=== PATIENT | female | born 1955 | race Caucasian/White ===

== ENCOUNTER → 2024-10-14 | Outpatient (CLI) | payer BC, SELFPAY ==
--- NOTE | 2024-10-14 13:05 | MRI_ITS ---
PROCEDURE: SPINE CERVICAL (ROUTINE) 10/14/2024 REASON FOR EXAM: PAIN TECHNIQUE: Multiplanar and multisequence images were obtained without IV contrast administration. Axial and sagittal T1 and T2 weighted images were obtained. Fat suppressed images were also obtained. COMPARISON: Radiograph on 09/22/2024. FINDINGS: Moderate diffuse spondylosis. Findings are demonstrated by multifocal disc dehydration, disc space narrowing, osteophyte formation and degenerative endplate changes. Multilevel facet joint arthropathy and degenerative uncovertebral joint disease. There is normal signal intensity from the visualized bone marrow without evidence of replacement or acute fracture. The visualized portions of the spinal cord are unremarkable. The visualized portions of the posterior fossa are unremarkable. There is reversal of the cervical lordosis. Evaluation of the individual levels revealed the following: C2-C3: Grade 1 retrolisthesis measuring 3.2 mm. Mild diffuse disc bulge. The spinal canal is mildly narrowed. There is mild right and moderate left neural foramina narrowing. C3-C4: Grade 1 anterolisthesis measuring 4.7 mm. Moderate diffuse disc bulge. The spinal canal is mildly narrowed. There is mild right and moderate left neural foramina narrowing. Prominent left facet joint arthropathy with surrounding degenerative reactive bone marrow edema. C4-C5: Grade 1 anterolisthesis measuring 2.7 mm with moderate diffuse disc bulge. The spinal canal is mildly narrowed. Moderate bilateral neural foraminal narrowing. C5-C6: Intervertebral disc fusion. Mild posterior osteophyte formation. The spinal canal is mildly narrowed. Mild right and moderate left neural foramina narrowing. C6-C7: Mild diffuse disc bulge. The spinal canal is mildly narrowed. Moderate bilateral neural foramina narrowing. C7-T1: Mild diffuse disc bulge. The spinal canal is mildly narrowed. Moderate bilateral neural foramina narrowing. T2-T3: Mild diffuse disc bulge. Superimposed broad-based left paracentral disc protrusion measuring 4.2 mm. The spinal canal is mildly narrowed. Minimal bilateral neural foraminal narrowing. MRI/Spine Cervical (Routine) IMPRESSION: Spondylosis. Degenerative disc disease. Reading Location: [place] [address]
== END | disposition home or self-care (01) ==
PROVIDERS: PCP Family Medicine; Referring Provider Student in an Organized Health Care Education/Training Program; Visit Provider Student in an Organized Health Care Education/Training Program
DX: M54.12 Radiculopathy, cervical region (principal); Z98.1 Arthrodesis status
CPT/HCPCS: 72141

== ENCOUNTER 2024-12-08 16:14 | Inpatient (IN) | payer BC, SELFPAY ==
--- NOTE | 2024-11-28 09:08 | EKG12_ITS ---
Test Reason : PREOP Blood Pressure : */* mmHG Vent. Rate : 69 BPM Atrial Rate : 69 BPM P-R Int : 148 ms QRS Dur : 86 ms QT Int : 422 ms P-R-T Axes : 5 -3 21 degrees QTcB Int : 452 ms Sinus rhythm Normal ECG Confirmed by Ari Thurman ([id number]), fashion editor TIFFANIE DUKES ([id number]) on 12/02/2024 11:45:56 AM Referred By: Endy Martinez Confirmed By: Ari Thurman
[2024-11-28 10:03] LABS: Hematocrit 37.0 % (37-47); Hemoglobin 12.1 g/dL (12.0-15.0); Immature Granulocytes Count 0.030 X10^3/uL (0.0-0.0); Mean Corp Hgb Conc 32.7 g/dL (32-36); Mean Corpuscular Volume 96.6 fL (81-99); Mean Platelet Vol. 9.8 fl (6.2-12.0); NRBC Flagged by Analyzer 0 % (0-5); Platelet Count 276 K/mm3 (150-450); RBC Distribution Width CV 13.0 % (11.6-14.6); RBC Distribution Width SD 46.4 fl (35.1-43.9); Red Blood Count 3.83 M/mm3 (4.2-5.4); White Blood Count 6.5 K/mm3 (4.4-11.0)
[2024-11-28 11:32] LABS: Anion Gap 12 (5-15); BUN 10 mg/dL (4-19); BUN/Creat Ratio 10.8 RATIO (10-20); Calcium,Total 9.3 mg/dL (7.6-11.0); Carbon Dioxide 25.5 mmol/L (21.0-32.0); Chloride 101 mmol/L (98-108); Glucose 91 mg/dL (70-99); HIV Nonreactive (Nonreactive); Hepatitis C Antibody Nonreactive (Nonreactive); Potassium 5.1 mmol/L (3.3-5.1)
[2024-11-28 11:56] LABS: Magnesium 2.2 mg/dL (1.5-2.2)
--- NOTE | 2024-11-28 13:41 | PAT.ANESEVAL ---
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 When Was Last Pacemaker Check QUESTION #4 FULL TEXT: You/Your Family Experience fever (hyperthermia) with Anesthesia Last Oral Intake Last Oral intake: Last Oral Intake NPO since Meds taken in AM with sips of water? Meds patient instructed to take am of surgery PONV PONV - tool and gauge inspector: PONV - tool and gauge inspector Female Yes 11/24/24 11:39 HX of Motion Sickness Yes 11/24/24 11:39 HX of N/V After Surgery No 11/24/24 11:39 Non-Smoker Yes 11/24/24 11:39 Duration of Surgery greater Yes 11/24/24 11:39 than 60 minutes Number of Risk Factors 4 11/24/24 11:39 PONV Score Severe Risk 11/24/24 11:39 Height & Weight Height & Weight: Anesthesia: Height & Weight Height 5 ft 6 in 09/22/24 13:03 Respiratory Assessment Respiratory Assessment - tool and gauge inspector: Respiratory Tract Infection Hx - tool and gauge inspector Hx Respiratory Tract Infection No 11/24/24 11:39 STOP Sleep Apnea STOP Sleep Apnea - tool and gauge inspector: STOP Sleep Apnea - tool and gauge inspector Hx Hypertension Yes: CONTROLLED ON MED 11/24/24 11:39 Hx Sleep Apnea No 11/24/24 11:39 CPAP BIPAP Do you snore loudly (louder No 11/24/24 11:39 than talking or can be heard Do you often feel tired/ No 11/24/24 11:39 fatigued/ sleepy during daytime? Has anyone observed you stop No 11/24/24 11:39 breathing during sleep? STOP Results Negative 11/24/24 11:39 QUESTION #5 FULL TEXT : Do you snore loudly (louder than talking or can be heard through closed doors)? 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 Specify any problems Hx of Preganancy in last 3 No 11/24/24 11:39 Months Nurse Filling Out Transfusion VCHRISTIN 11/24/24 11:39 & Questions: Date: 11/24/24 11/24/24 11:39 Time: 11:40 11/24/24 11:39 Patient unable to answer at this time (ie. confused, unrespo /Reproduction History /Reproductive History - tool and gauge inspector: /Reproductive Hx- tool and gauge inspector Hx Now No 11/24/24 11:39 Gestational Age (in weeks): EDC: Hx Hx Para Hx Section SAB No 11/24/24 11:39 [facility] Medical History Wears glasses History of steroid therapy Thyroid disease Arthritis Back pain Gastric reflux Non-smoker Asthma History of stress test History of irregular heartbeat Camacho esophagus Hypertension Home Medications ?Medication ?Instructions ?Recorded ?Last Taken ?Type albuterol 90 mcg-budesonide 80 2 inh inhalation Q4-6H PRN 09/22/24 Unknown History mcg/actuation HFA aerosol inhaler shortness of breath (Airsupra) amitriptyline 25 mg tablet 25 mg PO QHS 09/22/24 Unknown History atorvastatin 10 mg tablet 10 mg PO QDAY 09/22/24 Unknown History desvenlafaxine succinate 100 mg 100 mg PO QDAY 09/22/24 Unknown History tablet,extended release 24 hr esomeprazole magnesium 40 mg 40 mg PO QDAY 09/22/24 Unknown History capsule,delayed release furosemide 40 mg tablet 40 mg PO QAM 09/22/24 Unknown History levothyroxine 88 mcg tablet 88 mcg PO QDAY 09/22/24 Unknown History meloxicam 15 mg tablet 15 mg PO QDAY 09/22/24 Unknown History metoprolol tartrate 50 mg tablet 25 mg PO BID 09/22/24 Unknown History sucralfate 1 gram tablet 1 g PO QDAY 09/22/24 Unknown History tirzepatide (weight loss) 10 10 mg subcut .weekly 09/22/24 Unknown History mg/0.5 mL subcutaneous pen injector (Zepbound) Allergy/AdvReac Type Severity Reaction Status Date / Time Penicillins Allergy Rash Verified 11/28/24 10:28 Surgical History History of back surgery Hx of shoulder surgery Hx of bilateral breast reduction surgery History of dental surgery Social History Smoking Status: Never smoker Audit: Pertinent Findings Pertinent Findings EKG Perinent findings: November 28, 2024. Sinus rhythm with fusion complexes. Recommendation Anesthesia Recommendation Anesthesia recommendation: OPTIMIZED for anesthesia
[2024-12-08] VITALS (18 sets, daily range): BP systolic 106–128; BP diastolic 57–83; PULSE 68–79; RESP 16; TEMP 36–37.4; O2SAT 82–100; BMI 29.7
[2024-12-08] MEDS: Magnesium 1 GM over 15 mins IV (11:45)
[2024-12-08] MEDS: Lactated Ringers 1,000 ML 15 ML IV (11:49)
--- NOTE | 2024-12-08 12:15 | RAD_ITS ---
EXAM: XR Cervical Spine, 2 or 3 Views CLINICAL INDICATION: ANTERIOR CERVICAL FUSION C3-4, C4-5 TECHNIQUE: Frontal and lateral views of the cervical spine. COMPARISON: No relevant prior studies available. FINDINGS: VERTEBRAE: Unremarkable. No definite fracture. Normal alignment. DISC SPACES: No acute findings. No significant narrowing. SOFT TISSUES: Unremarkable. OTHER FINDINGS: Total 4 spot images were obtained. Total fluoroscopy time of 7 seconds. Total radiation dose was 0.89 mGy. RAD/Cerv Spine 2 or 3 Views IMPRESSION: Fluoroscopic guidance was used intraoperatively. Please refer to the operative note for further details. Reading Location: [facility]
--- NOTE | 2024-12-08 12:47 | PCM.PRE.AN2 ---
ASA Classification* ASA Classification ASA Classification: 2 Assessment & Plan Anesthesia* Anesthesia Assessment Anesthesia Assessment: Discussed sedation and/or anesthesia options, risks, benefits, and alternatives with patient/parents/legal guardian/POA. Questions invited. The patient/parents/legal guardian/POA seems to understand and agrees to proceed with anesthesia plan. Reviewed the physical assessment, medical history, allergy history and patient home medications list prior to surgery/procedure/anesthetic and documented any changes. Performed airway and anesthesia risk assessments. Anesthesia Type Anesthesia Type: General History Source History Obtained from:: Patient and Chart Anesthesia Focused Assessment* Temperature: 99.4 F Pulse Rate: 68 Blood Pressure: 107/57 Respiratory Rate: 16 Pulse Ox: 100 Oxygen Delivery Method: Room Air Airway Assessment Mouth opens: >3 cm Mallampati Score: I Teeth Condition: Caps/Crowns (Patient has several crowns. They are all tight.) Neck Range of motion (ROM): Full ROM Labs Anesthesia Preop lab: CBC WBC 6.5 K/mm3 (4.4-11.0) 11/28/24 09:11/28/24 RBC 3.83 M/mm3 (4.2-5.4) L 11/28/24 09:11/28/24 Hgb 12.1 g/dL (12.0-15.0) 11/28/24 09:11/28/24 Hct 37.0 % (37-47) 11/28/24 09:23 11/28/24 Plt Count 276 K/mm3 (150-450) 11/28/24 09:23 11/28/24 CHEMISTRY Potassium 5.1 mmol/L (3.3-5.1) 11/28/24 09:11/28/24 Sodium 138 mmol/L (133-145) 11/28/24 09:11/28/24 Magnesium 2.2 mg/dL (1.5-2.2) 11/28/24 09:11/28/24 BUN 10 mg/dL (4-19) 11/28/24 09:11/28/24 Creatinine 0.96 mg/dL (0.70-1.20) 11/28/24 09:11/28/24 Glucose 91 mg/dL (70-99) 11/28/24 09:11/28/24 POC Glucose 92 mg/dL (74-106) 12/08/24 11:29 12/08/24 COAG Pre-Assessment Diagnosis/Proposed Procedure Planned Operative Procedure(s): ERAS, Anterior Cervical Fusion C3-4 and C4-5, possible removal of hardware Anesthesia History 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 When Was Last Pacemaker Check QUESTION #4 FULL TEXT: You/Your Family Experience fever (hyperthermia) with Anesthesia Last Oral Intake Last Oral intake: Last Oral Intake NPO since 09:30 12/08/24 11:36 Meds taken in AM with sips of Yes 12/08/24 11:36 water? Meds patient instructed to take am of surgery Any additional information?: Yes NPO since: : (Patient took her preop Ensure at 9:30 AM.) Meds taken in AM with sips of water?: Yes PONV PONV - motor rebuilder: PONV - motor rebuilder Female Yes 11/24/24 11:39 HX of Motion Sickness Yes 11/24/24 11:39 HX of N/V After Surgery No 11/24/24 11:39 Non-Smoker Yes 11/24/24 11:39 Duration of Surgery greater Yes 11/24/24 11:39 than 60 minutes Number of Risk Factors 4 11/24/24 11:39 PONV Score Severe Risk 11/24/24 11:39 Height & Weight Height & Weight: Anesthesia: Height & Weight Height 5 ft 3 in 12/08/24 11:36 Weight: 76 kg 12/08/24 11:36 Body Mass Index (BMI) 29.7 12/08/24 11:36 Respiratory Assessment Respiratory Assessment - motor rebuilder: Respiratory Tract Infection Hx - motor rebuilder Hx Respiratory Tract Infection No 11/24/24 11:39 STOP Sleep Apnea STOP Sleep Apnea - motor rebuilder: STOP Sleep Apnea - motor rebuilder Hx Hypertension Yes: CONTROLLED ON MED 11/24/24 11:39 Hx Sleep Apnea No 11/24/24 11:39 CPAP BIPAP Do you snore loudly (louder No 11/24/24 11:39 than talking or can be heard Do you often feel tired/ No 11/24/24 11:39 fatigued/ sleepy during daytime? Has anyone observed you stop No 11/24/24 11:39 breathing during sleep? STOP Results Negative 11/24/24 11:39 QUESTION #5 FULL TEXT : Do you snore loudly (louder than talking or can be heard through closed doors)? 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 Specify any problems Hx of Preganancy in last 3 No 11/24/24 11:39 Months Nurse Filling Out Transfusion VCHRISTIN 11/24/24 11:39 & Questions: Date: 11/24/24 11/24/24 11:39 Time: 11:40 11/24/24 11:39 Patient unable to answer at this time (ie. confused, unrespo /Reproduction History /Reproductive History - motor rebuilder: /Reproductive Hx- motor rebuilder Hx Now No 11/24/24 11:39 Gestational Age (in weeks): EDC: Hx Hx Para Hx Section SAB No 11/24/24 11:39 Active Medications Active Medications: Current Medications Generic Name Dose Route Start Last Admin Trade Name Freq PRN Reason Stop Dose Admin Acetaminophen 1,000 mg 12/08/24 13:15 12/08/24 11:45 Acetaminophen 500 Mg Tablet PO 12/08/24 13:16 1,000 mg PREOP ONE Administration Dexamethasone Sodium Phosphate 8 mg 12/08/24 13:15 Dexamethasone 10 Mg/Ml Vial IV 12/08/24 13:16 INTRAOP ONE Dexamethasone Sodium Phosphate 4 mg 12/08/24 13:15 Dexamethasone 4 Mg/Ml Vial IV 12/08/24 13:16 POSTOP ONE Clindamycin Phosphate 900 mg in 50 mls @ 75 mls/hr 12/08/24 13:15 Cleocin IV 12/08/24 13:54 INTRAOP ONE Tranexamic Acid 1,000 mg/ 110 mls @ 440 mls/hr 12/08/24 13:15 Sodium Chloride IV 12/08/24 13:29 INTRAOP ONE Tranexamic Acid 1,000 mg/ 110 mls @ 440 mls/hr 12/08/24 13:15 Sodium Chloride IV 12/08/24 13:29 INTRAOP ONE Magnesium Sulfate 1 gm/ 102 mls @ 408 mls/hr 12/08/24 13:15 12/08/24 11:45 Dextrose IV 12/08/24 13:29 408 mls/hr INTRAOP ONE Administration Lactated Ringer's 1,000 mls @ 15 mls/hr 12/08/24 12:00 12/08/24 11:49 IV 15 mls/hr .Q48H CED Administration Insulin Human Lispro 1 - 6 unit 12/08/24 13:15 Insulin Lispro 100 Unit/Ml Insuln.Pen SC 12/08/24 18:00 Q4H PRN PRN BG>/= 180, SEE PROTOCOL Protocol PFSH Medical History Wears glasses History of steroid therapy Thyroid disease Arthritis Back pain Gastric reflux Non-smoker Asthma History of stress test History of irregular heartbeat Camacho esophagus Hypertension Home Medications ?Medication ?Instructions ?Recorded ?Last Taken ?Type albuterol 90 mcg-budesonide 80 2 inh inhalation Q4-6H PRN 09/22/24 Unknown History mcg/actuation HFA aerosol inhaler shortness of breath (Airsupra) amitriptyline 25 mg tablet 25 mg PO QHS 09/22/24 12/07/24 History atorvastatin 10 mg tablet 10 mg PO QDAY 09/22/24 12/07/24 History desvenlafaxine succinate 100 mg 100 mg PO QDAY 09/22/24 12/07/24 History tablet,extended release 24 hr esomeprazole magnesium 40 mg 40 mg PO QDAY 09/22/24 12/07/24 History capsule,delayed release furosemide 40 mg tablet 40 mg PO QAM 09/22/24 12/07/24 History levothyroxine 88 mcg tablet 88 mcg PO QDAY 09/22/24 12/07/24 History meloxicam 15 mg tablet 15 mg PO QDAY 09/22/24 12/07/24 History metoprolol tartrate 50 mg tablet 25 mg PO BID 09/22/24 12/08/24 09:30 History sucralfate 1 gram tablet 1 g PO QDAY 09/22/24 12/08/24 History tirzepatide (weight loss) 10 10 mg subcut .weekly 09/22/24 11/30/24 History mg/0.5 mL subcutaneous pen injector (Zepbound) Allergy/AdvReac Type Severity Reaction Status Date / Time Penicillins Allergy Rash Verified 12/08/24 11:23 Surgical History History of back surgery Hx of shoulder surgery Hx of bilateral breast reduction surgery History of dental surgery Social History (System 12/03/24 @ 07:54 by Kristal Rodriges) Smoking Status: Never smoker Review of Systems (Anesthesia) ROS Narrative System reviewed and no additional complaints, except as documented. Physical Exam Resp clear to auscultation bilaterally
--- NOTE | 2024-12-08 12:51 | HP.PCM_ITS ---
History and Physical Date of Admission: 12/08/24 MR#: [id number] Acct: [id number] Name: DANA CARLSON Rep #: [id number] : 1955 Provider: Dr. Endy Martinez MD Age/Sex: 69/F Location: [facility] [place] Status: Signed Intake Vital Signs 09/22/2512:03 11/28/2509:20 Height 5 ft 6 in 5 ft 6 in Weight: 176 lb 8 oz 166 lb BMI 28.5 26.8 Intake Visit Reasons: cervical spine Chief Complaint: Pre OP Accompanied by: Is patient in pain?: No Allergies Penicillins Allergy (Verified 11/28/24 10:28) Rash Medications ?Medication ?Instructions ?Recorded ?Confirmed ?Type albuterol 90 mcg-budesonide 80 2 inh inhalation Q4-6H PRN 09/22/2411/10 History mcg/actuation HFA aerosol inhaler shortness of breath (Airsupra) amitriptyline 25 mg tablet 25 mg PO QHS 09/22/24 11/28/24 History atorvastatin 10 mg tablet 10 mg PO QDAY 09/22/24 11/28/24 History desvenlafaxine succinate 100 mg 100 mg PO QDAY 09/22/24 11/28/24 History tablet,extended release 24 hr esomeprazole magnesium 40 mg 40 mg PO QDAY 09/22/24 11/28/24 History capsule,delayed release furosemide 40 mg tablet 40 mg PO QAM 09/22/24 11/28/24 History levothyroxine 88 mcg tablet 88 mcg PO QDAY 09/22/24 11/28/24 History meloxicam 15 mg tablet 15 mg PO QDAY 09/22/24 11/28/24 History metoprolol tartrate 50 mg tablet 25 mg PO BID 09/22/24 11/28/24 History sucralfate 1 gram tablet 1 g PO QDAY 09/22/24 11/28/24 History tirzepatide (weight loss) 10 10 mg subcut .weekly 09/22/24 11/28/24 H istory mg/0.5 mL subcutaneous pen injector (Zepbound) Have you fallen in the past year?: No [facility] Medical History Wears glasses History of steroid therapy Thyroid disease Arthritis Back pain Gastric reflux Non-smoker Asthma History of stress test History of irregular heartbeat Camacho esophagus Hypertension Surgical History History of back surgery Hx of shoulder surgery Hx of bilateral breast reduction surgery History of dental surgery Social History Smoking Status: Never smoker HPI cervical spine Details: This documentation accurately reflects the service provided and the decisions made by me, Dr. Endy Martinez MD 11/28/24 0819. Part of today?s visit was documented by Marli Orellana MA, acting as scribe. DANA FERMIN is a 69 year old F here today for pre op visit. She is scheduled for cervical C3-C4 C4-C5 cervical fusion on 12-08-24. Patient stated that she would like to go over the MRI with Dr. Martinez today. The patient is a 69-year-old female presenting with cervical spinal cord compression and associated symptoms. She had a previous neck surgery in November 2022, which improved her arm strength significantly. However, she started experiencing new symptoms approximately four months ago, including lightheadedness and balance issues. The patient also has a history of shoulder surgery in March 2023 for a rotator cuff tear and osteoarthritis, which involved repair and debridement. Post- surgery, she reports no significant shoulder issues currently. She has experienced vertebral fractures in the mid-back, with no specific intervention performed, and reports that the pain has subsided over time. The fractures were possibly due to falls caused by her dogs knocking her down the stairs. - Neurological: Reports lightheadedness and balance issues. Denies dexterity problems or dropping objects. - Musculoskeletal: Reports previous shoulder weakness, now resolved. Denies current shoulder pain. - General: Denies recent injuries or falls. Attestation: Documentation on this patient encounter was supported using ambient scribe technology/ voice AI technology. The patient consented to recording for the purpose of documenting the encounter. Provider reviewed content of the generated note prior to signature. Ortho Exam General General: Yes no acute distress Neurologic: Yes alert and Yes oriented x3 Psychologic: Yes reasonable and appropriate Spine SPINE TESTING CERVICAL THORACIC LUMBAR Musculoskeletal Strength 0=absent - 5=normal Details: Neurological exam of the upper extremities shows 5x5 power. Normal sensations across all dermatomes. No hyperreflexia. Lukasz's negative. No midline and m ild left paraspinal tenderness. Physical examination of the neck shows a left- sided well-healed incision. Exam Narrative - Neurological: Positive Sheehan reflex bilaterally, indicating spinal cord compression. - Musculoskeletal: Strength testing of upper extremities was performed, including retrieval specialist strength and elbow flexion/extension. Coding Level of Care Code Off vis,est,level 4 Diagnoses Cervical radiculopathy M54.12 History of fusion of cervical spine Z98.1 Time Spent (min) 35 Assessment and Plan Assessment and Plan (1) Cervical radiculopathy: Status: Acute (2) History of fusion of cervical spine: Status: Acute Plan Again reviewed prior x-rays show straightening of the normal cervical lordosis, prior C5-6 fusion with hardware in good position, mild degenerative changes noticed at C6-7. No instability seen on dynamic views. Reviewed cervical MRI from September 2022 before the fusion surgery which showed a C4-5 and C5-6 disc bulge resulting in mild stenosis. Reviewed cervical MRI from October 14, 2024 which shows C3-4 anterolisthesis with a moderate diffuse disc bulge producing mild spinal stenosis and moderate left neural foraminal stenosis, C4-5 anterolisthesis with a moderate diffuse disc bulge resulting in mild spinal stenosis and moderate bilateral neuroforaminal stenosis. C5-6 shows well- healing fusion. Also reviewed prior lumbar MRI from July 2024 which showed a prior fracture at L5 and L3 which are chronic according to the STIR sag view, a prior T11 fracture which appears to be acute/subacute. - MRI: Shows spinal cord compression at C4-5 and C3-4 levels. 1. Cervical spinal cord compression - The patient exhibits symptoms consistent with spinal cord compression, including lightheadedness and balance issues. - MRI confirms compression at C4-5 and C3-4 levels. - Surgical intervention is recommended to alleviate pressure and prevent progression of symptoms. 2. Rotator cuff tear - The patient underwent successful surgical repair and debridement for a rotator cuff tear and osteoarthritis. - No further intervention is required at this time as the patient reports no current shoulder issues. 3. Vertebral fractures - The patient has a history of vertebral fractures in the mid-back, likely due to falls. - Pain has subsided, and no further intervention is planned unless new symptoms arise. Patient is scheduled for C3-5 ACDF with possible removal of previous C5-6 hardware. Discussed this procedure in detail and explained the risks, benefits and alternatives. The risks of surgery include but are not limited to infection, bleeding, injury to nerves and vessels, hematoma formation, dysphagia, dysphonia, recurrent laryngeal nerve injury, Elijah syndrome, DVT, pulmonary embolism, pneumonia, atelectasis, cardiopulmonary event, pseudoarthrosis, hardware failure, adjacent segment degeneration, need for further surgery, nerve root injury, spinal cord injury. Answered all questions to the patient?s satisfaction. Patient understands and agrees to proceed with surgery. Consent was signed.
[2024-12-08] MEDS: Clindamycin 900 MG/50 ML BAG 75 MG IV ×2 (13:33→21:24)
[2024-12-08] MEDS: TRANEXAMIC ACID 1,000 MG in 0.9% Normal Saline (100mL Bag) 100 ML 440 MG IV ×2 (13:47→15:30)
--- NOTE | 2024-12-08 16:16 | OP.PCM_ITS ---
Procedures Musculoskeletal 20xxx-29xxx: Other Procedure See Report Operative Report (Standard) Operative Information Date of Procedure: 12/08/24 Pre-Operative Diagnosis: C3 5 disc degeneration with stenosis, myelopathy, prior C5-6 ACDF Post-Operative Diagnosis: Same Surgery/Procedure Performed: C3-5 ACDF, removal of previous hardware third mate: Yes Ict Support Engineer: Manjula Russell Tasks completed by assistant business manager: Closing, Removing tissue, Implanting device, Hemostasis: Electrocautery and Retracting Type of Anesthesia: General RN Documented Start/Stop Times: Operation Date: 12/08/24 13:15 Case Time Into Pre-Op 12/08/24 11:01 Out of Pre-Op 12/08/24 13:26 Anesthesia Start 12/08/24 13:33 Into Room 12/08/24 13:33 Procedure Start 12/08/24 14:03 Procedure Start Time: 14:03 Procedure Stop Time: 16:10 Select all DRAINS/GRAFTS/IMPLANTS that apply: Drains Drain details: Osmany , Graft Graft details: Structural allograft corticocancellous strut and Implanted device Implanted device details: Medtronic Stidham Elite plate instrumentation Estimated Blood Loss: 40 cc Specimen collected: No Description of surgery: Preoperative diagnosis: C3-5 disc degeneration with stenosis, myelopathy, prior C5-6 ACDF Postoperative diagnosis: Same Name of procedure: C3-5 anterior cervical discectomy and fusion with plate instrumentation, removal of previous hardware - Anterior cervical fusion C3-4, CPT code 06933 - Anterior plate instrumentation C3-5, CPT code 75190/59 - Anterior cervical fusion C4-5, CPT code 03216/51 - Removal of anterior spinal hardware, CPT code 25946 -Expiration of previous fusion at C5-6, CPT code 67438 -C3-4 structural allograft bone with DBX, CPT code 43773 - C4-5 structural allograft bone with DBX, CPT code 43228 Attending surgeon: Endy Martinez M.D. Anesthesia: Gen. endotracheal Estimated blood loss: 40 mL Complications: None Instrumentation used: Medtronic Stidham Elite plate, LASR corticocancellous block Indications: The patient is a pleasant 69-year-old lady who presented with neck pain, progressive difficulty with balance. 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 In order to halt the progression of myelopathy, the patient requested surgical treatment. All risks and benefits of the procedure were explained to the patient. The risks include but are not limited to infection, bleeding, injury to nerves and vessels, vertebral artery injury, spinal cord injury, paralysis, vocal cord paralysis, injury to esophagus, pseudoarthrosis, need for further procedures, adjacent segment degeneration. Procedure: The patient was identified in the preoperative suite using unique patient identifiers. Skin was marked consent was taken and all questions were answered. The patient was then brought back to the operative room and a timeout was performed. General endotracheal anesthesia was given. Intraoperative neuro monitoring leads were applied. The patient was carefully positioned supine on a regular OR table. A lateral view with a C-arm was done to identify the level and to define the incision. The anterior neck was then prepped and draped in the usual fashion. A final timeout was then performed. A transverse skin incision was taken to the right of midline. Previous surgical scar was towards the left and ENT consult preoperatively confirmed good mobility on both vocal cords. Subcutaneous tissue was then divided with Bovie. Platysma was identified and cut along the incision with scissors. The fascial interval between the sternocleidomastoid and the larynx was developed. Omohyoid was identified and retracted. The esophagus with the larynx was retracted medially to reach the prevertebral fascia. Significant scarring was noticed in the prevertebral space. Previous C5-6 plate was exposed with the help of Bovie. Longus coli muscle was elevated on both sides at and above and below C3-5 discs. Self-retaining retractors were then placed. Previous C5-6 plate and screws were removed using appropriate removal instruments. C5-6 anterior fusion was explored and found to be adequate. A long handle knife was then used to perform annulotomy at C4-5. Disc fragments were removed with the pituitary. [place] pins were placed in C4 and C5 for disc distraction. Curettes and bur was utilized to remove cartilage from the endplates. Discectomy was performed laterally up to the uncovertebral joints. Posterior osteophytes were thinned down with the bur and adequate decompression in the central and foraminal areas were performed and PLL was thinned out. Once the disc space was prepared, trials of various sizes were utilized. Thorough irrigation was given. 5 mm LASR cortical cancellous allograft bone large footprint was then fashioned in such a way that concavities were burred out inferiorly and superiorly and half cc of DBX (demineralized bone matrix) was squeezed into the cancellous portion. The graft was then inserted into the C4-5 disc space. The retractors were then repositioned and the procedure was repeated for C3-4 discs with complete discectomy. During the C3-4 discectomy, the C4 [place] pin cut through the vertebral body due to severe osteoporosis and was removed. Discectomy decompression was completed with the help of intradiscal distractor. Graft size was 6 mm at with large footprint at C3-4. The grafts were found to be in good apposition with good pullout strength. A 40 mm Medtronic Stidham Elite plate was then fixed to C3-5 with 16 mm screws. A lateral x-ray was then taken to check the length of the screws. Both AP and lateral x-rays showed good positioning of plate and screws. The locking mech anism over the screw heads was then turned. Thorough irrigation was again given. Hemostasis was achieved with the help of Floseal and bipolar. A Osmany drain was then inserted. Closure was done with 3-0 Vicryl for the platysma and subcutaneous tissue layers and 4-0 Monocryl for the skin. Closure was done around the drain. Steri-Strips were applied and dressing was done with 4 x 4 gauze and Tegaderm. A cervical collar was then applied. The patient was then woken up from anesthesia extubated and taken to PACU in stable condition. From here, the patient will be transitioned to the floor. Intraoperative neuro monitoring was performed throughout this procedure. Motor evoked potentials were run periodically. All potentials remained at baseline throughout the procedure. I was present for the entire surgery and performed the surgery myself. Proteomics Scientist Manjula Russell PA-C. My physician field technical assistant was a vital part of this case. They were important in appropriate retraction during the case, and protection of soft tissues during the procedure. Their intimate knowledge of the case and my steps aided in safe and expedient completion of the procedure as well as appropriate position of the patient during the surgery. They were also vital in assisting with closure under my direct supervision. Surgical Findings: See operative note Complications Complications: No
--- NOTE | 2024-12-08 16:32 | PCM.POST.ANE ---
Anesthesia: Postop Eval I Current Vital Signs Temperature: 98.2 F Pulse Rate: 71 Blood Pressure: 106/70 Respiratory Rate: 16 Pulse Ox: 95 Oxygen Delivery Method: Nasal Cannula Oxygen Flow Rate (L/min): 8 Assessment Airway patent: Yes Spontaneous unlabored respirations: Yes Mental status: Awake nausea: No Vomiting: No Anesthesia Complication: No Fluid Hydration Crystalloid volume administer (ml): 1,400 Total IV fluid infused: 1,400 Progress Note Post-operative progress note: patient strong moves all extremities, smiles equal, no tongue deviation, raises eyebrows, and following commands Anesthesia document: Postop Eval 1 completed: Yes
--- NOTE | 2024-12-08 16:48 | POSTOPAN2_ITS ---
Anesthesia Postop Eval I Sum Postop Eval Completion status Anesthesia document: Postop Eval 1 completed: Yes Anesthesia Postop Eval I Summary Anesthesia Postop Eval I Summary: Anesthesia Postop Eval I: Assessment Summary Airway patent Yes 12/08/24 16:34 TRACING LATHE SET UP [email or web address].[email or web address] Spontaneous unlabored Yes 12/08/24 16:34 TRACING LATHE SET UP OPERATOR.[email or web address] respirations Mental status Awake 12/08/24 16:34 TRACING LATHE SET UP OPERATOR.[email or web address] nausea No 12/08/24 16:34 TRACING LATHE SET UP OPERATOR.[email or web address] Vomiting No 12/08/24 16:34 TRACING LATHE SET UP OPERATOR.[email or web address] Anesthesia Postop Eval I: Fluid Summary Crystalloid volume administer 1,400 12/08/24 16:34 TRACING LATHE SET UP OPERATOR.LMIL (ml) Colloids volume administered ( ml) Blood Product volume administered (ml) Total IV fluid infused 1,400 12/08/24 16:34 TRACING LATHE SET UP OPERATOR.[email or web address] Anesthesia Postop Eval I: Summary Notes Anesthesia Complication No 12/08/24 16:34 TRACING LATHE SET UP OPERATOR.[email or web address] Anesthesia Complication Comment: Post-operative progress note patient strong 12/08/24 16:34 TRACING LATHE SET UP OPERATOR.LMIL moves all extremities, smiles equal, no tongue deviation, raises eyebrows, and following commands Anesthesia: Postop Eval II Evaluation Mental status: Awake Pain Level: 3 nausea: No Vomiting: No
--- NOTE | 2024-12-08 16:48 | PCM.POSTANE2 ---
Anesthesia Postop Eval I Sum Postop Eval Completion status Anesthesia document: Postop Eval 1 completed: Yes Anesthesia Postop Eval I Summary Anesthesia Postop Eval I Summary: Anesthesia Postop Eval I: Assessment Summary Airway patent Yes 12/08/24 16:34 AERONAUTICAL ENGINEERING PROFESSOR.[email or web address] Spontaneous unlabored Yes 12/08/24 16:34 AERONAUTICAL ENGINEERING PROFESSOR.[email or web address] respirations Mental status Awake 12/08/24 16:34 AERONAUTICAL ENGINEERING PROFESSOR.[email or web address] nausea No 12/08/24 16:34 AERONAUTICAL ENGINEERING PROFESSOR.[email or web address] Vomiting No 12/08/24 16:34 AERONAUTICAL ENGINEERING PROFESSOR.[email or web address] Anesthesia Postop Eval I: Fluid Summary Crystalloid volume administer 1,400 12/08/24 16:34 AERONAUTICAL ENGINEERING PROFESSOR.[email or web address] (ml) Colloids volume administered ( ml) Blood Product volume administered (ml) Total IV fluid infused 1,400 12/08/24 16:34 AERONAUTICAL ENGINEERING [email or web address].[email or web address] Anesthesia Postop Eval I: Summary Notes Anesthesia Complication No 12/08/24 16:34 AERONAUTICAL ENGINEERING PROFESSOR.[email or web address] Anesthesia Complication Comment: Post-operative progress note patient strong 12/08/24 16:34 AERONAUTICAL ENGINEERING PROFESSOR.LMIL moves all extremities, smiles equal, no tongue deviation, raises eyebrows, and following commands Anesthesia: Postop Eval II Evaluation Mental status: Awake Pain Level: 3 nausea: No Vomiting: No
--- NOTE | 2024-12-08 18:12 | PCM.CONS.GEN ---
Assessment & Plan Assessment/Plan (1) Cervical radiculopathy: PLAN: Plan Patient is a 69-year-old female who presented to [facility] on 12/08/2024 for planned cervical spine fusion procedure. Medicine consulted postoperatively for medical management. 1. 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 Orthopedic surgery primary. S/p C3-5 ACDF procedure with removal of previous hardware with Dr. Martinez on 12/08. Tolerated procedure well, no intraoperative complications noted. Pain control, DVT prophylaxis and further postoperative care per orthopedics. 2. Hypertension ? Normotensive postoperatively. Continue home Lopressor and Lasix. 3. GERD ? Stable. Continue home PPI and sucralfate. 4. Hypothyroidism ? Continue home Synthroid. 5. Anxiety/depression ? Continue home desvenlafaxine and amitriptyline at night. 6. Asthma ? Stable on room air, not in acute exacerbation. Continue home short acting inhaler as needed. 7. Hyperlipidemia ? Continue home statin. 8. Overweight ? BMI 29 on admit. Is on Mounjaro for weight loss; notably has no history of diabetes. Hold Mounjaro while here, okay to resume on discharge. DVT prophylaxis: Per orthopedics Total clinical time spent by myself addressing the patient's medical issues, reviewing all the data, and collaborating with patient's care team: 35 minutes. HPI Consult Data Date of Consult: 12/08/24 HPI Narrative Reason for Consultation: Postoperative medical management HPI Narrative: DANA FERMIN, is a 69 F who presented to [facility] on 12/08/2024 for planned cervical spine procedure. Medicine consulted postoperatively for medical management. Patient had C3-5 fusion with removal of previous hardware done with Dr. Martinez today. Tolerated procedure well, no intraoperative complications noted. I saw the patient at bedside later this evening, present. Patient was fatigued appearing and mildly uncomfortable appearing due to neck discomfort. Her voice was hoarse likely due to intubation for the procedure and she was only answering questions with short responses. She reported mild neck pain currently. Denied any radiculopathy. Denied any other symptoms currently. [facility] Medical History Wears glasses History of steroid therapy Thyroid disease Arthritis Back pain Gastric reflux Non-smoker Asthma History of stress test History of irregular heartbeat [place] esophagus Hypertension Home Medications ?Medication ?Instructions ?Recorded ?Last Taken ?Type albuterol 90 mcg-budesonide 80 2 inh inhalation Q4-6H PRN 09/22/24 Unknown History mcg/actuation HFA aerosol inhaler shortness of breath (Airsupra) amitriptyline 25 mg tablet 25 mg PO QHS 09/22/24 12/07/24 History atorvastatin 10 mg tablet 10 mg PO QDAY 09/22/24 12/07/24 History desvenlafaxine succinate 100 mg 100 mg PO QDAY 09/22/24 12/07/24 History tablet,extended release 24 hr esomeprazole magnesium 40 mg 40 mg PO QDAY 09/22/24 12/07/24 History capsule,delayed release furosemide 40 mg tablet 40 mg PO QAM 09/22/24 12/07/24 History levothyroxine 88 mcg tablet 88 mcg PO QDAY 09/22/24 12/07/24 History meloxicam 15 mg tablet 15 mg PO QDAY 09/22/24 12/07/24 History metoprolol tartrate 50 mg tablet 25 mg PO BID 09/22/24 12/08/24 09:30 History sucralfate 1 gram tablet 1 g PO QDAY 09/22/24 12/08/24 History tirzepatide (weight loss) 10 10 mg subcut .weekly 09/22/24 11/30/24 History mg/0.5 mL subcutaneous pen injector (Zepbound) Allergy/AdvReac Type Severity Reaction Status Date / Time Penicillins Allergy Rash Verified 12/08/24 11:23 Surgical History History of back surgery Hx of shoulder surgery Hx of bilateral breast reduction surgery History of dental surgery Social History (System 12/03/24 @ 07:54 by Kristal Rodriges) Smoking Status: Never smoker ROS Constitutional Constitutional: Reports fatigue; Denies chills, fever(s) or weakness Eyes Eyes: Denies change in vision Cardiovascular Cardiovascular: Denies chest pain Respiratory/Chest Respiratory/Chest: Denies shortness of breath at rest Gastrointestinal Gastrointestinal: Denies abdominal pain Musculoskeletal Musculoskeletal: Reports neck pain; Denies myalgias Neurologic Neurologic: Denies dizziness, focal weakness, headache(s), numbness, paresthesias or tingling Physical Exam Const alert, oriented x3, no apparent distress and average body habitus Constitutional Narrative: Elderly female, fatigued and mildly uncomfortable appearing due to neck discomfort, hoarse voice noted but otherwise sitting up in bed, answering questions with short appropriate responses and in no acute distress. General Appearance: cooperative and comfortable HEENT normocephalic, head/scalp atraumatic, hearing grossly normal bilaterally, nasal mucous membranes and turbinates normal and moist oral mucous membranes Eyes PERRL, EOMs intact bilaterally and conjunctivae normal Neck Neck Narrative: Neck brace in place. Chest inspection of chest normal Resp normal respiratory effort, normal air movement, no use of accessory muscles and clear to auscultation bilaterally Cardio regular rate, regular rhythm, no murmurs and peripheral pulses 2+ throughout GI normal to inspection, nondistended, normoactive bowel sounds, soft to palpation, non-tender and non-distended Back/Spine normal ROM Extremity normal to inspection, full ROM and no pedal edema Skin no rashes or lesions noted Neuro moves all extremities and no focal motor deficits Psych mental status grossly normal Lab / Micro Data 11/28/24 09:23 11/28/24 09:23 Labs: Laboratory Results - last 24 hr 12/08/24 11:29: POC Glucose 92 Charges/Coding Visit Charges Inpatient E&M: 63156 Subs Hosp L2
[2024-12-08] MEDS: Senna/Docusate Sodium 1 Tablet 2 TABLET PO (21:28)
[2024-12-09] VITALS (7 sets, daily range): BP systolic 109–119; BP diastolic 60–73; PULSE 80–95; RESP 16–18; TEMP 36.6–37.1; O2SAT 94–98; BMI 29.7
[2024-12-09] MEDS: Clindamycin 900 MG/50 ML BAG 75 MG IV (05:00)
--- NOTE | 2024-12-09 05:30 | RAD_ITS ---
PROCEDURE: CERV SPINE 2 OR 3 VIEWS 12/09/2024 REASON FOR EXAM: S/P CERVICAL FUSION TECHNIQUE: CERV SPINE 2 OR 3 VIEWS COMPARISON: 10/14/2024 FINDINGS: Status post anterior fusion, C3 through C6. Intact hardware. Anatomic alignment. Diffuse facet arthritis. Disc degeneration C6-C7. Cervicothoracic scoliosis. Postoperative soft tissue air. No acute bone or lung apical pathology. RAD/Cerv Spine 2 or 3 Views IMPRESSION: Unremarkable postoperative appearance status post ACDF. Disclaimer: Reading [facility]
[2024-12-09 07:19] LABS: Hematocrit 31.3 % (37-47); Hemoglobin 10.4 g/dL (12.0-15.0); Immature Granulocytes Count 0.060 X10^3/uL (0.0-0.0); Mean Corp Hgb Conc 33.2 g/dL (32-36); Mean Corpuscular Volume 95.4 fL (81-99); Mean Platelet Vol. 9.3 fl (6.2-12.0); NRBC Flagged by Analyzer 0 % (0-5); Platelet Count 226 K/mm3 (150-450); RBC Distribution Width CV 12.6 % (11.6-14.6); RBC Distribution Width SD 43.9 fl (35.1-43.9); Red Blood Count 3.28 M/mm3 (4.2-5.4); White Blood Count 8.8 K/mm3 (4.4-11.0)
[2024-12-09 07:54] LABS: Anion Gap 14 (5-15); BUN 9 mg/dL (4-19); BUN/Creat Ratio 10.6 RATIO (10-20); Calcium,Total 8.9 mg/dL (7.6-11.0); Carbon Dioxide 21.0 mmol/L (21.0-32.0); Chloride 99 mmol/L (98-108); Estimated Creatinine Clearance 58.25 ml/min (50-250); Glucose 191 mg/dL (70-99); Potassium 3.5 mmol/L (3.3-5.1)
--- NOTE | 2024-12-09 08:09 | PCM.HOSP.N ---
Hospitalist Note Mrs. Silva is a 69-year-old female who had severe C3-C5 disc degeneration with stenosis and myelopathy and prior C5-C6 disc fusion who is status post ACDF at C3-C5 with removal of previous hardware. Patient did well postoperatively and continues to do well. Her vital signs are stable. Her labs look good. Patient is feeling well and not having any pain. She has been able to walk the hallways without any difficulty. Medically speaking she is cleared for discharge and I will sign off. This was discussed with Dr. Martinez.
[2024-12-09] MEDS: Senna/Docusate Sodium 1 Tablet 2 TABLET PO (08:10)
--- NOTE | 2024-12-09 10:47 | CASEMGMT ---
MARIO SMITH Assessment Face to Face with patient for initial transition planning/care coordination assessment. MARIO SMITH introduced self and role at [facility], pt voices understanding. Pt is A&Ox4 and is resting comfortably in bed and is calm. Pt's at bedside. Care providers, pharmacy, and demographics verified. Admitting dx: Cervical Fusion LACE Strata: 1 PCP: Horacio Cloud Specialists: Juan (Ortho) Preferred Pharmacy: [facility] Insurance: ANTHEM Prescription Benefit: Yes LNOK: Diaz (H) Living Arrangements: Pt lives with her in a 2 story home with a basement and 2 steps to enter ADLs/IADLs: Indep Transportation: Self, DME: [employer]. FWW. Denies needs HHC/SNF: Denies hx of. Pt has been to [facility] in [place] for OP PT Pt?s goal: home Plan: Home with pt and to follow up with Dr Martinez x2 weeks. Pt was cleared by PT. Pt states that she was able to do the stairs well and denies any DC needs. Pt states that she feels safe returning home with her once medically ready and denies further concerns now. Report given to MS3 MARIO SMITH. Damaris Manzanares RN, CM
[2024-12-09] MEDS: 0.9% Saline Lock 10 ML Syringe IV (11:35)
--- NOTE | 2024-12-09 12:24 | PN.ORTHO_ITS ---
Subjective Subjective Postop day 1 C3-5 fusion with prior hardware removal. Patient is doing very well postoperatively with minimal pain. Patient's voice was hoarse today. She denies any significant dysphagia. No dressing changes. Patient was sitting upright in the recliner upon entry. Patient cervical collar was applied and in good position. Patient has walked with PT/OT who has cleared her for home discharge. Seen with Dr. Martinez. Objective Data Objective Data Vital Signs: Vital Signs Temp Pulse Resp BP Pulse Ox O2 Del Method O2 Flow Rate 98.7 F 94 18 119/73 97 Room Air 2 12/09/24 10:12/09/24 10:12/09/24 10:12/09/24 10:12/09/24 10:12/09/24 10:12/09/24 02:03 Oxygen Flow Rate (L/min) 2 Oxygen Delivery Method Room Air Weight: 167 lb 8.821 oz Body Mass Index (BMI) 29.7 Intake & Output: Intake and Output for Last 24 Hours 12/07/24 12/08/24 12/09/24 23:59 23:59 23:59 Intake Total 1100 / 1100 341.5 / 341.5 Output Total 40 / 40 Balance 1060 / 1060 341.5 / 341.5 Lab / Micro Data 12/09/24 06:59 12/09/24 06:59 Labs: Laboratory Results - last 24 hr 12/09/24 06:59: WBC 8.8, RBC 3.28 L, Hgb 10.4 L, Hct 31.3 L, MCV 95.4, MCH 31.7, MCHC 33.2, RDW Std Deviation 43.9, RDW Coeff of Hitesh 12.6, Plt Count 226, MPV 9.3, Immature Gran % (Auto) 0.700, Neut % (Auto) 88.8 H, Lymph % (Auto) 9.4 L, [place] % (Auto) 1.0, Eos % (Auto) 0.0, Baso % (Auto) 0.1, Absolute Neuts (auto) 7.8 H, Absolute Lymphs (auto) 0.82 L, Nucleated RBC % 0, Sodium 134, Potassium 3.5, Chloride 99, Carbon Dioxide 21.0, Anion Gap 14, BUN 9, Creatinine 0.87, Estim Creat Clear Calc 58.25, Est GFR (MDRD) Non-Af 72, BUN/Creatinine Ratio 10.6, Glucose 191 H, Calcium 8.9 Micro: Microbiology 11/28/24 09:23 Swab (Method) Nasal Screen MRSA/MSSA - Final Radiography Diagnostic Testing: Radiology Impression Cervical Spine X-Ray 12/09/24 05:30 IMPRESSION: Unremarkable postoperative appearance status post ACDF. Disclaimer: Reading Location: [place] [id number] Physical Exam Narrative Neurological examination of the upper extremity shows 5X5 power. Normal sensation across all dermatomes. Surgical dressing and drain removed. Applied fresh gauze and Tegaderm over incision. Adjusted cervical collar to fit the patient. Const alert, oriented x3 and no apparent distress Assessment & Plan Assessment/Plan (1) Status post cervical spinal fusion: PLAN: Plan Postop day 1 C3-5 fusion. Obtained reviewed x-rays today which show hardware and bone graft in good position. PT/OT cleared. Patient ready for home discharge. Home-going meds include hydrocodone?acetaminophen, meloxicam, methocarbamol, senna. OARRS reviewed. Reviewed and educated on proper wear and adjustment of the cervical collar. Reviewed and educated on the use of the incentive spirometer. Reviewed restrictions and no bending, lifting, twisting. She will follow-up in the clinic in 2 weeks. Patient is in agreement.
== END 2024-12-09 13:20 | disposition home or self-care (01) | DRG 473 ==
LOC: MS3 12-09 07:03 → SDC 12-09 10:19 → MS3 12-09 10:19
PROVIDERS: Anesthesiology; Student in an Organized Health Care Education/Training Program; Admitting Provider Orthopaedic Surgery Orthopaedic Surgery of the Spine; PCP Family Medicine; Referring Provider Orthopaedic Surgery Orthopaedic Surgery of the Spine; Visit Provider Orthopaedic Surgery Orthopaedic Surgery of the Spine
PROC: 0RG20A0 Fusion of 2 or more Cervical Vertebral Joints with Interbody Fusion Device, Anterior Approach, Anterior Column, Open Approach (ICD-10-PCS; CPT 22551; principal; 2024-12-08 12:45)
DX: M50.01 Cervical disc disorder with myelopathy, high cervical region (principal); E03.9 Hypothyroidism, unspecified; I10 Essential (primary) hypertension; F32.A Depression, unspecified; E78.5 Hyperlipidemia, unspecified; K21.9 Gastro-esophageal reflux disease without esophagitis; M48.02 Spinal stenosis, cervical region; F41.9 Anxiety disorder, unspecified; E66.3 Overweight; Z68.29 Body mass index [BMI] 29.0-29.9, adult; Z98.1 Arthrodesis status; Z79.1 Long term (current) use of non-steroidal anti-inflammatories (NSAID); Z79.890 Hormone replacement therapy; Z79.899 Other long term (current) drug therapy
CPT/HCPCS: 36415; 72040; 76000; 80048; 82962; 83036; 83735; 85025; 86703; 86706; 86708; 86803; 86850; 86900; 86901; 87077; 87081; 93005; 94668; 97161; C1713; A4216; J2405; J3475

== ENCOUNTER → 2025-01-12 | Outpatient (CLI) | payer BC, SELFPAY ==
--- NOTE | 2025-01-12 06:44 | MRI_ITS ---
PROCEDURE: SPINE LUMBAR (ROUTINE) 01/12/2025 REASON FOR EXAM: PAIN Recent fall. TECHNIQUE: SPINE LUMBAR (ROUTINE) COMPARISON: December 25, 2024 FINDINGS: Vertebrae: Grade 1 by concave compression fracture of T11. No bone marrow edema. Grade 2 biconcave compression fracture T12 with bone marrow edema present. The posterior superior aspect of the body shows some retropulsion of proximally 3-4 mm. Fracture line appears to extend towards the pedicles bilaterally. Mild edema in the interspinous location at T11/12. Depression of the superior endplate of L5 is grade 1. None bone marrow edema seen. Alignment: Grade 1 anterolisthesis L4 on L5, 7 mm. Conus Medullaris: Conus medullaris terminates at T12/L1. No abnormal signal. T12-L1: Minimal loss of disc height. L1-2: Minimal, diffuse disc bulge. Mild thickening of ligamentum flavum. Mild facet hypertrophy. No central stenosis. Mild left exit foraminal narrowing from hypertrophic facets. Correlate with left L1 radiculopathy. L2-3: Mild, diffuse disc bulge. Moderate thickening of ligamentum flavum. Mild facet hypertrophy. No central stenosis or exit foraminal narrowing. L3-4: Moderate, diffuse disc bulge. Moderate left ligamentum thickening and mild right ligamentum thickening. Qofy-[id number]-right severe facet hypertrophy. Deformation of the central canal. Borderline stenosis to 10 mm AP. Borderline narrowing left exit foramen. Correlate with left L3 radiculopathy. L4-5: Diffuse disc bulge and disc uncovering. Hypertrophic changes and ankylosis at the facets. Borderline narrowing of the exit foramina from disc osteophyte and disc uncovering. Correlate with L4 radiculopathy. L5-S1: Mild, diffuse disc bulge, posterior annular defect is 9 mm at the midline. Mild right facet hypertrophy. No central stenosis. Left exit foraminal narrowing. Correlate with L5 radiculopathy. Sacrum: Unremarkable MRI/Spine Lumbar (Routine) IMPRESSION: 1. T12 compression fracture is grade 2 that involves the vertebral body in the pedicles. Mild retropulsion of the posterior superior vertebral body. No spinal stenosis. Surgical consultation suggested as this is potentially unstable. 2. Compression fractures T11 and L5. No bone marrow edema. 3. Multilevel degenerative disc disease. Grade 1 anterolisthesis L4 on L5. S ee above descriptions. The findings and impression of this report were called directly to the office. Laila took the report at 10:50 a.m.. She was going to provide the report to the covering physician as the ordering physician was out of town. Reading Location: [id number]
--- OUTSIDE RECORDS SUMMARY | 2025-01-12 06:47 | XMS RPT_ITS | CCD ---
Author Organization [facility] Inform ion Partnership [facility] Care Team Providers Care Outreach Rep Name Role Phone Horacio Benson MD Primary Care Provider [phone] MARCELINO HOOD, DR HORACIO Ocampo Primary Care Physician MARCELINO HOOD, DR HORACIO Ocampo Primary Care JORGE Dunn DO Attending Unavailable JORGE DAVIS DO Attending Unavailable DR HORACIO BENSON MD Primary Care JORGE Dunn DO Admitting Unavailable AKIKO SUGAR TRUCKER-UNDERWRITING ACCOUNT REPRESENTATIVE, TAWANNA Perla Consulting Alma BENSON MD, DR HORACIO Ocampo Primary Care Alma morfin [facility] SUGAR TRUCKER-UNDERWRITING ACCOUNT REPRESENTATIVE, ROCK Swann Attending Unavailable JORGE DAVIS DO Referring Unavailable Dr. Luis Cohen Referring Provider [phone] Dr. Luis Cohen Other Provider Dr. Horacio Benson Primary Care Provider Dr. Fartun Squires Attending Provider [phone] Luis Cohen Referring Unavailable Horacio Benson Primary Care Unavailable Fartun Squires Attending Unavailable Luis Cohen Consulting Unavailable Luis Cohen Attending Unavailable Luis Cohen Referring Unavailable Horacio Benson Primary Care Unavailable Horacio Benson Primary Care Unavailable Mariel Tovar Attending Unavailable Mariel Tovar Referring Unavailable Horacio Benson MD Primary Care Provider [phone] Manjula Andujar Attending Provider [phone] Hiral HOOD, Dr. Timmons Attending Provider [phone] Manjula Andujar Referring Provider Marcelino HOOD, Dr. Leonard Primary Care Provider Marcelino HOOD, Dr. Leonard Referring Provider Juan HOOD, Dr. Schumacher Attending Provider Olman HOOD, Dr. Chapman Attending Provider Juan HOOD, Dr. Schumacher Referring Provider Juan HOOD, Dr. Schumacher Other Provider Juan HOOD, Dr. Schumacher Admit Provider Don GILLILAND, Dr. Jain Other Provider Renzo GILLILAND, Dr. Franco Other Provider Dr. Cristobal Ochoa DO Attending Provider Renzo GILLILAND, Dr. Franco Attending Provider [phone] HORACIO BENSON B Primary Care Unavailable ANYA FOSS Attending Unavailable HORACIO BENSON B Primary Care Unavailable Martinez, Endy Referring Unavailable Drew, Manjula Attending Unavailable Martinez, Endy Admitting Unavailable Mosteller, Cristobal Consulting Unavailable Benson, Horacio Primary Care Unavailable Renzo, Joan Consulting Unavailable Martinez, Endy Consulting Unavailable Renzo, Joan Attending Unavailable Martinez, Endy Admitting Unavailable Don, Cristobal Attending Unavailable Mosteller, Cristobal Consulting Unavailable Benson, Horacio Primary Care Unavailable Martinez, Endy Referring Unavailable Martinez, Endy Consulting Unavailable Martinez, Endy Referring Unavailable Benson, Horacio Primary Care Unavailable Martinez, Endy Attending Unavailable Benson, Horacio Primary Care Unavailable Drew, Manjula Referring Unavailable Drew, Manjula Attending Unavailable Benson, Horacio Primary Care Unavailable Martinez, Endy Attending Unavailable Martinez, Endy Admitting Unavailable Martinez, Endy Referring Unavailable Mosteller, Cristobal Consulting Unavailable Ernzo, Joan Consulting Unavailable Benson, Horacio Referring Unavailable Besnon, Horacio Primary Care Unavailable Drew, Manjula Attending Unavailable Hiral, [place] Attending Unavailable Drew, Manjula Attending Unavailable Benson, Horacio Primary Care Unavailable Hiral, Iain Attending Unavailable Benson, Horacio Referring Unavailable Martinez, Endy Attending Unavailable Benson, Horacio Primary Care Unavailable Benson, Horacio Referring Unavailable Benson, Horacio Primary Care Unavailable Martinez, Endy Attending Unavailable Ari Thurman Attending Unavailable Benson, Horacio Primary Care Unavailable Martinez, Endy Referring Unavailable Martinez, Endy Attending Unavailable Endy Martinez Consulting Unavailable Endy Martinez Referring Unavailable Horacio Benson Primary Care Unavailable Allergies Allergy Classification Reported Allergen(s) Allergy Type Date of Onset Reaction(s) Facility (3 sources) Penicillins; Translations: [PENICILLINS] Drug Allergy 10-05-2014 [facility] (1 source) Penicillin; Translations: [penicillin] Drug Allergy [facility] (6 sources) Penicillins Allergy to substance 09-22-2024 Rash [facility] (1 source) Penicillins Drug allergy (disorder) 12-08-2024 [facility] Repository Medications Current Medications Medication Drug Class(es) Dates Sig (Normalized) Sig (Original) [id number] actuat albuterol 0.09 mg/actuat metered dose inhaler (2 sources) beta2-Adrenergic Agonist take 2 puff(s) by inhalation every six hours as needed albuterol HFA (PROVENTIL HFA, VENTOLIN HFA) 90 mcg/actuation inhaler Inhale 2 Puffs as instructed every 6 hours as needed. Active Comment on above: Inhale 2 Puffs as in structed every 6 hours as needed. Albuterol (Eqv-ProAir HFA) 90 mcg/inh inhalation aerosol (1 source) Start: 10-27-2022 take 2 puff(s) by mouth every four hours as needed Albuterol (Eqv-ProAir HFA) 90 mcg/inh inhalation aerosol INHALE 2 PUFFS BY MOUTH EVERY 4 HOURS NEEDED Start Date: 10/27/22 Status: Ordered albuterol 0.833 mg/ml / ipratropium bromide 0.167 mg/ml inhalation solution (2 sources) Anticholinergic, beta2-Adrenergic Agonist Start: 04-30-2021 take 3 mL by inhalation every six hours as needed ipratropium-albut singh (DUONEB) 0.5 mg-3 mg(2.5 mg base)/3 mL nebu Inhale 3 mL as instructed every 6 hours as needed for wheezing/shortnes s of breath for up to 10 doses. 30 mL 04/30/2021 Active Comment on above: Inhale 3 mL as instr ucted every 6 hours as needed for wheezing/shortness of breath for up to 10 doses. Albuterol-Budesonid e (Airsupra) 90-80 mcg/actuation HFA aerosol inhaler (6 sources) Start: 09-22-2024 Albuterol-Budeson jennifer (Airsupra) 90-80 mcg/actuation HFA aerosol inhaler Active 2 NMA INHALATION EVERY 4-6 HOURS as needed for shortness of breath September 22, 2024 12:00am Start: 09-22-2024 Albuterol-[place] sonide (Airsupra) 90-80 mcg/actuation HFA aerosol inhaler Active 2 NMA INHALATION EVERY 4-6 HOURS as needed September 22, 2024 12:00am amitriptyline hydrochloride 25 mg oral tablet (9 sources) Tricyclic Antidepressant Start: 09-22-2024 take 1 tablet by mouth at bedtime Amitriptyline 25 mg tablet Active 25 mg PO AT BEDTIME September 22, 2024 12:00am Start: 10-27-2022 amitriptyline 25 mg oral tablet Dose : 25 mg = 1 tab(s), Oral, qHS, # 60 tab(s), 0 Refill(s) Start Date: 10/27/22 Status: Ordered Start: 02-26-2019 take 0.5 tablet by m outh once daily at bedtime amitriptyline (ELAVIL) 25 mg tablet Take 0.5 tablets by mouth daily at bedtime. 02/26/2019 Active Comment on above: Take 0.5 tablets by mouth daily at bedtime. atorvastatin 10 mg oral tablet (7 sources) HMG-CoA Reductase Inhibitor Start: take 1 tablet by mouth once daily Atorvastatin 10 mg tablet Active 10 mg PO daily September 22, 2024 12:00am Start: 10-27-2022 atorvastatin 1 0 mg oral tablet Dose : 10 mg = 1 tab(s), Oral, qDay, # 30 tab(s), 0 Refill(s) Start Date: 10/27/22 Status: Ordered 24 hr desvenlafaxine succinate 100 mg extended release oral tablet (9 sources) Serotonin and Norepinephrine Reuptake Inhibitor Start: 09-22-2024 take 1 tablet by mouth once daily Desvenlafaxine Succinate 100 mg tablet extended release 24 hr Active 100 mg PO daily September 22, 2024 12:00am Start: 10-27-2022 desvenlafaxine (as succinate) 50 mg oral tablet, extended release Dose : 50 mg = 1 tab(s), Oral, Daily, # 30 tab(s), 0 Refill(s) Start Date: 10/27/22 Status: Ordered take 1 tablet by marybeth th once daily, then take 1 tablet by mouth every twenty-four hours desvenlafaxine ER (PRISTIQ) 50 mg 24 hr tablet Take 50 mg by mouth once daily. Active Comment on above: Take 50 mg by mouth once daily. esomeprazole 40 mg delayed release oral capsule (3 sources) Proton Pump Inhibitor Start: 10-27-2022 esomeprazole 40 mg oral delayed release capsule Dose : 40 mg = 1 cap(s), Oral, qDay, # 30 cap(s), 0 Refill(s) Start Date: 10/27/22 Status: Ordered take 40 mg by mouth once daily E SOMEPRAZOLE MAGNESIUM (NEXIUM ORAL) Take 40 mg by mouth once daily. Active Comment on above: Take 40 mg by mouth once daily. Esomeprazole Magnesium 40 mg capsule,delayed release(DR/EC) (6 sources) Start: take 1 capsule by mouth once daily Esomeprazole Magnesium 40 mg capsule,delayed release(DR/EC) Active 40 mg PO daily September 22, 2024 12:00am fluticasone / salmeterol (2 sources) Corticosteroid, beta2-Adrenergic Agonist take 1 puff(s) by inhalation twice daily as needed fluticasone-salmeter ol (ADVAIR DISKUS) 250-50 mcg/dose dsdv Inhale 1 Puff as instructed twice daily as needed. Active take 1 puff(s) by in halation twice daily as needed fluticasone-salmeterol (ADVAIR DISKUS) 2 50-50 mcg/dose dsdv Inhale 1 Puff as instructed twice daily as needed. 0 Active Comment on above: Inhale 1 Puff as ins tructed twice daily as needed. furosemide 40 mg oral tablet (7 sources) Loop Diuretic Start: 09-22-2024 take 1 tablet by mouth once daily in the morning Furosemide 40 mg tablet Active 40 mg PO EVERY MORNING September 22, 2024 12:00am Start: 10-27-2022 furosemide 40 mg oral tablet Dose : 40 mg = 1 tab(s), Oral, Daily, 0 Refill(s) Start Date: 10/27/22 Status: Ordered gabapentin 100 mg oral capsule (1 source) Anti-epileptic Agent Start: 10-27-2022 gabapentin 100 mg oral capsule Dose : 100 mg = 1 cap(s), Oral, TID, # 90 cap(s), 0 Refill(s) Start Date: 10/27/22 Status: Ordered levothyroxine sodium 0.088 mg oral tablet (9 sources) l-Thyroxine Start: 09-22-2024 take 1 tablet by mouth once daily Levothyroxine 88 mcg tablet Active 88 ug PO daily September 22, 2024 12:00am Start: 10-27-2022 Synthroid 50 m cg (0.05 mg) oral tablet Dose : 100 mcg = 2 tab(s), Oral, qDay, # 30 tab(s), 0 Refill(s) Start Date: 10/27/22 Status: Ordered take 50 ug by mouth once daily, then take 25 ug by mouth once daily, then take 50 ug by mouth once daily LEVOTHYROXINE SODIUM (SYNTHROID ORAL) 50 mcg once daily. Take alternating 25mcg one day 50mcg the next by mouth daily Active take 50 ug by mouth once daily, then take 25 ug by mouth once daily, then take 50 ug by mouth once daily LEVOTHYROXINE SODIUM (SYNTHROID ORAL) 50 mcg once daily. Take alternating 25mcg one day 50mcg the next by mouth daily 0 Active Comment on above: 50 mcg once daily. T lashae alternating 25mcg one day 50mcg the next by mouth daily 3 ml liraglutide 6 mg/ml pen injector (1 source) GLP-1 Receptor Agonist Start: 023 inject 0.5 mL by subcutaneous injection once daily Saxenda 18 mg/3 mL subcutaneous solution INJECT ONE-HALF ml SUBCUTANEOUSLY DAILY Start Date: 10/27/22 Status: Ordered meloxicam 15 mg oral tablet (9 sources) Nonsteroidal Anti-inflammatory Drug Start: End: take 1 tablet by mouth once daily Meloxicam 15 mg Tablet Active 15 mg PO DAILY 30 0 December 09, 2024 12:00am take once a day metoprolol tartrate 50 mg oral tablet (11 sources) beta-Adrenergic [place] Start: Metoprolol Tartrate 50 mg tablet Active 25 mg PO TWICE A DAY September 22, 2024 12:00am Start: 09-22-2024 take 1 tablet by marybeth th twice daily Metoprolol Tartrate 50 mg tablet Active 50 mg PO TWICE A DAY September 22, 2024 12:00am Start: 10-27-2022 End: 11-23-2022 Metoprolol Tartrate 50 mg or al tablet Start: 11/23/22 8:00:00 EDT, Dose = 50 mg, = 1 tab(s), Oral, 11/22/22 18:42:00 EDT Start Date: 11/23/22 Stop Date: 11/23/22 Status: Completed Comment on above: Take 50 mg by mouth twice daily. Sucralfate (9 sources) Aluminum Complex Start: 09-22-2024 take 1 tablet by mouth once daily Sucralfate 1 gram tablet Active 1 g PO daily September 22, 2024 12:00am Start: 10-27-2022 take 1 tablet by marybeth th once daily sucralfate 1 g oral tablet TAKE 1 TABLET BY MOUTH EVERY DAY Start Date: 10/27/22 Status: Ordered take 1 tablet by marybeth th once daily sucralfate (CARAFATE) 1 gram tablet Take 1 g by mouth once daily. Active Comment on above: Take 1 g by mouth on ce daily. Tirzepatide (Weight Loss) (6 sources) Start: 09-22-2024 Tirzepatide (Weight Loss) (Zepbound) 10 mg/0.5 mL pen injector Active 10 mg SC .weekly September 22, 2024 12:00am Start: 09-22-2024 Tirzepatide (W eight Loss) (Zepbound) 10 mg/0.5 mL pen injector Active mg SC September 22, 2024 12:00am Completed/Discontinued Medications Medication Drug Class(es) Dates Sig (Normalized) Sig (Original) acetaminophen 325 mg / HYDROcodone bitartrate 5 mg oral tablet (4 sources) Opioid Agonist Start: 12-09-2024 End: 12-25-2024 Hydrocodone-Acetami nophen 5-325 mg Tablet Discontinued 1 {tbl} PO EVERY 6 HOURS as needed for pain 28 7 0 December 09, 2024 December 25, 2024 10:10am Status post cervical spinal arthrodesis Arthrodesis status Start: 11-22-2022 End: 11-29-2022 take 1 tablet by mouth every six hours as needed for pain [place] 325- 5 mg oral tablet Dose = 1 tab(s), Oral, q6h, PRN for pain, X 7 day(s), # 28 tab(s), 0 Refill(s), Pharmacy: [id number], Cervical spondylosis, 165, cm, 11/22/22 6:44:00 EDT, Height, 77 Start Date: 11/22/22 Stop Date: 11/29/22 Status: Ordered docusate sodium 50 mg / sennosides, prison 8.6 mg oral tablet (3 sources) Start: 12-09-2024 End: 12-25-2024 Sennosides-Docusate Sodium (Stimulant Laxative Plus) 8.6-50 mg Tablet Discontinued 2 {tbl} PO TWICE A DAY as needed for constipation 30 0 December 09, 2024 12:07pm December 25, 2024 10:10am methocarbamol 500 mg oral tablet (9 sources) Muscle Relaxant Start: 12-09-2024 End: 12-25-2024 Methocarbamol 500 mg Tablet Discontinued 750 mg PO THREE TIMES A DAY as needed for Pain and spasms 30 0 December 09, 2024 12:06pm December 25, 2024 10:10am Start: 09-22-2024 End: 11-24-2024 take 1 tablet by mouth three times daily as needed for pain Methocarbamol 500 mg tablet Discontinued 500 mg PO THREE TIMES A DAY as needed for pain/spasms 60 0 September 22, 2024 12:00am November 24, 2024 11:25am ondansetron 4 mg disintegrating oral tablet (1 source) Serotonin-3 Receptor Antagonist Start: 10-10-2016 take 1 tablet by mouth every four hours as needed ondansetron orally disintegrating (ZOFRAN ODT) 4 mg disintegrating tablet Take 1 tablet by mouth every 4 hours as needed for Nausea/Vomiting. 8 tablet 0 10/10/2016 Active Comment on above: Take 1 tablet by marybeth every 4 hours as needed for Nausea/Vomiting. Problems Active Problems Problem Classification Problem Date Documented Da te Episodic/Chronic Asthma (1 source) Asthma; Translations: [Unspecified asthma, uncomplicated] Onset: 11-23-2022 Chronic Disorders of lipid metabolism (1 source) Hyperlipidemia; Translations: [Hyperlipidemia, unspecified] Onset: 11-23-2022 Chronic E Codes: Fall (1 source) Unspecified fall, initial encounter; Translations: [Fall, initial encounter] Onset: 12-31-2024 Episodic Essential hypertension (1 source) Essential hypertension; Translations: [Essential (primary) hypertension] Onset: 11-23-2022 Chronic Other connective tissue disease (20 sources) History of cervical spine fusion; Translations: [Arthrodesis status] 09-22-2024 Episodic Other connective tissue disease (2 sources) Arthrodesis status; Translations: [Arthrodesis status] Onset: 12-25-2024 Episodic Other fractures (1 source) Wedge compression fracture of unspecified thoracic vertebra, initial encounter for closed fracture; Translations: [Compression fracture of thoracic vertebra, unspecified thoracic vertebral level, initial encounter (HCC)] Onset: 12-31-2024 Episodic Other fractures (1 source) Wedge compression fracture of unspecified lumbar vertebra, initial encounter for closed fracture; Translations: [Wedge compression fracture of unspecified lumbar vertebra, initial encounter for closed fracture] Onset: 01-09-2025 Episodic Other screening for suspected conditions (not mental disorders or infectious disease) (1 source) Encounter for screening mammogram for malignant neoplasm of breast; Translations: [Encounter for screening mammogram for malignant neoplasm of breast] Onset: 07-27-2023 Episodic Spondylosis; intervertebral disc disorders; other back problems (1 source) Cervical disc disorder with myelopathy, high cervical region; Translations: [Cervical disc disorder with myelopathy, high cervical region] Onset: 01-09-2025 Chronic Spondylosis; intervertebral disc disorders; other back problems (20 sources) Cervical radiculopathy; Translations: [Radiculopathy, cervical region] Onset: 09-03-2024 09-22-2024 Episodic Superficial injury; contusion (1 source) Contusion of left hip, initial encounter; Translations: [Contusion of left hip, initial encounter] Onset: 12-31-2024 Episodic Thyroid disorders (1 source) Hypothyroidism; Translations: [Hypothyroidism, unspecified] Onset: 11-23-2022 Chronic Unclassified (1 source) Status post cervical spinal arthrodesis Unclassified (2 sources) Z98.1 - Arthrodesis status,M54.50 - Low back pain, unspecified Unclassified (1 source) Low back pain, unspecified; Translations: [Low back pain, unspecified] Onset: 12-25-2024 Past or Other Problems Problem Classification Problem Date Documented Da te Episodic/Chronic Other nervous system disorders (2 sources) Paresthesia of skin; Translations: [Paresthesia of skin] Onset: 12-19-2022 Episodic Syncope (2 sources) Syncope; Translations: [Syncope and collapse] Onset: 02-23-2019 02-23-2019 Episodic Results Test Name Value Interpretation Reference Range Facility [facility] HNO ID: [id number] Author: ZACHARY DODD CT Service: Radiology Author Type: Technologist Type: [facility] Filed: 01/01/2025 00:08 Note Text: Radiology Service Progress Note PATIENT NAME: Dana Fermin DATE OF SERVICE: January 01, 2025 TIME: 12:08 AM PATIENT IDENTITY VERIFICATION COMPLETED USING TWO (2) IDENTIFIERS: Name and Date of confirmed by patient verbally and Name and Date of confirmed by identification band. FALL SCREENING: Has the patient had 2 falls in the last year or 1 fall with injury or currently using an Ambulatory Assistive Device (Walker, Cane, Wheelchair, Crutches, etc.)? Emergency Room Patient: Screened in ED PATIENT GENDER DATA: Assigned female at . status: : No status: NO. PATIENT RELEVANT IMPLANT DATA REVIEWED: Not Applicable PATIENT PRESENTS WITH AN IMPLANTABLE OR ATTACHED MEDICAL BILLING SERVICE: No RADIOLOGY DEPARTMENT: CT; Exam(s) Completed: Pelvis and Spine PERIPHERAL IV DATA: Not applicable SIGNED BY: LOULOU De La Rosa January 01, 2025 12:[address] [facility] [address] LUMBAR SPINE WO IVCONon 0 01-01-2025 CT LUMBAR SPINE WO IVCON * * *Final Report* * * DATE OF EXAM: Jan 01 2025 12:21AM [facility] [id number] - CT LUMBAR SPINE WO IVCON / PROCEDURE REASON: Spine fracture, lumbar, traumatic * * * * Physician Interpretation * * * * EXAMINATION: CT LUMBAR SPINE WO IVCON, CT PELVIS ORTHO WO IVCON CLINICAL HISTORY: Spine fracture, lumbar, traumatic COMPARISON: None available. TECHNIQUE: Standard CT of the lumbar spine was performed without IV or intrathecal contrast. Axial CT images were obtained of the pelvis without intravenous contrast. Coronal and sagittal reformatted images were performed. CT Radiation dose: Integrated Dose-length product (DLP) for this visit = 1220 mGy*cm. CT Dose Reduction Employed: Automated exposure control(AEC) and iterative recon FINDINGS: Generalized osteopenia may obscure subtle findings. Lumbar spine: There are 5 lumbar type vertebrae. Compression fractures with mild loss of height of the superior plate of T11 and T12 appears subacute to chronic with maximum loss of height centrally of approximately 30%. Mild concave compression deformity superior plate of L3 also appears chronic with approximately 10-20% loss of height. Mild to moderate compression deformity of L5 is chronic and stable. No evidence of acute osseous abnormality. Grade 1 degenerative anterolisthesis of L4 on L5 with severe hypertrophy of the ankylosed facet joints at L5 bilaterally is stable. No new subluxation. 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 No destructive osseous lesion. Evaluation of the distal cord, conus, and cauda equina suboptimal without intrathecal contrast. T10-11: Mild disc height loss with broad-based posterior disc bulge. Mild bilateral facet arthropathy. No evidence of central canal stenosis. T11-12: Mild disc height loss without significant disc bulge or protrusion. Moderate right and mild to moderate left facet arthropathy with calcification and thickening of the ligamentum flavum, worse in the right. Central canal is adequately patent. Neural foramina appear adequately patent. T12-L1: Mild disc height loss with mild broad-based posterior disc bulge. Mild bilateral facet arthropathy with partial calcification of the ligamentum flavum, worse in the left. Central canal is adequately patent. Likely moderate left and [id number] right neural foraminal stenoses. L1-L2: Mild broad-based posterior disc bulge. Mild bilateral facet arthropathy with partial calcification thickening of the ligamentum flavum. Central canal is adequately patent. Moderate to severe left and [id number] right neural foraminal stenoses. L2-L3: Mild concentric disc bulge. Mild bilateral facet arthropathy diffusely thickening which is partially calcified on the left. Likely mild central canal stenosis. Minimal right neural foraminal stenosis. Left neural foramen appears adequately patent. L3-L4: Mild disc height loss with concentric disc bulge eccentric to the left with superimposed left foraminal disc protrusion. Severe left and moderate to severe right facet arthropathy with diffuse ligamentum flavum thickening which is partially calcified. Likely moderate central canal stenosis. Mild left neural femoral stenosis. Minimal narrowing of the right neural foramen. L4-L5: Grade 1 degenerative anterolisthesis of L4 on L5 creating a pseudobulge. Severe hypertrophy of the ankylosed facet joints bilaterally, worse on the right. Central canal appears adequately patent. Minimal bilateral neural foraminal stenoses. L5-S1: Mild bibasal posterior disc bulge with small central disc protrusion. Associated discogenic. Plate osteophytic ridging with large rightward endplate osteophytes. Severe right and minimal left facet arthropathy. Central canal is patent. Mild bilateral neural foraminal stenosis is slightly worse in the right. The paraspinal soft tissues are unremarkable. The abdominal aorta is normal in caliber with mild atherosclerotic change. Contrast in the renal collecting systems from recent CT. Pelvis: No acute osseous abnormality. Alignment is unremarkable. No significant degenerative changes in the hips. Pubic symphysis and sacroiliac joints are unremarkable. No destructive osseous lesion or evidence of osteonecrosis. No large joint effusions. No gross evidence of tendon tear around the pelvis or hips within limitations of CT. No muscle atrophy. Mild subcutaneous edema lateral to the left hip is nonspecific. No organized fluid collections. Contrast in the bladder from recent CT partially obscures the evaluation due to the heterogeneity without gross evidence of wall thickening. A few diverticula of the sigmoid colon are noted. No free fluid. No lymphadenopathy. IMPRESSION: (more content not included)... Normal [facility] CT PELVIS ORTHO WO IVCONon 0 01-01-2025 CT PELVIS ORTHO WO IVCON * * *Final Report* * * DATE OF EXAM: Jan 01 2025 12:21AM [facility] [place] [id number] - CT PELVIS ORTHO WO IVCON / PROCEDURE REASON: Pelvic fracture * * * * Physician Interpretation * * * * EXAMINATION: CT LUMBAR SPINE WO IVCON, CT PELVIS ORTHO WO IVCON CLINICAL HISTORY: Spine fracture, lumbar, traumatic COMPARISON: None available. TECHNIQUE: Standard CT of the lumbar spine was performed without IV or intrathecal contrast. Axial CT images were obtained of the pelvis without intravenous contrast. Coronal and sagittal reformatted images were performed. CT Radiation dose: Integrated Dose-length product (DLP) for this visit = 1220 mGy*cm. CT Dose Reduction Employed: Automated exposure control(AEC) and iterative recon FINDINGS: Generalized osteopenia may obscure subtle findings. Lumbar spine: There are 5 lumbar type vertebrae. Compression fractures with mild loss of height of the superior plate of T11 and T12 appears subacute to chronic with maximum loss of height centrally of approximately 30%. Mild concave compression deformity superior plate of L3 also appears chronic with approximately 10-20% loss of height. Mild to moderate compression deformity of L5 is chronic and stable. No evidence of acute osseous abnormality. Grade 1 degenerative anterolisthesis of L4 on L5 with severe hypertrophy of the ankylosed facet joints at L5 bilaterally is stable. No new subluxation. 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 No destructive osseous lesion. Evaluation of the distal cord, conus, and cauda equina suboptimal without intrathecal contrast. T10-11: Mild disc height loss with broad-based posterior disc bulge. Mild bilateral facet arthropathy. No evidence of central canal stenosis. T11-12: Mild disc height loss without significant disc bulge or protrusion. Moderate right and mild to moderate left facet arthropathy with calcification and thickening of the ligamentum flavum, worse in the right. Central canal is adequately patent. Neural foramina appear adequately patent. T12-L1: Mild disc height loss with mild broad-based posterior disc bulge. Mild bilateral facet arthropathy with partial calcification of the ligamentum flavum, worse in the left. Central canal is adequately patent. Likely moderate left and ghwl-gh-lnvjnxtx right neural foraminal stenoses. L1-L2: Mild broad-based posterior disc bulge. Mild bilateral facet arthropathy with partial calcification thickening of the ligamentum flavum. Central canal is adequately patent. Moderate to severe left and burr-nu-rizoqjzj right neural foraminal stenoses. L2-L3: Mild concentric disc bulge. Mild bilateral facet arthropathy diffusely thickening which is partially calcified on the left. Likely mild central canal stenosis. Minimal right neural foraminal stenosis. Left neural foramen appears adequately patent. L3-L4: Mild disc height loss with concentric disc bulge eccentric to the left with superimposed left foraminal disc protrusion. Severe left and moderate to severe right facet arthropathy with diffuse ligamentum flavum thickening which is partially calcified. Likely moderate central canal stenosis. Mild left neural femoral stenosis. Minimal narrowing of the right neural foramen. L4-L5: Grade 1 degenerative anterolisthesis of L4 on L5 creating a pseudobulge. Severe hypertrophy of the ankylosed facet joints bilaterally, worse on the right. Central canal appears adequately patent. Minimal bilateral neural foraminal stenoses. L5-S1: Mild bibasal posterior disc bulge with small central disc protrusion. Associated discogenic. Plate osteophytic ridging with large rightward endplate osteophytes. Severe right and minimal left facet arthropathy. Central canal is patent. Mild bilateral neural foraminal stenosis is slightly worse in the right. The paraspinal soft tissues are unremarkable. The abdominal aorta is normal in caliber with mild atherosclerotic change. Contrast in the renal collecting systems from recent CT. Pelvis: No acute osseous abnormality. Alignment is unremarkable. No significant degenerative changes in the hips. Pubic symphysis and sacroiliac joints are unremarkable. No destructive osseous lesion or evidence of osteonecrosis. No large joint effusions. No gross evidence of tendon tear around the pelvis or hips within limitations of CT. No muscle atrophy. Mild subcutaneous edema lateral to the left hip is nonspecific. No organized fluid collections. Contrast in the bladder from recent CT partially obscures the evaluation due to the heterogeneity without gross evidence of wall thickening. A few diverticula of the sigmoid colon are noted. No free fluid. No lymphadenopathy. IMPRESSION: 1. Mild compressio (more content not included)... Normal [facility] ED NOTEon 01-01-2025 ED NOTE HNO ID: [id number] Author: RENEE ANDERSON RN Service: ? Author Type: Registered Nurse Type: ED Notes Filed: 01/01/2025 04:14 Note Text: Discharge instructions d/w pt and spouse at bedside. Stated understanding with no further questions for this nurse. Encouraged f/u with PCP and referring doctors given. Stated understanding. Prescription(S) were given X 1. Normal [facility] HIGH SENSITIVITY TROPONIN T (THIRD) 3 HRS AFTER INITIALon 01-01-2025 Troponin T.cardiac High sensitivity method [Mass/Vol] 12 ng/L High <12 [facility] Comment on above: Order Comment: Speci men Type: BLOOD SPECIMENOrdering Facility: [facility] Address: [address] [place] [address] Performed By: #### L [id number] ####[facility]ORY[facility]IA [id number] [address] Urinalysis complete panel (U )on 01-01-2025 Bilirubin Ql (U) Negative Normal Negative [facility] Comment on above: Order Comment: Speci men Type: URINE SPECIMEN [facility] Address: [address] [place] [address] Performed By: #### 2 4356-8 #### [facility] CLIA [id number] [address] Clarity (Unsp spec) Clear Normal Clear [facility] Comment on above: Order Comment: Speci men Type: URINE SPECIMEN [facility]: [facility] Address: [address] [place] [address] Performed By: #### 2 4356-8 #### [facility] CLIA [id number] [address] Color (U) Yellow Normal Yellow [facility] Comment on above: Order Comment: Speci men Type: URINE SPECIMEN [facility]: [facility] Address: [address] [place] [address] Performed By: #### 2 4356-8 #### [facility] CLIA [id number] [address] Glucose Test strip (U) [Mass/Vol] Negative Normal Negative [facility] Comment on above: Order Comment: Speci men Type: URINE SPECIMEN [facility]: [facility] Address: [address] [place] [address] Performed By: #### 2 4356-8 #### [facility] CLIA [id number] [address] Hemoglobin Ql (U) Negative Normal Negative [facility] Comment on above: Order Comment: Speci men Type: URINE SPECIMEN [facility]: [facility] Address: [address] [place] [address] Performed By: #### 2 4356-8 #### [facility] CLIA [id number] [address] [place] [address] [place] Ketones Ql (U) Negative Normal Negative [facility] Comment on above: Order Comment: Speci men Type: URINE SPECIMEN [facility] Address: [address] [place] [address] Performed By: #### 2 4356-8 #### [facility] CLIA [id number] [address] Leukocyte esterase Test strip Ql (U) Negative Normal Negative [facility] Comment on above: Order Comment: Speci men Type: URINE SPECIMEN [facility] Address: [address] [place] [address] Performed By: #### 2 4356-8 #### [facility] CLIA [id number] [address] Nitrite Ql (U) Negative Normal Negative [facility] Comment on above: Order Comment: Speci men Type: URINE SPECIMEN [facility] Address: [address] [place] [address] Performed By: #### 2 4356-8 #### [facility] CLIA [id number] [address] pH (U) 6.0 [pH] Normal 5.0-8.0 [facility] Comment on above: Order Comment: Speci men Type: URINE SPECIMEN [facility] Address: [address] [place] [address] Performed By: #### 2 4356-8 #### [facility] CLIA [id number] [address] Protein (U) [Mass/Vol] Negative Normal Negative [facility] Comment on above: Order Comment: Speci men Type: URINE SPECIMEN [facility] Address: [address] [place] [address] Performed By: #### 2 4356-8 #### [facility] CLIA [id number] [address] [place] [address] [place] RBC LM.HPF (Urine sed) [#/Area] 0-3 /HPF Normal 0-3 /HPF [facility] Comment on above: Order Comment: Speci men Type: URINE SPECIMEN [facility] Address: [address] [place] [address] Performed By: #### 2 4356-8 #### [facility] CLIA [id number] [address] [place] [address] [place] Specific gravity (U) [Rel density] <=1.005 Low 1.005-1.030 [facility] Comment on above: Order Comment: Speci men Type: URINE SPECIMEN [facility] Address: [address] [place] [address] Performed By: #### 2 4356-8 #### [facility] CLIA [id number] [address] [place] Urobilinogen Ql (U) 0.2 EU/dL Normal 0.2-1.0 EU/dL [facility] Comment on above: Order Comment: Speci men Type: URINE SPECIMEN [facility] Address: [address] [place] [address] Performed By: #### 2 4356-8 #### [facility] CLIA [id number] [address] [place] WBC LM.HPF (Urine sed) [#/Area] 0-5 /HPF Normal 0-5 /HPF [facility] Comment on above: Order Comment: Speci men Type: URINE SPECIMEN [facility] Address: [address] [place] [address] Performed By: #### 2 4356-8 #### [facility] CLIA [id number] [address] [place] ALLIED HEALTHon 12-31-2024 ALLIED HEALTH HNO ID: [id number] Author: ZACHARY DODD CT Service: Radiology Author Type: Technologist Type: Allied Health Filed: 12/31/2024 23:29 Note Text: Radiology Service Progress Note DATE OF SERVICE: December 31, 2024 TIME: 11:09 PM PATIENT IDENTITY VERIFICATION COMPLETED USING TWO (2) STANDARD IDENTIFIERS: Name and Date of confirmed by patient verbally and Name and Date of confirmed by identification band. FALL SCREENING: Has the patient had 2 falls in the last year or 1 fall with injury or currently using an Ambulatory Assistive Device (Walker, Cane, Wheelchair, Crutches, etc.)? Emergency Room Patient: Screened in ED PATIENT GENDER DATA: Assigned female at . status: : No status: NO. PATIENT RELEVANT IMPLANT DATA REVIEWED: Not Applicable PATIENT PRESENTS WITH AN IMPLANTABLE OR ATTACHED MEDICAL BILLING SERVICE: No ALLERGIES: Reviewed and unchanged CONTRAST ALLERGY: NO. EXAM: CT -CONTRAST INDUCED NEPHROPATHY RISK FACTORS: Patient age > 60 years CREATININE: Creatinine Date Value Ref Range Status 12/31/2024 0.94 0.58 - 0.96 mg/dL Final 03/29/2023 0.73 0.58 - 0.96 mg/dL Final 09/10/2022 0.88 0.58 - 0.96 mg/dL Final Estimated Glomerular Filtration Rate Date Value Ref Range Status 12/31/2024 66 >=60 mL/min/1.73m? Final Comment: Estimated Glomerular Filtration Rate (eGFR) is calculated using the 2020 CKD-EPI creatinine equation. This equation utilizes serum creatinine, sex, and age as parameters. The creatinine assay has traceable calibration to isotope dilution-mass spectrometry. Refer to KDIGO guidelines for clinical interpretation. In patients with unstable renal function, e.g. those with acute kidney injury, the eGFR may not accurately reflect actual GFR. eGFR- Date Value Ref Range Status 04/28/2021 >60 Final Comment: Note: On 08/06/2021, the eGFR calculation will be updated to the NKF-ASN Task Force recommended 2020 CKD-EPI creatinine equation which does not include a race variable. For more information or to access a 2020 CKD-EPI calculator, visit the [employer] website at kidney.org/professio nals/kdoqi/gfr_calcu lator. P.O.C.T. RESULTS: POC done: Yes, See Lab Tab December 31, 2024 TREATMENT: N/A PERIPHERAL IV DATA: Inpatient - refer to LDA documentation RADIOLOGY DEPARTMENT: CT; Exam(s) Completed: Chest SIGNATURE: LOULOU De La Rosa PATIENT NAME: Dana Fermin DATE: December 31, 2024 TIME: 11:09 PM [facility] ALL[facility]ALTH HNO ID: [id number] Author: ZACHARY DODD CT Service: Radiology Author Type: Technologist Type: Allied Health Filed: 12/31/2024 21:44 Note Text: Radiology Service Progress Note PATIENT NAME: Dana Fermin DATE OF SERVICE: December 31, 2024 TIME: 9:44 PM PATIENT IDENTITY VERIFICATION COMPLETED USING TWO (2) IDENTIFIERS: Name and Date of confirmed by patient verbally and Name and Date of confirmed by identification band. FALL SCREENING: Has the patient had 2 falls in the last year or 1 fall with injury or currently using an Ambulatory Assistive Device (Walker, Cane, Wheelchair, Crutches, etc.)? Emergency Room Patient: Screened in ED PATIENT GENDER DATA: Assigned female at . status: : No status: NO. PATIENT RELEVANT IMPLANT DATA REVIEWED: Not Applicable PATIENT PRESENTS WITH AN IMPLANTABLE OR ATTACHED MEDICAL BILLING SERVICE: No RADIOLOGY DEPARTMENT: CT; Exam(s) Completed: Brain and Spine PERIPHERAL IV DATA: Not applicable SIGNED BY: LOULOU De La Rosa December 31, 2024 9:44 PM [facility] CBC W Auto Differential pane l (Bld)on 12-31-2024 Basophils (Bld) [#/Vol] 0.06 10*3/uL Normal <0.11 [facility] Comment on above: Order Comment: Speci men Type: BLOOD SPECIMENOrdering Facility: [facility] Address: [address] [place] [address] Performed By: #### 5 7021-8 ####[facility] LABORATORYCLIA [id number] [place] [address] [place] Basophils/100 WBC (Bld) 0.8 % Normal [facility] Comment on above: Order Comment: Speci men Type: BLOOD SPECIMENOrdering Facility: [facility] Address: [address] [place] [address] Performed By: #### 5 7021-8 ####[facility] LABORATORYCLIA [id number] [place] [address] [place] Differential cell count method Nom (Bld) Auto Normal [facility] Comment on above: Order Comment: Speci men Type: BLOOD SPECIMENOrdering Facility: [facility] Address: [address] [place] [address] Performed By: #### 5 7021-8 ####[facility]ORATORYCLIA [id number] [address] Eosinophils (Bld) [#/Vol] 0.32 10*3/uL Normal <0.46 [facility] Comment on above: Order Comment: Speci men Type: BLOOD SPECIMENOrdering Facility: [facility] Address: [address] [place] [address] Performed By: #### 5 7021-8 ####[facility]ORATORYCLIA [id number] [address] Eosinophils/100 WBC (Bld) 4.4 % Normal [facility] Comment on above: Order Comment: Speci men Type: BLOOD SPECIMENOrdering Facility: [facility] Address: [address] [place] [address] Performed By: #### 5 7021-8 ####[facility]ORATORYCLIA [id number] [address] Erythrocyte distribution width (RBC) [Ratio] 12.4 % Normal 11.5-15.0 [facility] Comment on above: Order Comment: Speci men Type: BLOOD SPECIMENOrdering Facility: [facility] Address: [address] [place] [address] Performed By: #### 5 7021-8 ####[facility]ORATORYCLIA [id number] [address] [place] Hematocrit (Bld) [Volume fraction] 37.8 % Normal 36.0-46.0 [facility] Comment on above: Order Comment: Speci men Type: BLOOD SPECIMENOrdering Facility: [facility] Address: [address] [place] [address] Performed By: #### 5 7021-8 ####[facility]ORATORYCLIA [id number] [address] [place] Hemoglobin (Bld) [Mass/Vol] 12.9 g/dL Normal 11.5-15.5 [facility] Comment on above: Order Comment: Speci men Type: BLOOD SPECIMENOrdering Facility: [facility] Address: [address] [place] [address] Performed By: #### 5 7021-8 ####[facility] LABORATORYCLIA [id number] [address] [place] Immature granulocytes (Bld) [#/Vol] 10*3/uL Normal <0.10 [facility] Comment on above: Order Comment: Speci men Type: BLOOD SPECIMENOrdering Facility: [facility] Address: [address] [place] [address] Performed By: #### 5 7021-8 ####[facility]ORATORYCLIA [id number] [address] Immature granulocytes/100 WBC (Bld) 0.3 % Normal [facility] Comment on above: Order Comment: Speci men Type: BLOOD SPECIMENOrdering Facility: [facility] Address: [address] [place] [address] Performed By: #### 5 7021-8 ####[facility]ORATORYCLIA [id number] [address] [place] Lymphocytes (Bld) [#/Vol] 2.19 10*3/uL Normal 1.00-4.00 [facility] Comment on above: Order Comment: Speci men Type: BLOOD SPECIMENOrdering Facility: [facility] Address: [address] [place] [address] Performed By: #### 5 7021-8 ####[facility]ORATORYCLIA [id number] [address] Lymphocytes/100 WBC (Bld) 30.2 % Normal [facility] Comment on above: Order Comment: Speci men Type: BLOOD SPECIMENOrdering Facility: [facility] Address: [address] [place] [address] Performed By: #### 5 7021-8 ####[facility] LABORATORYCLIA [id number] [place] [address] [place] MCH (RBC) [Entitic mass] 31.5 pg Normal 26.0-34.0 [facility] Comment on above: Order Comment: Speci men Type: BLOOD SPECIMENOrdering Facility: [facility] Address: [address] [place] [address] Performed By: #### 5 7021-8 ####[facility] LABORATORYCLIA [id number] [place] [address] [place] MCHC (RBC) [Mass/Vol] 34.1 g/dL Normal 30.5-36.0 [facility] Comment on above: Order Comment: Speci men Type: BLOOD SPECIMENOrdering Facility: [facility] Address: [address] [place] [address] Performed By: #### 5 7021-8 ####[facility] LABORATORYCLIA [id number] [address] [place] MCV (RBC) [Entitic vol] 92.4 fL Normal 80.0-100.0 [facility] Comment on above: Order Comment: Speci men Type: BLOOD SPECIMENOrdering Facility: [facility] Address: [address] [place] [address] Performed By: #### 5 7021-8 ####[facility] LABORATORYCLIA [id number] [place] [address] [place] Monocytes (Bld) [#/Vol] 0.58 10*3/uL Normal <0.87 [facility] Comment on above: Order Comment: Speci men Type: BLOOD SPECIMENOrdering Facility: [facility] Address: [address] [place] [address] Performed By: #### 5 7021-8 ####[facility] LABORATORYCLIA [id number] [address] [place] Monocytes/100 WBC (Bld) 8.0 % Normal [facility] Comment on above: Order Comment: Speci men Type: BLOOD SPECIMENOrdering Facility: [facility] Address: [address] [place] [address] Performed By: #### 5 7021-8 ####[facility] LABORATORYCLIA [id number] [place] [address] [place] Neutrophils (Bld) [#/Vol] 4.09 10*3/uL Normal 1.45-7.50 [facility] Comment on above: Order Comment: Speci men Type: BLOOD SPECIMENOrdering Facility: [facility] Address: [address] [place] [address] Performed By: #### 5 7021-8 ####[facility]ORATORYCLIA [id number] [place] [address] [place] Neutrophils/100 WBC (Bld) 56.3 % Normal [facility] Comment on above: Order Comment: Speci men Type: BLOOD SPECIMENOrdering Facility: [facility] Address: [address] [place] [address] Performed By: #### 5 7021-8 ####[facility]ORATORYCLIA [id number] [place] [address] [place] Nucleated RBC (Bld) [#/Vol] 10*3/uL Normal <0.01 [facility] Comment on above: Order Comment: Speci men Type: BLOOD SPECIMENOrdering Facility: [facility] Address: [address] [place] [address] Performed By: #### 5 7021-8 ####[facility]ORATORYCLIA [id number] [place] [address] [place] Nucleated RBC/100 WBC (Bld) [Ratio] 0.0 /100 WBC Normal [facility] Comment on above: Order Comment: Speci men Type: BLOOD SPECIMENOrdering Facility: [facility] Address: [address] [place] [address] Performed By: #### 5 7021-8 ####[facility]ORATORYCLIA [id number] [place] [address] [place] Platelet mean volume (Bld) [Entitic vol] 9.2 fL Normal 9.0-12.7 [facility] Comment on above: Order Comment: Speci men Type: BLOOD SPECIMENOrdering Facility: [facility] Address: [address] [place] [address] Performed By: #### 5 7021-8 ####[facility]ORATORYCLIA [id number] [place] [address] [place] Platelets (Bld) [#/Vol] 305 10*3/uL Normal 150-400 [facility] Comment on above: Order Comment: Speci men Type: BLOOD SPECIMENOrdering Facility: [facility] Address: [address] [place] [address] Performed By: #### 5 7021-8 ####[facility]ATORYCLIA [id number] [address] [place] RBC (Bld) [#/Vol] 4.09 10*6/uL Normal 3.90-5.20 [facility] Comment on above: Order Comment: Speci men Type: BLOOD SPECIMENOrdering Facility: [facility] Address: [address] [place] [address] Performed By: #### 5 7021-8 ####[facility]ATORYCLIA [id number] [address] [place] WBC (Bld) [#/Vol] 7.26 10*3/uL Normal 3.70-11.00 [facility] Comment on above: Order Comment: Speci men Type: BLOOD SPECIMENOrdering Facility: [facility] Address: [address] [place] [address] Performed By: #### 5 7021-8 ####[facility]ATORYCLIA [id number] [address] BRAIN WO IVCONon 01-01-20 CT BRAIN WO IVCON * * *Final Report* * * DATE OF EXAM: Dec 31 2024 10:01PM [facility] [id number] - CT BRAIN WO IVCON / PROCEDURE REASON: Head trauma, moderate-severe * * * * Physician Interpretation * * * * EXAMINATION: CT BRAIN WO IVCON CLINICAL HISTORY: Head trauma, fall TECHNIQUE: Serial axial images without IV contrast were obtained from the vertex to the foramen magnum. MQ: CTBWO_3 CT Radiation dose: Integrated Dose-Length Product (DLP) for this visit = 994 mGy*cm CT Dose Reduction Employed: Automated exposure control(AEC) and iterative recon COMPARISON: 09/10/2022 CT, and others RESULT: Post-operative change: None. Acute change: No evidence of an acute infarct or other acute parenchymal process. Hemorrhage: No evidence of acute intracranial hemorrhage. ECASS hemorrhagic transformation score: Not Applicable Mass Lesion / Mass Effect: There is no evidence of an intracranial mass or extraaxial fluid collection. No significant mass effect. Chronic change: Scattered patchy foci of low attenuation are present within the supratentorial white matter, a nonspecific finding that most commonly represents mild small vessel disease. Parenchyma: There is no significant volume loss. The brain parenchyma is otherwise within normal limits for age. Ventricles: The ventricles are within normal limits of size and configuration for age. Paranasal sinuses and skull base: The visualized paranasal sinuses are grossly clear. The skull base and imaged soft tissues are unremarkable. Localizer images: Unremarkable. IMPRESSION: No acute intracranial process identified. Sewing Line Baler: PSCB Transcribe Date/Time: Dec 31 2024 10:53P Dictated by : SHELLY INMAN MD This examination was interpreted and the report reviewed and electronically signed by: SHELLY INMAN MD on Dec 31 2024 10:59PM EST [id number] [facility] CT CERVICAL SPINE WO IVCONon 12-31-2024 CT CERVICAL SPINE WO IVCON * * *Final Report* * * DATE OF EXAM: Dec 31 2024 10:01PM [facility] [id number] - CT CERVICAL SPINE WO IVCON / PROCEDURE REASON: Spine fracture, cervical, traumatic * * * * Physician Interpretation * * * * EXAMINATION: CT CERVICAL SPINE WO IVCON CLINICAL HISTORY: Spine fracture, cervical, traumatic TECHNIQUE: Spiral, high resolution axial unenhanced images were obtained from the skull base to the cervicothoracic junction with sagittal and coronal planar reconstructions. MQ: CTCSPWO_5 CT Radiation dose: Integrated CT Dose-Length Product (DLP) for this visit = 994 mGy*cm CT Dose Reduction Employed: Automated exposure control(AEC) and iterative recon COMPARISON: None. RESULT: Counting reference: Craniocervical junction. Anatomic Variants: None. House Moving Supervisor (topogram) images: Unremarkable. Alignment: Previous ACDF C3-C5 with metallic interbody spacers. Craniocervical junction: Craniocervical junction is normal. Osseous structures/fracture: No evidence of a lytic or blastic process in the visualized spine. No evidence of acute or chronic fracture. Cervical soft tissues: The paraspinal soft tissues are within normal limits. Degenerative changes: Multilevel degenerative disc disease and facet hypertrophy. IMPRESSION: Surgical and degenerative changes with no acute fracture or subluxation identified. Anatomic Variant: None. Assume 7 cervical vertebrae with counting from the craniocervical junction. Sewing Line Baler: PSCDamaris Transcribe Date/Time: Dec 31 2024 11:02P Dictated by : SHELLY INMAN MD This examination was interpreted and the report reviewed and electronically signed by: SHELLY INMAN MD on Dec 31 2024 11:08PM EST [id number] CN Normal [facility] CTA CHEST (NON GATED) W IVCO N PEon 12-31-2024 CTA CHEST (NON GATED) W IVCON PE * * *Final Report* * * DATE OF EXAM: Dec 31 2024 11:20PM [facility] [id number] - CTA CHEST (NON GATED) W IVCON PE / PROCEDURE REASON: Pulmonary embolism (PE) suspected, high prob * * * * Physician Interpretation * * * * EXAMINATION: CHEST CTA (NON GATED) WITH CONTRAST (PULMONARY EMBOLISM PROTOCOL) Clinical History: Fell 8 days ago, possible syncope. Pulmonary embolism suspected. Additional clinical history from [facility] chart review : Hip and low back pain. Status post spinal fusion 2 weeks ago. Technique: Spiral CT acquisition of the chest from the thoracic inlet to the upper abdomen following IV contrast. Axial 1 and 3 mm thick slices plus coronal and sagittal reformatted images. MQ: CTCP_5 Contrast: 80 mL Omnipaque [address] Radiation dose: Integrated Dose-length product (DLP) for this visit = 438 mGy*cm CT Dose Reduction Employed: Automated exposure control(AEC) and iterative recon CTA: Post-processed images (Maximum intensity Projection (MIP), Volume-rendered (VR), or Surface shaded display images (SSD) were created, reviewed and archived. Comparison: 03/23/2022 RESULT: Limitations: None. Evaluation for thromboembolic disease: - Right heart chambers: No thromboembolic disease. - Main pulmonary arteries: No thromboembolic disease. - Lobar pulmonary arteries: No thromboembolic disease. - Segmental pulmonary arteries: No thromboembolic disease. - Subsegmental pulmonary arteries: No thromboembolic disease. - Additional pulmonary artery findings: The main pulmonary artery is normal in caliber. Lines, tubes, and devices: None. Lung parenchyma and airways: No consolidation. No suspicious pulmonary nodule. The central airways are patent. Pleural space: No pleural effusion. No pleural thickening. Lower neck, lymph nodes, and mediastinum: The thyroid is not visualized.. No lymphadenopathy in the supraclavicular, axillary, mediastinal, or hilar regions. Heart, pericardium, and thoracic vessels: The thoracic aorta is normal in caliber. The cardiac chambers are normal in size. Atherosclerosis, including coronary artery atherosclerotic calcifications are noted, although the study is not optimized for coronary assessment. No pericardial effusion or thickening. Bones and soft tissues: No apparent soft tissue hematoma. There is a vertical lucency extending from the inferior endplate of T12 with some associated sclerosis and transverse compression deformity of the superior endplate possibly extending to the posterior margin with possible slight retropulsion centrally, but also with some sclerosis. There is diffuse autofusion of the posterior elements at T11-T12 without evidence of fracture extending through this region, at least by this technique. There is central volume loss in the superior endplate of T11 with sclerosis and with degenerative disc changes at T10-T11 and fused anterior osteophytes. Diffuse unfused anterior osteophytes T8-T12. Upper abdomen: Small hiatal hernia. No acute abnormality in the imaged upper abdomen. Partial visualization of prominent colonic stool volume and heterogeneous contents in the stomach. Localizer images: No additional findings. IMPRESSION: 1. No CT evidence of pulmonary thromboembolism. 2. No acute pulmonary process. 3. Age indeterminant fracture at T12, possibly T11. Recommend correlation for point tenderness and follow-up with MRI to assess for acute edema. Sewing Line Baler: LACI Transcribe Date/Time: Jan 01 2025 12:44A Dictated by : SARAH BECK MD This examination was interpreted and the report reviewed and electronically signed by: SARAH BECK MD on Jan 01 2025 1:20AM EST [id number] CN Normal [facility] Comprehensive metabolic 2000 panelon 12-31-2024 Albumin [Mass/Vol] 4.3 g/dL Normal 3.9-4.9 [facility] Comment on above: Order Comment: Speci men Type: BLOOD SPECIMEN Ordering Facility: [facility] Address: [address] [place] [address] Performed By: #### L [id number], 96907-7, 02021-3 #### [facility] CLIA [id number] [address] [place] [address] [place] ALP [Catalytic activity/Vol] 121 U/L Normal 34-123 [facility] Comment on above: Order Comment: Speci men Type: BLOOD SPECIMEN Ordering Facility: [facility] Address: [address] [place] [address] Performed By: #### L [id number], 87749-7, 02895-6 #### [facility] CLIA [id number] [address] OF [place] ALT [Catalytic activity/Vol] 12 U/L Normal 7-38 [facility] Comment on above: Order Comment: Speci men Type: BLOOD SPECIMEN Ordering Facility: [facility] Address: [address] [place] [address] Performed By: #### L [id number], 21865-9, 41628-5 #### [facility] CLIA [id number] [address] Anion gap [Moles/Vol] 14 mmol/L Normal 8-15 [facility] Comment on above: Order Comment: Speci men Type: BLOOD SPECIMEN Ordering Facility: [facility] Address: [address] [place] [address] Performed By: #### L [id number], 86312-4, 71510-5 #### [facility] CLIA [id number] [address] AST [Catalytic activity/Vol] 21 U/L Normal 13-35 [facility] Comment on above: Order Comment: Speci men Type: BLOOD SPECIMEN Ordering Facility: [facility] Address: [address] [place] [address] Performed By: #### L [id number], 39360-2, 59252-7 #### [facility] CLIA [id number] [address] Bilirubin [Mass/Vol] 0.2 mg/dL Normal 0.2-1.3 [facility] Comment on above: Order Comment: Speci men Type: BLOOD SPECIMEN Ordering Facility: [facility] Address: [address] [place] [address] Performed By: #### L [id number], 23002-5, 65547-6 #### [facility] CLIA [id number] [address] [place] [address] [place] Calcium [Mass/Vol] 9.8 mg/dL Normal 8.5-10.2 [facility] Comment on above: Order Comment: Speci men Type: BLOOD SPECIMEN Ordering Facility: [facility] Address: [address] [place] [address] Performed By: #### L [id number], 47902-8, 23015-0 #### [facility] CLIA [id number] [address] [place] [address] [place] Chloride [Moles/Vol] 92 mmol/L Low 98-107 [facility] Comment on above: Order Comment: Speci men Type: BLOOD SPECIMEN Ordering Facility: [facility] Address: [address] [place] [address] Performed By: #### L [id number], 44674-9, 54896-2 #### [facility] CLIA [id number] [address] [place] [address] [place] CO2 [Moles/Vol] 26 mmol/L Normal 22-30 [facility] Comment on above: Order Comment: Speci men Type: BLOOD SPECIMEN Ordering Facility: [facility] Address: [address] [place] [address] Performed By: #### L [id number], 12318-9, 51664-9 #### [facility] CLIA [id number] [address] [place] [address] [place] Creatinine [Mass/Vol] 0.94 mg/dL Normal 0.58-0.96 [facility] Comment on above: Order Comment: Speci men Type: BLOOD SPECIMEN Ordering Facility: [facility] Address: [address] [place] [address] Performed By: #### L [id number], 79062-9, 20499-6 #### [facility] CLIA [id number] [address] [place] [address] [place] eGFRcr SerPlBld CKD-EPI 1 66 mL/min/1.73m??? Normal >=60 [facility] Comment on above: Order Comment: Speci men Type: BLOOD SPECIMEN Ordering Facility: [facility] Address: [address] [place] [address] Result Comment: Marta mated Glomerular Filtration Rate (eGFR) is calculated using the 2020 CKD-EPI creatinine equation. This equation utilizes serum creatinine, sex, and age as parameters. The creatinine assay has traceable calibration to isotope dilution-mass spectrometry. Refer to KDIGO guidelines for clinical interpretation. In patients with unstable renal function, e.g. those with acute kidney injury, the eGFR may not accurately reflect actual GFR. Performed By: #### L [id number], 75636-7, 31382-4 #### [facility] CLIA [id number] [address] [place] [address] [place] Glucose [Mass/Vol] 101 mg/dL High 74-99 [facility] Comment on above: Order Comment: Shikha bates Type: BLOOD SPECIMEN Ordering Facility: [facility] Address: [address] [place] [address] Result Comment: The [place] [employer] (ADA) provides guidance for cutoff values for fasting glucose and random glucose. The ADA defines fasting as no caloric intake for at least 8 hours. Fasting plasma glucose results between 100 to 125 mg/dL indicate increased risk for diabetes (prediabetes). Fasting plasma glucose results greater than or equal to 126 mg/dL meet the criteria for diagnosis of diabetes. In the absence of unequivocal hyperglycemia, results should be confirmed by repeat testing. In a patient with classic symptoms of hyperglycemia or hyperglycemic crisis, random plasma glucose results greater than or equal to 200 mg/dL meet the criteria for diagnosis of diabetes. Reference: Standards of Medical Care in Diabetes 2016, [place] [employer]. Diabetes Care. 2016.39(Suppl 1). Performed By: #### L [id number], 74926-8, 92974-0 #### [facility] CLIA [id number] [address] [place] [address] [place] Potassium [Moles/Vol] 3.6 mmol/L Low 3.7-5.1 [facility] Comment on above: Order Comment: Shikha bates Type: BLOOD SPECIMEN Ordering Facility: [facility] Address: [address] [place] [address] Performed By: #### L [id number], 99258-7, 18649-2 #### [facility] CLIA [id number] [address] STATES [facility] Protein [Mass/Vol] 8.0 g/dL Normal 6.3-8.0 [facility] Comment on above: Order Comment: Speci men Type: BLOOD SPECIMEN Ordering Facility: [facility] Address: [address] [place] [address] Performed By: #### L [id number], 20022-1, 42114-1 #### [facility] CLIA [id number] [address] Sodium [Moles/Vol] 132 mmol/L Low 136-144 [facility] Comment on above: Order Comment: Speci men Type: BLOOD SPECIMEN Ordering Facility: [facility] Address: [address] [place] [address] Performed By: #### L [id number], 65997-5, 20919-5 #### [facility] CLIA [id number] [address] Urea nitrogen [Mass/Vol] 10 mg/dL Normal 7-21 [facility] Comment on above: Order Comment: Speci men Type: BLOOD SPECIMEN Ordering Facility: [facility] Address: [address] [place] [address] Performed By: #### L [id number], 00366-2, 92572-2 #### [facility] CLIA [id number] [address] D dimer FEU PPP-mCncon 12-31 Fibrin D-dimer FEU (PPP) [Mass/Vol] 2300 ng/mL FEU High <500 [facility] Comment on above: Order Comment: Speci men Type: BLOOD SPECIMENOrdering Facility: [facility] Address: [address] [place] [address] Performed By: #### 4 8065-7 ####[facility] [id number] [place] [address] OF [place] ED PROV NOTEon 12-31-2024 ED PROV NOTE HNO ID: [id number] Author: ANYA FOSS MD Service: Emergency Medicine Author Type: Physician Type: ED Provider Notes Filed: 01/01/2025 04:04 Note Text: ED Provider Note Patient Name: Dana Fermin : 1955 SERVICE DATE: 12/31/24 History Patient presents with: Hip Pain: Pt presents to ED with complaints of hip and lower back pain. Pt reports falling or passing out, she is unsure what happened. Pain worsening today. Had spinal fusion 2 weeks ago. Fall This is a 69-year-old female had surgery on 12/08/2024. She had CTs by infusion. She has been on meloxicam and a muscle relaxer and hydrocodone. About 8 days ago she went to the bathroom at 3:00 in the morning. She got up she was dizzy she either passed out or fell she hit the back of her head on the toilet. She seen her surgeon and she is post to get an MRI. She has been having lower back pain and left hip pain. She has had to take the bike and it has not been helping the pain. PAST MEDICAL HISTORY Diagnosis Date Asthma Camacho esophagus GERD (gastroesophageal reflux disease) Hypertension Thyroid disease No past surgical history on file. No family history on file. Social History Tobacco Use Smoking status: Never Smokeless tobacco: Never Substance and Sexual Activity Alcohol use: Yes Comment: occ Drug use: No Sexual activity: Not on file ALLERGIES Allergen Reactions Penicillins Hives Review of Systems Respiratory: Negative for shortness of breath. Cardiovascular: Negative for chest pain. Neurological: Positive for syncope. Physical Exam Vitals [12/31/24 2133] BP Pulse Temp Temp src Resp SpO2 Weight Height 136/80 (!) 97 36.2 ?C (97.2 ?F) Temporal 18 97 % 75.3 kg (166 lb) -- Physical Exam Vitals and nursing note reviewed. Exam conducted with a team supervisor present. HENT: Head: Normocephalic and atraumatic. Nose: Nose normal. Mouth/Throat: Mouth: Mucous membranes are moist. Eyes: Extraocular Movements: Extraocular movements intact. Conjunctiva/sclera: Conjunctivae normal. Pupils: Pupils are equal, round, and reactive to light. Neck: Comments: Patient has a cervical collar on from her surgery Cardiovascular: Rate and Rhythm: Normal rate and regular rhythm. Pulses: Normal pulses. Heart sounds: Normal heart sounds. Pulmonary: Effort: Pulmonary effort is normal. Breath sounds: Normal breath sounds. Chest: Chest wall: No tenderness. Abdominal: General: Abdomen is flat. There is no distension. Palpations: Abdomen is soft. Tenderness: There is no abdominal tenderness. Musculoskeletal: General: Normal range of motion. Comments: Patient has lower lumbar pain. Full range of motion of the shoulders and hips elbows knees and ankle. Skin: General: Skin is warm and dry. Capillary Refill: Capillary refill takes less than 2 seconds. Neurological: General: No focal deficit present. Mental Status: She is alert and oriented to person, place, and time. Cranial Nerves: No cranial nerve deficit. Sensory: No sensory deficit. Motor: No weakness. Coordination: Coordination normal. Psychiatric: Behavior: Behavior normal. Diagnostic Testing ED Labs Ordered and Reviewed COMPREHENSIVE METABOLIC PANEL - Abnormal; Notable for the following components: Result Value Ref Range Glucose 101 (*) 74 - 99 mg/dL Sodium 132 (*) 136 - 144 mmol/L Potassium 3.6 (*) 3.7 - 5.1 mmol/L Chloride 92 (*) 98 - 107 mmol/L All other components within normal limits HIGH SENSITIVITY TROPONIN T (INITIAL) - Abnormal; Notable for the following components: MARIAN High Sensitivity 13 (*) <12 ng/L All other components within normal limits D-DIMER - Abnormal; Notable for the following components: D Dimer 2,300 (*) <500 ng/mL FEU All other components within normal limits Narrative: 500 ng/mL FEU is the D Dimer cutoff to exclude DVT (deep vein thrombosis) and PE (pulmonary embolism) in patients with a low pre test probability. Supplemental Comment: In patients over 50 years with a low pre test probability for DVT and/or PE, an age adjusted D dimer cutoff can be calculated as [age x 10] ng/mL FEU. For example, a patient of 88 years would have an age adjusted D dimer cutoff of 880 ng/mL FEU. For patients with a suspected DVT, a D dimer level below 500 ng/mL FEU has a negative predictive value of >98.9%, a sensitivity of >96.9% and a specificity of >35.7%. For patients with a suspected PE, a D dimer level below 500 ng/mL FEU has a negative predictive value of >98.5%, and a sensitivity of >96.5% and a specificity of >38.8%. Reference: Jarocho M, et al. SANDY 2014 311:1117 and Van Aspen N, et al. Shaina Int Med 2016 165:253. URINALYSIS (WITH MICROSCOPIC) WITH CULTURE IF INDICATED - Abnormal; Notable for the following components: Specific [place], Ur <=1.005 (*) 1.005 - 1.030 All other components within normal limits HIGH SENSITIVITY TROPONIN T (THIRD) 3 HRS AFTER I (more content not included)... Normal [facility] ED Triage Noteon 12-31-2024 ED Triage Note HNO ID: [id number] Author: KEELY KENDALL DO Service: Emergency Medicine Author Type: Physician Type: ED Triage Notes Filed: 12/31/2024 21:39 Note Text: ED INTAKE NOTE Patient Name: Dana Fermin Service Date: 12/31/24 BRIEF HPI: This is a 69 year old female who presents to the ED with: pt had syncope, does not know what happened, 8 days ago, hit back of her head, + left hip pain, and lbp, 2 weeks ago had spinal fusion in cervical spine, no cp no sob BRIEF EXAM: NAD Awake and Alert Non labored breathing INITIAL WORKUP AND DECISION MAKING: Orders Placed This Encounter CT BRAIN WO IVCON CT CERVICAL SPINE WO IVCON XR LUMBAR GENERAL 3V AP/LAT/L5-S1 XR HIP GENERAL 3V PELV/AP/LAT LT COMP METABOLIC PANEL (BMP+LFT) CBC + DIFF High Sensitivity Troponin T with Reflex for ED Chest Pain NT PRO BNP D-DIMER Urinalysis w Microscopic, reflex Culture COVID AND Influenza A/B AND RSV PCR, Expedited Provider examination performed via virtual platform with assistance from bedside clinician. SIGNATURE: Keely Kendall DO Normal [facility] EKGon 12-31-2024 Electrocardiogram Ventricular Rate : 73 BPM Atrial Rate : 73 BPM P-R Interval : 180 ms QRS Duration : 86 ms Q-T Interval : 414 ms QTC Calculation(Bazett) : 456 ms Calculated P Stendal : 38 degrees Calculated R Stendal : -21 degrees Calculated T Stendal : 26 degrees SINUS RHYTHM No Stemi No Change 09/10/2022 Confirmed by HRICS ANYA HOOD ([id number]) on 12/31/2024 11:49:58 PM NAME : DANA FERMIN PID : [id number] : 1955 Gender : Female Race : ORD : Procedure Date : Dec 31 2024 23:42:14 Edit Date : Dec 31 2024 23:50:00 Diagnosis: SINUS RHYTHM No Stemi No Change 09/10/2022 Confirmed by ANYA FOSS MD ([id number]) on 12/31/2024 11:49:58 PM Test Reason : Location : 1 : ER ED Overread By : ANYA FOSS MD Edited By : ANYA FOSS MD Referred By : , Acquired by : ok, [facility] Fibrin D-dimer FEU (PPP) [Ma ss/Vol]on 12-31-2024 D DIMER AGE-RELATED CUTOFF 690 ng/mL FEU [facility] Comment on above: Order Comment: Shikha bates Type: BLOOD SPECIMENOrdering Facility: [facility] Address: [address] [place] [address] Performed By: #### 4 8065-7 ####[facility] [id number] [place] [address] [place] HIGH SENSITIVITY TROPONIN T (INITIAL)on 12-31-2024 Troponin T.cardiac High sensitivity method [Mass/Vol] 13 ng/L High <12 [facility] Comment on above: Order Comment: Shikha bates Type: BLOOD SPECIMEN Ordering Facility: [facility] Address: [address] [place] [address] Performed By: #### L [id number], 08819-8, 25518-2 #### [facility] CLIA [id number] [address] [place] HIGH SENSITIVITY TROPONIN T (SECOND)on 12-31-2024 Troponin T.cardiac High sensitivity method [Mass/Vol] 11 ng/L Normal <12 [facility] Comment on above: Order Comment: Shikha bates Type: BLOOD SPECIMENOrdering Facility: [facility] Address: [address] [place] [address] Performed By: #### L [id number] ####[facility] [id number] [address] [place] NT-proBNP [facility] 12-31 Natriuretic peptide.B prohormone N-Terminal [Mass/Vol] 103 pg/mL Normal <125 [facility] Comment on above: Order Comment: Speci men Type: BLOOD SPECIMENOrdering Facility: [facility] Address: [place] [address] Performed By: #### L [id number], 95604-7, 57949-2 ####[facility] [id number] [place] [address] [place] XR HIP 3V PELV+ AP/LAT LTon 12-31-2024 XR HIP 3V PELV+ AP/LAT LT * * *Final Report* * * DATE OF EXAM: Dec 31 2024 10:26PM MDX [id number] - XR HIP 3V PELV+ AP/LAT LT / PROCEDURE REASON: Osteoarthritis * * * * Physician Interpretation * * * * EXAMINATION: XR LUMBAR 3V AP/LAT/L5-S1 HISTORY: fell 8 days ago , low back pain (accession [id number]), fell 8 days ago; LT hip pain (accession [id number]) Back pain. COMPARISON: None. FINDINGS: For counting purposes, L4-5 is presumed to be at the level of the iliac crests. Normal vertebral body alignment. Chronic superior compression deformity of the L5 vertebral body. Diffuse bony demineralization. Mild scoliosis. _ There is degenerative disc disease with endplate spondylosis and disc height loss at all lumbar levels. EXAMINATION: XR HIP 3V PELV+ AP/LAT LT HISTORY: Back pain. fell 8 days ago , low back pain (accession [id number]), fell 8 days ago; LT hip pain (accession [id number]) COMPARISON: None. FINDINGS: No evidence of fracture or destructive process. Mild degenerative arthrosis of the left hip with slight joint space loss. Similar degenerative changes of the right hip joint. Degenerative changes of the SI joints and pubic symphysis. Calcified uterine fibroid. IMPRESSION: Lumbar spine: No acute findings. Chronic superior compression deformity of the L5 vertebral body. Degenerative changes of the lumbar spine. Diffuse bony demineralization. Left hip: No acute bone abnormality. Degenerative changes. Sewing Line Baler: LACI Transcribe Date/Time: Dec 31 2024 11:22P Dictated by : MARY JANE ROGERS MD This examination was interpreted and the report reviewed and electronically signed by: MARY JANE ROGERS MD on Dec 31 2024 11:27PM EST [id number] [facility] XR LUMBAR 3V AP/LAT/L5-S1on 12-31-2024 XR LUMBAR 3V AP/LAT/L5-S1 * * *Final Report* * * DATE OF EXAM: Dec 31 2024 10:26PM MDX 5228 - XR LUMBAR 3V AP/LAT/L5-S1 / PROCEDURE REASON: Back pain * * * * Physician Interpretation * * * * EXAMINATION: XR LUMBAR 3V AP/LAT/L5-S1 HISTORY: fell 8 days ago , low back pain (accession [id number]), fell 8 days ago; LT hip pain (accession [id number]) Back pain. COMPARISON: None. FINDINGS: For counting purposes, L4-5 is presumed to be at the level of the iliac crests. Normal vertebral body alignment. Chronic superior compression deformity of the L5 vertebral body. Diffuse bony demineralization. Mild scoliosis. _ There is degenerative disc disease with endplate spondylosis and disc height loss at all lumbar levels. EXAMINATION: XR HIP 3V PELV+ AP/LAT LT HISTORY: Back pain. fell 8 days ago , low back pain (accession [id number]), fell 8 days ago; LT hip pain (accession [id number]) COMPARISON: None. FINDINGS: No evidence of fracture or destructive process. Mild degenerative arthrosis of the left hip with slight joint space loss. Similar degenerative changes of the right hip joint. Degenerative changes of the SI joints and pubic symphysis. Calcified uterine fibroid. IMPRESSION: Lumbar spine: No acute findings. Chronic superior compression deformity of the L5 vertebral body. Degenerative changes of the lumbar spine. Diffuse bony demineralization. Left hip: No acute bone abnormality. Degenerative changes. Sewing Line Baler: PSCB Transcribe Date/Time: Dec 31 2024 11:22P Dictated by : MARY JANE ROGERS MD This examination was interpreted and the report reviewed and electronically signed by: MARY JANE ROGERS MD on Dec 31 2024 11:27PM EST [id number] [facility] [facility] Cerv Spine 2 or 3 Viewson Cerv Spine 2 or 3 Views [facility] Imaging Services [address] [place] [address] [id number] Cerv Spine 2 or 3 Views MR#: [id number] Acct: [id number] Name: DANA CARLSON Rep #: [id number] : 1955 F 69 From: Forest Baum MD PCP: Dr. Horacio Benson MD Status: DEP AMB Study: Cerv Spine 2 or 3 Views Date of Exam: 12/25/24 Exam# [id number] Ordering Dr: Manjula Russell EXAM: XR Cervical Spine, 4 or 5 Views CLINICAL INDICATION: S/P CERVICAL FUSION TECHNIQUE: Frontal, lateral and bilateral oblique views of the cervical spine. COMPARISON: No relevant prior studies available. FINDINGS: VERTEBRAE: Mild reversal cervical spine lordosis. No acute fracture. DISC SPACES: Status post anterior fusion of C3-C5 with disc spaces. SOFT TISSUES: Unremarkable. OTHER FINDINGS: Intact hardware. RAD/Cerv Spine 2 or 3 Views IMPRESSION: Postoperative changes as above. Reading Location[facility] CC: MELANY Becerra; Dr. Horacio Benson MD Sewing Line Baler: Signed Normal [facility] Lumbar Spine 2 or 3 Viewson 12-25-2024 Lumbar Spine 2 or 3 Views [facility] Imaging Services [address] [place] [address] [id number] Lumbar Spine 2 or 3 Views MR#: [id number] Acct: [id number] Name: DANA CARLSON Rep #: [id number] : 1955 F 69 From: Forest Baum MD PCP: Dr. Horacio Benson MD Status: DEP AMB Study: Lumbar Spine 2 or 3 Views Date of Exam: Exam# [id number] Ordering Dr: Endy Martinez MD EXAM: XR Lumbosacral Spine, 2 or 3 Views CLINICAL INDICATION: PAIN AFTER FALL TECHNIQUE: Frontal and lateral views of the lumbar spine and sacrum. COMPARISON: No relevant prior studies available. FINDINGS: VERTEBRAE: Grade 1 anterior spondylolisthesis of L4 over L5. Moderate endplate degenerative changes and disc degeneration of the visualized spine. Moderate facet arthropathy of L3-S1. No acute fracture. SACRUM/COCCYX: Unremarkable as visualized. No acute fracture. DISC SPACES: No acute findings. No significant narrowing. SOFT TISSUES: Unremarkable. RAD/Lumbar Spine 2 or 3 Views IMPRESSION: Degenerative changes as above. Reading Location: [facility] CC: Dr. Endy Martinez MD; Dr. Horacio Benson MD Sewing Line Baler: Signed Normal [facility] Orthopedic Visit Reporton Orthopedic Visit Report [facility] [address] [place] [address] [address] [place] [address] OFFICE VISIT Date of Service: 12/25/24 MR#: [id number] Acct: [id number] Name: DANA CARLSON Rep #: [id number] : 1955 Provider: Dr. Endy Martinez MD Age/Sex: 69/F Location: [facility] Status: Signed Intake Vital Signs 09/22/24 13:03 12/08/24 20:00 Height 5 ft 6 in 5 ft 2.99 in Intake Visit Reasons: cervical spine Chief Complaint: anterrior cervical fusion Allergies Penicillins Allergy (Verified 12/08/24 11:23) Rash Medications ???Medication ???Instructions ???Recorded ???Confirmed ???Type albuterol 90 mcg-budesonide 80 2 inh inhalation Q4-6H PRN 5 12/25/24 History mcg/actuation HFA aerosol inhaler shortness of breath (Airsupra) amitriptyline 25 mg tablet 25 mg PO QHS 09/22/24 12/25/24 His tory atorvastatin 10 mg tablet 10 mg PO QDAY 09/22/24 12/25/24 Hi story desvenlafaxine succinate 100 mg 100 mg PO QDAY 09/22/24 12/25/24 H istory tablet,extended release 24 hr esomeprazole magnesium 40 mg 40 mg PO QDAY 09/22/24 12/25/24 Hi story capsule,delayed release furosemide 40 mg tablet 40 mg PO QAM 09/22/24 12/25/24 His tory levothyroxine 88 mcg tablet 88 mcg PO QDAY 09/22/24 12/25/24 H istory metoprolol tartrate 50 mg tablet 25 mg PO BID 09/22/24 12/25/24 His tory sucralfate 1 gram tablet 1 g PO QDAY 09/22/24 12/25/24 Hist ory tirzepatide (weight loss) 10 10 mg subcut .weekly 09/22/2412/09 History mg/0.5 mL subcutaneous pen injector (Zepbound) meloxicam 15 mg tablet 15 mg PO DAILY #30 tabs 12/09/24 0 12/25/24 Rx Have you fallen in the past year?: Yes PFSH Medical History Wears glasses History of steroid therapy Thyroid disease Arthritis Back pain Gastric reflux Non-smoker Asthma History of stress test History of irregular heartbeat Camacho esophagus Hypertension Surgical History History of back surgery Hx of shoulder surgery Hx of bilateral breast reduction surgery History of dental surgery Social History Smoking Status: Never smoker HPI cervical spine Details: This documentation accurately reflects the service provided and the decisions made by me, Dr. Endy Martinez MD 12/25/24 8079. Part of today???s visit was documented by Collette HUGHES and Anabela Degroot RN, acting as scribe. DANA FERMIN is a 69 year old F here today for 2 week post op C3-5 ACDF, removal of previous hardware, dos 12/08/24. She states that her neck is doing well and is having minimal pain. She is not taking any medications for pain for the neck. She did have a fall 2 days ago she is unsure what exactly happened but she had hit her head on the toilet and landed on her right side. She is having pain in her lower back on the right side and in her hip. She has been taking Meloxicam for the lower back pain. she notes that her lower back is sore to touch. She is not walking as much because of the pain from the fall. She did not go anywhere to be evaluated after her fall. She denies dysphagia and is not avoiding eating any foods. She reports dizziness. The patient is a 69-year-old female presenting with back pain following a fall. The fall occurred two days ago when she was attempting to go to the bathroom at 3 a.m. and resulted in her twisting her body and hitting the back of her head on the toilet. She reports pain in the back, particularly in the center and towards one side, extending to the hip. The patient has a history of vertebral fractures at T11 and T12, which were identified earlier this year. She also has soft bones, which were noted during surgery, and her bone density is lower than normal. The patient experiences dizziness, which she attributes to a recent reduction in her beta wild dosage by her primary care physician. She has a heart murmur and is currently on a beta wild. - Neurological: Reports dizziness, denies numbness in hands - Musculoskeletal: Reports back pain, denies new fractures - Cardiovascular: Reports heart murmur, denies chest pain Attestation: Documentation on this patient encounter was supported using ambient scribe technology/ voice AI technology. The patient consented to recording for the purpose of documenting the encounter. Provider reviewed content of the generated note prior to signature. Ortho Exam General General: Yes no acute distress Neurologic: Yes alert and Yes oriented x3 Psychologic: Yes reasonable and appropriate Exam Narrative - Neurological: No lacerations or bleeding observed on the head - Musculoskeletal: Tenderness at the site of previous vertebra (more content not included)... Normal [facility] Absolute lymphocyte countOrd ered By: Manjula Russell on 12-09-2024 Lymphocytes Auto (Unsp spec) [#/Vol] 0.82 10*3/uL Low 0.83-4.51 [facility] Absolute neutrophil countOrd ered By: Manjula Russell on 12-09-2024 Neutrophils (Bld) [#/Vol] 7.8 10*3/uL High 2.0-7.7 [facility] Anion gap in Serum or Plasma Ordered By: Manjula Russell on 12-09-2024 Anion gap [Moles/Vol] 14 mmol/L 5-15 [facility] Automated lymphocyte count a s percentage of total leukocytesOrdered By: Manjula Russell on 12-09-2024 Lymphocytes/100 WBC Auto (Unsp spec) 9.4 % Low 19-41 [facility] BUN/creatinine ratioOrdered By: Manjula Russell on 12-09-2024 Urea nitrogen/Creatinine [Mass ratio] 10.6 mg/mg 10-20 [facility] Basic Metabolic Profile (BMP )on 12-09-2024 BUN/CRE 10.6 RATIO Normal - [facility] Comment on above: Performed By: #### L 500.2500, L100.0100 ####[facility] [address] [place], [address] Calcium [Mass/Vol] 8.9 mg/dL Normal 7.6-11.0 [facility] Comment on above: Performed By: #### L 500.2500, L100.0100 ####[facility] [address] [place], [address] Chloride [Moles/Vol] 99 mmol/L Normal 98-108 [facility] Comment on above: Performed By: #### L 500.2500, L100.0100 ####[facility] [address] [place], [address] CO2 [Moles/Vol] 21.0 mmol/L Normal 21.0-32.0 [facility] Comment on above: Performed By: #### L 500.2500, L100.0100 ####[facility] [address] [place], [address] Creatinine [Mass/Vol] 0.87 mg/dL Normal 0.70-1.20 [facility] Comment on above: Performed By: #### L 500.2500, L100.0100 ####[facility] [address] [place], [address] ECRCL 58.25 ml/min Normal 50-250 [facility] Comment on above: Performed By: #### L 500.2500, L100.0100 ####[facility] [address] [place], [address] GAP 14 Normal 5-15 [facility] Comment on above: Performed By: #### L 500.2500, L100.0100 ####[facility] [address] [place], [address] GFR/1.73 sq M.predicted among non-blacks MDRD (S/P/Bld) [Vol rate/Area] 72 mL/min/{1.73_m2} Normal >60 [facility] Comment on above: Result Comment: mL/m in/1.73m2 CKD-EPI Creatinine Equation (2020) Performed By: #### L 500.2500, L100.0100 ####[facility] [address] [place], [address] Glucose [Mass/Vol] 191 mg/dL High 70-99 [facility] Comment on above: Performed By: #### L 500.2500, L100.0100 ####[facility] [address] [place], [address] Potassium [Moles/Vol] 3.5 mmol/L Normal 3.3-5.1 [facility] Comment on above: Performed By: #### L 500.2500, L100.0100 ####[facility] [address] [place], [address] Sodium [Moles/Vol] 134 mmol/L Normal 133-145 [facility] Comment on above: Performed By: #### L 500.2500, L100.0100 ####[facility] [address] [place], [address] Urea nitrogen [Mass/Vol] 9 mg/dL Normal 4-19 [facility] Comment on above: Performed By: #### L 500.2500, L100.0100 ####[facility] [address] [place], [address] Basophil percentageOrdered B y: Manjula Russell on 12-09-2024 Basophils/100 WBC (Bld) 0.1 % 0-1 [facility] CBC W/Diff, Automatedon 07-0 Absolute Lymph 0.82 X10 3/uL Low 0.83-4.51 [facility] Comment on above: Performed By: #### L 500.2500, L100.0100 ####[facility] [address] [place], [address] Absolute Neut 7.8 X10 3/uL High 2.0-7.7 [facility] Comment on above: Performed By: #### L 500.2500, L100.0100 ####[facility] [address] [place], [address] Basophils/100 WBC (Bld) 0.1 % Normal 0-1 [facility] Comment on above: Performed By: #### L 500.2500, L100.0100 ####[facility] [address] [place], [address] Eosinophils/100 WBC (Bld) 0.0 % Normal 0-5 [facility] Comment on above: Performed By: #### L 500.2500, L100.0100 ####[facility] [address] [place], [address] Erythrocyte distribution width (RBC) [Ratio] 12.6 % Normal 11.6-14.6 [facility] Comment on above: Performed By: #### L 500.2500, L100.0100 ####[facility] [address] [place], [address] Hematocrit (Bld) [Volume fraction] 31.3 % Low 37-47 [facility] Comment on above: Performed By: #### L 500.2500, L100.0100 ####[facility] [address] [place], [address] Hemoglobin (Bld) [Mass/Vol] 10.4 g/dL Low 12.0-15.0 [facility] Comment on above: Performed By: #### L 500.2500, L100.0100 ####[facility] [address] [place], [address] IG% 0.700 Normal 0.0-0.9 [facility] Comment on above: Result Comment: IG% - Immature Granulocytes (promyelocytes, myelocytes and metamyelocytes) > 1% indicates that a LEFT SHIFT is Present. Performed By: #### L 500.2500, L100.0100 ####[facility] [address] [place], [address] Lymphocytes/100 WBC (Bld) 9.4 % Low 19-41 [facility] Comment on above: Performed By: #### L 500.2500, L100.0100 ####[facility] [address] [place], [address] MCH (RBC) [Entitic mass] 31.7 pg Normal 27.0-32.0 [facility] Comment on above: Performed By: #### L 500.2500, L100.0100 ####[facility] [address] [place], [address] MCHC (RBC) [Mass/Vol] 33.2 g/dL Normal 32-36 [facility] Comment on above: Performed By: #### L 500.2500, L100.0100 ####[facility] [address] [place], [address] MCV (RBC) [Entitic vol] 95.4 fL Normal 81-99 [facility] Comment on above: Performed By: #### L 500.2500, L100.0100 ####[facility] [address] [place], [address] Monocytes/100 WBC (Bld) 1.0 % Normal 0-10 [facility] Comment on above: Performed By: #### L 500.2500, L100.0100 ####[facility] [address] [place], [address] Neutrophils/100 WBC (Bld) 88.8 % High 47-70 [facility] Comment on above: Performed By: #### L 500.2500, L100.0100 ####[facility] [address] [place], [address] Nucleated RBC (Bld) [#/Vol] 0 10*3/uL Normal 0-5 [facility] Comment on above: Performed By: #### L 500.2500, L100.0100 ####[facility] [address] [place], [address] Platelet mean volume (Bld) [Entitic vol] 9.3 fL Normal 6.2-12.0 [facility] Comment on above: Performed By: #### L 500.2500, L100.0100 ####[facility] [address] [place], [address] Platelets (Bld) [#/Vol] 226 10*3/uL Normal 150-450 [facility] Comment on above: Performed By: #### L 500.2500, L100.0100 ####[facility] [address] [place], [address] RBC (Bld) [#/Vol] 3.28 10*6/uL Low 4.2-5.4 [facility] Comment on above: Performed By: #### L 500.2500, L100.0100 ####[facility] [address] [place], [address] RDW SD 43.9 fl Normal 35.1-43.9 [facility] Comment on above: Performed By: #### L 500.2500, L100.0100 ####[facility] [address] [place], [address] WBC (Bld) [#/Vol] 8.8 10*3/uL Normal 4.4-11.0 [facility] Comment on above: Performed By: #### L 500.2500, L100.0100 ####[facility] [address] [place], [address] Carbon dioxide, total [Moles /volume] in Central venous bloodOrdered By: Manjula Russell on 12-09-2024 CO2 [Moles/Vol] 21.0 mmol/L 21.0-32.0 [facility] Cerv Spine 2 or 3 Viewson Cerv Spine 2 or 3 Views [facility] Imaging Services [address] [place] [address] Cerv Spine 2 or 3 Views MR#: [id number] Acct: [id number] Name: DANA CARLSON Rep #: [id number] : 1955 F 69 From: Klaus Duvall MD PCP: Dr. Horacio Benson MD Status: ADM IN Study: Cerv Spine 2 or 3 Views Date of Exam: 12/09/24 Exam# [id number] Ordering Dr: Manjula Russell PROCEDURE: CERV SPINE 2 OR 3 VIEWS 12/09/2024 REASON FOR EXAM: S/P CERVICAL FUSION TECHNIQUE: CERV SPINE 2 OR 3 VIEWS COMPARISON: 10/14/2024 FINDINGS: Status post anterior fusion, C3 through C6. Intact hardware. Anatomic alignment. Diffuse facet arthritis. Disc degeneration C6-C7. Cervicothoracic scoliosis. Postoperative soft tissue air. No acute bone or lung apical pathology. RAD/Cerv Spine 2 or 3 Views IMPRESSION: Unremarkable postoperative appearance status post ACDF. Disclaimer: Reading Location: [facility] CC: MELANY Becerra; Dr. Horacio Benson MD Sewing Line Baler: Signed Normal [facility] Chloride assayOrdered By: Litzy Russell on 12-09-2024 Chloride [Moles/Vol] 99 mmol/L 98-108 [facility] Eosinophil percentageOrdered By: Manjula Russell on 12-09-2024 Eosinophils/100 WBC (Bld) 0.0 % 0-5 [facility] Erythrocyte distribution wid th ratioOrdered By: Manjula Russell on 12-09-2024 Erythrocyte distribution width (RBC) [Ratio] 12.6 % 11.6-14.6 [facility] Erythrocyte distribution wid th standard deviationOrdered By: Manjula Russell on 12-09-2024 Erythrocyte distribution width (RBC) [Ratio] 43.9 fl 35.1-43.9 [facility] Glomerular filtration rate ( GFR) estimation/1.73 sq m using serum, plasma, or whole bOrdered By: Manjula Russell on 12-09-2024 GFR/1.73 sq M.predicted among non-blacks MDRD (S/P/Bld) [Vol rate/Area] 72 mL/min/{1.73_m2} >60 [facility] Comment on above: mL/min/1.73m2 CKD-EP I Creatinine Equation (2020) Hematocrit Auto (Bld) [Volum e fraction]Ordered By: Manjula Russell on 12-09-2024 Hematocrit (Bld) [Volume fraction] 31.3 % Low 37-47 [facility] Hemoglobin measurementOrdere d By: Manjula Russell on 12-09-2024 Hemoglobin (Bld) [Mass/Vol] 10.4 g/dL Low 12.0-15.0 [facility] Immature granulocytes/100 WB C Auto (Bld)Ordered By: Manjula Russell on 12-09-2024 Immature granulocytes/100 WBC (Bld) 0.700 % 0.0-0.9 [facility] Comment on above: IG% - Immature Granu locytes (promyelocytes, myelocytes and metamyelocytes) > 1% indicates that a LEFT SHIFT is Present. MCV (mean corpuscular volume ) determinationOrdered By: Manjula Russell on 12-09-2024 MCV (RBC) [Entitic vol] 95.4 fL 81-99 [facility] Mean corpuscular hemoglobin (MCH) determinationOrdered By: Manjula Russell on 12-09-2024 MCH (RBC) [Entitic mass] 31.7 pg 27.0-32.0 [facility] Mean corpuscular hemoglobin concentration (MCHC) determinationOrdered By: Manjulamegan Russell 12-09-2024 MCHC (RBC) [Mass/Vol] 33.2 g/dL 32-36 [facility] Mean platelet volume determi nationOrdered By: Manjula Russell on 12-09-2024 Platelet mean volume (Bld) [Entitic vol] 9.3 fL 6.2-12.0 [facility] Monocyte percentageOrdered B y: Manjula Russell on 12-09-2024 Monocytes/100 WBC (Bld) 1.0 % 0-10 [facility] Neutrophil percentageOrdered By: Manjula Russell on 12-09-2024 Neutrophils/100 WBC (Bld) 88.8 % High 47-70 [facility] Nucleated red blood cell per centageOrdered By: Manjula Russell on 12-09-2024 Nucleated RBC/100 WBC (Bld) [Ratio] 0 % 0-5 [facility] Platelet countOrdered By: Litzy Russell on 12-09-2024 Platelets (Bld) [#/Vol] 226 10*3/uL 150-450 [facility] Potassium measurement (mass/ volume)Ordered By: Manjula Russell on 12-09-2024 Potassium (Unsp spec) [Mass/Vol] 3.5 mmol/L 3.3-5.1 [facility] RBC Auto (Bld) [#/Vol]Ordere d By: Manjula Russell on 12-09-2024 RBC (Bld) [#/Vol] 3.28 10*6/uL Low 4.2-5.4 [facility] Serum creatinine measurement (mass/volume)Ordered By: Manjula Russell on 12-09-2024 Creatinine [Mass/Vol] 0.87 mg/dL 0.70-1.20 [facility] Serum glucose measurement (m ass/volume)Ordered By: Manjula Russell on 12-09-2024 Glucose [Mass/Vol] 191 mg/dL High 70-99 [facility] Serum or plasma calcium nini urement (mass/volume)Ordered By: Manjula Russell on 12-09-2024 Calcium [Mass/Vol] 8.9 mg/dL 7.6-11.0 [facility] Serum or plasma urea nitroge n measurement (mass/volume)Ordered By: Manjula Russell on 12-09-2024 Urea nitrogen [Mass/Vol] 9 mg/dL 4-19 [facility] Sodium levelOrdered By: Leyla Russell on 12-09-2024 Sodium [Moles/Vol] 134 mmol/L 133-145 [facility] White blood cell (WBC) count Ordered By: Manjula Russell on 12-09-2024 WBC (Bld) [#/Vol] 8.8 10*3/uL 4.4-11.0 [facility] Bedside Glucoseon 12-08-2024 FINGERSTICK GLU 92 mg/dL Normal 74-106 [facility] Comment on above: Result Comment: SILVER GEMENT OF PATIENT CARE PER NURSING PROTOCOL Performed By: #### L 501.080 ####[facility] [address] [facility] [place], [address] Cerv Spine 2 or 3 Viewson Cerv Spine 2 or 3 Views [facility] Imaging Services [address] [place], [place] [address] Cerv Spine 2 or 3 Views MR#: [id number] Acct: [id number] Name: DANA CARLSON Rep #: [id number] : 1955 F 69 From: Forest Baum MD PCP: Dr. Horacio Benson MD Status: DIS IN Study: Cerv Spine 2 or 3 Views Date of Exam: 12/08/24 Exam# [id number] Ordering Dr: Endy Martinez MD EXAM: XR Cervical Spine, 2 or 3 Views CLINICAL INDICATION: ANTERIOR CERVICAL FUSION C3-4, C4-5 TECHNIQUE: Frontal and lateral views of the cervical spine. COMPARISON: No relevant prior studies available. FINDINGS: VERTEBRAE: Unremarkable. No definite fracture. Normal alignment. DISC SPACES: No acute findings. No significant narrowing. SOFT TISSUES: Unremarkable. OTHER FINDINGS: Total 4 spot images were obtained. Total fluoroscopy time of 7 seconds. Total radiation dose was 0.89 mGy. RAD/Cerv Spine 2 or 3 Views IMPRESSION: Fluoroscopic guidance was used intraoperatively. Please refer to the operative note for further details. Reading Location: [facility] CC: Dr. Endy Martinez MD; Dr. Horacio Benson MD Sewing Line Baler: Signed Normal [facility] Consultation - Hospitaliston 12-08-2024 Consultation - Hospitalist [facility] Medical Records Department [address] [place] [address] Consultation - Hospitalist 12/08/24 1812 MR#: [id number] Acct: [id number] Name: DANA CARLSON Rep #: [id number] : 1955 69 From: Cristobal Ochoa DO PCP: Dr. Horacio Benson MD Status:ADM IN Location: MA3 [id number] Assessment Plan Assessment/Plan (1) Cervical radiculopathy: PLAN: Plan Patient is a 69-year-old female who presented to [facility] on 12/08/2024 for planned cervical spine fusion procedure. Medicine consulted postoperatively for medical management. 1. 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 Orthopedic surgery primary. S/p C3-5 ACDF procedure with removal of previous hardware with Dr. Martinez on 12/08. Tolerated procedure well, no intraoperative complications noted. Pain control, DVT prophylaxis and further postoperative care per orthopedics. 2. Hypertension ??? Normotensive postoperatively. Continue home Lopressor and Lasix. 3. GERD ??? Stable. Continue home PPI and sucralfate. 4. Hypothyroidism ??? Continue home Synthroid. 5. Anxiety/depression ??? Continue home desvenlafaxine and amitriptyline at night. 6. Asthma ??? Stable on room air, not in acute exacerbation. Continue home short acting inhaler as needed. 7. Hyperlipidemia ??? Continue home statin. 8. Overweight ??? BMI 29 on admit. Is on Mounjaro for weight loss; notably has no history of diabetes. Hold Mounjaro while here, okay to resume on discharge. DVT prophylaxis: Per orthopedics Total clinical time spent by myself addressing the patient's medical issues, reviewing all the data, and collaborating with patient's care team: 35 minutes. HPI Consult Data Date of Consult: 12/08/24 HPI Narrative Reason for Consultation: Postoperative medical management HPI Narrative: DANA FERMIN, is a 69 F who presented to [facility] on 12/08/2024 for planned cervical spine procedure. Medicine consulted postoperatively for medical management. Patient had C3-5 fusion with removal of previous hardware done with Dr. Martinez today. Tolerated procedure well, no intraoperative complications noted. I saw the patient at bedside later this evening, present. Patient was fatigued appearing and mildly uncomfortable appearing due to neck discomfort. Her voice was hoarse likely due to intubation for the procedure and she was only answering questions with short responses. She reported mild neck pain currently. Denied any radiculopathy. Denied any other symptoms currently. [facility] Medical History Wears glasses History of steroid therapy Thyroid disease Arthritis Back pain Gastric reflux Non-smoker Asthma History of stress test History of irregular heartbeat Camacho esophagus Hypertension Home Medications ???Medication ???Instructions ???Recorded ???Last Taken ???Type albuterol 90 mcg-budesonide 80 2 inh inhalation Q4-6H PRN 5 Unknown History mcg/actuation HFA aerosol inhaler shortness of breath (Airsupra) amitriptyline 25 mg tablet 25 mg PO QHS 09/22/24 12/07/24 His tory atorvastatin 10 mg tablet 10 mg PO QDAY 09/22/24 12/07/24 Hi story desvenlafaxine succinate 100 mg 100 mg PO QDAY 09/22/24 12/07/24 H istory tablet,extended release 24 hr esomeprazole magnesium 40 mg 40 mg PO QDAY 09/22/24 12/07/24 Hi story capsule,delayed release furosemide 40 mg tablet 40 mg PO QAM 09/22/24 12/07/24 His tory levothyroxine 88 mcg tablet 88 mcg PO QDAY 09/22/24 12/07/24 H istory meloxicam 15 mg tablet 15 mg PO QDAY 09/22/24 12/07/24 Hi story metoprolol tartrate 50 mg tablet 25 mg PO BID 09/22/24 12/08/24 09: 30 History sucralfate 1 gram tablet 1 g PO QDAY 09/22/24 12/08/24 Hist ory tirzepatide (weight loss) 10 10 mg subcut .weekly 09/22/2411/10 History mg/0.5 mL subcutaneous pen injector (Zepbound) Allergy/AdvReac Type Severity Reaction Status Date / Time Penicillins Allergy Rash Verified 12/08/24 11:23 Surgical History History of back surgery Hx of shoulder surgery Hx of bilateral breast reduction surgery History of dental surgery Social History (System 12/03/24 @ 07:54 by Kristal Rodriges) Smoking Status: Never smoker ROS Constitutional Constitutional: Reports fatigue; Denies chills, fever(s) or weakness Eyes Eyes: Denies change in vision Cardiovascular Cardiovascular: Denies chest pain Respiratory/Chest Respiratory/Chest: Denies shortness of breath at rest Gastrointestinal Gastrointestinal: Denies abdominal pain Musculoskeletal Musculoskeletal: Reports neck pain; Denies myalgias Neurologic Neuro (more content not included)... Normal [facility] Glucose measurement at [facility] deOrdered By: Endy Martinez on 12-08-2024 Glucose [Mass/Vol] 92 mg/dL 74-106 [facility] Comment on above: MANAGEMENT OF PATIEN T CARE PER NURSING PROTOCOL MR/POSTOP.ANEon 12-08-2024 MR/POSTOP.[facility] Medical Records Department [address] [place] [address] Anesthesia Postop Eval I 12/08/24 1632 MR#: [id number] Acct: [id number] Name: DANA CARLSON Rep #: [id number] : 1955 69 From: Tana Miguel CRNA PCP: Dr. Horacio Benson MD Status:ADM IN Y Race: C Location: [facility] OA560-6 Anesthesia: Postop Eval I Current Vital Signs Temperature: 98.2 F Pulse Rate: 71 Blood Pressure: 106/70 Respiratory Rate: 16 Pulse Ox: 95 Oxygen Delivery Method: Nasal Cannula Oxygen Flow Rate (L/min): 8 Assessment Airway patent: Yes Spontaneous unlabored respirations: Yes Mental status: Awake nausea: No Vomiting: No Anesthesia Complication: No Fluid Hydration Crystalloid volume administer (ml): 1,400 Total IV fluid infused: 1,400 Progress Note Post-operative progress note: patient strong moves all extremities, smiles equal, no tongue deviation, raises eyebrows, and following commands Anesthesia document: Postop Eval 1 completed: Yes 12/08/24 1634 Date Tana Miguel PLANT FACILITIES TECHNICIAN Cosigner Signature: Date CC: Signed Normal [facility] MR/ULASIEZL8sn 12-08-2024 MR/POSTOPAN2 [facility] Medical Records Department [address] [place] [address] Anesthesia Postop Eval II 12/08/24 1648 MR#: [id number] Acct: [id number] Name: TEVIN FERMINDANA Pan Rep #: [id number] : 1955 69 From: Erica Ramirez PLANT FACILITIES TECHNICIAN PCP: Dr. Horacio Benson MD Status:ADM IN Y Race: C Location: [place] [address]409-1 Anesthesia Postop Eval I Sum Postop Eval Completion status Anesthesia document: Postop Eval 1 completed: Yes Anesthesia Postop Eval I Summary Anesthesia Postop Eval I Summary: Anesthesia Postop Eval I: Assessment Summary Airway patent Yes 12/08/24 16:34 PLANT FACILITIES TECHNICIAN.LMIL Spontaneous unlabored Yes 12/08/24 16:34 PLANT FACILITIES TECHNICIAN.LMIL respirations Mental status Awake 12/08/24 16:34 PLANT FACILITIES TECHNICIAN.LMIL nausea No 12/08/24 16:34 PLANT FACILITIES TECHNICIAN.LMIL Vomiting No 12/08/24 16:34 PLANT FACILITIES TECHNICIAN.LMIL Anesthesia Postop Eval I: Fluid Summary Crystalloid volume administer 1,400 12/08/24 16:34 PLANT FACILITIES TECHNICIAN.LMIL (ml) Colloids volume administered ( ml) Blood Product volume administered (ml) Total IV fluid infused 1,400 12/08/24 16:34 PLANT FACILITIES TECHNICIAN.LMIL Anesthesia Postop Eval I: Summary Notes Anesthesia Complication No 12/08/24 16:34 PLANT FACILITIES TECHNICIAN.LMIL Anesthesia Complication Comment: Post-operative progress note patient strong 12/08/24 16:34 PLANT FACILITIES TECHNICIAN.LMIL moves all extremities, smiles equal, no tongue deviation, raises eyebrows, and following commands Anesthesia: Postop Eval II Evaluation Mental status: Awake Pain Level: 3 nausea: No Vomiting: No 12/08/24 1648 Date Erica Ramirez PLANT FACILITIES TECHNICIAN Cosigner Signature: Date CC: Signed Normal [facility] Operative Reporton Operative Report [facility] Medical Records Department [address] [place] [address] Operative Report 12/08/24 1616 MR#: [id number] Acct: [id number] Name: MOO CARLSONHARRY Perla Rep #: [id number] : 1955 69 From: Endy Martinez MD PCP: Dr. Horacio Benson MD Status:[facility] Location: [place] [address]1 Procedures Musculoskeletal 20xxx-29xxx: Other Procedure See Report Operative Report (Standard) Operative Information Date of Procedure: 12/08/24 Pre-Operative Diagnosis: C3 5 disc degeneration with stenosis, myelopathy, prior C5-6 ACDF Post-Operative Diagnosis: Same Surgery/Procedure Performed: C3-5 ACDF, removal of previous hardware resource efficiency manager: Yes Director Of Diversity And Inclusion: Manjula Russell Tasks completed by first sampler: Closing, Removing tissue, Implanting device, Hemostasis: Electrocautery and Retracting Type of Anesthesia: General RN Documented Start/Stop Times: Operation Date: 12/08/24 13:15 Case Time Into Pre-Op 12/08/24 11:01 Out of Pre-Op 12/08/24 13:26 Anesthesia Start 12/08/24 13:33 Into Room 12/08/24 13:33 Procedure Start 12/08/24 14:03 Procedure Start Time: 14:03 Procedure Stop Time: 16:10 Select all DRAINS/GRAFTS/IMPLAN TS that apply: Drains Drain details: Osmany , Graft Graft details: Structural allograft corticocancellous strut and Implanted device Implanted device details: Medtronic [place] Elite plate instrumentation Estimated Blood Loss: 40 cc Specimen collected: No Description of surgery: Preoperative diagnosis: C3-5 disc degeneration with stenosis, myelopathy, prior C5-6 ACDF Postoperative diagnosis: Same Name of procedure: C3-5 anterior cervical discectomy and fusion with plate instrumentation, removal of previous hardware - Anterior cervical fusion C3-4, CPT code 66507 - Anterior plate instrumentation C3-5, CPT code 42501/59 - Anterior cervical fusion C4-5, CPT code 20126/51 - Removal of anterior spinal hardware, CPT code 49124 -Expiration of previous fusion at C5-6, CPT code 25117 -C3-4 structural allograft bone with DBX, CPT code 84685 - C4-5 structural allograft bone with DBX, CPT code 56681 Attending surgeon: Endy Martinez M.D. Anesthesia: Gen. endotracheal Estimated blood loss: 40 mL Complications: None Instrumentation used: Medtronic [place] Elite plate, LASR corticocancellous block Indications: The patient is a pleasant 69-year-old lady who presented with neck pain, progressive difficulty with balance. 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 In order to halt the progression of myelopathy, the patient requested surgical treatment. All risks and benefits of the procedure were explained to the patient. The risks include but are not limited to infection, bleeding, injury to nerves and vessels, vertebral artery injury, spinal cord injury, paralysis, vocal cord paralysis, injury to esophagus, pseudoarthrosis, need for further procedures, adjacent segment degeneration. Procedure: The patient was identified in the preoperative suite using unique patient identifiers. Skin was marked consent was taken and all questions were answered. The patient was then brought back to the operative room and a timeout was performed. General endotracheal anesthesia was given. Intraoperative neuro monitoring leads were applied. The patient was carefully positioned supine on a regular OR table. A lateral view with a C-arm was done to identify the level and to define the incision. The anterior neck was then prepped and draped in the usual fashion. A final timeout was then performed. A transverse skin incision was taken to the right of midline. Previous surgical scar was towards the left and ENT consult preoperatively confirmed good mobility on both vocal cords. Subcutaneous tissue was then divided with Bovie. Platysma was identified and cut along the incision with scissors. The fascial interval between the sternocleidomastoid and the larynx was developed. Omohyoid was identified and retracted. The esophagus with the larynx was retracted medially to reach the prevertebral fascia. Significant scarring was noticed in the prevertebral space. Previous C5-6 plate was exposed with the help of Bovie. Longus coli muscle was elevated on both sides at and above and below C3-5 discs. Self-retaining retractors were then placed. Previous C5-6 plate and screws were removed using appropriate removal instruments. C5-6 anterior fusion was explored and found to be adequate. A long handle knife was then used to perform annulotomy at C4-5. Disc fragments were removed with the pituitary. [place] pins were placed in C4 and C5 for disc distraction. Curettes and bur was utilized to remove cartilage from the endplates. Discectomy was performed laterally up to the uncovertebral joints. Posterior osteophytes were thinned down (more content not included)... Normal [facility] Electrocardiogram reportOrde red By: Ari Thurman on 12-02-2024 EKG study [facility] Cardiovascular Services [address] [place] [address] 12 Lead EKG 11/28/24 0916 MR#: [id number] Acct: [id number] Name: DANA CARLSON Rep # :[id number] : 1955 69 From: Ari baig MD Attending Dr: Dr. Endy Martinez MD Status: PRE [facility] Ordering Dr: Endy Martinez MD Date: Location: [facility] Sex: F C Admitted: Test Reason : PREOP Blood Pressure : */* mmHG Vent. Rate : 69 BPM Atrial Rate : 69 BPM P-R Int : 148 ms QRS Dur : 86 ms QT Int : 422 ms P-R-T Axes : 5 -3 21 degrees QTcB Int : 452 ms Sinus rhythm Normal ECG Confirmed by Ari Thurman ([id number]), food expeditor TIFFANIE DUKES ([id number]) on 12/02/2024 11:45:56 AM Referred By: Endy Martinez Confirmed By: Ari Thurman 12/02/24 1146 Date _ Ari Thurman MD CC: Dr. Endy Martinez MD; Dr. Horacio Benson MD ~ Signed [facility] Work Phone: Hepatitis A AB, Totalon 11-10 HEPATITIS A,TOT Negative Normal Negative [facility] Comment on above: Result Comment: Comm ent: The HAV total antibody assay detects both IgG and IgM but does not differentiate between them. A negative result suggests susceptibility to infection. A positive result could be due to vaccination, previously resolved infection or active infection. Testing for HAV IgM should be performed if active HAV infection is suspected. [facility] offers profiles that will automatically reflex positive HAV total antibody results to IgM (e.g., panel #[id number] HAV Antibody w/ Rfx). Performed at: [address] [id number] Shingles Roofer Helper: Alfonso Cavazos PhD, Phone: [phone] Performed By: #### B TSPAT, L3890.6006, L3890.6202, L500.2500, M100.651, L100.0100, L3100.0300, L3890.6301, L501.9985 ####[facility] [address] [facility] [place], [place], [address] 12 Lead EKGon 11-28-2024 12 Lead EKG [facility] Cardiovascular Services [address] [place] [address] 12 Lead EKG 11/28/24 0916 MR#: [id number] Acct: [id number] Name: DANA CARLSON Rep #: [id number] : 1955 69 From: Ari Thurman MD Attending Dr: Dr. Endy Martinez MD Status: PRE [facility] Ordering Dr: Endy Martinez MD Date: 11/28/24 Location: [facility] Sex: F C Admitted: Test Reason : PREOP Blood Pressure : */* mmHG Vent. Rate : 69 BPM Atrial Rate : 69 BPM P-R Int : 148 ms QRS Dur : 86 ms QT Int : 422 ms P-R-T Axes : 5 -3 21 degrees QTcB Int : 452 ms Sinus rhythm Normal ECG Confirmed by Ari Thurman ([id number]), food expeditor TIFFANIE DUKES ([id number]) on 12/02/2024 11:45:56 AM Referred By: Endy Martinez Confirmed By: Ari Thurman 12/02/24 1146 Date Ari Thurman MD CC: Dr. Endy Martinez MD; Dr. Horacio Benson MD Signed Normal [facility] Basic Metabolic Profile (BMP )on 11-28-2024 BUN/CRE 10.8 RATIO Normal 03-30 [facility] Comment on above: Performed By: #### B TSPAT, L3890.6006, L3890.6202, L500.2500, M100.651, L100.0100, L3100.0300, L3890.6301, L501.9985 ####[facility] [address] [place], [address] Calcium [Mass/Vol] 9.3 mg/dL Normal 7.6-11.0 [facility] Comment on above: Performed By: #### B TSPAT, L3890.6006, L3890.6202, L500.2500, M100.651, L100.0100, L3100.0300, L3890.6301, L501.9985 ####[facility] [address] [place], [address] Chloride [Moles/Vol] 101 mmol/L Normal 98-108 [facility] Comment on above: Performed By: #### B TSPAT, L3890.6006, L3890.6202, L500.2500, M100.651, L100.0100, L3100.0300, L3890.6301, L501.9985 ####[facility] [address] [place], [place], [id number] CO2 [Moles/Vol] 25.5 mmol/L Normal 21.0-32.0 [facility] Comment on above: Performed By: #### B TSPAT, L3890.6006, L3890.6202, L500.2500, M100.651, L100.0100, L3100.0300, L3890.6301, L501.9985 ####[facility] [address] [place], [place], [id number] Creatinine [Mass/Vol] 0.96 mg/dL Normal 0.70-1.20 [facility] Comment on above: Performed By: #### B TSPAT, L3890.6006, L3890.6202, L500.2500, M100.651, L100.0100, L3100.0300, L3890.6301, L501.9985 ####[facility] [address] [place], [place], [id number] GAP 12 Normal 5-15 [facility] Comment on above: Performed By: #### B TSPAT, L3890.6006, L3890.6202, L500.2500, M100.651, L100.0100, L3100.0300, L3890.6301, L501.9985 ####[facility] [address] [place], [place], [id number] GFR/1.73 sq M.predicted among non-blacks MDRD (S/P/Bld) [Vol rate/Area] 64 mL/min/{1.73_m2} Normal >60 [facility] Comment on above: Result Comment: mL/m in/1.73m2 CKD-EPI Creatinine Equation (2020) Performed By: #### B TSPAT, L3890.6006, L3890.6202, L500.2500, M100.651, L100.0100, L3100.0300, L3890.6301, L501.9985 ####[facility] [address] [place], [address] Glucose [Mass/Vol] 91 mg/dL Normal 70-99 [facility] Comment on above: Performed By: #### B TSPAT, L3890.6006, L3890.6202, L500.2500, M100.651, L100.0100, L3100.0300, L3890.6301, L501.9985 ####[facility] [address] [place], [address] Potassium [Moles/Vol] 5.1 mmol/L Normal 3.3-5.1 [facility] Comment on above: Performed By: #### B TSPAT, L3890.6006, L3890.6202, L500.2500, M100.651, L100.0100, L3100.0300, L3890.6301, L501.9985 ####[facility] [address] [place], [address] Sodium [Moles/Vol] 138 mmol/L Normal 133-145 [facility] Comment on above: Performed By: #### B TSPAT, L3890.6006, L3890.6202, L500.2500, M100.651, L100.0100, L3100.0300, L3890.6301, L501.9985 ####[facility] [address] [place], [address] Urea nitrogen [Mass/Vol] 10 mg/dL Normal 4-19 [facility] Comment on above: Performed By: #### B TSPAT, L3890.6006, L3890.6202, L500.2500, M100.651, L100.0100, L3100.0300, L3890.6301, L501.9985 ####[facility] [address] [place], [address] CBC W/Diff, Automatedon 06-2 0-2024 Absolute Lymph 1.38 X10 3/uL Normal 0.83-4.51 [facility] Comment on above: Performed By: #### B TSPAT, L3890.6006, L3890.6202, L500.2500, M100.651, L100.0100, L3100.0300, L3890.6301, L501.9985 #### [facility] [address] [place], [address] Absolute Neut 4.0 X10 3/uL Normal 2.0-7.7 [facility] Comment on above: Performed By: #### B TSPAT, L3890.6006, L3890.6202, L500.2500, M100.651, L100.0100, L3100.0300, L3890.6301, L501.9985 #### [facility] [address] [place], [address] Basophils/100 WBC (Bld) 1.2 % High 0-1 [facility] Comment on above: Performed By: #### B TSPAT, L3890.6006, L3890.6202, L500.2500, M100.651, L100.0100, L3100.0300, L3890.6301, L501.9985 #### [facility] [address] [place], [address] Eosinophils/100 WBC (Bld) 6.8 % High 0-5 [facility] Comment on above: Performed By: #### B TSPAT, L3890.6006, L3890.6202, L500.2500, M100.651, L100.0100, L3100.0300, L3890.6301, L501.9985 #### [facility] [address] [place], [address] Erythrocyte distribution width (RBC) [Ratio] 13.0 % Normal 11.6-14.6 [facility] Comment on above: Performed By: #### B TSPAT, L3890.6006, L3890.6202, L500.2500, M100.651, L100.0100, L3100.0300, L3890.6301, L501.9985 #### [facility] [address] [place], [address] Hematocrit (Bld) [Volume fraction] 37.0 % Normal 37-47 [facility] Comment on above: Performed By: #### B TSPAT, L3890.6006, L3890.6202, L500.2500, M100.651, L100.0100, L3100.0300, L3890.6301, L501.9985 #### [facility] [address] [place], [place], [id number] (557) Hemoglobin (Bld) [Mass/Vol] 12.1 g/dL Normal 12.0-15.0 [facility] Comment on above: Performed By: #### B TSPAT, L3890.6006, L3890.6202, L500.2500, M100.651, L100.0100, L3100.0300, L3890.6301, L501.9985 #### [facility] [address] [place], [place], [id number] (539) IG% 0.500 Normal 0.0-0.9 [facility] Comment on above: Result Comment: IG% - Immature Granulocytes (promyelocytes, myelocytes and metamyelocytes) > 1% indicates that a LEFT SHIFT is Present. Performed By: #### B TSPAT, L3890.6006, L3890.6202, L500.2500, M100.651, L100.0100, L3100.0300, L3890.6301, L501.9985 #### [facility] [address] [place], [address] (716 Lymphocytes/100 WBC (Bld) 21.2 % Normal 19-41 [facility] Comment on above: Performed By: #### B TSPAT, L3890.6006, L3890.6202, L500.2500, M100.651, L100.0100, L3100.0300, L3890.6301, L501.9985 #### [facility] [address] [place], [address] MCH (RBC) [Entitic mass] 31.6 pg Normal 27.0-32.0 [facility] Comment on above: Performed By: #### B TSPAT, L3890.6006, L3890.6202, L500.2500, M100.651, L100.0100, L3100.0300, L3890.6301, L501.9985 #### [facility] [address] [place], [address] MCHC (RBC) [Mass/Vol] 32.7 g/dL Normal 32-36 [facility] Comment on above: Performed By: #### B TSPAT, L3890.6006, L3890.6202, L500.2500, M100.651, L100.0100, L3100.0300, L3890.6301, L501.9985 #### [facility] [address] [place], [address] MCV (RBC) [Entitic vol] 96.6 fL Normal 81-99 [facility] Comment on above: Performed By: #### B TSPAT, L3890.6006, L3890.6202, L500.2500, M100.651, L100.0100, L3100.0300, L3890.6301, L501.9985 #### [facility] [address] [place], [address] Monocytes/100 WBC (Bld) 9.2 % Normal 0-10 [facility] Comment on above: Performed By: #### B TSPAT, L3890.6006, L3890.6202, L500.2500, M100.651, L100.0100, L3100.0300, L3890.6301, L501.9985 #### [facility] [address] [place], [address] Neutrophils/100 WBC (Bld) 61.1 % Normal 47-70 [facility] Comment on above: Performed By: #### B TSPAT, L3890.6006, L3890.6202, L500.2500, M100.651, L100.0100, L3100.0300, L3890.6301, L501.9985 #### [facility] [address] [facility] [place], [address] ( Nucleated RBC (Bld) [#/Vol] 0 10*3/uL Normal 0-5 [facility] Comment on above: Performed By: #### B TSPAT, L3890.6006, L3890.6202, L500.2500, M100.651, L100.0100, L3100.0300, L3890.6301, L501.9985 #### [facility] [address] [facility] [place], [address] Platelet mean volume (Bld) [Entitic vol] 9.8 fL Normal 6.2-12.0 [facility] Comment on above: Performed By: #### B TSPAT, L3890.6006, L3890.6202, L500.2500, M100.651, L100.0100, L3100.0300, L3890.6301, L501.9985 #### [facility] [address] [place], [address] Platelets (Bld) [#/Vol] 276 10*3/uL Normal 150-450 [facility] Comment on above: Performed By: #### B TSPAT, L3890.6006, L3890.6202, L500.2500, M100.651, L100.0100, L3100.0300, L3890.6301, L501.9985 #### [facility] [address] [place], [address] RBC (Bld) [#/Vol] 3.83 10*6/uL Low 4.2-5.4 [facility] Comment on above: Performed By: #### B TSPAT, L3890.6006, L3890.6202, L500.2500, M100.651, L100.0100, L3100.0300, L3890.6301, L501.9985 #### [facility] [address] [place], [address] (029) RDW SD 46.4 fl High 35.1-43.9 [facility] Comment on above: Performed By: #### B TSPAT, L3890.6006, L3890.6202, L500.2500, M100.651, L100.0100, L3100.0300, L3890.6301, L501.9985 #### [facility] [address] [place], [address] WBC (Bld) [#/Vol] 6.5 10*3/uL Normal 4.4-11.0 [facility] Comment on above: Performed By: #### B TSPAT, L3890.6006, L3890.6202, L500.2500, M100.651, L100.0100, L3100.0300, L3890.6301, L501.9985 #### [facility] [address] [place], [address] HIVon 11-28-2024 HIV Non-Reactive Normal Nonreactive [facility] Comment on above: Result Comment: Non- Reactive Reactive Repeatedly reactive samples must be confirmed according to CDC recommended confirmatory algorithms. The subresults for either HIVAG or AHIV can be used as an aid in the selection of the confirmation algorithm for reactive samples. Send out specimens with Reactive results to [facility] for confirmation. Order the HIV antibody detection and differentiation: #[id number] Performed By: #### B TSPAT, L3890.6006, L3890.6202, L500.2500, M100.651, L100.0100, L3100.0300, L3890.6301, L501.9985 ####[facility] [address] [place], [place], [id number](395) Hemoglobin A1con 11-28-2024 HbA1c (Bld) [Mass fraction] 5.2 % Normal <=5.6 [facility] Comment on above: Result Comment: Norm al < 5.7 % Prediabetic 5.7 - 6.4 % Diabetic >or= 6.5 % Please note range changes. Performed By: #### B TSPAT, L3890.6006, L3890.6202, L500.2500, M100.651, L100.0100, L3100.0300, L3890.6301, L501.9985 #### [facility] [address] [place], [place], [id number] Hemoglobin A1c percentageOrd ered By: Endy Martinez on 11-28-2024 HbA1c (Bld) [Mass fraction] 5.2 % <5.7 [facility] Comment on above: Normal < 5.7 % Predi abetic 5.7 - 6.4 % Diabetic >or= 6.5 % Please note range changes. Hepatitis B Surface Antibody on 11-28-2024 HEP B Surf Ab Indetermin Normal [facility] Comment on above: Result Comment: <8.5 mIU/mL: Non-Reactive 8.5<= x <11.5 mIU/mL: Indeterminate >=11.5 mIU/mL: Reactive Non Reactive: Inconsistent with immunity less than <10 mIU/mL Reactive: Consistent with immunity greater than or equal to 10 mIU/mL Performed By: #### B TSPAT, L3890.6006, L3890.6202, L500.2500, M100.651, L100.0100, L3100.0300, L3890.6301, L501.9985 ####[facility] [address] [place], [address] Hepatitis C Antibodyon 11-28 Hepatitis C Ab Non-Reactive Normal Nonreactive [facility] Comment on above: Result Comment: Reac tive: Presumptive evidence of antibodies to HCV. Follow CDC recommendations for supplemental testing. Non-Reactive: Antibodies to HCV were not detected; does not exclude the possibility of exposure to HCV Reactive Results are presumptive evidence of antibodies to HCV. Follow CDC recommendations for supplemental testing. Order confirmation testing: HCV Quant by PCR testing - HCVPCR #[id number] Non Reactive: < 0.8 Equivocal: >/= 0.8 to < 1.0 Reactive: >/= 1.0 The [facility] requires that a reactive/equivocal HCV antibody result be sent out for confirmation. HCV Quant by PCR testing. Performed By: #### B TSPAT, L3890.6006, L3890.6202, L500.2500, M100.651, L100.0100, L3100.0300, L3890.6301, L501.9985 ####[facility] [address] [place], [address] MR/PAT.ANEon 11-28-2024 MR/PAT.[facility] Medical Records Department [address] [place] [address] PAT - Anesthesia 11/28/24 1341 MR#: [id number] Acct: [id number] Name: DANA CARLSON Rep #: [id number] : 1955 69 From: Edwin Holman MD PCP: Dr. Horacio Benson MD Status:PRE [facility] Y Race: C Location: [facility] Pre-Assessment Diagnosis/Proposed Procedure Planned Operative Procedure(s): ERAS, Anterior Cervical Fusion C3-4 and C4-5, possible removal of hardware Anesthesia History Anesthesia History - irrigator sprinkling system: Anesthesia History - irrigator sprinkling system Hx Hospitalization No 11/24/24 11:39 Any Problems With Anesthesia Yes: HARD TIME WAKING POST- 11/24/24 11:39 OP Cholinesterase deficiency No 11/24/24 11:39 You/Your Family Experience No 11/24/24 11:39 fever (hyperthermia) with Relationship Recent Exposure to Contagious Disease Does patient have nerve No 11/24/24 11:39 stimulator Patient instructed to have device shut off --Does patient have Pacemaker or ICD? When Was Last Pacemaker Check QUESTION #4 FULL TEXT: You/Your Family Experience fever (hyperthermia) with Anesthesia Last Oral Intake Last Oral intake: Last Oral Intake NPO since Meds taken in AM with sips of water? Meds patient instructed to take am of surgery PONV PONV - irrigator sprinkling system: PONV - irrigator sprinkling system Female Yes 11/24/24 11:39 HX of Motion Sickness Yes 11/24/24 11:39 HX of N/V After Surgery No 11/24/24 11:39 Non-Smoker Yes 11/24/24 11:39 Duration of Surgery greater Yes 11/24/24 11:39 than 60 minutes Number of Risk Factors 4 11/24/24 11:39 PONV Score Severe Risk 11/24/24 11:39 Height Weight Height Weight: Anesthesia: Height Weight Height 5 ft 6 in 09/22/24 13:03 Respiratory Assessment Respiratory Assessment - irrigator sprinkling system: Respiratory Tract Infection Hx - irrigator sprinkling system Hx Respiratory Tract Infection No 11/24/24 11:39 STOP Sleep Apnea STOP Sleep Apnea - irrigator sprinkling system: STOP Sleep Apnea - irrigator sprinkling system Hx Hypertension Yes: CONTROLLED ON MED 11/24/24 11:39 Hx Sleep Apnea No 11/24/24 11:39 CPAP BIPAP Do you snore loudly (louder No 11/24/24 11:39 than talking or can be heard Do you often feel tired/ No 11/24/24 11:39 fatigued/ sleepy during daytime? Has anyone observed you stop No 11/24/24 11:39 breathing during sleep? STOP Results Negative 11/24/24 11:39 QUESTION #5 FULL TEXT : Do you snore loudly (louder than talking or can be heard through closed doors)? Tobacco Use History Tobacco Use History - irrigator sprinkling system: Tobacco Use History - irrigator sprinkling system Tobacco Use Smoking Status Never smoker 11/24/24 11:39 Hx Tobacco Use No 11/24/24 11:39 Years Smoking Packs Smoked per Day Smoking Cessation Date was within the last 15 years Hx Smoking Cessation Date Hx Smoking Cessation Counseling Hematologic Medial History Hematologic Hx - irrigator sprinkling system: Hematologic Medical Hx - air purifier servicer Hx of Blood Transfusion No 11/24/24 11:39 Hx of Transfusion in last 3 No 11/24/24 11:39 Months Date of Last Transfusion (if within last 3 months) Ever experience any problems No 11/24/24 11:39 with transfusion(s)? Specify any problems Hx of Preganancy in last 3 No 11/24/24 11:39 Months Nurse Filling Out Transfusion VCHRISTIN 11/24/24 11:39 Questions: Date: 11/24/24 11/24/24 11:39 Time: 11:40 11/24/24 11:39 Patient unable to answer at this time (ie. confused, unrespo /Reproducti on History /Reproducti ve History - irrigator sprinkling system: /Reproducti ve Hx- irrigator sprinkling system Hx Now No 11/24/24 11:39 Gestational Age (in weeks): EDC: Hx Hx Para Hx Section SAB No 11/24/24 11:39 [facility] Medical History Wears glasses History of steroid therapy Thyroid disease Arthritis Back pain Gastric reflux Non-smoker Asthma History of stress test History of irregular heartbeat [place] esophagus Hypertension Home Medications ???Medication ???Instructions ???Recorded ???Last Taken ???Type albuterol 90 mcg-budesonide 80 2 inh inhalation Q4-6H PRN 5 Unknown History mcg/actuation HFA aerosol inhaler shortness of breath (Airsupra) amitriptyline 25 mg tablet 25 mg PO QHS 09/22/24 Unknown Hist ory atorvastatin 10 mg tablet 10 mg PO QDAY 09/22/24 Unknown His tory desvenlafaxine succinate 100 mg 100 mg PO QDAY 09/22/24 Unknown Hi story tablet,extended release 24 hr esomeprazole magnesium 40 mg 40 mg PO QDAY 09/22/24 Unknown His tory capsule,de (more content not included)... Normal [facility] MRSA screenOrdered By: Mikey Martinez on 11-28-2024 MRSA DNA RAFAEL+probe Ql (Unsp spec) [facility] MRSA/SAID NASAL SCREENon MRSA+SAID SCRN Reason for Exam: Surgery MRSA MRSA Negative S. AUREUS S. aureus PositiveA Normal [facility] Comment on above: Performed By: #### B TSPAT, L3890.6006, L3890.6202, L500.2500, M100.651, L100.0100, L3100.0300, L3890.6301, L501.9985 ####[facility] [address] [place], [address] Magnesiumon 11-28-2024 Magnesium [Mass/Vol] 2.2 mg/dL Normal 1.5-2.2 [facility] Comment on above: Performed By: #### L 501.5200 ####[facility] [address] [place], [place], [id number] Magnesium measurement (mass/ volume)Ordered By: Edwin Holman on 11-28-2024 Magnesium (Unsp spec) [Mass/Vol] 2.2 mg/dL 1.5-2.2 [facility] No Panel InformationOrdered By: Endy Martinez on 11-28-2024 HIV (1&2) Antibody Non-Reactive Nonreactive [facility] Comment on above: Non-ReactiveReactive Repeatedly reactive samples must be confirmed according to CDC recommended confirmatory algorithms. The subresults for either HIVAG or AHIV can be used as an aid in the selection of the confirmation algorithm for reactive samples.Send out specimens with Reactive results to [facility] for confirmation.Order the HIV antibody detection and differentiation: #[id number] Orthopedic Visit Reporton Orthopedic Visit Report [facility] [address] [place] [address] 5 [place] [address] OFFICE VISIT Date of Service: 11/28/24 MR#: [id number] Acct: [id number] Name: TEVIN FERMINDANA L Rep #: [id number] : 1955 Provider: Dr. Endy Martinez MD Age/Sex: 69/F Location[facility] Status: Signed Intake Vital Signs 09/22/24 13:03 11/28/24 10:20 Height 5 ft 6 in 5 ft 6 in Weight: 176 lb 8 oz 166 lb BMI 28.5 26.8 Intake Visit Reasons: cervical spine Chief Complaint: Pre OP Accompanied by: Is patient in pain?: No Allergies Penicillins Allergy (Verified 11/28/24 10:28) Rash Medications ???Medication ???Instructions ???Recorded ???Confirmed ???Type albuterol 90 mcg-budesonide 80 2 inh inhalation Q4-6H PRN 5 11/28/24 History mcg/actuation HFA aerosol inhaler shortness of breath (Airsupra) amitriptyline 25 mg tablet 25 mg PO QHS 09/22/24 11/28/24 His tory atorvastatin 10 mg tablet 10 mg PO QDAY 09/22/24 11/28/24 Hi story desvenlafaxine succinate 100 mg 100 mg PO QDAY 09/22/24 11/28/24 H istory tablet,extended release 24 hr esomeprazole magnesium 40 mg 40 mg PO QDAY 09/22/24 11/28/24 Hi story capsule,delayed release furosemide 40 mg tablet 40 mg PO QAM 09/22/24 11/28/24 His tory levothyroxine 88 mcg tablet 88 mcg PO QDAY 09/22/24 11/28/24 H istory meloxicam 15 mg tablet 15 mg PO QDAY 09/22/24 11/28/24 Hi story metoprolol tartrate 50 mg tablet 25 mg PO BID 09/22/24 11/28/24 His tory sucralfate 1 gram tablet 1 g PO QDAY 09/22/24 11/28/24 Hist ory tirzepatide (weight loss) 10 10 mg subcut .weekly 09/22/2411/10 History mg/0.5 mL subcutaneous pen injector (Zepbound) Have you fallen in the past year?: No PFSH Medical History Wears glasses History of steroid therapy Thyroid disease Arthritis Back pain Gastric reflux Non-smoker Asthma History of stress test History of irregular heartbeat [place] esophagus Hypertension Surgical History History of back surgery Hx of shoulder surgery Hx of bilateral breast reduction surgery History of dental surgery Social History Smoking Status: Never smoker HPI cervical spine Details: This documentation accurately reflects the service provided and the decisions made by me, Dr. Endy Martinez MD 11/28/24 0819. Part of today???s visit was documented by Marli Orellana MA, acting as scribe. DANA FERMIN is a 69 year old F here today for pre op visit. She is scheduled for cervical C3- C4 C4-C5 cervical fusion on 12-08-24. Patient stated that she would like to go over the MRI with Dr. Martinez today. The patient is a 69-year-old female presenting with cervical spinal cord compression and associated symptoms. She had a previous neck surgery in November 2022, which improved her arm strength significantly. However, she started experiencing new symptoms approximately four months ago, including lightheadedness and balance issues. The patient also has a history of shoulder surgery in March 2023 for a rotator cuff tear and osteoarthritis, which involved repair and debridement. Post-surgery, she reports no significant shoulder issues currently. She has experienced vertebral fractures in the mid-back, with no specific intervention performed, and reports that the pain has subsided over time. The fractures were possibly due to falls caused by her dogs knocking her down the stairs. - Neurological: Reports lightheadedness and balance issues. Denies dexterity problems or dropping objects. - Musculoskeletal: Reports previous shoulder weakness, now resolved. Denies current shoulder pain. - General: Denies recent injuries or falls. Attestation: Documentation on this patient encounter was supported using ambient scribe technology/ voice AI technology. The patient consented to recording for the purpose of documenting the encounter. Provider reviewed content of the generated note prior to signature. Ortho Exam General General: Yes no acute distress Neurologic: Yes alert and Yes oriented x3 Psychologic: Yes reasonable and appropriate Spine SPINE TESTING CERVICAL THORACIC LUMBAR Musculoskeletal Strength 0=absent - 5=normal Details: Neurological exam of the upper extremities shows 5x5 power. Normal sensations across all dermatomes. No hyperreflexia. Lukasz's negative. No midline and mild left paraspinal tenderness. Physical examination of the neck shows a left-sided well-healed incision. Exam Narrative - Neurological: Positive Sheehan reflex bilaterally, indicating spinal cord compression. - Musculoskeletal: St (more content not included)... Normal [facility] Serum hepatitis B virus surf mylene antibody detectionOrdered By: Endy Martinez on 11-28-2024 HBV surface Ab Ql (S) Indetermin [facility] Comment on above: <8.5 mIU/mL: Non-Brittani ctive8.5<= x <11.5 mIU/mL: Indeterminate>=11.5 mIU/mL: Reactive Non Reactive: Inconsistent with immunity less than <10 mIU/mL Reactive: Consistent with immunity greater than or equal to 10 mIU/mL Type AND Screen - PAT ONLYon 11-28-2024 Ab SCREEN GEL Negative Normal [facility] Comment on above: Order Comment: Reaso n for Laboratory Test [id number], Anterior Cervical Fusion C3-4 and C4-5, possible Performed By: #### B TSPAT, L3890.6006, L3890.6202, L500.2500, M100.651, L100.0100, L3100.0300, L3890.6301, L501.9985 ####[facility] [address] [place], [address] COMPREHENSIVE METABOLIC PANE [facility] 11-12-2024 Albumin [Mass/Vol] 3.9 g/dL Normal 3.6-5.1 [facility] Comment on above: Performed By: #### 1 0231 #### [facility] [address], [address] [place], [place] [address] [employer]: Gilbert Vera MD Albumin/Globulin [Mass ratio] 1.4 {ratio} Normal 1.0-2.5 [facility] Comment on above: Performed By: #### 1 0231 #### [facility] [address], [address] [place], [place] [address] [employer]: Gilbert Vera MD ALP [Catalytic activity/Vol] 70 U/L Normal 37-153 [facility] Comment on above: Performed By: #### 1 0231 #### [facility] [address], [address] [place], [place] [address] [employer]: Gilbert Vera MD ALT [Catalytic activity/Vol] 11 U/L Normal 6-29 [facility] Comment on above: Performed By: #### 1 0231 #### [facility] [place] [address] [employer]: Gilbert Vera MD AST [Catalytic activity/Vol] 17 U/L Normal 10-35 [facility] Comment on above: Performed By: #### 1 0231 #### [facility] [place] [address] [employer]: Gilbert Vera MD Bilirubin [Mass/Vol] 0.5 mg/dL Normal 0.2-1.2 [facility] Comment on above: Performed By: #### 1 0231 #### [facility] [place] [address] [employer]: Gilbert Vera MD Calcium [Mass/Vol] 9.3 mg/dL Normal 8.6-10.4 [facility] Comment on above: Performed By: #### 1 0231 #### [facility] [place] [address] [employer]: Gilbert Vera MD Chloride [Moles/Vol] 96 mmol/L Low 98-110 [facility] Comment on above: Performed By: #### 1 0231 #### [facility] [place] [address] [employer]: Gilbert Vera MD CO2 [Moles/Vol] 30 mmol/L Normal 20-32 [facility] Comment on above: Performed By: #### 1 0231 #### [facility] [place] [address] [employer]: Gilbert Vera MD Creatinine [Mass/Vol] 0.89 mg/dL Normal 0.50-1.[address] [facility] Comment on above: Performed By: #### 1 0231 #### [facility] [place] [address] [employer]: Gilbert Vera MD GFR/1.73 sq M.predicted among non-blacks MDRD (S/P/Bld) [Vol rate/Area] 70 mL/min/{1.73_m2} Normal > OR = 60 [facility] Comment on above: Performed By: #### 1 0231 #### [facility] [place] [address] [employer]: Gilbert Vera MD Globulin (S) [Mass/Vol] 2.8 g/dL Normal 1.9-3.7 [facility] Comment on above: Performed By: #### 1 0231 #### [facility] [place] [address] [employer]: Gilbert Vera MD Glucose [Mass/Vol] 96 mg/dL Normal 65-99 [facility] Comment on above: Result Comment: Fasting reference interval Performed By: #### 1 0231 #### [facility] [place] [address] [employer]: Gilbetr Vera MD Potassium [Moles/Vol] 3.4 mmol/L Low 3.5-5.[address] [facility] Comment on above: Performed By: #### 1 0231 #### [facility] [place] [address] [employer]: Gilbert Vera MD Protein [Mass/Vol] 6.7 g/dL Normal 6.1-8.1 [facility] Comment on above: Performed By: #### 1 0231 #### [facility] [place] [address] [employer]: Gilbert Vera MD Sodium [Moles/Vol] 137 mmol/L Normal 135-146 [facility] Comment on above: Performed By: #### 1 0231 #### [facility] [place] [address] [employer]: Gilbert Vear MD Urea nitrogen [Mass/Vol] 6 mg/dL Low 7-25 [facility] Comment on above: Performed By: #### 1 0231 #### [facility] [place] [address] [place] [address] [employer]: Gilbert Vera MD Urea nitrogen/Creatinine [Mass ratio] 7 mg/mg Normal 6-22 [facility] Comment on above: Performed By: #### 1 0231 #### [facility] [place] [address] [employer]: Gilbert Vera MD CBC (INCLUDES DIFF/PLT)on Basophils (Bld) [#/Vol] 0.083 10*3/uL Normal 0-200 [facility] Comment on above: Performed By: #### 7 600, [address], 6399 #### [facility] [place] [address] [employer]: Gilbert Vera MD Basophils/100 WBC (Bld) 1.4 % Normal [facility] Comment on above: Performed By: #### 7 600, 67932, 6399 #### [facility] [place] [address] [employer]: Gilbert Vera MD Eosinophils (Bld) [#/Vol] 0.112 10*3/uL Normal 15-500 [facility] Comment on above: Performed By: #### 7 600, [address]4313, 6399 #### [facility] [place] [address] [employer]: Gilbert Vera MD Eosinophils/100 WBC (Bld) 1.9 % Normal [facility] Comment on above: Performed By: #### 7 600, 77953, 6399 #### [facility] [place] [address] [employer]: Gilbert Vera MD Erythrocyte distribution width (RBC) [Ratio] 12.8 % Normal 11.0-15.0 [facility] Comment on above: Performed By: #### 7 600, 94795, 6399 #### [facility] [place] [address] [employer]: Gilbert Vera MD Hematocrit (Bld) [Volume fraction] 40.9 % Normal 35.0-45.0 [facility] Comment on above: Performed By: #### 7 600, 69792, 6399 #### [facility] [place] [address] [employer]: Gilbert Vera MD Hemoglobin (Bld) [Mass/Vol] 13.3 g/dL Normal 11.7-15.5 [facility] Comment on above: Performed By: #### 7 600, , 6399 #### [facility] [place] [address] [employer]: Gilbert Vera MD Lymphocytes (Bld) [#/Vol] 1.935 10*3/uL Normal 850-3900 [facility] Comment on above: Performed By: #### 7 600, , 6399 #### [facility] [place] [address] [employer]: Gilbert Vera MD Lymphocytes/100 WBC (Bld) 32.8 % Normal [facility] Comment on above: Performed By: #### 7 600, 11663, 6399 #### [facility] [place] [address] [employer]: Gilbert Vera MD MCH (RBC) [Entitic mass] 32.7 pg Normal 27.0-33.0 [facility] Comment on above: Performed By: #### 7 600, 47562, 6399 #### [facility] [place] [address] [employer]: Gilbert Vera MD MCHC (RBC) [Mass/Vol] 32.5 g/dL Normal 32.0-36.[address] [facility] Comment on above: Result Comment: For adults, a slight decrease in the calculated MCHC value (in the range of 30 to 32 g/dL) is most likely not clinically significant; however, it should be interpreted with caution in correlation with other red cell parameters and the patient's clinical condition. Performed By: #### 7 600, 52875, 6399 #### [facility] [place] [address] [employer]: Gilbert Vera MD MCV (RBC) [Entitic vol] 100.5 fL High 80.0-100.0 [facility] Comment on above: Performed By: #### 7 600, 76763, 6399 #### [facility] [place] [address] [employer]: Gilbert Vera MD Monocytes (Bld) [#/Vol] 0.59 10*3/uL Normal 200-950 [facility] Comment on above: Performed By: #### 7 600, 85827, 6399 #### [facility] [place] [address] [employer]: Gilbert Vera MD Monocytes/100 WBC (Bld) 10.0 % Normal [facility] Comment on above: Performed By: #### 7 600, 23219, 6399 #### [facility] [place] [address] [employer]: Gilbert Vera MD Neutrophils (Bld) [#/Vol] 3.18 10*3/uL Normal 6529-7654 [facility] Comment on above: Performed By: #### 7 600, 63079, 6399 #### [facility] [place] [address] [employer]: Gilbert Vera MD Neutrophils/100 WBC (Bld) 53.9 % Normal [facility] Comment on above: Performed By: #### 7 600, 68511, 6399 #### [facility] [place] [address] [employer]: Gilbert Vera MD Platelet mean volume (Bld) [Entitic vol] 9.2 fL Normal 7.5-12.5 [facility] Comment on above: Performed By: #### 7 600, 08195, 6399 #### [facility] [place] [address] [employer]: Gilbert Vera MD Platelets (Bld) [#/Vol] 316 10*3/uL Normal 140-400 [facility] Comment on above: Performed By: #### 7 600, 45818, 6399 #### [facility] of [address], [address] [place] [address] [employer]: Gilbert Vera MD RBC (Bld) [#/Vol] 4.07 10*6/uL Normal 3.80-5.10 [facility] Comment on above: Performed By: #### 7 600, 63065, 6399 #### [facility] of [address], [address] [place] [address] [employer]: Gilbert Vera MD WBC (Bld) [#/Vol] 5.9 10*3/uL Normal 3.8-10.8 [facility] Comment on above: Performed By: #### 7 600, 13303, 6399 #### [facility] of [address], [address] [place] [address] [employer]: Gilbert Vera MD [facility] METABOLIC PANE [facility] 10-25-2024 Albumin [Mass/Vol] 4.4 g/dL Normal 3.6-5.1 [facility] Comment on above: Performed By: #### 7 600, 74484, 6399 #### [facility] [place] [address] [employer]: Gilbert Vera MD Albumin/Globulin [Mass ratio] 1.3 {ratio} Normal 1.0-2.5 [facility] Comment on above: Performed By: #### 7 600, 80978, 6399 #### [facility] [place] [address] [employer]: Gilbert Vera MD ALP [Catalytic activity/Vol] 73 U/L Normal 37-153 [facility] Comment on above: Performed By: #### 7 600, 38122, 6399 #### [facility] [place] [address] [employer]: Gilbert Vera MD ALT [Catalytic activity/Vol] 10 U/L Normal 6-29 [facility] Comment on above: Performed By: #### 7 600, 83156, 6399 #### [facility] [place] [address] [employer]: Gilbert Vera MD AST [Catalytic activity/Vol] 18 U/L Normal 10-35 [facility] Comment on above: Performed By: #### 7 600, 00020, 6399 #### [facility] [place] [address] [employer]: Gilbert Vera MD Bilirubin [Mass/Vol] 0.4 mg/dL Normal 0.2-1.2 [facility] Comment on above: Performed By: #### 7 600, 36130, 6399 #### [facility] [place] [address] [employer]: Gilbert Vera MD Calcium [Mass/Vol] 9.8 mg/dL Normal 8.6-10.4 [facility] Comment on above: Performed By: #### 7 600, 85210, 6399 #### [facility] [place] [address] [employer]: Gilbert Vera MD Chloride [Moles/Vol] 97 mmol/L Low 98-110 [facility] Comment on above: Performed By: #### 7 600, 60406, 6399 #### [facility] [place] [address] [employer]: Gilbert Vera MD CO2 [Moles/Vol] 28 mmol/L Normal 20-32 [facility] Comment on above: Performed By: #### 7 600, 67336, 6399 #### [facility] of [place] [address] [employer]: Gilbert Vera MD Creatinine [Mass/Vol] 1.22 mg/dL High 0.50-1.[address] [facility] Comment on above: Performed By: #### 7 600, 59015, 6399 #### [facility] of [place] [address] [employer]: Gilbert Vera MD GFR/1.73 sq M.predicted among non-blacks MDRD (S/P/Bld) [Vol rate/Area] 48 mL/min/{1.73_m2} Low > OR = 60 [facility] Comment on above: Performed By: #### 7 600, , 6399 #### [facility] [place] [address] [employer]: Gilbert Vera MD Globulin (S) [Mass/Vol] 3.3 g/dL Normal 1.9-3.7 [facility] Comment on above: Performed By: #### 7 600, , 6398 #### [facility] [place] [address] [employer]: Gilbert Vera MD Glucose [Mass/Vol] 88 mg/dL Normal 65-99 [facility] Comment on above: Result Comment: Fasting reference interval Performed By: #### 7 600, , 6399 #### [facility] [place] [address] [employer]: Gilbert Vera MD Potassium [Moles/Vol] 3.9 mmol/L Normal 3.5-5.[address] [facility] Comment on above: Performed By: #### 7 600, 64570, 63 #### [facility] [place] [address] [place] [employer]: Gilbert Vera MD Protein [Mass/Vol] 7.7 g/dL Normal 6.1-8.1 [facility] Comment on above: Performed By: #### 7 600, 72435, 6399 #### [facility] [place] [address] [employer]: Gilbert Vera MD Sodium [Moles/Vol] 139 mmol/L Normal 135-146 [facility] Comment on above: Performed By: #### 7 600, 10369, 6399 #### [facility] of [address], [address] [place] [address] [employer]: Gilbert Vera MD Urea nitrogen [Mass/Vol] 20 mg/dL Normal - [facility] Comment on above: Performed By: #### 7 600, 63411, 6399 #### [facility] of [address], [address] [place] [address] [employer]: Gilbert Vera MD Urea nitrogen/Creatinine [Mass ratio] 16 mg/mg Normal - [facility] Comment on above: Performed By: #### 7 600, 36792, 6399 #### [facility] of [address], [address] [place] [address] [employer]: Gilbert Vera MD LIPID PANEL, [address] Cholesterol [Mass/Vol] 164 mg/dL Normal <200 [facility] Comment on above: Order Comment: FASTI NG:YES FASTING: YES Performed By: #### 7 600, 74098, 6399 #### [facility] of [address], [address] [place] [address] [employer]: Gilbert Vrea MD Cholesterol in HDL [Mass/Vol] 60 mg/dL Normal > OR = 50 [facility] Comment on above: Order Comment: FASTI NG:YES FASTING: YES Performed By: #### 7 600, 24875, 6399 #### [facility] [address], [address] [place] [address] [employer]: Gilbert Vera MD Cholesterol in LDL [Mass/Vol] 86 mg/dL Normal [facility] Comment on above: Order Comment: FASTI NG:YES FASTING: YES Result Comment: Refe rence range: <100 Desirable range <100 mg/dL for primary prevention; <70 mg/dL for patients with CHD or diabetic patients with > or = 2 CHD risk factors. LDL-C is now calculated using the Jena calculation, which is a validated novel method providing better accuracy than the Friedewald equation in the estimation of LDL-C. Kulwant MONROE et al. SANDY. 2013;310(19): 6600-8007 (http://education.Ad Knights.ProspectWise/faq/FXN051) Performed By: #### 7 600, 97039, 6399 #### [facility] [address], [address] [place] [address] [employer]: Gilbert Vera MD Cholesterol.total/Magdalena sterol in HDL [Mass ratio] 2.7 {ratio} Normal <5.0 [facility] Comment on above: Order Comment: FASTI NG:YES FASTING: YES Performed By: #### 7 600, 01955, 6399 #### [facility] [address], [address] [place] [address] [employer]: Gilbert Vera MD NON HDL CHOLESTEROL 104 mg/dL (calc) Normal <130 [facility] Comment on above: Order Comment: FASTI NG:YES FASTING: YES Result Comment: For patients with diabetes plus 1 major ASCVD risk factor, treating to a non-HDL-C goal of <100 mg/dL (LDL-C of <70 mg/dL) is considered a therapeutic option. Performed By: #### 7 600, 87237, 6399 #### [facility] [address], [address] [place] [address] [employer]: Gilbert Vera MD Triglyceride [Mass/Vol] 90 mg/dL Normal <150 [facility] Comment on above: Order Comment: FASTI NG:YES FASTING: YES Performed By: #### 7 600, 53354, 6399 #### [facility] [address], [address] [place] [address] [employer]: Gilbert Vera MD Orthopedic Visit Reporton Orthopedic Visit Report [facility] [address] [place] [address] OFFICE VISIT Date of Service: 10/23/24 MR#: [id number] Acct: [id number] Name: DANA FERMIN Rep #: [id number] : 1955 Provider: MELANY Becerra Age/Sex: 69/F Location: [facility] Status: Signed Intake Vital Signs 09/22/24 13:03 Height 5 ft 6 in Weight: 176 lb 8 oz BMI 28.5 Intake Visit Reasons: CERVICAL SPINE Chief Complaint: MRI Review Accompanied by: Is patient in pain?: Yes Allergies Penicillins Allergy (Verified 10/23/24 14:12) Rash Medications ???Medication ???Instructions ???Recorded ???Confirmed ???Type albuterol 90 mcg-budesonide 80 2 inh inhalation Q4-6H PRN 5 10/23/24 History mcg/actuation HFA aerosol inhaler (Airsupra) amitriptyline 25 mg tablet 25 mg PO QHS 09/22/24 10/23/24 His tory atorvastatin 10 mg tablet 10 mg PO QDAY 09/22/24 10/23/24 Hi story desvenlafaxine succinate 100 mg 100 mg PO QDAY 09/22/24 10/23/24 H istory tablet,extended release 24 hr esomeprazole magnesium 40 mg 40 mg PO QDAY 09/22/24 10/23/24 Hi story capsule,delayed release furosemide 40 mg tablet 40 mg PO QAM 09/22/24 10/23/24 His tory levothyroxine 88 mcg tablet 88 mcg PO QDAY 09/22/24 10/23/24 H istory meloxicam 15 mg tablet 15 mg PO QDAY 09/22/24 10/23/24 Hi story methocarbamol 500 mg tablet 500 mg PO TID PRN pain/spasms #60 09/22/24 10/23/24 Rx tabs metoprolol tartrate 50 mg tablet 50 mg PO BID 09/22/24 10/23/24 His tory sucralfate 1 gram tablet 1 g PO QDAY 09/22/24 10/23/24 Hist ory tirzepatide (weight loss) 10 mg subcut 09/22/24 10/23/24 Histor y mg/0.5 mL subcutaneous pen injector (Zepbound) Have you fallen in the past year?: Yes [facility] Medical History Hypertension HPI CERVICAL SPINE Details: This documentation accurately reflects the service provided and the decisions made by me, MELANY Becerra 10/23/24 1353. Part of today???s visit was documented by Karen Pride ATC, acting as scribe. DANA FERMIN is a 69 year old F here today for cervical spine MRI review. The patient denies any changes in her symptoms. She continues to have left-sided neck and shoulder pain, no recent injections. HPI from 09/22/24: DANA FERMIN is a 69 year old F here today for neck pain. Patient did have a previous surgery on her neck in November of 2022 then surgery on her shoulder in March of 2023. Her neck surgery was done by Dr. Davis at [facility] who did an ACDF. Patient says that before the surgery she was having increased falls and her left arm lost a lot of strength. She says that she did not have any neck pain prior to the surgery and so when the ACDF was recommended patient says that she was surprised. Currently she states that her neck pain is on the left side and radiated into her left shoulder posteriorly and into her collar bone. She did see a different doctor at the [facility] regarding her low back who had done some xrays and MRI of her lumbar back who told her that she had 3 fractures in her spine and a bulge and had asked her if she hand cancer but then did no further work up. This was of her lumbar spine She denies any further radiating pain down the arm. Denies numbness, tingling or other associated symptoms. Her falls are not as frequent anymore but when she does fall she doesn't typically remember why she falls. Says that she does get lightheaded when she goes from sitting to standing or from bending over to standing. Relates her balance issues to lightheadedness. She notes that she doesn't lose consciousness when she falls. She has noticed some balance issues that occur more when she is standing up from a seated position. She denies weakness of her arm. She denies dexterity issues. She has had injection in the neck but the last one was many years ago. She denies recent PT but did do PT after her surgery in 2022. No diabetes, no blood thinners. Ortho Exam General General: Yes no acute distress Neurologic: Yes alert and Yes oriented x3 Spine SPINE TESTING CERVICAL THORACIC LUMBAR Musculoskeletal Strength 0=absent - 5=normal Details: Neurological exam of the upper extremities shows 5x5 power. Normal sensations across all dermatomes. No hyperreflexia. Lukasz's negative. No midline and mild left paraspinal tenderness. Physical examination of the neck shows a left-sided well-healed incision. Coding Level of Care Code Off vis,est,level 4 Diagnoses Cervical radiculopathy M54.12 History of fusion of cervical spine Z98.1 Assessment and Plan Assessment and Plan (1) Cervical radiculopathy: Status: Acute (2) History of fusion of cervical spine: Status: Acute Plan Again review (more content not included)... Normal [facility] CNCOon 10-15-2024 CNCO Letter Text Normal [facility] Spine Cervical (Routine)on 0 10-14-2024 Spine Cervical (Routine) [facility] Imaging Services [address] [place] [address] Spine Cervical (Routine) MR#: [id number] Acct: [id number] Name: DANA FERMIN Rep #: [id number] : 1955 F 69 From: Dawna parks MD PCP: Dr. Horacio Benson MD Status: DEP CLI Study: Spine Cervical (Routine) Date of Exam: Exam# [id number] Ordering Dr: Manjula Russell PROCEDURE: SPINE CERVICAL (ROUTINE) 10/14/2024 REASON FOR EXAM: PAIN TECHNIQUE: Multiplanar and multisequence images were obtained without IV contrast administration. Axial and sagittal T1 and T2 weighted images were obtained. Fat suppressed images were also obtained. COMPARISON: Radiograph on 09/22/2024. FINDINGS: Moderate diffuse spondylosis. Findings are demonstrated by multifocal disc dehydration, disc space narrowing, osteophyte formation and degenerative endplate changes. Multilevel facet joint arthropathy and degenerative uncovertebral joint disease. There is normal signal intensity from the visualized bone marrow without evidence of replacement or acute fracture. The visualized portions of the spinal cord are unremarkable. The visualized portions of the posterior fossa are unremarkable. There is reversal of the cervical lordosis. Evaluation of the individual levels revealed the following: C2-C3: Grade 1 retrolisthesis measuring 3.2 mm. Mild diffuse disc bulge. The spinal canal is mildly narrowed. There is mild right and moderate left neural foramina narrowing. C3-C4: Grade 1 anterolisthesis measuring 4.7 mm. Moderate diffuse disc bulge. The spinal canal is mildly narrowed. There is mild right and moderate left neural foramina narrowing. Prominent left facet joint arthropathy with surrounding degenerative reactive bone marrow edema. C4-C5: Grade 1 anterolisthesis measuring 2.7 mm with moderate diffuse disc bulge. The spinal canal is mildly narrowed. Moderate bilateral neural foraminal narrowing. C5-C6: Intervertebral disc fusion. Mild posterior osteophyte formation. The spinal canal is mildly narrowed. Mild right and moderate left neural foramina narrowing. C6-C7: Mild diffuse disc bulge. The spinal canal is mildly narrowed. Moderate bilateral neural foramina narrowing. C7-T1: Mild diffuse disc bulge. The spinal canal is mildly narrowed. Moderate bilateral neural foramina narrowing. T2-T3: Mild diffuse disc bulge. Superimposed broad-based left paracentral disc protrusion measuring 4.2 mm. The spinal canal is mildly narrowed. Minimal bilateral neural foraminal narrowing. MRI/Spine Cervical (Routine) IMPRESSION: Spondylosis. Degenerative disc disease. Reading Location: [place] [address] CC: MELANY Becerra; Dr. Horacio Benson MD Sewing Line Baler: Signed [place] [facility] Cerv Spine 4 or 5 Viewson Cerv Spine 4 or 5 Views [facility] Imaging Services [address] [place] [address] Cerv Spine 4 or 5 Views MR#: [id number] Acct: [id number] Name: DANA FERMIN Rep #: [id number] : 1955 F 69 From: Shelly Portillo MD PCP: Status: DEP AMB Study: Cerv Spine 4 or 5 Views Date of Exam: 09/22/24 Exam# [id number] Ordering Dr: Manjula Russell PROCEDURE: CERV SPINE 4 OR 5 VIEWS 09/22/2024 REASON FOR EXAM: CHRONIC PAIN TECHNIQUE: 4 views of the cervical spine. AP, lateral and flexion-extension COMPARISON: None available FINDINGS: The cervical spine is visualized on the lateral view from the skull base to the top of T1 on the lateral view. No fracture or malalignment. Status post anterior cervical disc fusion and intervertebral disc spacer C5-6. The hardware appears intact. No prevertebral soft tissue swelling. Mild disc space narrowing C2-3. Moderate disc space narrowing above and below the fusion level at C4-5 and C6-7 with anterior corner osteophyte formation and bilateral uncovertebral hypertrophic changes. Asymmetric yuli-vdbwcuu-tknz-[id number] ght hypertrophic facet degenerative changes C3 through C5. A minimal anterolisthesis of L3 on L4 is seen on the neutral view which increases by about a mm on the flexion view and resolves on the extension view. Visualized apices are clear. RAD/Cerv Spine 4 or 5 Views IMPRESSION: Status post cervical disc fusion with intervertebral disc spacer at C5-6 with spondylosis/discogen ic changes above and below the fusion level as above. A minimal anterolisthesis of L3 on L4 is seen on the neutral view which increases by about a mm on the flexion view which resolves on the extension view. Reading Location: [id number] CC: MELANY Becerra Sewing Line Baler: Signed [place] [facility] Orthopedic Visit Reporton Orthopedic Visit Report [facility] [address] [place] [address] OFFICE VISIT Date of Service: 09/22/24 MR#: [id number] Acct: [id number] Name: DANA FERMIN Rep #: [id number] : 1955 Provider: MELANY Becerra Age/Sex: 69/F Location: [facility] Status: Signed Intake Vital Signs 09/22/24 13:03 Height 5 ft 6 in Weight: 176 lb 8 oz BMI 28.5 Intake Visit Reasons: CERVICAL SPINE Accompanied by: Allergies Penicillins Allergy (Verified 09/22/24 13:06) Rash Medications ???Medication ???Instructions ???Recorded ???Confirmed ???Type albuterol 90 mcg-budesonide 80 2 inh inhalation Q4-6H PRN 5 09/22/24 History mcg/actuation HFA aerosol inhaler (Airsupra) amitriptyline 25 mg tablet 25 mg PO QHS 09/22/24 09/22/24 His tory atorvastatin 10 mg tablet 10 mg PO QDAY 09/22/24 09/22/24 Hi story desvenlafaxine succinate 100 mg 100 mg PO QDAY 09/22/24 09/22/24 H istory tablet,extended release 24 hr esomeprazole magnesium 40 mg 40 mg PO QDAY 09/22/24 09/22/24 Hi story capsule,delayed release furosemide 40 mg tablet 40 mg PO QAM 09/22/24 09/22/24 His tory levothyroxine 88 mcg tablet 88 mcg PO QDAY 09/22/24 09/22/24 H istory meloxicam 15 mg tablet 15 mg PO QDAY 09/22/24 09/22/24 Hi story methocarbamol 500 mg tablet 500 mg PO TID PRN pain/spasms #60 09/22/24 09/22/24 Rx tabs metoprolol tartrate 50 mg tablet 50 mg PO BID 09/22/24 09/22/24 His tory sucralfate 1 gram tablet 1 g PO QDAY 09/22/24 09/22/24 Hist ory tirzepatide (weight loss) 10 mg subcut 09/22/24 09/22/24 Histor y mg/0.5 mL subcutaneous pen injector (Zepbound) Have you fallen in the past year?: Yes [facility] Medical History (Updated 09/22/24 @ 14:29 by MELANY Becerra) Hypertension HPI CERVICAL SPINE Details: This documentation accurately reflects the service provided and the decisions made by me, MELANY Becerra 09/22/24 1300. Part of today???s visit was documented by Collette Grier [facility], acting as scribe. DANA FERMIN is a 69 year old F here today for neck pain. Patient did have a previous surgery on her neck in November of 2022 then surgery on her shoulder in March of 2023. Her neck surgery was done by Dr. Davis at [facility] who did an ACDF. Patient says that before the surgery she was having increased falls and her left arm lost a lot of strength. She says that she did not have any neck pain prior to the surgery and so when the ACDF was recommended patient says that she was surprised. Currently she states that her neck pain is on the left side and radiated into her left shoulder posteriorly and into her collar bone. She did see a different doctor at the [facility] regarding her low back who had done some xrays and MRI of her lumbar back who told her that she had 3 fractures in her spine and a bulge and had asked her if she hand cancer but then did no further work up. This was of her lumbar spine She denies any further radiating pain down the arm. Denies numbness, tingling or other associated symptoms. Her falls are not as frequent anymore but when she does fall she doesn't typically remember why she falls. Says that she does get lightheaded when she goes from sitting to standing or from bending over to standing. Relates her balance issues to lightheadedness. She notes that she doesn't lose consciousness when she falls. She has noticed some balance issues that occur more when she is standing up from a seated position. She denies weakness of her arm. She denies dexterity issues. She has had injection in the neck but the last one was many years ago. She denies recent PT but did do PT after her surgery in 2022. No diabetes, no blood thinners. Ortho Exam General General: Yes no acute distress Neurologic: Yes alert and Yes oriented x3 Spine SPINE TESTING CERVICAL THORACIC LUMBAR Musculoskeletal Strength 0=absent - 5=normal Details: Neurological exam of the upper extremities shows 5x5 power. Normal sensations across all dermatomes. No hyperreflexia. Lukazs's negative. No midline and mild left paraspinal tenderness. Physical examination of the neck shows a well-healed incision. Coding Level of Care Code Off vis,new,level 4 Diagnoses Cervical radiculopathy M54.12 History of fusion of cervical spine Z98.1 Assessment and Plan Assessment and Plan (1) Cervical radiculopathy: Status: Acute (2) History of fusion of cervical spine: Status: Acute Orders: Orders Cerv Spine 4 or 5 Views Today M54.2 - Cervicalgia Medications: New methocarbamol 500 mg PO TID PRN 60 tabs 0RF pain/spasms Plan Obtained reviewed x-rays today in the clinic. Independent rotation of the x-rays was performed. X- rays show straightening of the normal ce (more content not included)... [place] [facility] XR CERVICAL 3V LAT/FLEX/EXTo n 09-03-2024 XR CERVICAL 3V LAT/FLEX/EXT * * *Final Report* * * DATE OF EXAM: Sep 03 2024 10:34AM FATOU 5614 - XR CERVICAL 3V LAT/FLEX/EXT / PROCEDURE REASON: m54.2 * * * * Physician Interpretation * * * * PROCEDURE: Cervical spine INDICATION: m54.2.cervicalgia TECHNIQUE: XR CERVICAL 3V LAT/FLEX/EXT COMPARISON: None FINDINGS: Bone demineralization. Normal alignment without acute fracture or subluxation. No abnormal translation with flexion or extension. Interbody fusion with disc spacer and anterior plate fixation at C5-6. Moderate degenerative disc disease C4-5 and C6-7. Prevertebral soft tissues are within normal limits. IMPRESSION: Degenerative and postoperative changes. Sewing Line Baler: LACI Transcribe Date/Time: Sep 05 2024 11:35A Dictated by : ARYAN DELVALLE MD This examination was interpreted and the report reviewed and electronically signed by: ARYAN DELVALLE MD on Sep 05 2024 11:37AM EST [id number] [facility] AMBER SCREEN, IFA, W/REFL TITE R AND PATTERNon 08-25-2024 AMBER SCREEN, IFA Negative Normal NEGATIVE [facility] Comment on above: Result Comment: AMBER IFA is a first line screen for detecting the presence of up to approximately 150 autoantibodies in various autoimmune diseases. A negative AMBER IFA result suggests an AMBER-associated autoimmune disease is not present at this time, but is not definitive. If there is high clinical suspicion for Sjogren's syndrome, testing for anti-SS-A/Ro antibody should be considered. Anti-Catrachita-1 antibody should be considered for clinically suspected inflammatory myopathies. AC-0: Negative International Consensus on AMBER Patterns (https://doi.org/10.1515/nzbw-3102-2769) For additional information, please refer to http://education.Ad Knights.ProspectWise/faq/TMT960 (This link is being provided for informational/ educational purposes only.) Performed By: #### 5 8984, 1005, 9399, 457, 96535, 1597 #### [facility] [address], [address] [place] [address] [employer]: Gilbert Vera MD CBC (INCLUDES DIFF/PLT)on Basophils (Bld) [#/Vol] 0.061 10*3/uL Normal 0-200 [facility] Comment on above: Performed By: #### 5 8984, 1005, 6399, 457, 50021, 7573 #### [facility] of [address], [address] [place] [address] [employer]: Gilbert Vera MD Basophils/100 WBC (Bld) 1.0 % Normal [facility] Comment on above: Performed By: #### 5 8984, 1005, 6399, 457, 89054, 7573 #### [facility] [place] [address] [employer]: Gilbert Vera MD Eosinophils (Bld) [#/Vol] 0.122 10*3/uL Normal 15-500 [facility] Comment on above: Performed By: #### 5 8984, 1005, 6399, 457, 55031, 7573 #### [facility] [place] [address] [employer]: Gilbert Vera MD Eosinophils/100 WBC (Bld) 2.0 % Normal [facility] Comment on above: Performed By: #### 5 8984, 1005, 6399, 457, 91476, 7573 #### [facility] [place] [address] [employer]: Gilbert Vera MD Erythrocyte distribution width (RBC) [Ratio] 13.0 % Normal 11.0-15.0 [facility] Comment on above: Performed By: #### 5 8984, 1005, 6399, 457, 41745, 7573 #### [facility] [place] [address] [employer]: Gilbert Vera MD Hematocrit (Bld) [Volume fraction] 37.0 % Normal 35.0-45.0 [facility] Comment on above: Performed By: #### 5 8984, 1005, 6399, 457, 72847, 7573 #### [facility] [place] [address] [employer]: Gilbert Vera MD Hemoglobin (Bld) [Mass/Vol] 12.1 g/dL Normal 11.7-15.5 [facility] Comment on above: Performed By: #### 5 8984, 1005, 6399, 457, 29870, 7573 #### [facility] [place] [address] [employer] Operator: Gilbert Vera MD Lymphocytes (Bld) [#/Vol] 1.854 10*3/uL Normal 850-3900 [facility] Comment on above: Performed By: #### 5 89, 1005, 6399, 457, 83550, 7573 #### [facility] [place] [address] [employer]: Gilbert Vera MD Lymphocytes/100 WBC (Bld) 30.4 % Normal [facility] Comment on above: Performed By: #### 5 89, 1005, 6399, 457, 07004, 7573 #### [facility] [place] [address] [employer]: Gilbert Vera MD MCH (RBC) [Entitic mass] 32.0 pg Normal 27.0-33.0 [facility] Comment on above: Performed By: #### 5 89, 1005, 6399, 457, 67691, 7573 #### [facility] [place] [address] [employer]: Gilbert Vera MD MCHC (RBC) [Mass/Vol] 32.7 g/dL Normal 32.0-36.0 [facility] Comment on above: Result Comment: For adults, a slight decrease in the calculated MCHC value (in the range of 30 to 32 g/dL) is most likely not clinically significant; however, it should be interpreted with caution in correlation with other red cell parameters and the patient's clinical condition. Performed By: #### 5 8984, 1005, 6399, 457, 12133, 7573 #### [facility] [place] [address] [employer]: Gilbert Vera MD MCV (RBC) [Entitic vol] 97.9 fL Normal 80.0-100.0 [facility] Comment on above: Performed By: #### 5 8984, 1005, 6399, 457, 02845, 7573 #### [facility] [place] [address] [employer]: Gilbert Vera MD Monocytes (Bld) [#/Vol] 0.317 10*3/uL Normal 200-950 [facility] Comment on above: Performed By: #### 5 8984, 1005, 6399, 457, 00950, 7573 #### [facility] [place] [address] [employer]: Gilbert Vera MD Monocytes/100 WBC (Bld) 5.2 % Normal [facility] Comment on above: Performed By: #### 5 8984, 1005, 6399, 457, 00175, 7573 #### [facility] [place] [address] [employer]: Gilbert Vera MD Neutrophils (Bld) [#/Vol] 3.745 10*3/uL Normal 7914-5764 [facility] Comment on above: Performed By: #### 5 8984, 1005, 6399, 457, 74931, 7573 #### [facility] [place] [address] [employer]: Gilbert Vera MD Neutrophils/100 WBC (Bld) 61.4 % Normal [facility] Comment on above: Performed By: #### 5 8984, 1005, 6399, 457, 92709, 7573 #### [facility] [place] [address] [employer]: Gilbert Vera MD Platelet mean volume (Bld) [Entitic vol] 9.8 fL Normal 7.5-12.5 [facility] Comment on above: Performed By: #### 5 8984, 1005, 6399, 457, 04774, 7573 #### [facility] [address], [address] [place] [address] [employer]: Gilbert Vera MD Platelets (Bld) [#/Vol] 255 10*3/uL Normal 140-400 [facility] Comment on above: Performed By: #### 5 8984, 1005, 6399, 457, 04953, 7573 #### [facility] [place] [address] [employer]: Gilbert Vera MD RBC (Bld) [#/Vol] 3.78 10*6/uL Low 3.80-5.10 [facility] Comment on above: Performed By: #### 5 8984, 1005, 6399, 457, 08723, 7573 #### [facility] [place] [address] [employer]: Gilbert Vera MD WBC (Bld) [#/Vol] 6.1 10*3/uL Normal 3.8-10.8 [facility] Comment on above: Performed By: #### 5 8984, 1005, 6399, 457, 66063, 7573 #### [facility] [place] [address] [employer]: Gilbert eVra MD COMPREHENSIVE METABOLIC PANE [facility] 08-25-2024 Albumin [Mass/Vol] 4.0 g/dL Normal 3.6-5.1 [facility] Comment on above: Performed By: #### 5 8984, 1005, 6399, 457, 89647, 7573 #### [facility] [place] [address] [employer]: Gilbert Vera MD Albumin/Globulin [Mass ratio] 1.7 {ratio} Normal 1.0-2.5 [facility] Comment on above: Performed By: #### 5 8984, 1005, 6399, 457, 74794, 7573 #### [facility] [address], [address] [place] [address] [employer]: Gilbert Vera MD ALP [Catalytic activity/Vol] 66 U/L Normal 37-153 [facility] Comment on above: Performed By: #### 5 8984, 1005, 6399, 457, 19247, 7573 #### [facility] [address], [address] [place] [address] [employer]: Gilbert Vera MD ALT [Catalytic activity/Vol] 12 U/L Normal 6-29 [facility] Comment on above: Performed By: #### 5 8984, 1005, 6399, 457, 46787, 7573 #### [facility] [address], [address] [place] [address] [employer]: Gilbert Vera MD AST [Catalytic activity/Vol] 19 U/L Normal 10-35 [facility] Comment on above: Performed By: #### 5 8984, 1005, 6399, 457, 59126, 7573 #### [facility] [address], [address] [place] [address] [employer]: Gilbert Vera MD Bilirubin [Mass/Vol] 0.3 mg/dL Normal 0.2-1.2 [facility] Comment on above: Performed By: #### 5 8984, 1005, 6399, 457, 25051, 7573 #### [facility] [address], [address] [place] [address] [employer]: Gilbert Vera MD BUN/CREATININE RATIO SEE NOTE: Normal 6-22 [facility] Comment on above: Result Comment: Not Reported: BUN and Creatinine are within reference range. Performed By: #### 5 8984, 1005, 6399, 457, 61742, 7573 #### [facility] [address], [address] [place] [address] [employer]: Gilbert Vera MD Calcium [Mass/Vol] 9.1 mg/dL Normal 8.6-10.4 [facility] Comment on above: Performed By: #### 5 8984, 1005, 6399, 457, 87369, 7573 #### [facility] [place] [address] [employer]: Gilbert Vera MD Chloride [Moles/Vol] 100 mmol/L Normal 98-110 [facility] Comment on above: Performed By: #### 5 8984, 1005, 6399, 457, 39256, 7573 #### [facility] [place] [address] [employer]: Gilbert Vera MD CO2 [Moles/Vol] 28 mmol/L Normal 20-32 [facility] Comment on above: Performed By: #### 5 8984, 1005, 6399, 457, 60588, 7573 #### [facility] [place] [address] [employer]: Gilbert Vera MD Creatinine [Mass/Vol] 0.87 mg/dL Normal 0.50-1.[address] [facility] Comment on above: Performed By: #### 5 8984, 1005, 6399, 457, 75154, 7573 #### [facility] [place] [address] [employer]: Gilbert Vera MD GFR/1.73 sq M.predicted among non-blacks MDRD (S/P/Bld) [Vol rate/Area] 72 mL/min/{1.73_m2} Normal > OR = 60 [facility] Comment on above: Performed By: #### 5 8984, 1005, 6399, 457, 50295, 7573 #### [facility] [place] [address] [employer]: Gilbert Vera MD Globulin (S) [Mass/Vol] 2.4 g/dL Normal 1.9-3.7 [facility] Comment on above: Performed By: #### 5 8984, 1005, 6399, 457, 30845, 7573 #### [facility] [place] [address] [employer]: Gilbert Vera MD Glucose [Mass/Vol] 97 mg/dL Normal 65-139 [facility] Comment on above: Result Comment: Non-fasting reference interval Performed By: #### 5 8984, 1005, 6399, 457, 14896, 7573 #### [facility] [place] [address] [employer]: Gilbert Vera MD Potassium [Moles/Vol] 4.0 mmol/L Normal 3.5-5.3 [facility] Comment on above: Performed By: #### 5 8984, 1005, 6399, 457, 45087, 7573 #### [facility] [place] [address] [employer]: Gilbert Vera MD Protein [Mass/Vol] 6.4 g/dL Normal 6.1-8.1 [facility] Comment on above: Performed By: #### 5 8984, 1005, 6399, 457, 36433, 7573 #### [facility] [place] [address] [employer]: Gilbert Vera MD Sodium [Moles/Vol] 136 mmol/L Normal 135-146 [facility] Comment on above: Performed By: #### 5 8984, 1005, 6399, 457, 11519, 7573 #### [facility] [place] [address] [employer]: Gilbert Vera MD Urea nitrogen [Mass/Vol] 19 mg/dL Normal 7-25 [facility] Comment on above: Performed By: #### 5 8984, 1005, 6399, 457, 90506, 7573 #### [facility] [place] [address] [employer]: Gilbert Vera MD IRON AND TOTAL IRON BINDING CAPACITYon 08-25-2024 % SATURATION 28 % (calc) Normal 16-45 [facility] Comment on above: Order Comment: FASTI NG:NOFASTING: NO Performed By: #### 5 8984, 1005, 6399, 457, 31513, 7573 #### [facility] [place] [address] [employer]: Gilbert Vera MD IRON BINDING CAPACITY 314 mcg/dL (calc) Normal 250-450 [facility] Comment on above: Order Comment: FASTI NG:NOFASTING: NO Performed By: #### 5 8984, 1005, 6399, 457, 01704, 7573 #### [facility] [place] [address] [employer]: Gilbert Vera MD IRON, TOTAL 87 mcg/dL Normal 45-160 [facility] Comment on above: Order Comment: FASTI NG:NOFASTING: NO Performed By: #### 5 8984, 1005, 6399, 457, 62773, 7573 #### [facility] [place] [address] [employer]: Gilbert Vera MD RHEUMATOID FACTORon 08-26-19 RHEUMATOID FACTOR <10 Normal <14 [facility] Comment on above: Performed By: #### 5 8984, 1005, 6399, 457, 77029, 7573 #### [facility] [place] [address] [employer]: Gilbert Vera MD SED RATE BY MODIFIED WESTERG RENon 08-25-2024 SED RATE BY MODIFIED WESTERGREN 9 mm/h Normal < OR = 30 [facility] Comment on above: Performed By: #### 5 8984, 1005, 6399, 457, 94977, 7573 #### [facility] [place] [address] [employer]: Gilbert Vera MD TEST AUTHORIZATIONon 025 CLIENT CONTACT: KATE Normal [facility] Comment on above: Performed By: #### 5 8984, 1005, 6399, 457, 18632, 7573 #### [facility] of [address] [place] [address] [employer]: Gilbert Vera MD COMMENT Normal [facility] Comment on above: Result Comment: Plea se have the ordering physician or his or her authorized u.s. representative sign a copy of this report and promptly return it by faxing it to: [phone] or by returning the form to your plating engineer. Performed By: #### 5 8984, 1005, 6399, 457, 87539, 7573 #### [facility] [address], [address] [place] [address] [employer]: Gilbert Vera MD REPORT ALWAYS MESSAGE SIGNATURE Normal [facility] Comment on above: Result Comment: The laboratory testing on this patient was verbally requested or confirmed by the ordering physician or his or her authorized u.s. representative after contact with an employee of [employer]. Federal regulations require that we maintain on file written authorization for all laboratory testing. Accordingly we are asking that the ordering physician or his or her authorized u.s. representative sign a copy of this report and promptly return it to the client support professional. Signature: Performed By: #### 5 8984, 1005, 6399, 457, 95775, 7573 #### [facility] [address], [address] [place] [address] [employer]: Gilbert Vera MD TEST CODE: 7573 Normal [facility] Comment on above: Performed By: #### 5 8984, 1005, 6399, 457, 88737, 7573 #### [facility] [address], [address] [place] [address] [employer]: Gilbert Vera MD TEST NAME: IRON/TIBC Normal [facility] Comment on above: Performed By: #### 5 8984, 1005, 6399, 457, 38426, 7573 #### [facility] [address], [address] [place] [address] [employer]: Gilbert Vera MD TSHon 08-25-2024 TSH Qn 6.08 m[IU]/L High 0.40-4.50 [facility] Comment on above: Performed By: #### 5 8984, 1005, 6399, 457, 61455, 7573 #### [facility] [place] [address] [employer]: Gilbert Vera MD VITAMIN D,25-OH,TOTAL,IAon 0 08-25-2024 VITAMIN D,25-OH,TOTAL,IA 57 ng/mL Normal 30-100 [facility] Comment on above: Result Comment: Carmen min D Status 25-OH Vitamin D: Deficiency: <20 ng/mL Insufficiency: 20 - 29 ng/mL Optimal: > or = 30 ng/mL For 25-OH Vitamin D testing on patients on D2-supplementation and patients for whom quantitation of D2 and D3 fractions is required, the [facility]Assure[facility](TM) 25-OH VIT D, (D2,D3), LC/MS/MS is recommended: order code 51531 (patients >2yrs). See Note 1 Note 1 For additional information, please refer to http://education.[employer]/faq/UBY922 (This link is being provided for informational/ educational purposes only.) Performed By: #### 5 8984, 1005, 6399, 457, 73331, 7573 #### [facility] [place] [address] [employer]: Gilbert Vera MD CBC (INCLUDES DIFF/PLT)on Basophils (Bld) [#/Vol] 0.059 10*3/uL Normal 0-200 [facility] Comment on above: Performed By: #### 5 8984, 1005, 6399, 457, 09737, 7573 #### [facility] [place] [address] [employer]: Gilbert Vera MD Basophils/100 WBC (Bld) 1.2 % Normal [facility] Comment on above: Performed By: #### 5 8984, 1005, 6399, 457, 97816, 7573 #### [facility] [address], [address] [place] [address] [employer]: Gilbert Vera MD Eosinophils (Bld) [#/Vol] 0.088 10*3/uL Normal 15-500 [facility] Comment on above: Performed By: #### 5 8984, 1005, 6399, 457, 05149, 7573 #### [facility] [address], [address] [place] [address] [employer]: Gilbert Vera MD Eosinophils/100 WBC (Bld) 1.8 % Normal [facility] Comment on above: Performed By: #### 5 8984, 1005, 6399, 457, 78213, 7573 #### [facility] [address], [address] [place] [address] [employer]: Gilbert Vera MD Erythrocyte distribution width (RBC) [Ratio] 12.9 % Normal 11.0-15.0 [facility] Comment on above: Performed By: #### 5 8984, 1005, 6399, 457, 58636, 7573 #### [facility] [place] [address] [employer]: Gilbert Vera MD Hematocrit (Bld) [Volume fraction] 38.7 % Normal 35.0-45.0 [facility] Comment on above: Performed By: #### 5 8984, 1005, 6399, 457, 01542, 7573 #### [facility] [place] [address] [employer]: Gilbert Vera MD Hemoglobin (Bld) [Mass/Vol] 12.3 g/dL Normal 11.7-15.5 [facility] Comment on above: Performed By: #### 5 8984, 1005, 6399, 457, 40703, 7573 #### [facility] [place] [address] [employer]: Gilbert Vera MD Lymphocytes (Bld) [#/Vol] 1.852 10*3/uL Normal 850-3900 [facility] Comment on above: Performed By: #### 5 8984, 1005, 6399, 457, 00599, 7573 #### [facility] [place] [address] [employer]: Gilbert Vera MD Lymphocytes/100 WBC (Bld) 37.8 % Normal [facility] Comment on above: Performed By: #### 5 8984, 1005, 6399, 457, 38483, 7573 #### [facility] [place] [address] [employer]: Gilbert Vera MD MCH (RBC) [Entitic mass] 30.8 pg Normal 27.0-33.0 [facility] Comment on above: Performed By: #### 5 8984, 1005, 6399, 457, 47099, 7573 #### [facility] [place] [address] [employer]: Gilbert Vera MD MCHC (RBC) [Mass/Vol] 31.8 g/dL Low 32.0-36.[address] [facility] Comment on above: Performed By: #### 5 8984, 1005, 6399, 457, 44978, 7573 #### [facility] [place] [address] [employer]: Gilbert Vera MD MCV (RBC) [Entitic vol] 96.8 fL Normal 80.0-100.0 [facility] Comment on above: Performed By: #### 5 8984, 1005, 6399, 457, 87943, 7573 #### [facility] [place] [address] [employer]: Gilbert Vera MD Monocytes (Bld) [#/Vol] 0.382 10*3/uL Normal 200-950 [facility] Comment on above: Performed By: #### 5 8984, 1005, 6399, 457, 29347, 7573 #### [facility] [place] [address] [employer]: Gilbert Vera MD Monocytes/100 WBC (Bld) 7.8 % Normal [facility] Comment on above: Performed By: #### 5 8984, 1005, 6399, 457, 10548, 7573 #### [facility] [address], [address] [place] [address] [employer]: Gilbert Vera MD Neutrophils (Bld) [#/Vol] 2.519 10*3/uL Normal 2846-7541 [facility] Comment on above: Performed By: #### 5 8984, 1005, 6399, 457, 10867, 7573 #### [facility] [place] [address] [employer]: Gilbert Vera MD Neutrophils/100 WBC (Bld) 51.4 % Normal [facility] Comment on above: Performed By: #### 5 8984, 1005, 6399, 457, 59069, 7573 #### [facility] [place] [address] [employer]: Gilbert Vera MD Platelet mean volume (Bld) [Entitic vol] 10.3 fL Normal 7.5-12.5 [facility] Comment on above: Performed By: #### 5 8984, 1005, 6399, 457, 67565, 7573 #### [facility] [place] [address] [employer]: Gilbert Vera MD Platelets (Bld) [#/Vol] 304 10*3/uL Normal 140-400 [facility] Comment on above: Performed By: #### 5 8984, 1005, 6399, 457, 87936, 7573 #### [facility] [place] [address] [employer]: Gilbert Vera MD RBC (Bld) [#/Vol] 4.00 10*6/uL Normal 3.80-5.10 [facility] Comment on above: Performed By: #### 5 8984, 1005, 6399, 457, 35711, 7573 #### [facility] [place] [address] [employer]: Gilbert Vera MD WBC (Bld) [#/Vol] 4.9 10*3/uL Normal 3.8-10.8 [facility] Comment on above: Performed By: #### 5 8984, 1005, 6399, 457, 22424, 7573 #### [facility] [place] [address] [employer]: Gilbert Vera MD [facility] 11-23-2023 Albumin [Mass/Vol] 4.4 g/dL Normal 3.6-5.1 [facility] Comment on above: Performed By: #### 5 8984, 1005, 6399, 457, 52474, 7573 #### [facility] [place] [address] [employer]: Gilbert Vera MD Albumin/Globulin [Mass ratio] 1.4 {ratio} Normal 1.0-2.5 [facility] Comment on above: Performed By: #### 5 8984, 1005, 6399, 457, 27955, 7573 #### [facility] [place] [address] [employer]: Gilbert Vera MD ALP [Catalytic activity/Vol] 76 U/L Normal 37-153 [facility] Comment on above: Performed By: #### 5 8984, 1005, 6399, 457, 08057, 7573 #### [facility] [place] [address] [employer]: Gilbert Vera MD ALT [Catalytic activity/Vol] 12 U/L Normal 6-29 [facility] Comment on above: Performed By: #### 5 8984, 1005, 6399, 457, 44281, 7573 #### [facility] [place] [address] [employer]: Gilbert Vera MD AST [Catalytic activity/Vol] 25 U/L Normal 10-35 [facility] Comment on above: Performed By: #### 5 8984, 1005, 6399, 457, 05823, 7573 #### [facility] [address], [address] [place] [address] [employer]: Gilbert Vera MD Bilirubin [Mass/Vol] 0.3 mg/dL Normal 0.2-1.2 [facility] Comment on above: Performed By: #### 5 8984, 1005, 6399, 457, 53349, 7573 #### [facility] [address], [address] [place] [address] [employer]: Gilbert Vera MD BUN/CREATININE RATIO SEE NOTE: Normal 6-22 [facility] Comment on above: Result Comment: Not Reported: BUN and Creatinine are within reference range. Performed By: #### 5 8984, 1005, 6399, 457, 06391, 7573 #### [facility] [address], [address] [place] [address] [employer]: Gilbert Vera MD Calcium [Mass/Vol] 9.4 mg/dL Normal 8.6-10.4 [facility] Comment on above: Performed By: #### 5 8984, 1005, 6399, 457, 11696, 7573 #### [facility] [address], [address] [place] [address] [employer]: Gilbert Vera MD Chloride [Moles/Vol] 97 mmol/L Low 98-110 [facility] Comment on above: Performed By: #### 5 8984, 1005, 6399, 457, 87472, 7573 #### [facility] [address], [address] [place] [address] [employer]: Gilbert Vera MD CO2 [Moles/Vol] 29 mmol/L Normal 20-32 [facility] Comment on above: Performed By: #### 5 8984, 1005, 6399, 457, 87308, 7573 #### [facility] [address], [address] [place] [address] [employer]: Gilbert Vera MD Creatinine [Mass/Vol] 0.98 mg/dL Normal 0.50-1.[address] [facility] Comment on above: Performed By: #### 5 8984, 1005, 6399, 457, 93434, 7573 #### [facility] [address], [address] [place] [address] [employer]: Gilbert Vera MD GFR/1.73 sq M.predicted among non-blacks MDRD (S/P/Bld) [Vol rate/Area] 63 mL/min/{1.73_m2} Normal > OR = 60 [facility] Comment on above: Performed By: #### 5 89, 1005, 6399, 457, 89107, 7573 #### [facility] [address], [address] [place] [address] [employer]: Gilbert Vera MD Globulin (S) [Mass/Vol] 3.1 g/dL Normal 1.9-3.7 [facility] Comment on above: Performed By: #### 5 89, 1005, 6399, 457, 48675, 7573 #### [facility] [place] [address] [employer]: Gilbert Vera MD Glucose [Mass/Vol] 84 mg/dL Normal 65-99 [facility] Comment on above: Result Comment: Fasting reference interval Performed By: #### 5 8984, 1005, 6399, 457, 83146, 7573 #### [facility] [address], [address] [place] [address] [employer]: Gilbert Vera MD Potassium [Moles/Vol] 4.1 mmol/L Normal 3.5-5.[address] [facility] Comment on above: Performed By: #### 5 8984, 1005, 6399, 457, 25017, 7573 #### [facility] [address], [address] [place] [address] [employer]: Gilbert Vera MD Protein [Mass/Vol] 7.5 g/dL Normal 6.1-8.1 [facility] Comment on above: Performed By: #### 5 8984, 1005, 6399, 457, 96285, 7573 #### [facility] [place] [address] [employer]: Gilbert Vera MD Sodium [Moles/Vol] 135 mmol/L Normal 135-146 [facility] Comment on above: Performed By: #### 5 8984, 1005, 6399, 457, 98720, 7573 #### [facility] [address], [address] [place] [address] [employer]: Gilbert Vera MD Urea nitrogen [Mass/Vol] 18 mg/dL Normal 7-25 [facility] Comment on above: Performed By: #### 5 8984, 1005, 6399, 457, 43162, 7573 #### [facility] [place] [address] [employer]: Gilbert Vera MD FERRITINon 11-23-2023 Ferritin [Mass/Vol] 12 ng/mL Low 16-288 [facility] Comment on above: Performed By: #### 5 89, 1005, 6399, 457, 79386, 7573 #### [facility] [place] [address] [employer]: Gilbert Vera MD IRON AND TOTAL IRON BINDING CAPACITYon 11-23-2023 % SATURATION 15 % (calc) Low 16-45 [facility] Comment on above: Performed By: #### 5 8984, 1005, 6399, 457, 27034, 7573 #### [facility] [place] [address] [employer]: Gilbert Vera MD IRON BINDING CAPACITY 399 mcg/dL (calc) Normal 250-450 [facility] Comment on above: Performed By: #### 5 8984, 1005, 6399, 457, 67137, 7573 #### [facility] [place] [address] [employer]: Gilbert Vera MD IRON, TOTAL 60 mcg/dL Normal 45-160 [facility] Comment on above: Performed By: #### 5 8984, 1005, 6399, 457, 48966, 7573 #### [facility] [address], [address] [place] [address] [employer]: Gilbert Vera MD TEST AUTHORIZATIONon 024 CLIENT CONTACT: MARIEL Logan Normal [facility] Comment on above: Performed By: #### 5 8984, 1005, 6399, 457, 23113, 7573 #### [facility] [address], [address] [place] [address] [employer]: Gilbert Vera MD COMMENT Normal [facility] Comment on above: Result Comment: Plea se have the ordering physician or his or her authorized u.s. representative sign a copy of this report and promptly return it by faxing it to: [phone] or by returning the form to your plating engineer. Performed By: #### 5 8984, 1005, 6399, 457, 84686, 7573 #### [facility] [address], [address] [place] [address] [employer]: Gilbert Vera MD REPORT ALWAYS MESSAGE SIGNATURE Normal [facility] Comment on above: Result Comment: The laboratory testing on this patient was verbally requested or confirmed by the ordering physician or his or her authorized u.s. representative after contact with an employee of [employer]. Federal regulations require that we maintain on file written authorization for all laboratory testing. Accordingly we are asking that the ordering physician or his or her authorized u.s. representative sign a copy of this report and promptly return it to the client support professional. Signature: Performed By: #### 5 8984, 1005, 6399, 457, 60242, 7573 #### [facility] [address], [address] [place] [address] [employer] Operator: Gilbert Vera MD TEST CODE: 7573, 457 Normal [facility] Comment on above: Performed By: #### 5 8984, 1005, 6399, 457, 19960, 7573 #### [facility] [place] [address] [place] [employer] Operator: Gilbert Vera MD TEST NAME: IRON, TIBC, FERRITIN Normal [facility] Comment on above: Performed By: #### 5 8984, 1005, 6399, 457, 37436, 7573 #### [facility] [place] [address] [place] [employer] Operator: Gilbert Vera MD TSH+FREE T4on 11-23-2023 Free T4 [Mass/Vol] 1.2 ng/dL Normal 0.8-1.8 [facility] Comment on above: Performed By: #### 5 8984, 1005, 6399, 457, 49089, 7573 #### [facility] [place] [address] [place] [employer] Operator: Gilbert Vera MD TSH Qn 3.28 m[IU]/L Normal 0.40-4.50 [facility] Comment on above: Performed By: #### 5 8984, 1005, 6399, 457, 67826, 7573 #### [facility] [place] [address] [place] [employer] Operator: Gilbert Vera MD SCRN MAMM (CAD)W/DANIEL BILATo n 07-23-2023 SCRN MAMM (CAD)W/DANIEL BILAT [facility] Imaging Services [address] [place] [id number] SCRN MAMM (CAD)W/DANIEL BILAT MR#: [id number] Acct: [id number] Name: DANA CARLSON Rep #: [id number] : 1955 F 68 From: Guille ramires MD PCP: Dr. Horacio Benson MD Status: [facility] Study: SCRN MAMM (CAD)W/DANIEL BILAT Date of Exam: 07/12 08/04 Exam# [id number] Ordering Dr: Mariel Hagen [id number] MAMMOGRAPHY - BILATERAL SCREENING REASON FOR EXAM: Female, 68 years old. Routine annual screening examination. PERTINENT HISTORY: Non-contributory. History of prior bilateral breast reduction surgery. TECHNIQUE: Digital bilateral breast daniel (3D mammographic acquisition) in the CC and MLO projections. 2-D mediolateral oblique (MLO) and craniocaudad (CC) views of both breasts were obtained. CAD: Full Field Digital Mammography with Computer Added Detection was performed. COMPARISON: Comparison is made with prior examination December 16, 2021. FINDINGS: Breast Composition: The breasts are extremely dense, which lowers the sensitivity of mammography. There are no dominant masses or suspicious calcifications. A tissue clip marker is seen in the anterior midportion of the right breast. Dystrophic calcification is seen in the medial retroareolar region of the right breast No other significant abnormalities are identified. There has been no significant change since the prior study. BI/SCRN MAMM (CAD)W/DANIEL BILAT IMPRESSION: Stable bilateral screening mammogram. Yearly follow-up mammogram recommended. (A) ASSESSMENT CATEGORY: BIRADS Category 2: Benign. A letter regarding these results will be sent to the patient by the facility within 30 days. Approximately 10% of breast cancers are not detected by mammography. A normal mammogram should not delay biopsy of a clinically suspicious abnormality. [id number] Electronically Signed: Guille Sam MD at 13:10 EST , CC: MELANY Motley; Dr. Horacio Benson MD Sewing Line Baler: Signed Normal [facility] NCS and/or EMG Patienton NCS and/or EMG Patient [facility] Pulmonary Services/Neurology [address] [place] [address] MR#: [id number] Acct: [id number] Name: DANA CARLSON Rep #: [id number] : 1955 67 From: Fartun Squires MD Referring Dr: Luis Cohen DO Status: REG C LI Location: [facility] Date: 12/13/22 Sex: F C NCS and/or EMG Patient Report Ordering Doctor: Luis Cohen DATE OF SERVICE: 12/13/22 Dana presents for electrodiagnostic testing of the left upper limb. She reports intermittent numbness in the left hand. She had cervical spine surgery 3 weeks ago. Electrodiagnostic findings: Left median motor nerve demonstrates normal distal latency and amplitude with reduced conduction velocity. Normal left ulnar motor response. Prolonged left median sensory latency at the wrist. Normal ulnar and radial sensory responses. Normal left median and ulnar F- wave. On needle EMG, all muscles tested in the left upper limb showed no evidence of denervation with normal motor unit action potentials. Electrodiagnostic impression: This is an abnormal study in the left upper limb 1. Electrodiagnostic findings suggestive of left-sided median mononeuropathy. This is consistent with a mild left carpal tunnel syndrome. Multi Select Codes Neurology Neurology Interp Codes: 50106-55 Musc test done w/n test comp (interp) and 44100-36 Nrv cndj test 7- 8 studies (interp) 12/13/22 1432 Date Fartun Squires MD CC: Dr. Fartun Squires MD; Dr. Horacio Benson MD; Dr. Luis Cohen DO Date Dictated: 12/13/221426 Date Transcribed: 12/13/221426 Sewing Line Baler: AA Signed Normal [facility] .Auto Diffon 11-23-2022 Basophil, Absolute 0.1 10 3/mcL Normal 0.0-0.2 [facility] ([place]) Comment on above: Performed By: #### A DIFF, CBC, ANEU #### [address] [address] Basophils/100 WBC (Bld) 0.7 % Normal 0.0-2.5 A [facility] ([place]) Comment on above: Performed By: #### A DIFF, CBC, ANEU #### [address] [address] Eosinophil, Absolute 0.0 10 3/mcL Normal 0.0-0.4 [facility] ([place]) Comment on above: Performed By: #### A DIFF, CBC, ANEU #### [address] [address] Eosinophils/100 WBC (Bld) 0.1 % Normal 0.0-7.0 [facility] ([place]) Comment on above: Performed By: #### A DIFF, CBC, ANEU #### [address] [address] Lymphocyte, Absolute 1.3 10 3/mcL Normal 0.8-3.9 [facility] ([place]) Comment on above: Performed By: #### A DIFF, CBC, ANEU #### [address] [address] Lymphocytes/100 WBC (Bld) 12.0 % Normal 10.0-50.0 [facility] ([place]) Comment on above: Performed By: #### A DIFF, CBC, ANEU #### [address] [address] Monocyte, Absolute 0.9 10 3/mcL Normal 0.2-1.0 [facility] ([place]) Comment on above: Performed By: #### A DIFF, CBC, ANEU #### [address] [address] Monocytes/100 WBC (Bld) 8.5 % Normal 1.7-13.0 A [facility] ([place]) Comment on above: Performed By: #### A DIFF, CBC, ANEU #### [address] [address] Neutrophils/100 WBC (Bld) 78.7 % Normal 37.0-80.0 [facility] ([place]) Comment on above: Performed By: #### A DIFF, CBC, ANEU #### [address] [address] .GFRon 11-23-2022 GFR 88 ml/min/1.73sqm Normal [facility] ([place]) Comment on above: Result Comment: GFR Population mean for , Non- Americans Ages 20-29 = 116 mL/min/1.73 sq.m. Ages 30-39 = 107 mL/min/1.73 sq.m. Ages 40-49 = 99 mL/min/1.73 sq.m. Ages 50-59 = 93 mL/min/1.73 sq.m. Ages 60-69 = 85 mL/min/1.73 sq.m. Ages 70+ = 75 mL/min/1.73 sq.m. Chronic Kidney Disease: Less than 60 mL/min/1.73 square meters End Stage Renal Disease: Less than 15 mL/min/1.73 square meters Performed By: #### A DIFF, GFR, CBC, APTT, ANEU, PRO, BMP #### [address] [address] GFR Non- 73 ml/min/1.73sqm Normal [facility] ([place]) Comment on above: Result Comment: GFR Population mean for , Non- Americans Ages 20-29 = 116 mL/min/1.73 sq.m. Ages 30-39 = 107 mL/min/1.73 sq.m. Ages 40-49 = 99 mL/min/1.73 sq.m. Ages 50-59 = 93 mL/min/1.73 sq.m. Ages 60-69 = 85 mL/min/1.73 sq.m. Ages 70+ = 75 mL/min/1.73 sq.m. Chronic Kidney Disease: Less than 60 mL/min/1.73 square meters End Stage Renal Disease: Less than 15 mL/min/1.73 square meters Performed By: #### A DIFF, GFR, CBC, APTT, ANEU, PRO, BMP #### [address] [address] .NEUABSon 11-23-2022 Neutrophil, Absolute 8.3 10 3/mcL High 2.9-6.2 [facility] ([place]) Comment on above: Performed By: #### A DIFF, CBC, ANEU #### [address] [address] BMPon 11-23-2022 BUN/Creatinine Ratio 13 ratio Normal 7-27 [facility] ([place]) Comment on above: Performed By: #### A DIFF, GFR, CBC, APTT, ANEU, PRO, BMP #### [address] [address] Calcium [Mass/Vol] 8.9 mg/dL Normal 8.4-10.2 Pending sale to [facility] ([place]) Comment on above: Performed By: #### A DIFF, GFR, CBC, APTT, ANEU, PRO, BMP #### [address] [address] Chloride [Moles/Vol] 104 mmol/L Normal 98-107 [facility] ([place]) Comment on above: Performed By: #### A DIFF, GFR, CBC, APTT, ANEU, PRO, BMP #### [address] [address] CO2 [Moles/Vol] 29 mmol/L Normal 23-31 [facility] ([place]) Comment on above: Performed By: #### A DIFF, GFR, CBC, APTT, ANEU, PRO, BMP #### [address] [address] Creatinine [Mass/Vol] 0.79 mg/dL Normal 0.55-1.02 [facility] ([place]) Comment on above: Performed By: #### A DIFF, GFR, CBC, APTT, ANEU, PRO, BMP #### [address] [address] Electrolyte Balance 2.0 mEq/L Low 4.0-15.0 [facility] ([place]) Comment on above: Performed By: #### A DIFF, GFR, CBC, APTT, ANEU, PRO, BMP #### [address] [address] Glucose [Mass/Vol] 137 mg/dL High 80-115 P[facility] to [facility] ([place]) Comment on above: Performed By: #### A DIFF, GFR, CBC, APTT, ANEU, PRO, BMP #### [address] [address] Potassium [Moles/Vol] 4.4 mmol/L Normal 3.5-5.1 [facility] ([place]) Comment on above: Performed By: #### A DIFF, GFR, CBC, APTT, ANEU, PRO, BMP #### [address] [address] Sodium [Moles/Vol] 135 mmol/L Low 136-145 Pending [facility] to [facility] ([place]) Comment on above: Performed By: #### A DIFF, GFR, CBC, APTT, ANEU, PRO, BMP #### [address] [address] Urea nitrogen [Mass/Vol] 10 mg/dL Normal 7-18 [facility] ([place]) Comment on above: Performed By: #### A DIFF, GFR, CBC, APTT, ANEU, PRO, BMP #### [address] [address] CBCon 11-23-2022 Erythrocyte distribution width (RBC) [Ratio] 13.3 % Normal 11.5-14.5 [facility] ([place]) Comment on above: Performed By: #### A DIFF, CBC, ANEU #### [address] [address] Hematocrit (Bld) [Volume fraction] 33.0 % Low 37.0-47.0 [facility] ([place]) Comment on above: Performed By: #### A DIFF, CBC, ANEU #### [address] [address] Hgb 11.2 G/dL Low 12.0-16.0 [facility] ([place]) Comment on above: Performed By: #### A DIFF, CBC, ANEU #### [address] [address] MCH (RBC) [Entitic mass] 31.9 pg High 27.0-31.2 [facility] ([place]) Comment on above: Performed By: #### A DIFF, CBC, ANEU #### [address] [address] MCHC 34.0 G/dL Normal 33.0-37.0 [facility] ([place]) Comment on above: Performed By: #### A DIFF, CBC, ANEU #### [address] [address] MCV (RBC) [Entitic vol] 93.9 fL Normal 80.0-94.0 A [facility] ([place]) Comment on above: Performed By: #### A DIFF, CBC, ANEU #### [address] [address] Platelet 239 10 3/mcL Normal 130-400 [facility] ([place]) Comment on above: Performed By: #### A DIFF, CBC, ANEU #### [address] [address] Platelet mean volume (Bld) [Entitic vol] 7.6 fL Normal 7.4-10.4 [facility] ([place]) Comment on above: Performed By: #### A DIFF, CBC, ANEU #### [address] [address] RBC 3.52 10 6/mcL Low 4.20-5.40 [facility] ([place]) Comment on above: Performed By: #### A DIFF, CBC, ANEU #### [address] [address] WBC 10.6 10 3/mcL Normal 4.6-10.8 [facility] ([place]) Comment on above: Performed By: #### A DIFF, CBC, ANEU #### [address] [address] LABORATORYOrdered By: Laila Timmons on 11-23-2022 Basophil, Absolute 0.1 103/mcL Invalid Interpretation Code 0.0 - 0.2 10^3/mcL AO Workflow SS Basophils/100 WBC (Bld) 0.7 % Invalid Interpretation Code 0.0 - 2.5 % AO Workflow SS Eosinophil, Absolute 0.0 103/mcL Invalid Interpretation Code 0.0 - 0.4 10^3/mcL AO Workflow SS Eosinophils/100 WBC (Bld) 0.1 % Invalid Interpretation Code 0.0 - 7.0 % AO Workflow SS Erythrocyte distribution width (RBC) [Ratio] 13.3 % Invalid Interpretation Code 11.5 - 14.5 % AO Workflow SS Hematocrit (Bld) [Volume fraction] 33.0 % Invalid Interpretation Code 37.0 - 47.0 % AO Workflow SS Hemoglobin (Bld) [Mass/Vol] 11.2 G/dL Invalid Interpretation Code 12.0 - 16.0 G/dL AO Workflow SS Lymphocyte, Absolute 1.3 103/mcL Invalid Interpretation Code 0.8 - 3.9 10^3/mcL AO Workflow SS Lymphocytes/100 WBC (Bld) 12.0 % Invalid Interpretation Code 10.0 - 50.0 % AO Workflow SS MCH (RBC) [Entitic mass] 31.9 pg Invalid Interpretation Code 27.0 - 31.2 pg AO Workflow SS MCHC 34.0 G/dL Invalid Interpretation Code 33.0 - 37.0 G/dL AO Workflow SS MCV (RBC) [Entitic vol] 93.9 fL Invalid Interpretation Code 80.0 - 94.0 fL AO Workflow SS Monocyte, Absolute 0.9 103/mcL Invalid Interpretation Code 0.2 - 1.0 10^3/mcL AO Workflow SS Monocytes/100 WBC (Bld) 8.5 % Invalid Interpretation Code 1.7 - 13.0 % AO Workflow SS Neutrophil, Absolute 8.3 103/mcL Invalid Interpretation Code 2.9 - 6.2 10^3/mcL AO Workflow SS Neutrophils/100 WBC (Bld) 78.7 % Invalid Interpretation Code 37.0 - 80.0 % AO Workflow SS Platelet mean volume (Bld) [Entitic vol] 7.6 fL Invalid Interpretation Code 7.4 - 10.4 fL AO Workflow SS Platelets (Bld) [#/Vol] 239 103/mcL Invalid Interpretation Code 130 - 400 10^3/mcL AO Workflow SS RBC (Bld) [#/Vol] 3.52 106/mcL Invalid Interpretation Code 4.20 - 5.40 10^6/mcL AO Workflow SS WBC (Bld) [#/Vol] 10.6 103/mcL Invalid Interpretation Code 4.6 - 10.8 10^3/mcL AO Workflow SS LABORATORYOrdered By: SYSTEM SYSTEM on 11-23-2022 Calcium [Mass/Vol] 8.9 mg/dL Invalid Interpretation Code 8.4 - 10.2 mg/dL AO ADM SS Chloride [Moles/Vol] 104 mmol/L Invalid Interpretation Code 98 - 107 mmol/L AO ADM SS CO2 [Moles/Vol] 29 mmol/L Invalid Interpretation Code 23 - 31 mmol/L AO ADM SS Creatinine [Mass/Vol] 0.79 mg/dL Invalid Interpretation Code 0.55 - 1.02 mg/dL AO ADM SS Electrolyte Balance 2.0 mEq/L Invalid Interpretation Code 4.0 - 15.0 mEq/L AO ADM SS GFR/1.73 sq M.predicted among blacks MDRD (S/P/Bld) [Vol rate/Area] 88 ml/min/1.73sqm Invalid Interpretation Code AO Chemistry S GFR/1.73 sq M.predicted among non-blacks MDRD (S/P/Bld) [Vol rate/Area] 73 ml/min/1.73sqm Invalid Interpretation Code AO Chemistry S Glucose [Mass/Vol] 137 mg/dL Invalid Interpretation Code 80 - 115 mg/dL AO ADM SS Potassium [Moles/Vol] 4.4 mmol/L Invalid Interpretation Code 3.5 - 5.1 mmol/L AO ADM SS Sodium [Moles/Vol] 135 mmol/L Invalid Interpretation Code 136 - 145 mmol/L AO ADM SS Urea nitrogen [Mass/Vol] 10 mg/dL Invalid Interpretation Code 7 - 18 mg/dL AO ADM SS Urea nitrogen/Creatinine [Mass ratio] 13 ratio Invalid Interpretation Code 7 - 27 ratio AO ADM SS XR FLUORO 1-2 HRS TECH TIMEo n 11-22-2022 XR FLUORO 1-2 HRS TECH TIME ORIGINAL Images acquired, not reported on this accession number. Normal [facility] ([place]) .Auto Diffon 10-27-2022 Basophil, Absolute 0.1 10 3/mcL Normal 0.0-0.2 [facility] ([place]) Comment on above: Performed By: #### A DIFF, GFR, CBC, APTT, ANEU, PRO, BMP #### [address] [address] Basophils/100 WBC (Bld) 1.5 % Normal 0.0-2.5 A [facility] ([place]) Comment on above: Performed By: #### A DIFF, GFR, CBC, APTT, ANEU, PRO, BMP #### [address] [address] Eosinophil, Absolute 0.1 10 3/mcL Normal 0.0-0.4 [facility] ([place]) Comment on above: Performed By: #### A DIFF, GFR, CBC, APTT, ANEU, PRO, BMP #### [address] [address] Eosinophils/100 WBC (Bld) 2.8 % Normal 0.0-7.0 [facility] ([place]) Comment on above: Performed By: #### A DIFF, GFR, CBC, APTT, ANEU, PRO, BMP #### [address] [address] Lymphocyte, Absolute 1.6 10 3/mcL Normal 0.8-3.9 [facility] ([place]) Comment on above: Performed By: #### A DIFF, GFR, CBC, APTT, ANEU, PRO, BMP #### [address] [address] Lymphocytes/100 WBC (Bld) 38.1 % Normal 10.0-50.0 [facility] ([place]) Comment on above: Performed By: #### A DIFF, GFR, CBC, APTT, ANEU, PRO, BMP #### [address] [address] Monocyte, Absolute 0.4 10 3/mcL Normal 0.2-1.0 [facility] ([place]) Comment on above: Performed By: #### A DIFF, GFR, CBC, APTT, ANEU, PRO, BMP #### [address] [address] Monocytes/100 WBC (Bld) 8.7 % Normal 1.7-13.0 A [facility] ([place]) Comment on above: Performed By: #### A DIFF, GFR, CBC, APTT, ANEU, PRO, BMP #### [address] [address] Neutrophils/100 WBC (Bld) 48.9 % Normal 37.0-80.0 [facility] ([place]) Comment on above: Performed By: #### A DIFF, GFR, CBC, APTT, ANEU, PRO, BMP #### [address] [address] .GFRon 10-27-2022 GFR 78 ml/min/1.73sqm Normal [facility] ([place]) Comment on above: Result Comment: GFR Population mean for , Non- Americans Ages 20-29 = 116 mL/min/1.73 sq.m. Ages 30-39 = 107 mL/min/1.73 sq.m. Ages 40-49 = 99 mL/min/1.73 sq.m. Ages 50-59 = 93 mL/min/1.73 sq.m. Ages 60-69 = 85 mL/min/1.73 sq.m. Ages 70+ = 75 mL/min/1.73 sq.m. Chronic Kidney Disease: Less than 60 mL/min/1.73 square meters End Stage Renal Disease: Less than 15 mL/min/1.73 square meters Performed By: #### A DIFF, GFR, CBC, APTT, ANEU, PRO, BMP #### [address] [address] GFR Non- 64 ml/min/1.73sqm Normal [facility] ([place]) Comment on above: Result Comment: GFR Population mean for , Non- Americans Ages 20-29 = 116 mL/min/1.73 sq.m. Ages 30-39 = 107 mL/min/1.73 sq.m. Ages 40-49 = 99 mL/min/1.73 sq.m. Ages 50-59 = 93 mL/min/1.73 sq.m. Ages 60-69 = 85 mL/min/1.73 sq.m. Ages 70+ = 75 mL/min/1.73 sq.m. Chronic Kidney Disease: Less than 60 mL/min/1.73 square meters End Stage Renal Disease: Less than 15 mL/min/1.73 square meters Performed By: #### A DIFF, GFR, CBC, APTT, ANEU, PRO, BMP #### [address] [address] .NEUABSon 10-27-2022 Neutrophil, Absolute 2.1 10 3/mcL Low 2.9-6.2 [facility] ([place]) Comment on above: Performed By: #### A DIFF, GFR, CBC, APTT, ANEU, PRO, BMP #### [address] [address] APTTon 10-27-2022 aPTT Coag (Bld) [Time] 38.6 s High 25.0-35.0 [facility] ([place]) Comment on above: Result Comment: For Heparin anticoagulation therapy, the recommended therapeutic range is: 50.6-87.4 seconds. Patients on heparin therapy may have an extreme result. Performed By: #### A DIFF, GFR, CBC, APTT, ANEU, PRO, BMP #### [address] [address] Heparin dose (APTT) Unknown Normal [facility] ([place]) Comment on above: Performed By: #### A DIFF, GFR, CBC, APTT, ANEU, PRO, BMP #### [address] [address] BMPon 10-27-2022 BUN/Creatinine Ratio 14 ratio Normal 7-27 [facility] ([place]) Comment on above: Performed By: #### A DIFF, GFR, CBC, APTT, ANEU, PRO, BMP #### [address] [address] Calcium [Mass/Vol] 9.3 mg/dL Normal 8.4-10.2 P[facility] to [facility] ([place]) Comment on above: Performed By: #### A DIFF, GFR, CBC, APTT, ANEU, PRO, BMP #### [address] [address] Chloride [Moles/Vol] 101 mmol/L Normal 98-107 [facility] ([place]) Comment on above: Performed By: #### A DIFF, GFR, CBC, APTT, ANEU, PRO, BMP #### [address] [address] CO2 [Moles/Vol] 30 mmol/L Normal 23-31 [facility] ([place]) Comment on above: Performed By: #### A DIFF, GFR, CBC, APTT, ANEU, PRO, BMP #### [address] [address] Creatinine [Mass/Vol] 0.88 mg/dL Normal 0.55-1.02 [facility] ([place]) Comment on above: Performed By: #### A DIFF, GFR, CBC, APTT, ANEU, PRO, BMP #### [address] [address] Electrolyte Balance 8.0 mEq/L Normal 4.0-15.0 [facility] ([place]) Comment on above: Performed By: #### A DIFF, GFR, CBC, APTT, ANEU, PRO, BMP #### [address] [address] Glucose [Mass/Vol] 63 mg/dL Low 80-115 Pending [facility] to [facility] ([place]) Comment on above: Performed By: #### A DIFF, GFR, CBC, APTT, ANEU, PRO, BMP #### [address] [address] Potassium [Moles/Vol] 4.1 mmol/L Normal 3.5-5.1 [facility] ([place]) Comment on above: Performed By: #### A DIFF, GFR, CBC, APTT, ANEU, PRO, BMP #### [address] [address] Sodium [Moles/Vol] 139 mmol/L Normal 136-145 Pending sale to [facility] ([place]) Comment on above: Performed By: #### A DIFF, GFR, CBC, APTT, ANEU, PRO, BMP #### [address] [address] Urea nitrogen [Mass/Vol] 12 mg/dL Normal 7-18 [facility] ([place]) Comment on above: Performed By: #### A DIFF, GFR, CBC, APTT, ANEU, PRO, BMP #### [address] [address] CBCon 10-27-2022 Erythrocyte distribution width (RBC) [Ratio] 13.3 % Normal 11.5-14.5 [facility] ([place]) Comment on above: Order Comment: Pre-A dmission Testing Performed By: #### A DIFF, GFR, CBC, APTT, ANEU, PRO, BMP #### [address] [address] Hematocrit (Bld) [Volume fraction] 38.8 % Normal 37.0-47.0 [facility] ([place]) Comment on above: Order Comment: Pre-A dmission Testing Performed By: #### A DIFF, GFR, CBC, APTT, ANEU, PRO, BMP #### [address] [address] Hgb 13.3 G/dL Normal 12.0-16.0 [facility] ([place]) Comment on above: Order Comment: Pre-A dmission Testing Performed By: #### A DIFF, GFR, CBC, APTT, ANEU, PRO, BMP #### [address] [address] MCH (RBC) [Entitic mass] 32.2 pg High 27.0-31.2 [facility] ([place]) Comment on above: Order Comment: Pre-A dmission Testing Performed By: #### A DIFF, GFR, CBC, APTT, ANEU, PRO, BMP #### [address] [address] MCHC 34.3 G/dL Normal 33.0-37.0 [facility] ([place]) Comment on above: Order Comment: Pre-A dmission Testing Performed By: #### A DIFF, GFR, CBC, APTT, ANEU, PRO, BMP #### [address] [address] MCV (RBC) [Entitic vol] 93.7 fL Normal 80.0-94.0 A [facility] ([place]) Comment on above: Order Comment: Pre-A dmission Testing Performed By: #### A DIFF, GFR, CBC, APTT, ANEU, PRO, BMP #### [address] [address] Platelet 272 10 3/mcL Normal 130-400 [facility] ([place]) Comment on above: Order Comment: Pre-A dmission Testing Performed By: #### A DIFF, GFR, CBC, APTT, ANEU, PRO, BMP #### [address] [address] Platelet mean volume (Bld) [Entitic vol] 8.3 fL Normal 7.4-10.4 [facility] ([place]) Comment on above: Order Comment: Pre-A dmission Testing Performed By: #### A DIFF, GFR, CBC, APTT, ANEU, PRO, BMP #### [address] [address] RBC 4.13 10 6/mcL Low 4.20-5.40 [facility] ([place]) Comment on above: Order Comment: Pre-A dmission Testing Performed By: #### A DIFF, GFR, CBC, APTT, ANEU, PRO, BMP #### [address] [address] WBC 4.2 10 3/mcL Low 4.6-10.8 [facility] ([place]) Comment on above: Order Comment: Pre-A dmission Testing Performed By: #### A DIFF, GFR, CBC, APTT, ANEU, PRO, BMP #### [address] [address] PROon 10-27-2022 PT Coag (PPP) [Time] 13.2 s Normal 9.1-14.2 [facility]) Comment on above: Performed By: #### A DIFF, GFR, CBC, APTT, ANEU, PRO, BMP #### [address] [address] PT International Ratio 1.2 Normal [facility] ([place]) Comment on above: Result Comment: The [employer] [employer] (CHEST, 1992, 102:312S-25S) recommended therapeutic range for oral anticoagulant therapy is: LOW RISK: Prophylaxis of venous thrombosis INR: 2.0-3.0 Treatment of pulmonary embolism 2.0-3.0 Prevention of systemic embolism 2.0-3.0 HIGH RISK: Mechanical prosthetic valves 2.5-3.5 Performed By: #### A DIFF, GFR, CBC, APTT, ANEU, PRO, BMP #### [place] [address] [place], [place] [address] XR CHEST 2 VIEWSon 3 XR CHEST 2 VIEWS ORIGINAL HISTORY: Preop COMPARISON: No FINDINGS: The lungs and pleural spaces are clear. The pulmonary vasculature is unremarkable in appearance. The cardiac silhouette is within normal size limits. IMPRESSION: Clear lungs. Interpreted by: Aryan Patel MD Preliminary Report By: Aryan Patel MD Electronically signed By Aryan Patel MD Dictated Date: 10/27/2022 1:43:55 PM Prelim Date: 10/27/2022 1:44:13 PM Sign Date: 10/27/2022 1:44:13 PM Ordering Provider: JORGE DAVIS Replaced By [facility] ([place]) [facility] Office-Progress Notes-Pr ovideron 05-25-2019 [facility] Office-Progress Notes-Provider Patient: DANA FERMIN Age: 63 years Sex: Female : 1955 Associated Diagnoses: None Author: JEF HOOD, [facility] [facility] Visit Information Visit type: Scheduled follow-up. Accompanied by: No one. Source of history: Self. History limitation: None. Chief Complaint History of Present Illness Dana is here in the office after almost four years and she complains of palpitations but no dizziness or syncope. No chest pain or dyspnea. She has history of aortic incompetence and normal EF. She had negative stress test in the past. I have discussed about PVCs and decided to give her an event monitor and follow accordingly. Review of Systems Constitutional: Negative. Eye: Negative. Ear/Nose/Mouth/Throa t: Negative. Respiratory: No shortness of breath, No cough, No wheezing. Cardiovascular: No chest pain, No palpitations, No peripheral edema. Gastrointestinal: No nausea, No vomiting, No heartburn, No abdominal pain. Genitourinary: Negative. Hematology/Lymphatic s: Negative. Endocrine: Negative. Immunologic: Negative. Musculoskeletal: Negative. Integumentary: Negative. Psychiatric: Negative. Health Status Allergies: Allergic Reactions (All) Severity Not Documented Penicillins- No reactions were documented., Allergies (1) Active Reaction penicillins None Documented Current medications: (Selected) Prescriptions Prescribed atenolol 50 mg oral tablet: 75 mg, 1.5 tabs, ORAL, DAILY, 135 tabs, 7 Refill(s) Documented Medications Documented NexIUM 40 mg oral delayed release capsule: 40 mg, 1 cap(s), ORAL, DAILY, 30 cap(s), 0 Refill(s) Pristiq 50 mg oral tablet, extended release: 50 mg, 1 tab(s), ORAL, DAILY, 30 tab(s), 0 Refill(s) ProAir HFA 90 mcg/inh inhalation aerosol: 1 puff(s), Inhalation, ONCE, PRN: for wheezing, 8.5 g, 0 Refill(s) amitriptyline 25 mg oral tablet: 25 mg, 1 tabs, ORAL, QHS, 0 Refill(s) furosemide 40 mg oral tablet: 40 mg, 1 tab(s), ORAL, DAILY, 30 tab(s), 0 Refill(s) levothyroxine 25 mcg (0.025 mg) oral capsule: 50 mcg, 2 caps, ORAL, DAILY, 0 Refill(s) sucralfate 1 g oral tablet: g, tabs, ORAL, QHS, 0 Refill(s) Problem list: Active Problems (5) Asthma Chest pain Dyslipidemia Hypertension SVT (supraventricular tachycardia) Histories Past Medical History: No qualifying data available Family History: Mother: () Cause of : pancreatic cancer Age at : 76 years. Pancreatic cancer Aunt Heart disease Uncle Heart attack.. Heart disease Procedure history: No active procedure history items have been selected or recorded. Social History Social & Psychosocial Habits Alcohol 10/19/2014 Use: Current Comment: on occassion - 10/19/2014 15:17 Sarah Hare MA Other 10/19/2014 Name: caffine Comment: no longer drinks caffine - 10/19/2014 15:17 Sarah Hare MA Substance Abuse 10/19/2014 Risk Assessment: Denies Substance Abuse Tobacco 10/19/2014 Use: Never smoker . Physical Examination No qualifying data available. VS/Measurements Documented vital signs: Blood Pressure ( Systolic 132 mmHg, Diastolic 70 mmHg ) General: Alert and oriented, No acute distress. Eye: Normal conjunctiva, Vision unchanged. HENT: Normal hearing. Neck: Supple, Non-tender, No carotid bruit, No jugular venous distention, No lymphadenopathy. Respiratory: Lungs are clear to auscultation, Breath sounds are equal, Symmetrical chest wall expansion. Cardiovascular: Normal rate, No gallop, Good pulses equal in all extremities, Normal peripheral perfusion, No edema. Bruit: None. Gastrointestinal: Soft, Non-tender, Normal bowel sounds. Genitourinary: No costovertebral angle tenderness. Musculoskeletal: No tenderness, No swelling. Integumentary: Warm, Dry. Neurologic: Alert, Normal sensory, Normal motor function, Cranial Nerves II-XII are grossly intact. Review / Management No qualifying data available Impression and Plan 1.History of postural hypotension 2.Moderate aortic incompetence and normal EF 3.HTN 4.Negative stress imaging 2013 5.History of syncope: doesn't appear to be vasovagal or cardiac 6.Event monitor to evaluate palpitations 7.Continue current medications and follow up in four weeks Normal [facility] Office-Progress Notes-Pr sinan 04-21-2019 [facility] Office-Progress Notes-Provider Patient: DANA FERMIN Age: 64 years Sex: Female : 1955 Associated Diagnoses: None Author: JEF HOOD, [facility] Visit Information Visit type: Scheduled follow-up. Accompanied by: No one. Source of history: Self. History limitation: None. Chief Complaint History of Present Illness This is a follow-up visit for Mrs. Fermin for her palpitations. Her Holter showed no arrhythmias and it looks basically normal. I am going to cut down the beta wild dose She weighs 182 pounds. she does watch her caffeine intake. No recent chest pain no shortness of breath no lightheadedness or dizziness. Review of Systems Constitutional: Negative. Eye: Negative. Ear/Nose/Mouth/Throa t: Negative. Respiratory: No shortness of breath, No cough, No wheezing. Cardiovascular: No chest pain, No palpitations, No peripheral edema. Gastrointestinal: No nausea, No vomiting, No heartburn, No abdominal pain. Genitourinary: Negative. Hematology/Lymphatic s: Negative. Endocrine: Negative. Immunologic: Negative. Musculoskeletal: Negative. Integumentary: Negative. Psychiatric: Negative. Health Status Allergies: Allergic Reactions (All) Severity Not Documented Penicillins- No reactions were documented., Allergies (1) Active Reaction penicillins None Documented Current medications: (Selected) Prescriptions Prescribed atenolol 50 mg oral tablet: 75 mg, 1.5 tabs, ORAL, DAILY, 135 tabs, 7 Refill(s) Documented Medications Documented NexIUM 40 mg oral delayed release capsule: 40 mg, 1 cap(s), ORAL, DAILY, 30 cap(s), 0 Refill(s) Pristiq 50 mg oral tablet, extended release: 50 mg, 1 tab(s), ORAL, DAILY, 30 tab(s), 0 Refill(s) ProAir HFA 90 mcg/inh inhalation aerosol: 1 puff(s), Inhalation, ONCE, PRN: for wheezing, 8.5 g, 0 Refill(s) amitriptyline 25 mg oral tablet: 25 mg, 1 tabs, ORAL, QHS, 0 Refill(s) levothyroxine 25 mcg (0.025 mg) oral capsule: 50 mcg, 2 caps, ORAL, DAILY, 0 Refill(s) sucralfate 1 g oral tablet: g, tabs, ORAL, QHS, 0 Refill(s) Problem list: Active Problems (5) Asthma Chest pain Dyslipidemia Hypertension SVT (supraventricular tachycardia) Histories Past Medical History: No qualifying data available Family History: Mother: () Cause of : pancreatic cancer Age at : 76 years. Pancreatic cancer Aunt Heart disease Uncle Heart attack.. Heart disease Procedure history: No active procedure history items have been selected or recorded. Social History Social & Psychosocial Habits Alcohol 10/19/2014 Use: Current Comment: on occassion - 10/19/2014 15:17 - Sarah Cohen MA Other 10/19/2014 Name: caffine Comment: no longer drinks caffine - 10/19/2014 15:17 - Sarah Cohen MA Substance Abuse 10/19/2014 Risk Assessment: Denies Substance Abuse Tobacco 10/19/2014 Use: Never smoker . Physical Examination Temperature 98.5 (10:13) Systolic Blood Pressure No result Diastolic Blood Pressure No result Pulse 88 (10:13) SpO2 No result Respiratory Rate No result VS/Measurements Documented vital signs: Blood Pressure ( Systolic 135 mmHg, Diastolic 75 mmHg ) General: Alert and oriented, No acute distress. Eye: Normal conjunctiva, Vision unchanged. HENT: Normal hearing. Neck: Supple, Non-tender, No carotid bruit, No jugular venous distention, No lymphadenopathy. Respiratory: Lungs are clear to auscultation, Breath sounds are equal, Symmetrical chest wall expansion. Cardiovascular: Normal rate, No gallop, Good pulses equal in all extremities, Normal peripheral perfusion, No edema. Bruit: None. Gastrointestinal: Soft, Non-tender, Normal bowel sounds. Genitourinary: No costovertebral angle tenderness. Musculoskeletal: No tenderness, No swelling. Integumentary: Warm, Dry. Neurologic: Alert, Normal sensory, Normal motor function, Cranial Nerves II-XII are grossly intact. Review / Management No qualifying data available Impression and Plan 1.History of postural hypotension 2.Moderate aortic incompetence and normal EF 3.HTN 4.Negative stress imaging 2013 5.Syncope: doesn't appear to be vasovagal or cardiac 6.Negative Holter: No more palpitations. 7.Continue current medications and follow up in six months Normal [facility] Amb Office-Progress Notes-Pr ovideron 04-02-2019 [facility] Office-Progress Notes-Provider Patient: DANA FERMIN Age: 63 years Sex: Female : 1955 Associated Diagnoses: None Author: JEF HOOD, WILLIAM Reviewed the event monitor: Relatively unremarkable except one episode of 8 beat run of narrow complex tachycardia Would leave her on beta wild Normal [facility] Vital Signs Date Time Vital Sign Value Performing Clinician Facility 12-09-2024 12:08-0400 Body temperature 98.1 [degF] Manjula MOSLEY Work Phone: [facility] 12-09-2024 12:08-0400 Diastolic blood pressure 67 mm[Hg] Manjula MOSLEY Work Phone: [facility] 12-09-2024 12:08-0400 Heart rate 85 /min Manjula Drew PA Work Phone: [facility] 12-09-2024 12:08-0400 Respiratory rate 18 /min Manjula Drew PA Work Phone: [facility] 12-09-2024 12:08-0400 SaO2% (BldA) [Mass fraction] 98 % Manjula Drew PA Work Phone: [facility] 12-09-2024 12:08-0400 Systolic blood pressure 119 mm[Hg] Manjula Drew PA Work Phone: [facility] 12-09-2024 02:03-0400 Inhaled oxygen flow rate 2 L/min Manjula Drew PA Work Phone: [facility] 12-08-2024 20:00-0400 Body height 159.99 cm Manjula Drew PA Work Phone: [facility] 12-08-2024 20:00-0400 Body mass index (BMI) [Ratio] 29.7 kg/m2 Manjula Drew PA Work Phone: [facility] 12-08-2024 20:00-0400 Body weight 76 kg Manjula Drew PA Work Phone: [facility] 11-28-2024 10:20-0400 Body height 167.64 cm Manjula Drew PA Work Phone: [facility] 11-28-2024 10:20-0400 Body mass index (BMI) [Ratio] 26.8 kg/m2 Manjula Drew PA Work Phone: [facility] 11-28-2024 10:20-0400 Body weight 75.29 kg Manjula Drew PA Work Phone: [facility] 09-22-2024 13:03-0400 Body height 167.64 cm Manjula Drew PA Work Phone: [facility] 09-22-2024 13:03-0400 Body mass index (BMI) [Ratio] 28.5 kg/m2 Manjula MOSLEY Work Phone: [facility] 09-22-2024 13:03-0400 Body weight 80.05 kg Manjula MOSLEY Work Phone: [facility] 11-23-2022 10:34-0400 Body temperature 98.24 [degF] JORGE DAVIS DO [facility] 11-23-2022 10:34-0400 Diastolic Blood Pressure Non-Invasive 79 1 JORGE DAVIS DO [facility] 11-23-2022 10:34-0400 Heart rate 70 /min JORGE DAVIS DO [facility] 11-23-2022 10:34-0400 Reason For Taking VItal Signs JORGE DAVIS DO [facility] 11-23-2022 10:34-0400 Respiratory rate 20 /min JORGE DAVIS DO [facility] 11-23-2022 10:34-0400 Systolic Blood Pressure Non-Invasive 120 1 JORGE DAVIS DO [facility] 11-23-2022 08:24-0400 Heart rate 82 /min JORGE DAVIS DO [facility] 11-23-2022 07:38-0400 Body temperature 98.78 [degF] JORGE DAVIS DO [facility] 11-23-2022 07:38-0400 Diastolic Blood Pressure Non-Invasive 71 1 JORGE DAVIS DO [facility] 11-23-2022 07:38-0400 Heart rate 74 /min JORGE DAVIS DO [facility] 11-23-2022 07:38-0400 Reason For Taking VItal Signs JORGE DAVIS DO [facility] 11-23-2022 07:38-0400 Respiratory rate 18 /min JORGE DAVIS DO [facility] 11-23-2022 07:38-0400 Systolic Blood Pressure Non-Invasive 106 1 JORGE DAVIS DO [facility] 11-23-2022 03:15-0400 Body temperature 98.24 [degF] JORGE DAVIS DO [facility] 11-23-2022 03:15-0400 Diastolic Blood Pressure Non-Invasive 71 1 JORGE DAVIS DO [facility] 11-23-2022 03:15-0400 Heart rate 88 /min JORGE DAVIS DO [facility] 11-23-2022 03:15-0400 Reason For Taking VItal Signs JORGE DAVIS DO [facility] 11-23-2022 03:15-0400 Respiratory rate 18 /min JORGE DAVIS DO [facility] 11-23-2022 03:15-0400 Systolic Blood Pressure Non-Invasive 123 1 JORGE DAVIS DO [facility] 11-22-2022 22:11-0400 Blood Pressure Location JORGE DAVIS DO [facility] 11-22-2022 22:11-0400 Blood Pressure Method JORGE DAVIS DO [facility] 11-22-2022 22:11-0400 Heart rate 85 /min JORGE DAVIS DO [facility] 11-22-2022 19:32-0400 Blood Pressure Location JORGE DAVIS DO [facility] 11-22-2022 19:32-0400 Blood Pressure Method JORGE DAVIS DO [facility] 11-22-2022 13:39-0400 Heart rate 67 /min JORGE DAVIS DO [facility] 11-22-2022 12:30-0400 Heart rate 68 /min JORGE DAVIS DO [facility] 11-22-2022 11:41-0400 Body height 165 cm JORGE DAVIS DO [facility] 11-22-2022 11:41-0400 Body weight 77 kg JORGE DAVIS DO [facility] 11-22-2022 11:41-0400 Body weight 28.28 kg/m2 JORGE DAVIS DO [facility] 11-22-2022 11:30-0400 Heart rate 67 /min JORGE DAVIS DO [facility] 11-22-2022 09:45-0400 Body temperature 97.16 [degF] JORGE DAVIS DO [facility] 11-22-2022 09:45-0400 Respiratory Rate - Anes 0 br/min JORGE DAVIS DO [facility] 11-22-2022 09:40-0400 Respiratory Rate - Anes 10 br/min JORGE DAVIS DO [facility] 11-22-2022 09:35-0400 Respiratory Rate - Anes 11 br/min JORGE DAVIS DO [facility] 11-22-2022 09:25-0400 Body temperature 96.49 [degF] JORGE DAVIS DO [facility] 11-22-2022 09:20-0400 Body temperature 96.39 [degF] JORGE DAVIS DO [facility] 11-22-2022 09:15-0400 Body temperature 96.26 [degF] JORGE DAVIS DO [facility] 11-22-2022 06:44-0400 Body height 165 cm JORGE DAVIS DO [facility] 11-22-2022 06:44-0400 Body temperature 96.98 [degF] JORGE DAVIS DO [facility] 11-22-2022 06:44-0400 Body weight 77 kg JORGE DAVIS DO [facility] Encounters Encounter Date Encounter Type Care Provider Facility Start: 01-12-2025 ambulatory Endy Martinez Facility:[facility] Start: 01-09-2025 Encounter for other preprocedural examination Manjula Russell [facility] Start: 12-31-2024 End: 01-01-2025 Emergency department patient visit ANYA FOSS Facility:[facility] Start: 12-25-2024 End: 12-25-[address] Iain Blackman MD -[facility] Start: 12-25-2024 End: 12-25-2024 ambulatory Manjula MOSLEY Work Phone: -[facility] Start: 12-09-2024 Non-patient / Non-visit Manjula MOSLEY -[facility] Start: 12-09-2024 Non-patient / Non-visit Dr. Joan [facility] Work Phone: Start: 12-08-2024 Non-patient / Non-visit Dr. Chente GILLILAND [facility] Work Phone: Start: 12-08-2024 ambulatory Endylevy Martinez Facility:[facility] Start: 12-08-2024 End: 12-09-2024 Evaluation and management of inpatient Dr. Endy Martinez MD -[facility] Work Phone: Start: 12-08-2024 ambulatory Endy Martinez Facility:[facility] Start: 12-08-2024 Non-patient / Non-visit Dr. Endy moreno MD -[facility] Start: 11-28-2024 End: 11-28-[address] Endy Martinez MD -[facility] Work Phone: Start: 11-28-2024 End: 11-28-2024 ambulatory Manjula MOSLEY Work Phone: [facility] Work Phone: Start: 11-28-2024 End: 11-28-2024 ambulatory Ari Thurman Facility:[facility] Start: 11-28-2024 End: 11-28-2024 Non-patient / Non-visit Dr. Ari Thurman MD -[facility] Work Phone: Start: 10-23-2024 End: 10-23-2024 Patient encounter procedure Manjula MOSLEY -[facility] Work Phone: Start: 10-23-2024 End: 10-23-2024 ambulatory Manjulamegan Knightk PA Work Phone: [facility] Work Phone: Start: 10-14-2024 End: 10-14-2024 ambulatory Manjula Knightk PA Work Phone: [facility] Work Phone: Start: 10-14-2024 End: 10-14-2024 Patient encounter procedure Manjula MOSLEY [facility] Work Phone: Start: 10-14-2024 End: 10-14-2024 ambulatory Horacio Benson Facility:[facility] Start: 09-22-2024 End: 09-22-2024 Patient encounter procedure Manjula MOSLEY -[facility] Work Phone: Start: 09-22-2024 End: 09-22-2024 ambulatory Manjula Russell Facility:[facility] Start: 09-03-2024 ambulatory HORACIO BENSON Faci lity:[facility] Start: 09-03-2024 End: 09-03-2024 Subsequent hospital visit by physician Radio Gonzalez [facility] Work Phone: Radiology Comment on above: Cervicalgia [M54.2] Start: 07-23-2023 End: 07-23-2023 ambulatory Horacio Benson [facility] Work Phone: Start: 07-23-2023 End: 07-23-2023 Patient encounter procedure [facility]-Outpatient [facility] Work Phone: Start: 12-13-2022 ambulatory Luis Orozco ty:[facility] Start: 12-13-2022 Non-patient / Non-visit Dr. Courtney Cohen Work Phone: [facility] Start: 12-13-2022 End: 12-13-[address] Luis Cohen Work Phone: [facility] Work Phone: Start: 12-13-2022 End: 12-13-[address] Luis Cohen Work Phone: [facility]-Pulmonary Services/Neurology Work Phone: Start: 11-22-2022 End: 11-23-2022 ambulatory JORGE DAVIS DO Facility:[facility] Start: 11-22-2022 End: 11-23-2022 Observation JORGE DAVIS DO [facility] Start: 10-27-2022 End: 10-28-2022 ambulatory JORGE DAVIS DO Facility:[facility] Start: 10-27-2022 End: 10-28-[address] HORACIO BENSON MD Facility:[facility] Start: 12-16-2021 End: 12-16-2021 Subsequent hospital visit by physician Screen/Diagnostic Mammo [facility] Work Phone: Mammography Comment on above: Encounter for screen ing mammogram for malignant neoplasm of breast [Z12.31] Procedures Date Procedure Procedure Detail Performing Clinician Start: 12-09-2024 Estimated creatinine clearance Manjula Drew PA Work Phone: Start: 12-09-2024 X-ray of cervical spine Manjulamegan Russell PA Work Phone: Start: 12-08-2024 Cervical arthrodesis by anterior technique Manjulamegan Russell PA Work Phone: Start: 12-08-2024 Fluoroscopic guidance C courteny MOSLEY Work Phone: Start: 12-08-2024 X-ray of cervical spine Manjulamegan Russell PA Work Phone: Start: 11-28-2024 Methicillin resistan t Staphylococcus aureus screening test Manjula Drew PA Work Phone: Start: 11-28-2024 Hepatitis A virus an tibody, total measurement [employer] PA Work Phone: Comment on above: Comment: The HAV tot al antibody assay detects both IgG andIgM but does not differentiate between them. A negativeresult suggests susceptibility to infection. A positiveresult could be due to vaccination, previously resolvedinfection or active infection. Testing for HAV IgM shouldbe performed if active HAV infection is suspected. [facility]offers profiles that will automatically reflex positive HAVtotal antibody results to IgM (e.g., panel #[id number] HAVAntibody w/ Rfx).Performed at: [address] [id number] Director: Alfonso Cavazos PhD, Phone: [phone] Start: 11-28-2024 Hepatitis C antibody measurement [employer] Work Phone: Comment on above: Reactive: Presumptiv e evidence of antibodies to HCV. Follow CDC recommendations for supplemental testing.Non-Reactive: Antibodies to HCV were not detected; does not exclude the possibility of exposure to HCVReactive Results are presumptive evidence of antibodies to HCV. Follow CDC recommendations for supplemental testing.Order confirmation testing: HCV Quant by PCR testing - HCVPCR #[id number] Non Reactive: < 0.8 Equivocal: >/= 0.8 to < 1.0 Reactive: >/= 1.0The CDC requires that a reactive/equivocal HCV antibody result be sent out for confirmation. HCV Quant by PCR testing. Start: 10-14-2024 MRI of cervical spine C courtney MOSLEY Work Phone: Start: 09-22-2024 X-ray of cervical spine Manjula MOSLEY Work Phone: Start: 07-23-2023 Screening mammography Start: 11-22-2022 Osteotomy spine w/ds jonn ant appr 1 vrt sgm crv JORGE DAVIS DO Comment on above: C-5 C-6 Start: 06-12-2018 Mammography Screen[facility] Work Phone: Start: 12-14-2014 Lipid 1996 panel - S jonna or [employer] Work Phone: Reduction mammoplasty TROY DAVIS DO Sliding osteotomy of chin with single piece implant JORGE DAVIS DO Plan of Treatment Date Care Activity Detail Author Start: 05-02-2031 Urine microalbumin profile DTaP,Tdap,Td Vaccine (2 - Td or Tdap) [facility] Start: 2030 RSV Vaccine (1 - 1-dose 75+ series) RSV Vaccine (1 - 1-dose 75+ series) [facility] Start: 03-29-2026 Diabetes Screening Diabetes Screening [facility] Start: 12-25-2024 X-ray of cervical spine Cerv Spine 2 or 3 Views [facility] Start: 12-25-2024 X-ray of lumbar spine, two or three views Lumbar Spine 2 or 3 Views [facility] Start: 12-25-2024 XR Cervical spine 2 or 3 Views [facility] Start: 12-25-2024 XR Lumbar spine 2 or 3 Views [facility] Start: 12-09-2024 Application of device [facility] Start: 12-09-2024 Catheterization of vein [facility] Start: 12-09-2024 Measuring intake and output [facility] Start: 12-09-2024 Patient discharge [facility] Start: 12-09-2024 Measuring intake and output [facility] Start: 12-09-2024 End: 12-09-2024 Incentive spirometry [facility] Start: 12-09-2024 Measuring intake and output [facility] Start: 12-08-2024 Measuring intake and output [facility] Start: 12-08-2024 Incentive spirometry [facility] Start: 12-08-2024 Following clinical pathway protocol [facility] Start: 12-08-2024 Application of intermittent pneumatic compression device [facility] Start: 12-08-2024 Application of device [facility] Start: 12-08-2024 Assessment of risk of venous thromboembolism [facility] Start: 12-08-2024 Consultation [facility] Start: 12-08-2024 Following clinical pathway protocol [facility] Start: 12-08-2024 Introduction of urinary catheter [facility] Start: 12-08-2024 Measuring intake and output [facility] Start: 12-08-2024 Neurovascular assessment [facility] Start: 12-08-2024 Patient education [facility] Start: 12-08-2024 Provision of activity privileges [facility] Start: 12-08-2024 Referral to occupational therapist [facility] Start: 12-08-2024 Referral to service [facility] Start: 12-08-2024 Taking patient vital signs [facility] Start: 12-08-2024 End: 12-08-2024 [facility] Start: 12-08-2024 Admission procedure [facility] Start: 12-08-2024 Verification routine [facility] Start: 12-08-2024 X-ray of cervical spine Cerv Spine 2 or 3 Views [facility] Start: 12-08-2024 XR Cervical spine 2 or 3 Views [facility] Start: 10-14-2024 MRI of cervical spine Spine Cervical (Routine) [facility] Start: 06-11-2024 Advance Directive Discussion Advance Directive Discussion [facility] Start: 04-28-2024 DIABETES SCREEN DIABETES SCREEN [facility] Start: 02-10-2024 Covid-19 Vaccine ( season) Covid-19 Vaccine ( season) [facility] Start: 02-10-2024 Influenza vaccination Influenza Vaccine (#1) [facility] Start: 12-16-2022 Screening for malignant neoplasm of breast Mammogram Screening [facility] Start: 02-09-2022 Influenza vaccination INFLUENZA (#1) [facility] Start: 06-11-2021 ADVANCE DIRECTIVE DISCUSSION ADVANCE DIRECTIVE DISCUSSION [facility] Start: 2020 BONE DENSITY BONE DENSITY [facility] Start: 2020 PNEUMOCOCCAL: 65+ (1 - PCV) PNEUMOCOCCAL: 65+ (1 - PCV) [facility] Start: 2020 Screening for osteoporosis Bone Density Screening [facility] Start: 12-15-2019 Lipid panel Lipid Screening [facility] Start: 12-15-2019 LIPID SCREEN LIPID SCREEN [facility] Start: 06-12-2019 Mammography MAMMOGRAM [facility] Start: 2005 SHINGRIX VACCINE (1 of 2) SHINGRIX VACCINE (1 of 2) [facility] Start: 2000 COLOGUARD (FIT-DNA) COLOGUARD (FIT-DNA) [facility] Start: 2000 Colonoscopy COLONOSCOPY [facility] Start: 2000 COLORECTAL CANCER SCREENING COLORECTAL CANCER SCREENING [facility] Start: [address] COLONOGRAPHY [facility] Start: 2000 FECAL OCCULT BLOOD FECAL OCCULT BLOOD [facility] Start: 2000 Screening for malignant neoplasm of colon [facility] Start: 2000 SIGMOIDOSCOPY SIGMOIDOSCOPY [facility] Start: 1974 Urine microalbumin profile DTAP,TDAP,TD (1 - Tdap) [facility] Start: 1973 Anxiety Screening Anxiety Screening [facility] Start: 1973 Depression Screening Depression Screening [facility] Start: 1973 HEPATITIS C SCREENING HEPATITIS C SCREENING [facility] Start: 1973 Hepatitis C screening Hepatitis C Screening [facility] Start: 1967 Adult depression screening assessment DEPRESSION SCREENING [facility] Start: 1955 COVID-19 VACCINE (#1) COVID-19 VACCINE (#1) [facility] Patient Education Cervical Fusion Dc [facility] Work Phone: Patient referral [facility] Work Phone: Immunizations Immunization Date Immunization Notes Care Provider [facility] 05-02-2021 influenza virus vacc ine, unspecified formulation JORGE DAVIS DO [facility] 05-02-2021 tetanus toxoid, redu west diphtheria toxoid, and acellular pertussis vaccine, adsorbed JORGESOY DAVIS DO [facility] 05-04-2020 influenza virus vacc ine, unspecified formulation JORGE DAVIS DO [facility] 05-04-2020 pneumococcal polysaccharide vaccine, 23 valent JORGE DAVIS DO [facility] 04-07-2019 influenza virus vacc ine, unspecified formulation JORGE DAVIS DO [facility] 03-17-2017 influenza virus vacc ine, unspecified formulation JORGE DAVIS DO [facility] 02-15-2016 pneumococcal polysaccharide vaccine, 23 valent JORGE DAVIS DO [facility] Payers Date Payer Category Payer [facility] BLUE CARD PPO OOS [id number] 2023 Unknown [id number] 2022 Private Health Insurance [id number] 2022 Private Health Insurance [id number] 2022 Self-pay 2020 Private Health Insurance JOSE HALL OAP [id number] 2020-Present [phone] [address] [place] [address] Open Access [id number] 1955 Unknown [id number] [id number] .2.627 1955 Unknown [id number] 2.0.1.587523.3.579 .2.627 1955 Unknown [id number] 2.0.1.269097.3.579 .2.627 Medicare MEDICARE A ONLY [id number] Unknown [id number] 2.16840.1.897297.3.579 .2.462 Unknown [id number] 2.16840.1.351307.3.579 .2.462 Unknown [id number] 2.16840.1.461909.3.579 .2.462 Unknown [id number] 2.16840.1.414999.3.579 .2.462 Unknown [id number] 2.840.1.914229.3.579 .2.462 Unknown [id number] 2.16.840.1.440264.3.579 .2.462 Unknown [id number] 2.16.840.1.595240.3.579 .2.462 Unknown [id number] 2.16.840.1.918149.3.579 .2.462 Unknown [id number] 2.16.840.1.705664.3.579 .2.462 Unknown [id number] 2.16.840.1.361007.3.579 .2.462 Unknown [id number] 2.16.840.1.159574.3.579 .2.462 Unknown [id number] 2.16.840.1.000428.3.579 .2.462 Unknown [id number] 2.16.840.1.866443.3.579 .2.462 Unknown [id number] 2.16840.1.314356.3.579 .2.462 Unknown [id number] 2.16.840.1.771537.3.579 .2.462 Unknown [id number] 2.16840.1.079351.3.579 .2.462 Unknown [id number] 2.16840.1.628415.3.579 .2.462 Social History Date Type Detail Facility Start: 10-05-2014 End: 11-24-2024 Tobacco smoking status MTIS Never smoked tobacco [facility] Start: 10-05-2014 End: 02-23-2019 Tobacco use and exposure Smokeless tobacco non-user [facility] Start: 04-28-2021 End: 03-23-2022 Alcohol intake Current drinker of alcohol (finding) [facility] Start: 10-05-2014 History SDOH Alcohol Comment occ [facility] Start: 1955 Sex Assigned At Not on file [facility] Start: 12-06-2021 End: 12-16-2021 Exposure to SARS-CoV-2 (event) Not sure [facility] Start: 1955 Sex Assigned At Female [facility] Start: 03-23-2022 End: 11-26-2022 History of Social function [facility] Start: 03-23-2022 End: 11-26-2022 Tobacco use panel [facility] PHQ-2 Score 0 Wagner Joe blake Tobacco smoking status NHIS Unknown if ever smoked [facility] Work Phone: NEGATED: Highlighted row Not [facility] Medical Equipment Procedure Code Equipment Code Equipment Origin al Text Equipment Identifier Dates Discectomy, spine, cervical, anterior approach, with fusion Medtronic 2-level plate FDA Start: 12-08-2024 Discectomy, spine, cervical, anterior approach, with fusion Medtronic 4.0 Fixed Angle Screw FDA Start: 12-08-2024 Discectomy, spine, cervical, anterior approach, with fusion Medtronic 4.0 Fixed Angle Screw FDA Start: 12-08-2024 Discectomy, spine, cervical, anterior approach, with fusion Medtronic 4.0 Fixed Angle Screw FDA Start: 12-08-2024 Discectomy, spine, cervical, anterior approach, with fusion Medtronic 4.0 Fixed Angle Screw FDA Start: 12-08-2024 Discectomy, spine, cervical, anterior approach, with fusion PUTTY,BONE 1CC DBX FDA Start: 12-08-2024 Discectomy, spine, cervical, anterior approach, with fusion [employer] Anatomic Cervical Allograft Spacer FDA Start: 12-08-2024 Discectomy, spine, cervical, anterior approach, with fusion [employer] Anatomic Cervical Allograft Spacer ([id number]) FDA Start: 12-08-2024 Discectomy, spine, cervical, anterior approach, with fusion Collagen haemostatic agent, non-antimicrobial [id number] FDA Start: 12-08-2024 Discectomy, spine, cervical, anterior approach, with fusion Medtronic 2-level plate FDA Start: 12-08-2024 Discectomy, spine, cervical, anterior approach, with fusion Medtronic 4.0 Fixed Angle Screw FDA Start: 12-08-2024 Discectomy, spine, cervical, anterior approach, with fusion Medtronic 4.0 Fixed Angle Screw FDA Start: 12-08-2024 Discectomy, spine, cervical, anterior approach, with fusion Medtronic 4.0 Fixed Angle Screw FDA Start: 12-08-2024 Discectomy, spine, cervical, anterior approach, with fusion Medtronic 4.0 Fixed Angle Screw FDA Start: 12-08-2024 Discectomy, spine, cervical, anterior approach, with fusion PUTTY,BONE 1CC DBX FDA Start: 12-08-2024 Discectomy, spine, cervical, anterior approach, with fusion [employer] Anatomic Cervical Allograft Spacer FDA Start: 12-08-2024 Discectomy, spine, cervical, anterior approach, with fusion [employer] Anatomic Cervical Allograft Spacer ([id number]) FDA Start: 12-08-2024 Discectomy, spine, cervical, anterior approach, with fusion Medtronic 2-level plate FDA Start: 12-08-2024 Discectomy, spine, cervical, anterior approach, with fusion Medtronic 4.0 Fixed Angle Screw FDA Start: 12-08-2024 Discectomy, spine, cervical, anterior approach, with fusion Medtronic 4.0 Fixed Angle Screw FDA Start: 12-08-2024 Discectomy, spine, cervical, anterior approach, with fusion Medtronic 4.0 Fixed Angle Screw FDA Start: 12-08-2024 Discectomy, spine, cervical, anterior approach, with fusion Medtronic 4.0 Fixed Angle Screw FDA Start: 12-08-2024 Discectomy, spine, cervical, anterior approach, with fusion PUTTY,BONE 1CC DBX FDA Start: 12-08-2024 Discectomy, spine, cervical, anterior approach, with fusion [employer] Anatomic Cervical Allograft Spacer FDA Start: 12-08-2024 Discectomy, spine, cervical, anterior approach, with fusion [employer] Anatomic Cervical Allograft Spacer ([id number]) FDA Start: 12-08-2024 Goals Date Patient Goal Desired Activity /State Functional Status Date Assessment Result Facility 12-09-2024 Functional status Ambulates [facility] Work Phone: 11-23-2022 Functional Status Door open, Room check performed [facility] 11-23-2022 Functional Status Multilevel home [facility] 11-23-2022 Functional Status Yes [facility] 11-23-2022 Functional Status bilateral knee high [facility] 11-23-2022 Functional Status [facility] 11-22-2022 Functional Status [facility] 11-22-2022 [facility] Functional Status Supervised Liz prasad [facility] 11-22-2022 Functional Status [facility] 11[facility]22-2022 [facility] Functional Status More than 8 hours [facility] 02-26-2019 Are you deaf, or do you have serious difficulty hearing No 02/26/2019 4:13 PM EDAndres Francis, MARIO No [facility] 02-26-2019 Are you blind, or do you have serious difficulty seeing, even when wearing glasses No 02/26/2019 4:13 PM Andres Abel, MARIO No [facility] 02-26-2019 Do you have serious difficulty walking or climbing stairs No 02/26/2019 4:13 PM Andres Abel RN No [facility] 02-26-2019 Do you have difficul ty dressing or bathing No 02/26/2019 4:13 PM Andres Abel, MARIO No [facility] 02-26-2019 Because of a physica l, mental, or emotional condition, do you have difficulty doing errands alone such as visiting a physician's office or shopping No 02/26/2019 4:13 PM Andres Abel, MARIO No [facility] Mental Status Date Assessment Result Facility 12-09-2024 Cognitive function Level Of Cons ciousness Awake;Alert;Appropriate;Fol lows Commands [facility] Work Phone: 12-09-2024 Cognitive function Voice/Name [facility] Work Phone: 11-23-2022 Mental Status Oriented x 4 [facility] 11-23-2022 Mental Status [facility] 11-22-2022 Mental Status [facility] 02-26-2019 Because of a physica l, mental, or emotional condition, do you have serious difficulty concentrating, remembering, or making decisions No 02/26/2019 4:13 PM EDT Andres Cooley RN No [facility] Clinical Notes 12-16-2021 to 12-31-2024 Note Date & Type Note Facility 12-31-2024 Note HNO ID: [id number] Author: BON JULIO RT(R) Service: Radiology Author Type: Technologist Type: Progress Notes Filed: 12/31/2024 22:28 Note Text: Radiology Service Progress Note PATIENT NAME: Dana Fermin DATE OF SERVICE: December 31, 2024 TIME: 10:27 PM PATIENT IDENTITY VERIFICATION COMPLETED USING TWO (2) IDENTIFIERS: Name and Date of confirmed by patient verbally. FALL SCREENING: Has the patient had 2 falls in the last year or 1 fall with injury or currently using an Ambulatory Assistive Device (Walker, Cane, Wheelchair, Crutches, etc.)? Emergency Room Patient: Screened in ED PATIENT GENDER DATA: Assigned female at . status: : No status: NO. PATIENT RELEVANT IMPLANT DATA REVIEWED: Not Applicable PATIENT PRESENTS WITH AN IMPLANTABLE OR ATTACHED MEDICAL BILLING SERVICE: No RADIOLOGY DEPARTMENT: General X-ray: Exam(s) Completed: Spine X-Ray(s): Lumbar AP / LAT / L5-S1 Pelvis X-Ray: Pelvis with Hip Left PERIPHERAL IV DATA: Not applicable SIGNED BY: RT Suad(R) December 31, 2024 10:27 PM [facility] 12-31-2024 Note SARS-COV-2 (AGENT OF COVID-19) RNA: Not detected INFLUENZA A RNA: Not detected INFLUENZA B RNA: Not detected RESPIRATORY SYNCYTIAL VIRUS (RSV) RNA: Not detected [facility] Comment on above: Performed By: #### 9 [id number] ####[facility] LABORATORYCLIA [id number] [place] [address] [facility] 12-09-2024 Progress note Note Date/Time December 09, 2024 10:51am [facility] Medical Records Department [address] [place] [address] Progress Note - Hospitalist 12/09/24 0809 MR#: [id number] Acct: [id number] Name: ABARCADANA HORNE Rep # :[id number] : 1955 69 From: Joan Muller DO PCP: Dr. Horacio Benson MD Status:A DM IN Location: [facility] [id number] Hospitalist Note Mrs. 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 Patient did well postoperatively and continues to do well. Her vital signs are stable. Her labs look good. Patientis feeling well and not having any pain. She has been able to walk the hallwayswithout any difficulty. Medically speaking she is cleared for discharge and I will sign off. This was discussed with Dr. Martinez. 12/09/24 1051 <Electronically signed by Joan Muller DO> Cosigner Signature (if applicable): CC: ~ Signed [facility] Work Phone: 1(468) 134-408407-01-2025 Progress note [facility] Medical Records Department [address] [place] [id number] Progress Note - Orthopedic 12/09/24 1224 MR#: [id number] Acct: [id number] Name: DANA CARLSON Rep # :[id number] : 1955 69 From: Manjula MOSLEY PCP: Dr. Horacio Benson MD Status:A DM IN Location: [facility] [id number] Subjective Subjective Postop day 1 C3-5 fusion with prior hardware removal. Patient is doing very well postoperatively with minimal pain. Patient's voice was hoarse today. She denies any significant dysphagia. No dressingchanges. Patient was sitting upright in the recliner upon entry. Patient cervical collar was applied and in good position. Patient has walked with PT/OT who has cleared her for home discharge. Seen with Dr. Martinez. Objective Data Objective Data Vital Signs: Vital Signs Temp Pulse Resp BP Pulse Ox O2 Del Method O2 Flow Rate 98.7 F 94 18 119/73 97 Room Air 2 12/09/24 10:12/09/24 10:12/09/24 10:12/09/24 10:12/09/24 10:12/09/24 10:12/09/24 02:03 Oxygen Flow Rate (L/min) 2 Oxygen Delivery Method Room Air Weight: 167 lb 8.821 oz Body Mass Index (BMI) 29.7 Intake & Output: Intake and Output for Last 24 Hours 12/07/24 12/08/24 12/09/24 23:59 23:59 23:59 Intake Total 1100 / 1100 341.5 / 341.5 Output Total 40 / 40 Balance 1060 / 1060 341.5 / 341.5 Lab / Micro Data 12/09/24 06:59 12/09/24 06:59 Labs: Laboratory Results - last 24 hr 12/09/24 06:59: WBC 8.8, RBC 3.28 L, Hgb 10.4 L, Hct 31.3 L, MCV 95.4, MCH 31.7,MCHC 33.2, RDW Std Deviation 43.9, RDW Coeff of Hitesh 12.6, Plt Count 226, MPV 9.3, Immature Gran % (Auto) 0.700, Neut % (Auto) 88.8 H, Lymph % (Auto) 9.4 L, [place] % (Auto) 1.0, Eos % (Auto) 0.0, Baso % (Auto) 0.1, Absolute Neuts (auto) 7.8 H, Absolute Lymphs (auto) 0.82 L, Nucleated RBC % 0, Sodium 134, Potassium 3.5, Chloride 99, Carbon Dioxide 21.0, Anion Gap 14, BUN 9, Creatinine 0.87, Estim Creat Clear Calc 58.25,Est GFR (MDRD) Non-Af 72, BUN/Creatinine Ratio 10.6, Glucose 191 H, Calcium 8.9 Micro: Microbiology 11/28/24 09:23 Swab (Method) Nasal Screen MRSA/MSSA - Final Radiography Diagnostic Testing: Radiology Impression Cervical Spine X-Ray 12/09/24 05:30 IMPRESSION: Unremarkable postoperative appearance status post ACDF. Disclaimer: Reading Location: [place] [address] Physical Exam Narrative Neurological examination of the upper extremity shows 5X5 power. Normal sensation across all dermatomes. Surgical dressing and drain removed. Applied fresh gauze and Tegaderm over incision. Adjusted cervical collar to fit the patient. Const alert, oriented x3 and no apparent distress Assessment & Plan Assessment/Plan (1) Status post cervical spinal fusion: PLAN: Plan Postop day 1 C3-5 fusion. Obtained reviewed x-rays today which show hardware and bone graft in good position. PT/OT cleared. Patient ready for home discharge. Home-going meds include hydrocodone?acetaminophen, meloxicam, methocarbamol, senna. OARRS reviewed. Reviewed and educated on proper wear and adjustment of the cervical collar. Reviewed and educated on the use of the incentive spirometer. Reviewed restrictions and no bending, lifting, twisting. She will follow-up in the clinic in 2 weeks. Patient is in agreement. 12/09/24 1227 Cosigner Signature (if applicable): CC: ~ Signed [facility]07-01-2025 Progress note [facility] Medical Records Department [address] [place] [address] Progress Note - Hospitalist 12/09/24 0809 MR#: [id number] Acct: [id number] Name: DANA CARLSON Pan Rep # :[id number] : 1955 69 From: Joan Muller DO PCP: Dr. Horacio Benson MD Status:A DM IN Location: [place] [address] Hospitalist Note Mrs. 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 Her vital signs are stable. Her labs look good. Patientis feeling well and not having any pain. She has been able to walk the hallwayswithout any difficulty. Medically speaking she is cleared for discharge and I will sign off. This was discussed with Dr. Martinez. 12/09/24 1059 Cosigner Signature (if applicable): CC: ~ Signed [facility]07-01-2025 Radiology Diagnostic study note [facility] Imaging Services [address] [place] [address] Cerv Spine 2 or 3 Views MR#: [id number] Acct: [id number] Name: MOO CARLSONHARRY Perla Rep #: [id number] : 1955 F 69 From: Mylene Duvall MD PCP: Dr. Horacio Benson MD Status: A DM IN Study:Cerv Spine 2 or 3 Views Date of Exam: 12/09/24 Exam# [id number] Ordering Dr: Scotty Russell PROCEDURE: CERV SPINE 2 OR 3 VIEWS 12/09/2024 REASON FOR EXAM: S/P CERVICAL FUSION TECHNIQUE: CERV SPINE 2 OR 3 VIEWS COMPARISON: 10/14/2024 FINDINGS: Status post anterior fusion, C3 through C6. Intact hardware. Anatomic alignment. Diffuse facet arthritis. Disc degeneration C6-C7. Cervicothoracic scoliosis. Postoperative soft tissue air. No acute bone or lung apical pathology. RAD/Cerv Spine 2 or 3 Views IMPRESSION: Unremarkable postoperative appearance status post ACDF. Disclaimer: Reading Location: [place] [address] CC: MELANY Becerra; Dr. Horacio Benson MD ~ Sewing Line Baler: Signed [facility]06-30-2025 Consult note Author Cristobal Ochoa [facility] Note Date/Time December 08, 2024 6:52 pm [facility] Medical Records Department [address] [place] [address] Consultation - Hospitalist 12/08/24 1812 MR#: [id number] Acct: [id number] Name: DANA CARLSON Rep # :[id number] : 1955 69 From: Cristobal Almaraz [facility] PCP: Dr. Horacio Benson MD Status:A DM IN Location: [facility] [id number] Assessment & Plan Assessment/Plan (1) Cervical radiculopathy: PLAN: Plan Patient is a 69-year-old female who presented to [facility] on 12/08/2024 for planned cervical spine fusion procedure. Medicine consulted postoperatively for medical management. 1. 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 Orthopedic surgery primary. S/p C3-5 ACDF procedure with removal of previous hardware with Dr. Martinez on 12/08. Tolerated procedure well, no intraoperative complications noted. Pain control, DVT prophylaxis and further postoperative care per orthopedics. 2. Hypertension ? Normotensive postoperatively. Continue home Lopressor and Lasix. 3. GERD ? Stable. Continue home PPI and sucralfate. 4. Hypothyroidism ? Continue home Synthroid. 5. Anxiety/depression ? Continue home desvenlafaxine and amitriptyline at night. 6. Asthma ? Stable on room air, not in acute exacerbation. Continue home short acting inhaler as needed. 7. Hyperlipidemia ? Continue home statin. 8. Overweight ? BMI 29 on admit. Is on Mounjaro for weight loss; notably has no history of diabetes. Hold Mounjaro while here, okay to resume on discharge. DVT prophylaxis: Per orthopedics Total clinical time spent by myself addressing the patient's medical issues, reviewing all the data, and collaborating with patient's care team: 35 minutes. HPI Consult Data Date of Consult: 12/08/24 HPI Narrative Reason for Consultation: Postoperative medical management HPI Narrative: DANA FERMIN, is a 69 F who presented to [facility] 12[facility]08[facility]2024 for planned cervical spine procedure. Medicine consulted postoperatively for medical management. Patient had C3-5 fusion with removal ofprevious hardware done with Dr. Martinez today. Tolerated procedure well, no intraoperative complications noted. I saw the patient at bedside later this evening, present. Patient was fatigued appearing and mildly uncomfortable appearing due to neck discomfort. Her voice was hoarse likely dueto intubation for the procedure and she was only answering questions with short responses. She reported mild neck pain currently. Denied any radiculopathy. Denied any other symptoms currently. [facility] Medical History Wears glasses History of steroid therapy Thyroid disease Arthritis Back pain Gastric reflux Non-smoker Asthma History of stress test History of irregular heartbeat Camacho esophagus Hypertension Home Medications ?Medication ?Instructions ?Recorded ?Last Taken ?Type albuterol 90 mcg-budesonide 80 2 inh inhalation Q4-6H PRN 09/22/24 Unknown History mcg/actuation HFA aerosol inhaler shortness of breath (Airsupra) amitriptyline 25 mg tablet 25 mg PO QHS 09/22/2412/07 History atorvastatin 10 mg tablet 10 mg PO QDAY 09/22/2412/07 History desvenlafaxine succinate 100 mg 100 mg PO QDAY 5 12/07/24 History tablet,extended release 24 hr esomeprazole magnesium 40 mg 40 mg PO QDAY 09/22/24 History capsule,delayed release furosemide 40 mg tablet 40 mg PO QAM 09/22/24 History levothyroxine 88 mcg tablet 88 mcg PO QDAY 09/22/24 History meloxicam 15 mg tablet 15 mg PO QDAY 09/22/2412/07 History metoprolol tartrate 50 mg tablet 25 mg PO BID 09/22/24 12/08/24 09:30 History sucralfate 1 gram tablet 1 g PO QDAY 09/22/24 5 History tirzepatide (weight loss) 10 10 mg subcut .weekly 09/0911/30/24 History mg/0.5 mL subcutaneous pen injector (Zepbound) Allergy/AdvReac Type Severity Reaction Status Date / Time Penicillins Allergy Rash Verified 12/08/24 11:23 Surgical History History of back surgery Hx of shoulder surgery Hx of bilateral breast reduction surgery History of dental surgery Social History (System 12/03/24 @ 07:54 by Kristal Rodriges) Smoking Status: Never smoker ROS Constitutional Constitutional: Reports fatigue; Denies chills, fever(s) or weakness Eyes Eyes: Denies change in vision Cardiovascular Cardiovascular: Denies chest pain Respiratory/Chest Respiratory/Chest: Denies shortness of breath at rest Gastrointestinal Gastrointestinal: Denies abdominal pain Musculoskeletal Musculoskeletal: Reports neck pain; Denies myalgias Neurologic Neurologic: Denies dizziness, focal weakness, headache(s), numbness, paresthesias or tingling Physical Exam Const alert, oriented x3, no apparent distress and average body habitus Constitutional Narrative: Elderly female, fatigued and mildly uncomfortable appearing due to neck discomfort, hoarse voice noted but otherwise sitting up in bed, answering questions with short appropriate responses and in no acute distress. General Appearance: cooperative and comfortable HEENT normocephalic, head/scalp atraumatic, hearing grossly normal bilaterally, nasal mucous membranes and turbinates normal and moist oral mucous membranes Eyes PERRL, EOMs intact bilaterally and conjunctivae normal Neck Neck Narrative: Neck brace in place. Chest inspection of chest normal Resp normal respiratory effort, normal air movement, no use of accessory muscles and clear to auscultation bilaterally Cardio regular rate, regular rhythm, no murmurs and peripheral pulses 2+ throughout GI normal to inspection, nondistended, normoactive bowel sounds, soft to palpation,non-tender and non-distended Back/Spine normal ROM Extremity normal to inspection, full ROM and no pedal edema Skin no rashes or lesions noted Neuro moves all extremities and no focal motor deficits Psych mental status grossly normal Lab / Micro Data 11/28/24 09:23 11/28/24 09:23 Labs: Laboratory Results - last 24 hr 12/08/24 11:29: POC Glucose 92 Charges/Coding Visit Charges Inpatient E&M: 22195 Subs Hosp L2 12/08/24 6217 <Electronically signed by Cristobal Ochoa DO> Cosigner Signature (if applicable): CC: Dr. Endy Martinez MD; Dr. Horacio Benson MD~ Signed [facility] Work Phone: 1(537) 915-401606-30-2025 Consult note [facility] Medical Records Department [address] [place] [address] Consultation - Hospitalist 12/08/24 1812 MR#: [id number] Acct: [id number] Name: DANA CARLSON Rep # :[id number] : 1955 69 From: Cristobal larkin DO PCP: Dr. Horacio Benson MD Status:A DM IN [facility] Assessment & Plan Assessment/Plan (1) Cervical radiculopathy: PLAN: Plan Patient is a 69-year-old female who presented to [facility] on 12/08/2024 for planned cervical spine fusion procedure. Medicine consulted postoperatively for medical management. 1. 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 Orthopedic surgery primary. S/p C3-5 ACDF procedure with removal of previous hardware with Dr. Martinez on 12/08. Tolerated procedure well, no intraoperative complications noted. Pain control, DVT prophylaxis and further postoperative care per orthopedics. 2. Hypertension ? Normotensive postoperatively. Continue home Lopressor and Lasix. 3. GERD ? Stable. Continue home PPI and sucralfate. 4. Hypothyroidism ? Continue home Synthroid. 5. Anxiety/depression ? Continue home desvenlafaxine and amitriptyline at night. 6. Asthma ? Stable on room air, not in acute exacerbation. Continue home short acting inhaler as needed. 7. Hyperlipidemia ? Continue home statin. 8. Overweight ? BMI 29 on admit. Is on Mounjaro for weight loss; notably has no history of diabetes. Hold Mounjaro while here, okay to resume on discharge. DVT prophylaxis: Per orthopedics Total clinical time spent by myself addressing the patient's medical issues, reviewing all the data, and collaborating with patient's care team: 35 minutes. HPI Consult Data Date of Consult: 12/08/24 HPI Narrative Reason for Consultation: Postoperative medical management HPI Narrative: DANA FERMIN, is a 69 F who presented to [facility] 12/08/2024 for planned cervical spine procedure. Medicine consulted postoperatively for medical management. Patient had C3-5 fusion with removal ofprevious hardware done with Dr. Martinez today. Tolerated procedure well,no intraoperative complications noted. I saw the patient at bedside later this evening, present. Patient was fatigued appearing and mildly uncomfortable appearing due to neck discomfort. Her voice was hoarse likely dueto intubation for the procedure and she was only answering questions with short responses. She reported mild neck pain currently. Denied any radiculopathy. Denied any other symptoms currently. [facility] Medical History Wears glasses History of steroid therapy Thyroid disease Arthritis Back pain Gastric reflux Non-smoker Asthma History of stress test History of irregular heartbeat Camacho esophagus Hypertension Home Medications ?Medication ?Instructions ?Recorded ?Last Taken ?Type albuterol 90 mcg-budesonide 80 2 inh inhalation Q4-6H PRN 09/22/24 Unknown History mcg/actuation HFA aerosol inhaler shortness of breath (Airsupra) amitriptyline 25 mg tablet 25 mg PO QHS 09/22/2412/07 History atorvastatin 10 mg tablet 10 mg PO QDAY 09/22/2412/07 History desvenlafaxine succinate 100 mg 100 mg PO QDAY 5 12/07/24 History tablet,extended release 24 hr esomeprazole magnesium 40 mg 40 mg PO QDAY 09/22/24 History capsule,delayed release furosemide 40 mg tablet 40 mg PO QAM 09/22/24 History levothyroxine 88 mcg tablet 88 mcg PO QDAY 09/22/24 History meloxicam 15 mg tablet 15 mg PO QDAY 09/22/2412/07 History metoprolol tartrate 50 mg tablet 25 mg PO BID 09/22/24 12/08/24 09:30 History sucralfate 1 gram tablet 1 g PO QDAY 09/22/24 5 History tirzepatide (weight loss) 10 10 mg subcut .weekly 09/0911/30/24 History mg/0.5 mL subcutaneous pen injector (Zepbound) Allergy/AdvReac Type Severity Reaction Status Date / Time Penicillins Allergy Rash Verified 12/08/24 11:23 Surgical History History of back surgery Hx of shoulder surgery Hx of bilateral breast reduction surgery History of dental surgery Social History (System 12/03/24 @ 07:54 by Kristal Rodriges) Smoking Status: Never smoker ROS Constitutional Constitutional: Reports fatigue; Denies chills, fever(s) or weakness Eyes Eyes: Denies change in vision Cardiovascular Cardiovascular: Denies chest pain Respiratory/Chest Respiratory/Chest: Denies shortness of breath at rest Gastrointestinal Gastrointestinal: Denies abdominal pain Musculoskeletal Musculoskeletal: Reports neck pain; Denies myalgias Neurologic Neurologic: Denies dizziness, focal weakness, headache(s), numbness, paresthesias or tingling Physical Exam Const alert, oriented x3, no apparent distress and average body habitus Constitutional Narrative: Elderly female, fatigued and mildly uncomfortable appearing due to neck discomfort, hoarse voice noted but otherwise sitting up in bed, answering questions with short appropriate responses and in no acute distress. General Appearance: cooperative and comfortable HEENT normocephalic, head/scalp atraumatic, hearing grossly normal bilaterally, nasal mucous membranes and turbinates normal and moist oral mucous membranes Eyes PERRL, EOMs intact bilaterally and conjunctivae normal Neck Neck Narrative: Neck brace in place. Chest inspection of chest normal Resp normal respiratory effort, normal air movement, no use of accessory muscles and clear to auscultation bilaterally Cardio regular rate, regular rhythm, no murmurs and peripheral pulses 2+ throughout GI normal to inspection, nondistended, normoactive bowel sounds, soft to palpation,non-tender and non-distended Back/Spine normal ROM Extremity normal to inspection, full ROM and no pedal edema Skin no rashes or lesions noted Neuro moves all extremities and no focal motor deficits Psych mental status grossly normal Lab / Micro Data 11/28/24 09:23 11/28/24 09:23 Labs: Laboratory Results - last 24 hr 12/08/24 11:29: POC Glucose 92 Charges/Coding Visit Charges Inpatient E&M: 38723 Subs Hosp L2 12/08/24 5752 Cosigner Signature (if applicable): CC: Dr. Endy Martinez MD; Dr. Horacio Benson MD~ Signed [facility]06-30-2025 Consult note Author [facility] Note Date/Time December 08, 2024 4:48 pm [facility] Medical Records Department [address] [place] [address] Anesthesia Postop Eval II 12/08/24 1648 MR#: [id number] Acct: [id number] Name: DANA CARLSON Rep # :[id number] : 1955 69 From: Erica Ramirez CRNA PCP: Dr. Horacio Benson MD Status:A DM IN Y Race: C Location: [place] [address] Anesthesia Postop Eval I Sum Postop Eval Completion status Anesthesia document: Postop Eval 1 completed: Yes Anesthesia Postop Eval I Summary Anesthesia Postop Eval I Summary: Anesthesia Postop Eval I: Assessment Summary Airway patent Yes 12/08/24 16:34 PLANT FACILITIES [email or web address] Spontaneous unlabored Yes 12/08/24 16:34 PLANT FACILITIES [email or web address] respirations Mental status Awake 12/08/24 16:34 PLANT FACILITIES [email or web address] nausea No 12/08/24 16:34 PLANT FACILITIES [email or web address] Vomiting No 12/08/24 16:34 PLANT FACILITIES [email or web address] Anesthesia Postop Eval I: Fluid Summary Crystalloid volume administer 1,400 12/08/24 16:34 PLANT FACILITIES [email or web address] (ml) Colloids volume administered ( ml) Blood Product volume administered (ml) Total IV fluid infused 1,400 12/08/24 16:34 PLANT FACILITIES [email or web address] Anesthesia Postop Eval I: Summary Notes Anesthesia Complication No 12/08/24 16:34 PLANT FACILITIES [email or web address] Anesthesia Complication Comment: Post-operative progress note patient strong 12/08/24 16:34 PLANT FACILITIES [email or web address] moves all extremities, smiles equal, no tongue deviation, raises eyebrows, and following commands Anesthesia: Postop Eval II Evaluation Mental status: Awake Pain Level: 3 nausea: No Vomiting: No 12/08/24 1308 <Electronically signed by Erica santos CRNA> Date _ Erica Ramirez CRNA Cosigner Signature: Date CC: ~ Signed [facility] Work Phone: 1(161) 159-229406-30-2025 Consult note Author Tana [facility] Note Date/Time December 08, 2024 4:34 pm [facility] Medical Records Department [address] [place] [address] Anesthesia Postop Eval I 12/08/24 1632 MR#: [id number] Acct: [id number] Name: TEVIN FERMINDANA Perla Rep # :[id number] : 1955 69 From: Tana Miguel CRNA PCP: Dr. Horacio Benson MD Status:A DM IN Y Race: C Location: [place] [address] Anesthesia: Postop Eval I Current Vital Signs Temperature: 98.2 F Pulse Rate: 71 Blood Pressure: 106/70 Respiratory Rate: 16 Pulse Ox: 95 Oxygen Delivery Method: Nasal Cannula Oxygen Flow Rate (L/min): 8 Assessment Airway patent: Yes Spontaneous unlabored respirations: Yes Mental status: Awake nausea: No Vomiting: No Anesthesia Complication: No Fluid Hydration Crystalloid volume administer (ml): 1,400 Total IV fluid infused: 1,400 Progress Note Post-operative progress note: patient strong moves all extremities, smiles equal, no tongue deviation, raises eyebrows, and following commands Anesthesia document: Postop Eval 1 completed: Yes 12/08/24 1634 <Electronically signed by Tana blake CRNA> Date _ Tana Miguel CRNA Cosigner Signature: Date CC: ~ Signed [facility] Work Phone: 1(984) 902-437506-30-2025 Consult note [facility] Medical Records Department [address] [place] [address] Anesthesia Postop Eval II 12/08/24 1648 MR#: [id number] Acct: [id number] Name: DANA CARLSON Rep # :[id number] : 1955 69 From: Erica Ramirez CRNA PCP: Dr. Horacio Benson MD Status:A DM IN Y Race: C [facility]319 1 Anesthesia Postop Eval I Sum Postop Eval Completion status Anesthesia document: Postop Eval 1 completed: Yes Anesthesia Postop Eval I Summary Anesthesia Postop Eval I Summary: Anesthesia Postop Eval I: Assessment Summary Airway patent Yes 12/08/24 16:34 PLANT FACILITIES [email or web address] Spontaneous unlabored Yes 12/08/24 16:34 PLANT FACILITIES [email or web address] respirations Mental status Awake 12/08/24 16:34 PLANT FACILITIES [email or web address] nausea No 12/08/24 16:34 PLANT FACILITIES [email or web address] Vomiting No 12/08/24 16:34 PLANT FACILITIES [email or web address] Anesthesia Postop Eval I: Fluid Summary Crystalloid volume administer 1,400 12/08/24 16:34 PLANT FACILITIES [email or web address] (ml) Colloids volume administered ( ml) Blood Product volume administered (ml) Total IV fluid infused 1,400 12/08/24 16:34 PLANT FACILITIES [email or web address] Anesthesia Postop Eval I: Summary Notes Anesthesia Complication No 12/08/24 16:34 PLANT FACILITIES [email or web address] Anesthesia Complication Comment: Post-operative progress note patient strong 12/08/24 16:34 PLANT FACILITIES [email or web address].[email or web address] moves all extremities, smiles equal, no tongue deviation, raises eyebrows, and following commands Anesthesia: Postop Eval II Evaluation Mental status: Awake Pain Level: 3 nausea: No Vomiting: No 12/08/24 1648 a PLANT FACILITIES TECHNICIAN> Date _ Erica Sirca PLANT FACILITIES TECHNICIAN Cosigner Signature: Date CC: ~ Signed [facility]06-30-2025 Consult note [facility] Medical Records Department [address] [place] [address] Anesthesia Postop Eval I 12/08/24 1632 MR#: [id number] Acct: [id number] Name: DANA CARLSON Rep # :[id number] : 1955 69 From: Tana Miguel CRNA PCP: Dr. Horacio Benson MD Status:A DM IN Y Race: C Location: [place] [address] Anesthesia: Postop Eval I Current Vital Signs Temperature: 98.2 F Pulse Rate: 71 Blood Pressure: 106/70 Respiratory Rate: 16 Pulse Ox: 95 Oxygen Delivery Method: Nasal Cannula Oxygen Flow Rate (L/min): 8 Assessment Airway patent: Yes Spontaneous unlabored respirations: Yes Mental status: Awake nausea: No Vomiting: No Anesthesia Complication: No Fluid Hydration Crystalloid volume administer (ml): 1,400 Total IV fluid infused: 1,400 Progress Note Post-operative progress note: patient strong moves all extremities, smiles equal, no tongue deviation, raises eyebrows, and following commands Anesthesia document: Postop Eval 1 completed: Yes 12/08/24 1634 c PLANT FACILITIES TECHNICIAN> Date _ Tana Miguel CRNA Cosigner Signature: Date CC: ~ Signed [facility]06-30-[address] [facility] Medical Records Department [address] [facility] [place] [address] Operative Report 12/08/24 1616 MR#: [id number] Acct: [id number] Name: DANA CARLSON Rep # :[id number] : 1955 69 From: Endy aMrtinez MD PCP: Dr. Horacio Benson MD Status:R [facility] Location: [place] [address]- Procedures Musculoskeletal 20xxx-29xxx: Other Procedure See Report Operative Report (Standard) Operative Information Date of Procedure: 12/08/24 Pre-Operative Diagnosis: C3 5 disc degeneration with stenosis, myelopathy, priorC5-6 ACDF Post-Operative Diagnosis: Same Surgery/Procedure Performed: C3-5 ACDF, removal of previous hardware resource efficiency manager: Yes Director Of Diversity And Inclusion: Manjula Russell Tasks completed by first sampler: Closing, Removing tissue, Implanting device, Hemostasis: Electrocautery and Retracting Type of Anesthesia: General RN Documented Start/Stop Times: Operation Date: 12/08/24 13:15 Case Time Into Pre-Op 12/08/24 11:01 Out of Pre-Op 12/08/24 13:26 Anesthesia Start 12/08/24 13:33 Into Room 12/08/24 13:33 Procedure Start 12/08/24 14:03 Procedure Start Time: 14:03 Procedure Stop Time: 16:10 Select all DRAINS/GRAFTS/IMPLANTS that apply: Drains Drain details: [place] , Graft Graft details: Structural allograft corticocancellous strut and Implanted device Implanted device details: Medtronic [place] Elite plate instrumentation Estimated Blood Loss: 40 cc Specimen collected: No Description of surgery: Preoperative diagnosis: C3-5 disc degeneration with stenosis, myelopathy, prior C5-6 ACDF Postoperative diagnosis: Same Name of procedure: C3-5 anterior cervical discectomy and fusion with plate instrumentation, removalof previous hardware - Anterior cervical fusion C3-4, CPT code 71581 - Anterior plate instrumentation C3-5, CPT code 65328/59 - Anterior cervical fusion C4-5, CPT code 25915/51 - Removal of anterior spinal hardware, CPT code 04260 -Expiration of previous fusion at C5-6, CPT code 88822 -C3-4 structural allograft bone with DBX, CPT code 69449 - C4-5 structural allograft bone with DBX, CPT code 84922 Attending surgeon: Endy Martinez M.D. Anesthesia: Gen. endotracheal Estimated blood loss: 40 mL Complications: None Instrumentation used: Medtronic [place] Elite plate, LASR corticocancellous block Indications: The patient is a pleasant 69-year-old lady who presented with neck pain, progressive difficulty with balance. 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 In order to halt the progression of myelopathy, the patient requested surgical treatment. All risks and benefits of the procedure were explained to the patient.The risks include but are not limited to infection, bleeding, injury to nerves and vessels, vertebral artery injury, spinal cord injury, paralysis, vocal cord paralysis, injury to esophagus, pseudoarthrosis, need for further procedures, adjacent segment degeneration. Procedure: The patient was identified in the preoperative suite using unique patient identifiers. Skin was marked consent was taken and all questions were answered. The patient was then brought back to the operative room and a timeout was performed. General endotracheal anesthesia was given. Intraoperative neuro monitoring leads were applied. The patient was carefully positioned supine on a regular OR table. A lateral view with a C-arm was done to identify the level andto define the incision. The anterior neck was then prepped and draped in the usual fashion. A final timeout was then performed. A transverse skin incision was taken to the right ofmidline. Previous surgical scar was towards the left and ENT consult preoperatively confirmed good mobility on both vocal cords. Subcutaneous tissue was then divided with Bovie. Platysma was identified and cutalong the incision with scissors. The fascial interval between the sternocleidomastoid andthe larynx was developed. Omohyoid was identified and retracted. The esophagus with the larynx was retracted medially to reach the prevertebral fascia. Significant scarring was noticed in the prevertebral space. Previous C5-6 plate was exposed with the help of Bovie. Longus coli muscle was elevatedon both sides at and above and below C3-5 discs. Self-retaining retractors were then placed. Previous C5-6 plate and screws wereremoved using appropriate removal instruments. C5-6 anterior fusion was explored and found to be adequate. A long handleknife was then used to performannulotomy at C4-5. Disc fragments were removed with the pituitary. Ca spar pinswere placed in C4 and C5 for disc distraction. Curettes and bur was utilized toremove cartilage from the endplates. Discectomy was performed laterally up to the uncovertebral joints. Posterior osteophytes were thinned down with the bur and adequate decompression in the central and foraminal areas were performed andPLL was thinned out. Once the disc space was prepared, trials of various sizes were utilized. Thorough irrigation was given. 5 mm LASR cortical cancellous allograft bone large footprint was then fashioned in such a way that concavities were burred out inferiorly and superiorly and half cc of DBX (demineralized bone matrix) was squeezed into the cancellous portion. The graft was then inserted into the C4-5 disc space.The retractors were then repositioned and the procedure was repeated for C3-4 discs with complete discectomy. During the C3-4 discectomy, the C4 [place] pin cut through the vertebral body due to severe osteoporosis and was removed. Discectomy decompression was completed with the help of intradiscal d istractor. Graft size was 6 mm at with large footprint at C3-4. The grafts were found to be in goodapposition with good pullout strength. A 40 mm Medtronic [place] Elite plate was then fixed to C3-5 with 16 mm screws. A lateral x-ray was then taken to check the length of the screws. Both AP and lateral x-rays showed good positioning of plate and screws. The locking mechanism over the screw heads was then turned. Thorough irrigation was again given. Hemostasis was achieved with the help of Floseal and bipolar. A [place] drain was then inserted. Closure was done with 3-0 Vicryl for the platysma and subcutaneous tissue layers and 4-0 Monocryl for the skin. Closure was done around the drain. Steri-Strips were applied and dressing was done with 4 x 4 gauze and Tegaderm. A cervical collar was then applied. The patient was then woken up from anesthesia extubated and taken to PACU in stable condition. From here, the patient will be transitioned to the floor. Intraoperative neuro monitoring was performed throughout this procedure. Motor evoked potentials were run periodically. All potentials remained at baseline throughout the procedure. I was present forthe entire surgery and performed the surgery myself. Generalist Manjula Russell PA-C. My physician bilingual medical assistant was a vital part of this case. They were important in appropriate retraction during the case, and protection of soft tissues during the procedure.Their intimate knowledge of thecase and my steps aided in safe and expedient completion of the procedure as well as appropriate position of the patient during the surgery. They were also vital in assisting with closure under my direct supervision. Surgical Findings: See operative note Complications Complications: No 12/08/24 1624 Cosigner Signature (if applicable): CC: Dr. Endy Martinez MD; Dr. Horacio Benson MD~ Signed [facility]06-30-2025 Consult note Author Edwin Holman [facility] Note Date/Time December 08, 2024 1:27 pm [facility] Medical Records Department [address] [place] [address] Pre-Anesthesia Evaluation 12/08/24 1247 MR#: [id number] Acct: [id number] Name: DANA CARLSON Rep # :[id number] : 1955 69 From: Edwin Holman MD PCP: Dr. Horacio Benson MD Status:R [facility] Y Race: C Location: [place] [address] ASA Classification* ASA Classification ASA Classification: 2 Assessment & Plan Anesthesia* Anesthesia Assessment Anesthesia Assessment: Discussed sedation and/or anesthesia options, risks, benefits, and alternatives with patient/parents/legal guardian/POA. Questions invited. The patient/parents/legal guardian/POA seems to understand and agrees to proceedwith anesthesia plan. Reviewed the physical assessment, medical history, allergy history and patient home medications list prior to surgery/procedure/anesthetic and documented any changes. Performed airway and anesthesia risk assessments. Anesthesia Type Anesthesia Type: General History Source History Obtained from:: Patient and Chart Anesthesia Focused Assessment* Temperature: 99.4 F Pulse Rate: 68 Blood Pressure: 107/57 Respiratory Rate: 16 Pulse Ox: 100 Oxygen Delivery Method: Room Air Airway Assessment Mouth opens: >3 cm Mallampati Score: I Teeth Condition: Caps/Crowns (Patient has several crowns. They are all tight.) Neck Range of motion (ROM): Full ROM Labs Anesthesia Preop lab: CBC WBC 6.5 K/mm3 (4.4-11.0) 11/28/24 09:23 11/28/24 RBC 3.83 M/mm3 (4.2-5.4) L 11/28/24 09:23 11/28/24 Hgb 12.1 g/dL (12.0-15.0) 11/28/24 09:11/28/24 Hct 37.0 % (37-47) 11/28/24 09:23 11/28/24 Plt Count 276 K/mm3 (150-450) 11/28/24 09:23 11/28/24 CHEMISTRY Potassium 5.1 mmol/L (3.3-5.1) 11/28/24 09:23 11/28/24 Sodium 138 mmol/L (133-145) 11/28/24 09:23 11/28/24 Magnesium 2.2 mg/dL (1.5-2.2) 11/28/24 09:22 11/28/24 BUN 10 mg/dL (4-19) 11/28/24 09:23 11/28/24 Creatinine 0.96 mg/dL (0.70-1.20) 11/28/24 09:23 11/28/24 Glucose 91 mg/dL (70-99) 11/28/24 09:23 11/28/24 POC Glucose 92 mg/dL (74-106) 12/08/24 11:29 12/08/24 COAG Pre-Assessment Diagnosis/Proposed Procedure Planned Operative Procedure(s): ERAS, Anterior Cervical Fusion C3-4 and C4-5, possible removal of hardware Anesthesia History Anesthesia History - irrigator sprinkling system: Anesthesia History - irrigator sprinkling system Hx Hospitalization No 11/24/24 11:39 Any Problems With Anesthesia Yes: HARD TIME WAKING POST- 11/24/24 11:39 OP Cholinesterase deficiency No 11/24/24 11:39 You/Your Family Experience No 11/24/24 11:39 fever (hyperthermia) with Relationship Recent Exposure to Contagious No 12/08/24 11:36 Disease Does patient have nerve No 11/24/24 11:39 stimulator Patient instructed to have device shut off --Does patient have Pacemaker No 12/08/24 11:36 or ICD? When Was Last Pacemaker Check QUESTION #4 FULL TEXT: You/Your Family Experience fever (hyperthermia) with Anesthesia Last Oral Intake Last Oral intake: Last Oral Intake NPO since :12/08/24 11:36 Meds taken in AM with sips of Yes 12/08/24 11:36 water? Meds patient instructed to take am of surgery Any additional information?: Yes NPO since: (Patient took her preop Ensureat 9:30 AM.) Meds taken in AM with sips of water?: Yes PONV PONV - irrigator sprinkling system: PONV - irrigator sprinkling system Female Yes 11/24/24 11:39 HX of Motion Sickness Yes 11/24/24 11:39 HX of N/V After Surgery No 11/24/24 11:39 Non-Smoker Yes 11/24/24 11:39 Duration of Surgery greater Yes 11/24/24 11:39 than 60 minutes Number of Risk Factors 4 11/24/24 11:39 PONV Score Severe Risk 11/24/24 11:39 Height & Weight Height & Weight: Anesthesia: Height & Weight Height 5 ft 3 in 12/08/24 11:36 Weight: 76 kg 12/08/24 11:36 Body Mass Index (BMI) 29.7 12/08/24 11:36 Respiratory Assessment Respiratory Assessment - irrigator sprinkling system: Respiratory Tract Infection Hx - irrigator sprinkling system Hx Respiratory Tract Infection No 11/24/24 11:39 STOP Sleep Apnea STOP Sleep Apnea - irrigator sprinkling system: STOP Sleep Apnea - irrigator sprinkling system Hx Hypertension Yes: CONTROLLED ON MED 11/24/24 11:39 Hx Sleep Apnea No 11/24/24 11:39 CPAP BIPAP Do you snore loudly (louder No 11/24/24 11:39 than talking or can be heard Do you often feel tired/ No 11/24/24 11:39 fatigued/ sleepy during daytime? Has anyone observed you stop No 11/24/24 11:39 breathing during sleep? STOP Results Negative 11/24/24 11:39 QUESTION #5 FULL TEXT : Do you snore loudly (louder than talking or can be heard through closed doors)? Tobacco Use History Tobacco Use History - irrigator sprinkling system: Tobacco Use History - irrigator sprinkling system Tobacco Use Smoking Status Never smoker 11/24/24 11:39 Hx Tobacco Use No 11/24/24 11:39 Years Smoking Packs Smoked per Day Smoking Cessation Date was within the last 15 years Hx Smoking Cessation Date Hx Smoking Cessation Counseling Hematologic Medial History Hematologic Hx - irrigator sprinkling system: Hematologic Medical Hx - air purifier servicer Hx of Blood Transfusion No 11/24/24 11:39 Hx of Transfusion in last 3 No 11/24/24 11:39 Months Date of Last Transfusion (if within last 3 months) Ever experience any problems No 11/24/24 11:39 with transfusion(s)? Specify any problems Hx of Preganancy in last 3 No 11/24/24 11:39 Months Nurse Filling Out Transfusion VCHRISTIN 11/24/24 11:39 & Questions: Date: 11/24/24 11/24/24 11:39 Time: 11:40 11/24/24 11:39 Patient unable to answer at this time (ie. confused, unrespo /Reproduction History /Reproductive History - irrigator sprinkling system: /Reproductive Hx- irrigator sprinkling system Hx Now No 11/24/24 11:39 Gestational Age (in weeks): EDC: Hx Hx Para Hx Section SAB No 11/24/24 11:39 Active Medications Active Medications: Current Medications Generic Name Dose Route Start Last Admin Trade Name Freq PRN Reason Stop Dose Admin Acetaminophen 1,000 mg 12/08/24 13:15 12/08/24 11:45 Acetaminophen 500 Mg Tablet PO 12/08/24 13:16 1,000 mg PREOP ONE Administration Dexamethasone Sodium Phosphate 8 mg 12/08/24 13:15 Dexamethasone 10 Mg/Ml Vial IV 12/08/24 13:16 INTRAOP ONE Dexamethasone Sodium Phosphate 4 mg 12/08/24 13:15 Dexamethasone 4 Mg/Ml Vial IV 12/08/24 13:16 POSTOP ONE Clindamycin Phosphate 900 mg in 50 mls @ 75 mls/hr 12/08/24 13:15 Cleocin IV 12/08/24 13:54 INTRAOP ONE Tranexamic Acid 1,000 mg/ 110 mls @ 440 mls/hr 12/08/24 13:15 Sodium Chloride IV 12/08/24 13:29 INTRAOP ONE Tranexamic Acid 1,000 mg/ 110 mls @ 440 mls/hr 12/08/24 13:15 Sodium Chloride IV 12/08/24 13:29 INTRAOP ONE Magnesium Sulfate 1 gm/ 102 mls @ 408 mls/hr 12/08/24 13:15 12/08/24 11:45 Dextrose IV 12/08/24 13:29 408 mls/hr INTRAOP ONE Administration Lactated Ringer's 1,000 mls @ 15 mls/hr 12/08/24 12:00 12/08/24 11:49 IV 15 mls/hr .Q48H CED Administration Insulin Human Lispro 1 - 6 unit 12/08/24 13:15 Insulin Lispro 100 Unit/Ml Insuln.Pen SC 12/08/24 18:00 Q4H PRN PRN BG>/= 180, SEE PROTOCOL Protocol PFSH Medical History Wears glasses History of steroid therapy Thyroid disease Arthritis Back pain Gastric reflux Non-smoker Asthma History of stress test History of irregular heartbeat Camacho esophagus Hypertension Home Medications ?Medication ?Instructions ?Recorded ?Last Taken ?Type albuterol 90 mcg-budesonide 80 2 inh inhalation Q4-6H PRN 09/22/24 Unknown History mcg/actuation HFA aerosol inhaler shortness of breath (Airsupra) amitriptyline 25 mg tablet 25 mg PO QHS 09/22/2412/07 History atorvastatin 10 mg tablet 10 mg PO QDAY 09/22/2412/07 History desvenlafaxine succinate 100 mg 100 mg PO QDAY 5 12/07/24 History tablet,extended release 24 hr esomeprazole magnesium 40 mg 40 mg PO QDAY 09/22/24 History capsule,delayed release furosemide 40 mg tablet 40 mg PO QAM 09/22/24 History levothyroxine 88 mcg tablet 88 mcg PO QDAY 09/22/24 History meloxicam 15 mg tablet 15 mg PO QDAY 09/22/2412/07 History metoprolol tartrate 50 mg tablet 25 mg PO BID 09/22/24 12/08/24 09:30 History sucralfate 1 gram tablet 1 g PO QDAY 09/22/24 5 History tirzepatide (weight loss) 10 10 mg subcut .weekly 09/0911/30/24 History mg/0.5 mL subcutaneous pen injector (Zepbound) Allergy/AdvReac Type Severity Reaction Status Date / Time Penicillins Allergy Rash Verified 12/08/24 11:23 Surgical History History of back surgery Hx of shoulder surgery Hx of bilateral breast reduction surgery History of dental surgery Social History (System 12/03/24 @ 07:54 by Kristal Rodriges) Smoking Status: Never smoker Review of Systems (Anesthesia) ROS Narrative System reviewed and no additional complaints, except as documented. Physical Exam Resp clear to auscultation bilaterally 12/08/24 1327 <Electronically signed by Edwin diaz MD> Date _ Edwin Holman MD Cosigner Signature: Date CC: ~ Signed [facility] Work Phone: 1(273) 247-126906-30-2025 History and physical note Author Endy Martinez [facility] Note Date/Time December 08, 2024 12:5 2pm [facility] Medical Records Department [address] [place] [address] History & Physical Exam 12/08/24 1251 MR#: [id number] Acct: [id number] Name: DANA CARLSON Rep # :[id number] : 1955 69 From: Endy Martinez MD PCP: Dr. Horacio Benson MD Status:[facility] Location: [place] [address] History and Physical Date of Admission: 12/08/24 MR#: [id number] Acct: [id number] Name: DANA CARLSON Rep #: [id number] : 1955 Provider: Dr. Endy Martinez MD Age/Sex: 69/F Location: [facility] Status: Signed Intake Vital Signs 09/22/2512:03 11/28/2509:20 Height 5 ft 6 in 5 ft 6 in Weight: 176 lb 8 oz 166 lb BMI 28.5 26.8 Intake Visit Reasons: cervical spine Chief Complaint: Pre OP Accompanied by: Is patient in pain?: No Allergies Penicillins Allergy (Verified 11/28/24 10:28) Rash Medications ?Medication ?Instructions ?Recorded ?Confirmed ?Type albuterol 90 mcg-budesonide 80 2 inh inhalation Q4-6H PRN 09/22/2411/10 History mcg/actuation HFA aerosol inhaler shortness of breath (Airsupra) amitriptyline 25 mg tablet 25 mg PO QHS 09/22/24 11/28/24 History atorvastatin 10 mg tablet 10 mg PO QDAY 09/22/24 11/28/24 History desvenlafaxine succinate 100 mg 100 mg PO QDAY 09/22/24 11/28/24 History tablet,extended release 24 hr esomeprazole magnesium 40 mg 40 mg PO QDAY 09/22/24 11/28/24 History capsule,delayed release furosemide 40 mg tablet 40 mg PO QAM 09/22/24 11/28/24 History levothyroxine 88 mcg tablet 88 mcg PO QDAY 09/22/24 11/28/24 History meloxicam 15 mg tablet 15 mg PO QDAY 09/22/24 11/28/24 History metoprolol tartrate 50 mg tablet 25 mg PO BID 09/22/24 11/28/24 History sucralfate 1 gram tablet 1 g PO QDAY 09/22/24 11/28/24 History tirzepatide (weight loss) 10 10 mg subcut .weekly 09/22/24 11/28/24 H istory mg/0.5 mL subcutaneous pen injector (Zepbound) Have you fallen in the past year?: No PFSH Medical History Wears glasses History of steroid therapy Thyroid disease Arthritis Back pain Gastric reflux Non-smoker Asthma History of stress test History of irregular heartbeat Camacho esophagus Hypertension Surgical History History of back surgery Hx of shoulder surgery Hx of bilateral breast reduction surgery History of dental surgery Social History Smoking Status: Never smoker HPI cervical spine Details: This documentation accurately reflects the service provided and the decisions made by me, Dr. Endy Martinez MD 11/28/24 0819. Part of today?s visit was documented by Marli Orellana MA, acting as scribe. DANA FERMIN is a 69 year old F here today for pre op visit. She is scheduled for cervical C3-C4 C4-C5 cervical fusion on 12-08-24. Patient stated that she would like to go over the MRI with Dr. Martinez today. The patient is a 69-year-old female presenting with cervical spinal cord compression and associated symptoms. She had a previous neck surgery in November 2022, which improved her arm strength significantly. However, she started experiencing new symptoms approximately four months ago, including lightheadedness and balance issues. The patient also has a history of shoulder surgery in March 2023 for a rotatorcuff tear and osteoarthritis, which involved repair and debridement. Post-surgery, she reports no significant shoulder issues currently. She has experienced vertebral fractures in the mid-back, with no specific intervention performed, and reports that the pain has subsided over time. The fractures were possibly due to falls caused by her dogs knocking her down the stairs. - Neurological: Reports lightheadedness and balance issues. Denies dexterity problems or dropping objects. - Musculoskeletal: Reports previous shoulder weakness, now resolved. Denies current shoulder pain. - General: Denies recent injuries or falls. Attestation: Documentation on this patient encounter was supported using ambient scribe technology/ voice AI technology. The patient consented to recording for the purpose of documenting the encounter. Provider reviewed content of the generatednote prior to signature. Ortho Exam General General: Yes no acute distress Neurologic: Yes alert and Yes oriented x3 Psychologic: Yes reasonable and appropriate Spine SPINE TESTING CERVICAL THORACIC LUMBAR Musculoskeletal Strength 0=absent - 5=normal Details: Neurological exam of the upper extremities shows 5x5 power. Normal sensations across all dermatomes. No hyperreflexia. Lukasz's negative. No midline and mild left paraspinal tenderness. Physical examination of the neck shows a left-sided well-healed incision. Exam Narrative - Neurological: Positive Sheehan reflex bilaterally, indicating spinal cord compression. - Musculoskeletal: Strength testing of upper extremities was performed, including content manager strength and elbow flexion/extension. Coding Level of Care Code Off vis,est,level 4 Diagnoses Cervical radiculopathy M54.12 History of fusion of cervical spine Z98.1 Time Spent (min) 35 Assessment and Plan Assessment and Plan (1) Cervical radiculopathy: Status: Acute (2) History of fusion of cervical spine: Status: Acute Plan Again reviewed prior x-rays show straightening of the normal cervical lordosis, prior C5-6 fusion with hardware in good position, mild degenerative changes noticed at C6-7. No instability seen on dynamic views. Reviewed cervical MRI from September 2022 before the fusion surgery which showed a C4-5 and C5-6 disc bulge resulting in mild stenosis. Reviewed cervical MRI from October 14, 2024 which shows C3-4 anterolisthesis with a moderate diffuse disc bulge producing mild spinal stenosis and moderate left neural foraminal stenosis, C4-5 anterolisthesis with a moderate diffuse disc bulge resulting in mild spinal stenosis and moderate bilateral neuroforaminal stenosis. C5-6 shows well-healing fusion. Also reviewed prior lumbar MRI from July 2024 which showed a prior fracture at L5 and L3 which are chronic according to the STIR sag view, a prior T11 fracture which appears to be acute/subacute. - MRI: Shows spinal cord compression at C4-5 and C3-4 levels. 1. Cervical spinal cord compression - The patient exhibits symptoms consistent with spinal cord compression, including lightheadedness and balance issues. - MRI confirms compression at C4-5 and C3-4 levels. - Surgical intervention is recommended to alleviate pressure and prevent progression of symptoms. 2. Rotator cuff tear - The patient underwent successful surgical repair and debridement for a rotatorcuff tear and osteoarthritis. - No further intervention is required at this time as the patient reports no current shoulder issues. 3. Vertebral fractures - The patient has a history of vertebral fractures in the mid-back, likely due to falls. - Pain has subsided, and no further intervention is planned unless new symptoms arise. Patient is scheduled for C3-5 ACDF with possible removal of previous C5-6 hardware. Discussed this procedure in detail and explained the risks, benefits and alternatives. The risks of surgery include but are not limited to infection,bleeding, injury to nerves and vessels, hematoma formation, dysphagia, dysphonia, recurrent laryngeal nerve injury, Elijah syndrome, DVT, pulmonary embolism, pneumonia, atelectasis, cardiopulmonary event, pseudoarthrosis, hardware failure, adjacent segment degeneration, need for further surgery, nerveroot injury, spinal cord injury. Answered all questions to the patient?s satisfaction. Patient understands and agrees to proceed with surgery. Consent was signed. 12/08/24 1252 <Electronically signed by Endy Martinez MD> Cosigner Signature (if applicable): CC: Dr. Endy Martinez MD; Dr. Horacio Benson MD~ Signed [facility] Work Phone: [phone]) 201-130606-30-2025 Consult note [facility] Medical Records Department [address] [place] [address] Pre-Anesthesia Evaluation 12/08/24 1247 MR#: [id number] Acct: [id number] Name: DANA CARLSON Rep # :[id number] : 1955 69 From: Edwin Holman MD PCP: Dr. Horacio Benson MD Status:R [facility] Y Race: C Location: [place] [address] ASA Classification* ASA Classification ASA Classification: 2 Assessment & Plan Anesthesia* Anesthesia Assessment Anesthesia Assessment: Discussed sedation and/or anesthesia options, risks, benefits, and alternatives with patient/parents/legal guardian/POA. Questions invited. The patient/parents/legal guardian/POA seems to understand and agrees to proceedwith anesthesia plan. Reviewed the physical assessment, medical history, allergy history and patient home medications list prior to surgery/procedure/anesthetic and documented any changes. Performed airway and anesthesia risk assessments. Anesthesia Type Anesthesia Type: General History Source History Obtained from:: Patient and Chart Anesthesia Focused Assessment* Temperature: 99.4 F Pulse Rate: 68 Blood Pressure: 107/57 Respiratory Rate: 16 Pulse Ox: 100 Oxygen Delivery Method: Room Air Airway Assessment Mouth opens: >3 cm Mallampati Score: I Teeth Condition: Caps/Crowns (Patient has several crowns. They are all tight.) Neck Range of motion (ROM): Full ROM Labs Anesthesia Preop lab: CBC WBC 6.5 K/mm3 (4.4-11.0) 11/28/24 09:23 11/28/24 RBC 3.83 M/mm3 (4.2-5.4) L 11/28/24 09:23 11/28/24 Hgb 12.1 g/dL (12.0-15.0) 11/28/24 09:11/28/24 Hct 37.0 % (37-47) 11/28/24 09:23 11/28/24 Plt Count 276 K/mm3 (150-450) 11/28/24 09:23 11/28/24 CHEMISTRY Potassium 5.1 mmol/L (3.3-5.1) 11/28/24 09:23 11/28/24 Sodium 138 mmol/L (133-145) 11/28/24 09:11/28/24 Magnesium 2.2 mg/dL (1.5-2.2) 11/28/24 09:22 11/28/24 BUN 10 mg/dL (4-19) 11/28/24 09:23 11/28/24 Creatinine 0.96 mg/dL (0.70-1.20) 11/28/24 09:23 11/28/24 Glucose 91 mg/dL (70-99) 11/28/24 09:23 11/28/24 POC Glucose 92 mg/dL (74-106) 12/08/24 11:29 12/08/24 COAG Pre-Assessment Diagnosis/Proposed Procedure Planned Operative Procedure(s): ERAS, Anterior Cervical Fusion C3-4 and C4-5, possible removal of hardware Anesthesia History Anesthesia History - irrigator sprinkling system: Anesthesia History - irrigator sprinkling system Hx Hospitalization No 11/24/24 11:39 Any Problems With Anesthesia Yes: HARD TIME WAKING POST- 11/24/24 11:39 OP Cholinesterase deficiency No 11/24/24 11:39 You/Your Family Experience No 11/24/24 11:39 fever (hyperthermia) with Relationship Recent Exposure to Contagious No 12/08/24 11:36 Disease Does patient have nerve No 11/24/24 11:39 stimulator Patient instructed to have device shut off --Does patient have Pacemaker No 12/08/24 11:36 or ICD? When Was Last Pacemaker Check QUESTION #4 FULL TEXT: You/Your Family Experience fever (hyperthermia) with Anesthesia Last Oral Intake Last Oral intake: Last Oral Intake NPO since 09:30 12/08/24 11:36 Meds taken in AM with sips of Yes 12/08/24 11:36 water? Meds patient instructed to take am of surgery Any additional information?: Yes NPO since: : (Patient took her preop Ensureat 9:30 AM.) Meds taken in AM with sips of water?: Yes PONV PONV - irrigator sprinkling system: PONV - irrigator sprinkling system Female Yes 11/24/24 11:39 HX of Motion Sickness Yes 11/24/24 11:39 HX of N/V After Surgery No 11/24/24 11:39 Non-Smoker Yes 11/24/24 11:39 Duration of Surgery greater Yes 11/24/24 11:39 than 60 minutes Number of Risk Factors 4 11/24/24 11:39 PONV Score Severe Risk 11/24/24 11:39 Height & Weight Height & Weight: Anesthesia: Height & Weight Height 5 ft 3 in 12/08/24 11:36 Weight: 76 kg 12/08/24 11:36 Body Mass Index (BMI) 29.7 12/08/24 11:36 Respiratory Assessment Respiratory Assessment - irrigator sprinkling system: Respiratory Tract Infection Hx - irrigator sprinkling system Hx Respiratory Tract Infection No 11/24/24 11:39 STOP Sleep Apnea STOP Sleep Apnea - irrigator sprinkling system: STOP Sleep Apnea - irrigator sprinkling system Hx Hypertension Yes: CONTROLLED ON MED 11/24/24 11:39 Hx Sleep Apnea No 11/24/24 11:39 CPAP BIPAP Do you snore loudly (louder No 11/24/24 11:39 than talking or can be heard Do you often feel tired/ No 11/24/24 11:39 fatigued/ sleepy during daytime? Has anyone observed you stop No 11/24/24 11:39 breathing during sleep? STOP Results Negative 11/24/24 11:39 QUESTION #5 FULL TEXT : Do you snore loudly (louder than talking or can be heard through closeddoors)? Tobacco Use History Tobacco Use History - irrigator sprinkling system: Tobacco Use History - irrigator sprinkling system Tobacco Use Smoking Status Never smoker 11/24/24 11:39 Hx Tobacco Use No 11/24/24 11:39 Years Smoking Packs Smoked per Day Smoking Cessation Date was within the last 15 years Hx Smoking Cessation Date Hx Smoking Cessation Counseling Hematologic Medial History Hematologic Hx - irrigator sprinkling system: Hematologic Medical Hx - air purifier servicer Hx of Blood Transfusion No 11/24/24 11:39 Hx of Transfusion in last 3 No 11/24/24 11:39 Months Date of Last Transfusion (if within last 3 months) Ever experience any problems No 11/24/24 11:39 with transfusion(s)? Specify any problems Hx of Preganancy in last 3 No 11/24/24 11:39 Months Nurse Filling Out Transfusion VCHRISTIN 11/24/24 11:39 & Questions: Date: 11/24/24 11/24/24 11:39 Time: 11:40 11/24/24 11:39 Patient unable to answer at this time (ie. confused, unrespo /Reproduction History /Reproductive History - irrigator sprinkling system: /Reproductive Hx- irrigator sprinkling system Hx Now No 11/24/24 11:39 Gestational Age (in weeks): EDC: Hx Hx Para Hx Section SAB No 11/24/24 11:39 Active Medications Active Medications: Current Medications Generic Name Dose Route Start Last Admin Trade Name Freq PRN Reason Stop Dose Admin Acetaminophen 1,000 mg 12/08/24 13:15 12/08/24 11:45 Acetaminophen 500 Mg Tablet PO 12/08/24 13:16 1,000 mg PREOP ONE Administration Dexamethasone Sodium Phosphate 8 mg 12/08/24 13:15 Dexamethasone 10 Mg/Ml Vial IV 12/08/24 13:16 INTRAOP ONE Dexamethasone Sodium Phosphate 4 mg 12/08/24 13:15 Dexamethasone 4 Mg/Ml Vial IV 12/08/24 13:16 POSTOP ONE Clindamycin Phosphate 900 mg in 50 mls @ 75 mls/hr 12/08/24 13:15 Cleocin IV 12/08/24 13:54 INTRAOP ONE Tranexamic Acid 1,000 mg/ 110 mls @ 440 mls/hr 12/08/24 13:15 Sodium Chloride IV 12/08/24 13:29 INTRAOP ONE Tranexamic Acid 1,000 mg/ 110 mls @ 440 mls/hr 12/08/24 13:15 Sodium Chloride IV 12/08/24 13:29 INTRAOP ONE Magnesium Sulfate 1 gm/ 102 mls @ 408 mls/hr 12/08/24 13:15 12/08/24 11:45 Dextrose IV 12/08/24 13:29 408 mls/hr INTRAOP ONE Administration Lactated Ringer's 1,000 mls @ 15 mls/hr 12/08/24 12:00 12/08/24 11:49 IV 15 mls/hr .Q48H CED Administration Insulin Human Lispro 1 - 6 unit 12/08/24 13:15 Insulin Lispro 100 Unit/Ml Insuln.Pen SC 12/08/24 18:00 Q4H PRN PRN BG>/= 180, SEE PROTOCOL Protocol PFSH Medical History Wears glasses History of steroid therapy Thyroid disease Arthritis Back pain Gastric reflux Non-smoker Asthma History of stress test History of irregular heartbeat Camacho esophagus Hypertension Home Medications ?Medication ?Instructions ?Recorded ?Last Taken ?Type albuterol 90 mcg-budesonide 80 2 inh inhalation Q4-6H PRN 09/22/24 Unknown History mcg/actuation HFA aerosol inhaler shortness of breath (Airsupra) amitriptyline 25 mg tablet 25 mg PO QHS 09/22/2412/07 History atorvastatin 10 mg tablet 10 mg PO QDAY 09/22/2412/07 History desvenlafaxine succinate 100 mg 100 mg PO QDAY 5 12/07/24 History tablet,extended release 24 hr esomeprazole magnesium 40 mg 40 mg PO QDAY 09/22/24 History capsule,delayed release furosemide 40 mg tablet 40 mg PO QAM 09/22/24 History levothyroxine 88 mcg tablet 88 mcg PO QDAY 09/22/24 History meloxicam 15 mg tablet 15 mg PO QDAY 09/22/2412/07 History metoprolol tartrate 50 mg tablet 25 mg PO BID 09/22/24 12/08/24 09:30 History sucralfate 1 gram tablet 1 g PO QDAY 09/22/24 5 History tirzepatide (weight loss) 10 10 mg subcut .weekly 09/0911/30/24 History mg/0.5 mL subcutaneous pen injector (Zepbound) Allergy/AdvReac Type Severity Reaction Status Date / Time Penicillins Allergy Rash Verified 12/08/24 11:23 Surgical History History of back surgery Hx of shoulder surgery Hx of bilateral breast reduction surgery History of dental surgery Social History (System 12/03/24 @ 07:54 by Kristal Rodriges) Smoking Status: Never smoker Review of Systems (Anesthesia) ROS Narrative System reviewed and no additional complaints, except as documented. Physical Exam Resp clear to auscultation bilaterally 12/08/24 1327 la > Date _ Edwin Holman MD Cosigner Signature: Date CC: ~ Signed [facility]06-30-[address] History and physical note [facility] Medical Records Department [address] [place] [address] History & Physical Exam 12/08/24 1251 MR#: [id number] Acct: [id number] Name: DANA CARLSON Rep # :[id number] : 1955 69 From: Endy Martinez MD PCP: Dr. Horacio Benson MD Status:R [facility] Location: [place] [address] History and Physical Date of Admission: 12/08/24 MR#: [id number] Acct: [id number] Name: DANA CARLSON Rep #: [id number] : 1955 Provider: Dr. Endy Martinez MD Age/Sex: 69/F Location: [facility] Status: Signed Intake Vital Signs 09/22/2512:03 11/28/2509:20 Height 5 ft 6 in 5 ft 6 in Weight: 176 lb 8 oz 166 lb BMI 28.5 26.8 Intake Visit Reasons: cervical spine Chief Complaint: Pre OP Accompanied by: Is patient in pain?: No Allergies Penicillins Allergy (Verified 11/28/24 10:28) Rash Medications ?Medication ?Instructions ?Recorded ?Confirmed ?Type albuterol 90 mcg-budesonide 80 2 inh inhalation Q4-6H PRN 09/22/24 062 0 History mcg/actuation HFA aerosol inhaler shortness of breath (Airsupra) amitriptyline 25 mg tablet 25 mg PO QHS 09/22/24 11/28/24 History atorvastatin 10 mg tablet 10 mg PO QDAY 09/22/24 11/28/24 History desvenlafaxine succinate 100 mg 100 mg PO QDAY 09/22/24 11/28/24 History tablet,extended release 24 hr esomeprazole magnesium 40 mg 40 mg PO QDAY 09/22/24 11/28/24 History capsule,delayed release furosemide 40 mg tablet 40 mg PO QAM 09/22/24 11/28/24 History levothyroxine 88 mcg tablet 88 mcg PO QDAY 09/22/24 11/28/24 History meloxicam 15 mg tablet 15 mg PO QDAY 09/22/24 11/28/24 History metoprolol tartrate 50 mg tablet 25 mg PO BID 09/22/24 11/28/24 History sucralfate 1 gram tablet 1 g PO QDAY 09/22/24 11/28/24 History tirzepatide (weight loss) 10 10 mg subcut .weekly 09/22/24 11/28/24 H istory mg/0.5 mL subcutaneous pen injector (Zepbound) Have you fallen in the past year?: No PFSH Medical History Wears glasses History of steroid therapy Thyroid disease Arthritis Back pain Gastric reflux Non-smoker Asthma History of stress test History of irregular heartbeat Camacho esophagus Hypertension Surgical History History of back surgery Hx of shoulder surgery Hx of bilateral breast reduction surgery History of dental surgery Social History Smoking Status: Never smoker HPI cervical spine Details: This documentation accurately reflects the service provided and the decisions made by me, Dr. Endy Martinez MD 11/28/24 0870. Part of today?s visit was documented by Marli Orellana MA, acting as scribe. DANA FERMIN is a 69 year old F here today for pre op visit. She is scheduled for cervical C3-C4 C4-C5 cervical fusion on 12-08-24. Patient stated that she would like to go over the MRI with Dr. Martinez today. The patient is a 69-year-old female presenting with cervical spinal cord compression and associatedsymptoms. She had a previous neck surgery in November 2022, which improved her arm strength significantly. However, she started experiencing new symptoms approximately four months ago, including lighthead edness and balance issues. The patient also has a history of shoulder surgery in March 2023 for a rotatorcuff tear and osteoarthritis, which involved repair and debridement. Post-surgery, she reports no significant shoulder issues currently. She has experienced vertebral fractures in the mid-back, with no specific intervention performed, and reports that the pain has subsided over time. The fractures were possibly due to falls caused by her dogs knocking her down the stairs. - Neurological: Reports lightheadedness and balance issues. Denies dexterity problems or dropping objects. - Musculoskeletal: Reports previous shoulder weakness, now resolved. Denies current shoulder pain. - General: Denies recent injuries or falls. Attestation: Documentation on this patient encounter was supported using ambient scribe technology/ voice AI technology. The patient consented to recording for the purpose of documenting the encounter. Provider reviewed content of the generatednote prior to signature. Ortho Exam General General: Yes no acute distress Neurologic: Yes alert and Yes oriented x3 Psychologic: Yes reasonable and appropriate Spine SPINE TESTING CERVICAL THORACIC LUMBAR Musculoskeletal Strength 0=absent - 5=normal Details: Neurological exam of the upper extremities shows 5x5 power. Normal sensations across all dermatomes. No hyperreflexia. Lukasz's negative. No midline and mild left paraspinal tenderness. Physical examination of the neck shows a left- sided well-healed incision. Exam Narrative - Neurological: Positive Sheehan reflex bilaterally, indicating spinal cord compression. - Musculoskeletal: Strength testing of upper extremities was performed, including content manager strength andelbow flexion/extension. Coding Level of Care Code Off vis,est,level 4 Diagnoses Cervical radiculopathy M54.12 History of fusion of cervical spine Z98.1 Time Spent (min) 35 Assessment and Plan Assessment and Plan (1) Cervical radiculopathy: Status: Acute (2) History of fusion of cervical spine: Status: Acute Plan Again reviewed prior x-rays show straightening of the normal cervical lordosis, prior C5-6 fusion with hardware in good position, mild degenerative changes noticed at C6-7. No instability seen on dynamic views. Reviewed cervical MRI from September 2022 before the fusion surgery which showed a C4-5 and C5-6 disc bulge resulting in mild stenosis. Reviewed cervical MRI from October 14, 2024 which shows C3-4 anterolisthesis with a moderate diffuse disc bulge producing mild spinal stenosis and moderate left neural foraminal stenosis, C4-5 anterolisthesis with a moderate diffuse disc bulge resulting in mildspinal stenosis and moderate bilateral neuroforaminal stenosis. C5-6 shows well-healing fusion. Also reviewed prior lumbar MRI from July 2024 which showed a prior fracture at L5 and L3 which are chronic according to the STIR sag view, a prior T11 fracture which appears to be acute/subacute. - MRI: Shows spinal cord compression at C4-5 and C3-4 levels. 1. Cervical spinal cord compression - The patient exhibits symptoms consistent with spinal cord compression, including lightheadedness and balance issues. - MRI confirms compression at C4-5 and C3-4 levels. - Surgical intervention is recommended to alleviate pressure and prevent progression of symptoms. 2. Rotator cuff tear - The patient underwent successful surgical repair and debridement for a rotatorcuff tear and osteoarthritis. - No further intervention is required at this time as the patient reports no current shoulder issues. 3. Vertebral fractures - The patient has a history of vertebral fractures in the mid-back, likely due to falls. - Pain has subsided, and no further intervention is planned unless new symptoms arise. Patient is scheduled for C3-5 ACDF with possible removal of previous C5-6 hardware. Discussed this procedure in detail and explained the risks, benefits and alternatives. The risks of surgery includebut are not limited to infection,bleeding, injury to nerves and vessels, hematoma formation, dysphagia, dysphonia, recurrent laryngeal nerve injury, Elijah syndrome, DVT, pulmonary embolism, pneumonia, atelectasis, cardiopulmonary event, pseudoarthrosis, hardware failure, adjacent segment degeneration, need for further surgery, nerveroot injury, spinal cord injury. Answered all questions to the patient?s satisfaction. Patient understands and agrees to proceed with surgery. Consent was signed. 12/08/241251 Cosigner Signature (if applicable): CC: Dr. Endy Martinez MD; Dr. Horacio Benson MD~ Signed [facility]06-30-2025 [facility] Medical Records Department [address] [place] [address] History Physical Exam 12/08/24 125 MR#: [id number] Acct: [id number] Name: DANA CARLSON Rep #: [id number] : 1955 69 From: Endy Martinez MD PCP: Dr. Horacio Benson MD Status:[facility] Location: [place] [address] History and Physical Date of Admission: 12/08/24 MR#: [id number] Acct: [id number] Name: DANA CARLSON Rep #: [id number] : 1955 Provider: Dr. Endy Martinez MD Age/Sex: 69/F Location[place] [facility] Status: Signed Intake Vital Signs 09/22/2512:03 11/28/2509:20 Height 5 ft 6 in 5 ft 6 in Weight: 176 lb 8 oz 166 lb BMI 28.5 26.8 Intake Visit Reasons: cervical spine Chief Complaint: Pre OP Accompanied by: Is patient in pain?: No Allergies Penicillins Allergy (Verified 11/28/24 10:28) Rash Medications ???Medication ???Instructions ???Recorded ???Confirmed ???Type albuterol 90 mcg-budesonide 80 2 inh inhalation Q4-6H PRN 09/22/24 11/28/24 Histo ry mcg/actuation HFA aerosol inhaler shortness of breath (Airsupra) amitriptyline 25 mg tablet 25 mg PO QHS 09/22/24 11/28/24 History atorvastatin 10 mg tablet 10 mg PO QDAY 09/22/24 11/28/24 History desvenlafaxine succinate 100 mg 100 mg PO QDAY 09/22/24 11/28/24 History tablet,extended release 24 hr esomeprazole magnesium 40 mg 40 mg PO QDAY 09/22/24 11/28/24 History capsule,delayed release furosemide 40 mg tablet 40 mg PO QAM 09/22/24 11/28/24 History levothyroxine 88 mcg tablet 88 mcg PO QDAY 09/22/24 11/28/24 History meloxicam 15 mg tablet 15 mg PO QDAY 09/22/24 11/28/24 History metoprolol tartrate 50 mg tablet 25 mg PO BID 09/22/24 11/28/24 History sucralfate 1 gram tablet 1 g PO QDAY 09/22/24 11/28/24 History tirzepatide (weight loss) 10 10 mg subcut .weekly 09/22/24 11/28/24 History mg/0.5 mL subcutaneous pen injector (Zepbound) Have you fallen in the past year?: No PFSH Medical History Wears glasses History of steroid therapy Thyroid disease Arthritis Back pain Gastric reflux Non-smoker Asthma History of stress test History of irregular heartbeat Camacho esophagus Hypertension Surgical History History of back surgery Hx of shoulder surgery Hx of bilateral breast reduction surgery History of dental surgery Social History Smoking Status: Never smoker HPI cervical spine Details: This documentation accurately reflects the service provided and the decisions made by me, Dr. Endy Martinez MD 11/28/24 0819. Part of today???s visit was documented by Marli Orellana MA, acting as scribe. DANA FERMIN is a 69 year old F here today for pre op visit. She is scheduled for cervical C3- C4 C4-C5 cervical fusion on 12-08-24. Patient stated that she would like to go over the MRI with Dr. Martinez today. The patient is a 69-year-old female presenting with cervical spinal cord compression and associated symptoms. She had a previous neck surgery in November 2022, which improved her arm strength significantly. However, she started experiencing new symptoms approximately four months ago, including lightheadedness and balance issues. The patient also has a history of shoulder surgery in March 2023 for a rotator cuff tear and osteoarthritis, which involved repair and debridement. Post-surgery, she reports no significant shoulder issues currently. She has experienced vertebral fractures in the mid-back, with no specific intervention performed, and reports that the pain has subsided over time. The fractures were possibly due to falls caused by her dogs knocking her down the stairs. - Neurological: Reports lightheadedness and balance issues. Denies dexterity problems or dropping objects. - Musculoskeletal: Reports previous shoulder weakness, now resolved. Denies current shoulder pain. - General: Denies recent injuries or falls. Attestation: Documentation on this patient encounter was supported using ambient scribe technology/ voice AI technology. The patient consented to recording for the purpose of documenting the encounter. Provider reviewed content of the generated note prior to signature. Ortho Exam General General: Yes no acute distress Neurologic: Yes alert and Yes oriented x3 Psychologic: Yes reasonable and appropriate Spine SPINE TESTING CERVICAL THORACIC LUMBAR Musculoskeletal Strength 0=absent - 5=normal Details: Neurological exam of the upper extremities s (more content not included)... [facility]04-14-2025 Evaluation note* Diagnosis Onset Date Resolution Status Admit Date Cervical radiculopathy acute Ap ril 2024 12:52pm History of fusion of cervica l spine acute September 22, 2024 12:52pm [facility] Work Phone: 1(433) 191-594704-14-2025 Evaluation note* Diagnosis Onset Date Resolution Status Admit Date Cervical radiculopathy acute Ap ril 2024 12:52pm History of fusion of cervica l spine acute September 22, 2024 12:52pm Cervical radiculopathy acute Ma y 2024 1:41pm History of fusion of cervica l spine acute October 23, 2024 1 :41pm [facility] Work Phone: 1(686) 842-226104-14-2025 Evaluation note* Diagnosis Onset Date Resolution Status Admit Date Cervical radiculopathy acute Ap ril 2024 12:52pm History of fusion of cervica l spine acute September 22, 2024 12:52pm Cervical radiculopathy acute Ma y 2024 1:41pm History of fusion of cervica l spine acute October 23, 2024 1 :41pm Cervical radiculopathy acute Ju ne 2024 10:18am History of fusion of cervica l spine acute November 28, 2024 10:18am Cervical radiculopathy acute Ju ne 2024 4:14pm Status post cervical spinal fusion acute December 08, 2024 4:14pm [facility] Work Phone: 1(558) 297-198304-14-2025 Evaluation note* Diagnosis Onset Date Resolution Status Admit Date History of fusion of cervica l spine acute September 22, 2024 12:52pm Cervical radiculopathy resolved Ap ril 2024 12:52pm History of fusion of cervica l spine acute October 23, 2024 1 :41pm Cervical radiculopathy resolved Ma y 2024 1:41pm History of fusion of cervica l spine acute November 28, 2024 10:18am Cervical radiculopathy resolved Ju ne 2024 10:18am Status post cervical spinal fusion acute December 08, 2024 4:14pm Cervical radiculopathy resolved Ju ne 2024 4:14pm [facility] Work Phone: 1(491) 366-764004-14-2025 Evaluation note* Diagnosis Onset Date Resolution Status Admit Date History of fusion of cervica l spine acute September 22, 2024 12:52pm Cervical radiculopathy resolved Ap ril 2024 12:52pm History of fusion of cervica l spine acute October 23, 2024 1 :41pm Cervical radiculopathy resolved Ma y 2024 1:41pm History of fusion of cervica l spine acute November 28, 2024 10:18am Cervical radiculopathy resolved Ju ne 2024 10:18am Status post cervical spinal fusion acute December 08, 2024 4:14pm Cervical radiculopathy resolved Ju ne 2024 4:14pm Status post cervical spinal fusion acute December 25, 2024 9:49am [facility] Work Phone: 1(325) 979-531403-26-2025 History of Present illness Narrative* Val Ferris Tech - 09/03/2024 11:10 AM EDT Radiology Service Progress Note PATIENT NAME: Dana Fermin DATE OF SERVICE: September 03, 2024 TIME: 10:37 AM PATIENT IDENTITY VERIFICATION COMPLETED USING TWO (2) IDENTIFIERS: Name and Date of confirmedby patient verbally. FALL SCREENING: Has the patient had 2 falls in the last year or 1 fall with injury or currently using an Ambulatory Assistive Device (Walker, Cane, Wheelchair, Crutches, etc.)? No PATIENT GENDER DATA: Assigned female at . status: : No status:NO. PATIENT RELEVANT IMPLANT DATA REVIEWED: Not Applicable PATIENT PRESENTS WITH AN IMPLANTABLE OR ATTACHED MEDICAL BILLING SERVICE: No RADIOLOGY DEPARTMENT: General X-ray: Exam(s) Completed: Spine X-Ray(s): Cervical LAT / FLEX-EXT PERIPHERAL IV DATA: Not applicable SIGNED BY: Nivia Marshall September 03, 2024 10:37 AM [facility] NoteHNO ID: [id number] Author: VAL FERRIS Tech Service: ? Author Type: Technology Architect Type: Progress Notes Filed: 09/03/2024 10:38 Note Text: Radiology Service Progress Note PATIENT NAME: Dana Fermin DATE OF SERVICE: September 03, 2024 TIME: 10:37 AM PATIENT IDENTITY VERIFICATION COMPLETED USING TWO (2) IDENTIFIERS: Name and Date of confirmed by patient verbally. FALL SCREENING: Has the patient had 2 falls in the last year or 1 fall with injury or currently using an Ambulatory Assistive Device (Walker, Cane, Wheelchair, Crutches, etc.)? No PATIENT GENDER DATA: Assigned female at . status: : No status: NO. PATIENT RELEVANT IMPLANT DATA REVIEWED: Not Applicable PATIENT PRESENTS WITH AN IMPLANTABLE OR ATTACHED MEDICAL BILLING SERVICE: No RADIOLOGY DEPARTMENT: General X-ray: Exam(s) Completed: Spine X-Ray(s): Cervical LAT / FLEX-EXT PERIPHERAL IV DATA: Not applicable SIGNED BY: Nivia Marshall September 03, 2024 10:37 AMChillicothe [id number] [facility]06-15-2023 Hospital Discharge instructions Patient Education 11/23/2022 10:13:04 Anterior Cervical Diskectomy and Fusion, Care After Anterior Cervical Diskectomy and Fusion, Care After This sheet gives you information about how to care for yourself after your procedure. Your health care provider may also give you more specific instructions. If you have problems or questions, contact your health care provider. What can I expect after the procedure? After the procedure, it is common to have: Neck pain. Discomfort when swallowing. Slight hoarseness. Follow these instructions at home: If you have a neck brace: Wear it as told by your health care provider. Remove it only as told by your health care provider. Keep the brace clean and dry. Ask your health care provider if you should remove the brace to bathe or shower. Incision care Follow instructions from your health care provider about how to take care of your incision. Make sure you: ?Wash your hands with soap and water before and after you change your bandage (dressing). If soap and water are not available, use hand safety net maker. ?Change your dressing as told by your health care provider. ?Leave stitches (sutures), skin glue, or adhesive strips in place. These skin closures may need to stay in place for 2 weeks or longer. If adhesive strip edges start to loosen and curl up, you may trim the loose edges. Do not remove adhesive strips completely unless your health care provider tells you to do that. Check your incision area every day for signs of infection. Check for: ?Redness, swelling, or pain. ?Fluid or blood. ?Warmth. ?Pus or a bad smell. Managing pain, stiffness, and swelling Take xkgu-cuh-cebbjlx and prescription medicines only as told by your health care provider. If directed, put ice on the injured area. ?If you have a removable brace, remove it as told by your health care provider. ?Put ice in a plastic bag. ?Place a towel between your skin and the bag. ?Leave the ice on for 20 minutes, 2 3 times a day. Activity Return to your normal activities as told by your health care provider. Ask your health care provider what activities are safe for you. Do exercises as told by your health care provider. Do not take baths, swim, or use a hot tub until your health care provider approves. Do not lift anything that is heavier than 10 lb (4.5 kg), or the limit that you are told, until your health care provider says that it is safe. General instructions Ask your health care provider if the medicine prescribed to you: ?Requires you to avoid driving or using heavy machinery. ?Can cause constipation. You may need to take actions to prevent or treat constipation, such as: ?Drink enough fluid to keep your urine pale yellow. ?Take xunr-txy-kuwqvfc or prescription medicines. ?Eat foods that are high in fiber, such as beans, whole grains, and fresh fruits and vegetables. ?Limit foods that are high in fat and processed sugars, such as fried and sweet foods. Do not use any products that contain nicotine or tobacco, such as cigarettes, e- cigarettes, and chewing tobacco. These can delay healing. If you need help quitting, ask your health care provider. Keep all follow-up visits and physical therapy appointments as told by your health care provider. This is important. Contact a health care provider if you have: A fever. Redness, swelling, or pain around your incision. Fluid or blood coming from your incision. Pus or a bad smell coming from your incision. Pain that is not controlled by your pain medicine. Increasing hoarseness or trouble swallowing. Get help right away if you have: Severe pain. Sudden numbness or weakness in your arms. Warmth, tenderness, or swelling in your calf. Chest pain. Difficulty breathing. Summary After the procedure, it is common to have neck pain, discomfort when swallowing, and slight hoarseness. Follow instructions from your health care provider about how to take care of your incision. Check your incision area every day for signs of infection. Return to your normal activities as told by your health care provider. Ask your health care provider what activities are safe for you. Contact a health care provider if you have signs of infection at your incision. This information is not intended to replace advice given to you by your health care provider. Make sure you discuss any questions you have with your health care provider. Document Released: 06/23/2016 Document Revised: 02/20/2019 Document Reviewed: 02/20/2019 [employer] Patient Education 2020 [employer]. Follow Up Care 10/18/2022 12:35:20 With:HORACIO BENSON MD Address: [address] [place] [phone] When: Unknown Comments:Please call your PCP after d/c to schedule a Follow up appt. With:JORGE DAVIS DO, Orthopedic Address: [address] [place] [address], [address] [facility] [place] [address]- [phone] When: Unknown [facility] 06-15-2023 Consult note Date of Service 11.23.22 Reason for Consultation medical management Referring Physician Dr. Davis History of Present Illness This is a 67-year-old female with a past medical history of hypertension, hyperlipidemia, Camacho'sesophagus, asthma, hypothyroidism who presented to the hospital yesterday for an elective cervical discectomy and fusion. Patient reports she was having issues with left shoulder weakness and left arm weakness for several months. She denies ever having any issues with neck pain, numbness or tingling. She states she was being worked up by orthopedics for her shoulder issue when they told her that she had a cervical spine issue. Patient states overall she has been feeling well at home. She had norecent health issues. She currently denies any chest pain or shortness of breath. Denies nausea, vomiting or abdominal pain. Has been tolerating a diet, has a little bit of a sore throat but not having difficulty swallowing. Denies lightheadedness or dizziness. Surgical pain seems to be well controlled. Review of Systems Review of Systems: Reviewed in detail, including general health, HEENT, cardiovascular, respiratory, gastrointestinal, genitourinary, endocrine, musculoskeletal, neurologic, vascular, skin, and psychiatric. All are negative except for those listed in the History of Present Illness Physical Exam Vitals and Measurements T: 37.1 C (Oral) TMIN: 36.7 C (Oral) TMAX: 37.1 C (Oral) HR: 82(Apical) RR: 18 BP: 106/71 SpO2: 99%HT: 165 cm WT: 77 kg BMI: 28.28 Weight Dosing Weight: 77 kg (11/22/22) Dosing Weight: 77 kg (11/22/22) Vitals Signs(Last 24 hrs)__ Last Charted Minimum Maximum Temp 37.1(NOV 23 07:38) 36.8(NOV 23 03:15) 37.1(NOV 23 07:38) Heart Rate 82(NOV 23 08:24) 74(NOV 23 07:38) 85(NOV 22 21:00) Resp Rate 18(NOV 23 07:38) L 12(NOV 22 11:30) 18(NOV 23 03:15) SBP 106(NOV 23 07:38) 95(NOV 22 11:50) 123(NOV 23 03:15) DBP 71(NOV 23 07:38) C 50(NOV 22 11:50) 75(NOV 22 19:32) Physical Exam General: No acute distress. Alert and Appropriate Skin: No rash. Warm, Dry, anterior neck dressing HEENT: Head is normocephalic and atraumatic. No lesions. Pupils equal in size. Nose: No septal deviation. Mouth: Oropharynx mucosa is without lesion. Neck: Supple. No lymphadenopathy, thyromegaly noted. Lungs: Bilaterally clear breath sounds with no crepitation or wheeze. Cardiovascular: Heart is regular rhythm, S1S2, No extra-audible heart tones Abdomen: Abdomen is soft, nontender. Bowel sounds positive all four quadrants. No hepatosplenomegaly noted. Extremities: No clubbing, cyanosis or edema. Neurological: The patient is awake, oriented to person, place and time. Following simple commands, moving all extremities. DVT PROPHYLAXIS- scds Lab Results 11/23 05:36 WBC: 10.6 Hgb: 11.2 L Hct: 33.0 L Platelet: 239 Neutrophil %: 78.7 Glucose Level: 137 H Sodium Level: 135 L Potassium Level: 4.4 BUN: 10 Creatinine Lvl (s): 0.79 Assessment/Plan 1. Cervical spondylosis 2. HTN (hypertension) 3. HLD (hyperlipidemia) 4. Asthma 5. Hypothyroid Patient is s/p discectomy and fusion for cervical stenosis and DDD. Pain is controlled, she is awaiting PT eval. Still with left arm weakness. History of HTN, HLD, asthma, hypothyroid. Continue home medications, Blood pressures reviewed and stable. Patient is planning on discharging home, medically stable for discharge. Discussed with Dr. Nga Tobin Problem List/Past Medical History Ongoing No qualifying data Historical No qualifying data Procedure/Surgical History Osteotomy of spine, including discectomy, anterior approach, single vertebral segment; cervical: 11/22/22 Sliding osteotomy of chin with single piece implant Breast reduction Medications Inpatient amitriptyline, 25 mg= 1 tab(s), Oral, qHS atorvastatin, 10 mg= 1 tab(s), Oral, qDay Benadryl, 25 mg= 1 tab(s), Oral, q6h, PRN Benadryl, 25 mg= 0.5 mL, IV Push, q6h, PRN Colace, 100 mg= 1 cap(s), Oral, BID Fleet Enema, 133 mL, Rectal, qDay, PRN gabapentin, 100 mg= 1 cap(s), Oral, TID Metoprolol Tartrate 50 mg oral tablet, 50 mg= 1 tab(s), Oral, BID Milk of Magnesia, 30 mL, Oral, Daily morphine, 4 mg= 1 mL, IV Push, q4h, PRN Keene 325- 5 mg oral tablet, 1 tab(s), Oral, q4h, PRN Pepcid, 20 mg= 1 tab(s), Oral, qDay Senokot S, 2 tab(s), Oral, BID sucralfate, 1 gram(s)= 1 tab(s), Oral, Daily Synthroid, 100 mcg= 1 tab(s), Oral, qDay Transderm-Scop 1 mg/72 hr transdermal film, extended release, 1 patch(es), Transdermal, q72h, PRN Tylenol, 650 mg= 2 tab(s), Oral, q4h, PRN Tylenol, 650 mg= 2 tab(s), Oral, q4h, PRN Zofran, 4 mg= 2 mL, IV Push, q8h, PRN Home Albuterol (Eqv-ProAir HFA) 90 mcg/inh inhalation aerosol amitriptyline 25 mg oral tablet, 25 mg= 1 tab(s), Oral, qHS atorvastatin 10 mg oral tablet, 10 mg= 1 tab(s), Oral, qDay desvenlafaxine (as succinate) 50 mg oral tablet, extended release, 50 mg= 1 tab(s), Oral, Daily esomeprazole 40 mg oral delayed release capsule, 40 mg= 1 cap(s), Oral, qDay furosemide 40 mg oral tablet, 40 mg= 1 tab(s), Oral, Daily gabapentin 100 mg oral capsule, 100 mg= 1 cap(s), Oral, TID Metoprolol Tartrate 50 mg oral tablet, 50 mg= 1 tab(s), Oral, BID Keene 325- 5 mg oral tablet, 1 tab(s), Oral, q6h, PRN Saxenda 18 mg/3 mL subcutaneous solution sucralfate 1 g oral tablet Synthroid 50 mcg (0.05 mg) oral tablet, 100 mcg= 2 tab(s), Oral, qDay Allergies penicillin Social History Alcohol Use: Never., 10/27/2022 Substance Abuse Use: Never., 10/27/2022 Tobacco Nicotine Use: Never (less than 100 in lifetime)., 10/27/2022 Family History Malignant tumor of pancreas: Mother. Parkinson's disease: Father. Immunizations pneumococcal 23-valent vaccine(Pneumovax: 0.5 unknown unit (05/04/20) pneumococcal 23-valent vaccine(Pneumovax: 0 unknown unit (02/15/16) tetanus/diphth/pertuss (Tdap) adult/adol: 0.5 unknown unit (05/02/21) Digitally Signed by ROCK OBANDO on 11/23/2022 10:29 AM [facility]06-15-2023 Note Discharge Instructions Thank you for allowing [facility] to assist you with your healthcare needs. The following is importantdischarge information regarding your hospital visit. Your Care Team Jorge Davis DO [facility] Your Diagnosis Cervical spondylosis What to do next Instructions From Your Doctor Activity: Do not drive, smoke, operate machinery, return to work, or engage in activities that require you bird alert when taking narcotics, pain relievers or muscle relaxants No reaching overhead Do not turn your head from side to side, turn your upper body Wear both CECY hose continuously for 6 weeks Remove during shower time and replaced with a clean pair Wash with soap and water, then hang dry for next use No heavy lifting, pulling, or pushing more than 10 pounds for 3 months Must wear your cervical collar at all times Call Dr. Davis office if: You have any difficulty breathing, swallowing, or swelling of your throat You have a sore throat that does not go away with ice chips, lozenges, pain meds etc. You fall at home, call immediately You experience numbness and/or tingling in your arms or legs that is changed or increased after discharge You develop chills, and/or fever greater than 100 degrees You have drainage from your incision, especially bloody or thick yellow You have increased redness or swelling around the incision You have severe or continued headaches, especially if no headaches were present in the hospital You start having increased pain that is not relieved by your medicine You run out of pain medication Care for your incision: Never put anything on your incision, no creams lotions or antibiotic ointment No hot tubs, swimming, or soaking in water for 6 weeks, or until your incision is healed To shower, cover your incision with a 4 x 4, Tegaderm dressing, and you must wear your cervical collar Change the dressing to your neck daily using a dry 4 x 4 and tape Wear your bone growth stimulator if given 1 daily as instructed If you need to shave using electric razor, do not tilt your head back or shave over the incision General reminders: Do not take any medications, herbal, prescription, or oqcx-smg-gmfraka unless prescribed for the next 12 weeks Remember to take your pain medication and/or muscle relaxants as ordered to keep your pain under control No NSAIDs for 3 months, will interfere with the fusion. Swelling around the nerves can cause continued numbness and tingling for days or weeks after surgery Follow Up Appointments Follow Up with HORACIO BENSON MD When Why: Please call your PCP after d/c to schedule a Follow up appt. Where: [facility] [id number] Follow Up with JORGE DAVIS DO, Orthopedic When Where: [address] [place] [address] [address] [facility] [place] [phone] Allergies penicillin Medications Please ask your primary doctor or pharmacist before taking any other medication not listed, including over the counter drugs, herbal medications, vitamins and or supplements as they may interact withyour home medications. What How Much When Why Instructions Last Dose Unchanged acetaminophen- hydrocodone (Keene 325- 5 mg oral tablet) 1 tab(s) by mouth Every 6 hours as needed for for pain Cervical spondylosis Duration: 7 Days Pickup at [facility] Unchanged albuterol (Albuterol (Eqv-ProAir HFA) 90 mcg/ inh inhalation aerosol) INHALE 2 PUFFS BY MOUTH EVERY 4 HOURS NEEDED Unchanged amitriptyline (amitriptyline 25 mg oral tablet) 1 tab(s) by mouth Daily at bedtime Unchanged atorvastatin (atorvastatin 10 mg oral tablet) 1 tab(s) by mouth Once a day Unchanged desvenlafaxine (desvenlafaxine (as succinate) 50 mg oral tablet, extended release) 1 tab(s) by mouth Every day Unchanged esomeprazole (esomeprazole 40 mg oral delayed release capsule) 1 cap by mouth Once a day Unchanged furosemide (furosemide 40 mg oral tablet) 1 tab(s) by mouth Every day Unchanged gabapentin (gabapentin 100 mg oral capsule) 1 cap by mouth Three (3) times a day Unchanged levothyroxine (Synthroid 50 mcg (0.05 mg) oral tablet) 2 tab(s) by mouth Once a day Unchanged liraglutide (Saxenda 18 mg/ 3 mL subcutaneous solution) INJECT ONE-HALF ml SUBCUTANEOUSLY DAILY Unchanged metoprolol (Metoprolol Tartrate 50 mg oral tablet) 1 tab(s) by mouth Two (2) times a day Unchanged sucralfate (sucralfate 1 g oral tablet) TAKE 1 TABLET BY MOUTH EVERY DAY Pharmacy Information [facility]: [address], [place] [phone] Please take this list to your next doctor s visit. Bring all medications you take, including over the counter medications, herbals and other supplements with you to your doctor s visit. Patients and families are reminded to discard old lists and to update any records with all medication providers or retail pharmacies. Medication Leaflets acetaminophen and hydrocodone (a SEET a MIN [place] done) Hycet, Lorcet, Keene, Verdrocet, Vicodin, Xodol, Zamicet What is the most important information I should know about acetaminophen and hydrocodone? MISUSE OF OPIOID MEDICINE CAN CAUSE ADDICTION, OVERDOSE, OR . Keep the medication in a place where others cannot get to it. Taking opioid medicine during may cause life-threatening withdrawal symptoms in the . Fatal side effects can occur if you use opioid medicine with alcohol, or with other drugs that cause drowsiness or slow your breathing. Stop taking this medicine and call your doctor right away if you have skin redness or a rash that spreads and causes blistering and peeling. What is acetaminophen and hydrocodone? Acetaminophen and hydrocodone is a combination medicine used to relieve moderate to severe pain. Acetaminophen and hydrocodone contains an opioid medicine, and may be habit-forming. Acetaminophen and hydrocodone may also be used for purposes not listed in this medication guide. What should I discuss with my healthcare provider before taking acetaminophen and hydrocodone? You should not use this medicine if you are allergic to acetaminophen or hydrocodone, or if you have: severe asthma or breathing problems; or a blockage in your stomach or intestines. Tell your doctor if you have ever had: breathing problems, sleep apnea (breathing stops during sleep); liver disease; a drug or alcohol addiction; kidney disease; a head injury or seizures; urination problems; or problems with your thyroid, pancreas, or gallbladder. If you use opioid medicine while you are , your baby could become dependent on the drug. This can cause life-threatening withdrawal symptoms in the baby after it is born. Babies born dependent on opioids may need medical treatment for several weeks. Ask a doctor before using opioid medicine if you are . Tell your doctor if you notice severe drowsiness or slow breathing in the nursing baby. How should I take acetaminophen and hydrocodone? Follow all directions on your prescription label. Never take this medicine in larger amounts, or for longer than prescribed. An overdose can damage your liver or cause . Tell your doctor if you feel an increased urge to use more of this medicine. Never share this medicine with another person, especially someone with a history of drug abuse or addiction. MISUSE CAN CAUSE ADDICTION, OVERDOSE, OR . Keep the medicine in a place where others cannot get to it. Selling or giving away this medicine is against the law. Measure liquid medicine carefully. Use the dosing syringe provided, or use a medicine dose-measuring device (not a kitchen spoon). If you need surgery or medical tests, tell the doctor ahead of time that you are using this medicine. You should not stop using this medicine suddenly. Follow your doctor's instructions about tapering your dose. Store at room temperature away from moisture and heat. Keep track of your medicine. You should be aware if anyone is using it improperly or without a prescription. Do not keep leftover opioid medication. Just one dose can cause in someone using this medicine accidentally or improperly. Ask your pharmacist where to locate a drug take-back disposal program.If there is no take-back program, flush the unused medicine down the toilet. What happens if I miss a dose? Since this medicine is used for pain, you are not likely to miss a dose. Skip any missed dose if itis almost time for your next dose. Do not use two doses at one time. What happens if I overdose? Seek emergency medical attention or call the Poison Help line at . An overdose of this medicine can be fatal, especially in a child or other person using the medicine without a prescription. Overdose symptoms may include nausea, vomiting, sweating, severe drowsiness, pinpoint pupils, slow breathing, or no breathing. Your doctor may recommend you get naloxone (a medicine to reverse an opioid overdose) and keep it with you at all times. A person caring for you can give the naloxone if you stop breathing or don't wake up. Your caregiver must still get emergency medical help and may need to perform CPR (cardiopulmonary resuscitation) on you while waiting for help to arrive. Anyone can buy naloxone from a pharmacy or local health department. Make sure any person caring foryou knows where you keep naloxone and how to use it. What should I avoid while taking acetaminophen and hydrocodone? Avoid driving or operating machinery until you know how this medicine will affect you. Dizziness ordrowsiness can cause falls, accidents, or severe injuries. Do not drink alcohol. Dangerous side effects or could occur. Ask a doctor or pharmacist before using any other medicine that may contain acetaminophen (sometimes abbreviated as APAP). Taking certain medications together can lead to a fatal overdose. What are the possible side effects of acetaminophen and hydrocodone? Get emergency medical help if you have signs of an allergic reaction: hives; difficulty breathing; swelling of your face, lips, tongue, or throat. Opioid medicine can slow or stop your breathing, and may occur. A person caring for you should give naloxone and/or seek emergency medical attention if you have slow breathing with long pauses,blue colored lips, or if you are hard to wake up. In rare cases, acetaminophen may cause a severe skin reaction that can be fatal. This could occur even if you have taken acetaminophen in the past and had no reaction. Stop taking this medicine and call your doctor right away if you have skin redness or a rash that spreads and causes blistering andpeeling. Call your doctor at once if you have: noisy breathing, sighing, shallow breathing, breathing that stops; a light-headed feeling, like you might pass out; liver problems--nausea, upper stomach pain, tiredness, loss of appetite, dark urine, harish-colored stools, jaundice (yellowing of the skin or eyes); low cortisol levels-- nausea, vomiting, loss of appetite, dizziness, worsening tiredness or weakness; o high levels of serotonin in the body--agitation, hallucinations, fever, sweating, shivering, fast heart rate, muscle stiffness, twitching, loss of coordination, nausea, vomiting, diarrhea. Serious breathing problems may be more likely in older adults and in those who are debilitated or have wasting syndrome or chronic breathing disorders. Common side effects include: dizziness, drowsiness, feeling tired; nausea, vomiting, stomach pain; constipation; or headache. This is not a complete list of side effects and others may occur. Call your doctor for medical advice about side effects. You may report side effects to FDA at 9-545-BVS-8308. What other drugs will affect acetaminophen and hydrocodone? You may have breathing problems or withdrawal symptoms if you start or stop taking certain other medicines. Tell your doctor if you also use an antibiotic, antifungal medication, heart or blood pressure medication, seizure medication, or medicine to treat HIV or hepatitis C. Opioid medication can interact with many other drugs and cause dangerous side effects or . Be sure your doctor knows if you also use: cold or allergy medicines, bronchodilator asthma/COPD medication, or a diuretic ('water pill'); medicines for motion sickness, irritable bowel syndrome, or overactive bladder; other opioids--opioid pain medicine or prescription cough medicine; a sedative like Valium--diazepam, alprazolam, lorazepam, Xanax, Klonopin, Versed, and others; drugs that make you sleepy or slow your breathing--a sleeping pill, muscle relaxer, medicine to treat mood disorders or mental illness; drugs that affect serotonin levels in your body--a stimulant, or medicine for depression, Parkinson's disease, migraine headaches, serious infections, or nausea and vomiting. This list is not complete. Other drugs may affect acetaminophen and hydrocodone, including prescription and tpce-aqr-iykpnrh medicines, vitamins, and herbal products. Not all possible interactions are listed here. Where can I get more information? Your doctor or pharmacist can provide more information about acetaminophen and hydrocodone. Remember, keep this and all other medicines out of the reach of children, never share your medicines with others, and use this medication only for the indication prescribed. Every effort has been made to ensure that the information provided by [employer]. ('[employer]') is accurate, up-to-date, and complete, but no guarantee is made to that effect. Drug information contained herein may be time sensitive. [employer] information has been compiled for use by healthcare practitioners and consumers in the [place] and therefore [employer] does not warrant that uses outside of the [place] are appropriate, unless specifically indicated otherwise. [employer] drug information does not endorse drugs, diagnose patients or recommend therapy. [employer] drug information isan informational resource designed to assist licensed healthcare practitioners in caring for their p atients and/or to serve consumers viewing this service as a supplement to, and not a substitute for, the expertise, skill, knowledge and judgment of healthcare practitioners. The absence of a warningfor a given drug or drug combination in no way should be construed to indicate that the drug or drug combination is safe, effective or appropriate for any given patient. [employer] does not assume any responsibility for any aspect of healthcare administered with the aid of information [employer] provides. The information contained herein is not intended to cover all possible uses, directions, precautions, warnings, drug interactions, allergic reactions, or adverse effects. If you have questions about the drugs you are taking, check with your doctor, nurse or pharmacist. Copyright 9023-0038 [employer]. Version: 16.03. Revision Date: 07/13/2020. Education Materials Anterior Cervical Diskectomy and Fusion, Care After This sheet gives you information about how to care for yourself after your procedure. Your health care provider may also give you more specific instructions. If you have problems or questions, contact your health care provider. What can I expect after the procedure? After the procedure, it is common to have: Neck pain. Discomfort when swallowing. Slight hoarseness. Follow these instructions at home: If you have a neck brace: Wear it as told by your health care provider. Remove it only as told by your health care provider. Keep the brace clean and dry. Ask your health care provider if you should remove the brace to bathe or shower. Incision care Follow instructions from your health care provider about how to take care of your incision. Make sure you: ? Wash your hands with soap and water before and after you change your bandage (dressing). If soap and water are not available, use hand safety net maker. ? Change your dressing as told by your health care provider. ? Leave stitches (sutures), skin glue, or adhesive strips in place. These skin closures may need to stay in place for 2 weeks or longer. If adhesive strip edges start to loosen and curl up, you may trim the loose edges. Do not remove adhesive strips completely unless your health care provider tells you to do that. Check your incision area every day for signs of infection. Check for: ? Redness, swelling, or pain. ? Fluid or blood. ? Warmth. ? Pus or a bad smell. Managing pain, stiffness, and swelling Take xynj-jtn-lhqjanz and prescription medicines only as told by your health care provider. If directed, put ice on the injured area. ? If you have a removable brace, remove it as told by your health care provider. ? Put ice in a plastic bag. ? Place a towel between your skin and the bag. ? Leave the ice on for 20 minutes, 2 3 times a day. Activity Return to your normal activities as told by your health care provider. Ask your health care provider what activities are safe for you. Do exercises as told by your health care provider. Do not take baths, swim, or use a hot tub until your health care provider approves. Do not lift anything that is heavier than 10 lb (4.5 kg), or the limit that you are told, until your health care provider says that it is safe. General instructions Ask your health care provider if the medicine prescribed to you: ? Requires you to avoid driving or using heavy machinery. ? Can cause constipation. You may need to take actions to prevent or treat constipation, such as: ? Drink enough fluid to keep your urine pale yellow. ? Take uszp-gxo-aelnksa or prescription medicines. ? Eat foods that are high in fiber, such as beans, whole grains, and fresh fruits and vegetables. ? Limit foods that are high in fat and processed sugars, such as fried and sweet foods. Do not use any products that contain nicotine or tobacco, such as cigarettes, e- cigarettes, and chewing tobacco. These can delay healing. If you need help quitting, ask your health care provider. Keep all follow-up visits and physical therapy appointments as told by your health care provider. This is important. Contact a health care provider if you have: A fever. Redness, swelling, or pain around your incision. Fluid or blood coming from your incision. Pus or a bad smell coming from your incision. Pain that is not controlled by your pain medicine. Increasing hoarseness or trouble swallowing. Get help right away if you have: Severe pain. Sudden numbness or weakness in your arms. Warmth, tenderness, or swelling in your calf. Chest pain. Difficulty breathing. Summary After the procedure, it is common to have neck pain, discomfort when swallowing, and slight hoarseness. Follow instructions from your health care provider about how to take care of your incision. Check your incision area every day for signs of infection. Return to your normal activities as told by your health care provider. Ask your health care provider what activities are safe for you. Contact a health care provider if you have signs of infection at your incision. This information is not intended to replace advice given to you by your health care provider. Make sure you discuss any questions you have with your health care provider. Document Released: 06/23/2016 Document Revised: 02/20/2019 Document Reviewed: 02/20/2019 [employer] Patient Education 2020 [employer] Additional Information VACCINATE! IT SAVES LIVES! Members of the community who have not yet received the COVID-19 vaccine and would like to receive it can visit one of [facility] vaccine clinics. There are many vaccine clinic locations within the [facility]. For locations and available times, please visit https://[email or web address].[place].gov/. It is important to note that some COVID mobile vaccine clinics are held outdoors and may be canceled in rainy or stormy conditions. To learn more about pediatric vaccinations (ages 5-11), we invite you to visit the [facility] webpage. [email or web address].[email or web address]/pages/[email or web address]-[email or web address]-[email or web address] stions.htmlTo learn more about the COVID-19 vaccine, we invite you to visit the CDC website for a list of frequently asked questions.https://www.cdc.gov/coronavirus/2019-ncov/vaccines/faq.html [facility] [employer] Patient Portal Access Instructions: Stay connected with your healthcare team and access your personal medical information anytime with the [facility] Patient Portal. Please follow the directions below to create your [facility] account: 1.Access the email account you provided upon registration to the hospital/physician office.2.Look for an invitation email from [facility].3.Open the email and access the invitation link: AcceptInvitation to [facility].4.Fill in the required dempsey to create your account. To access your account, visit [employer]. Click the blue button labeled Access Patient Portal and then log in with the username and password that you created in the steps above. You will be able to view your test results, lab results, a summary of your visits, upcoming appointments and more. There is also a convenient messaging option where you can send secure messages to your [employer]. In addition, you will have the ability to download any documents or summaries to your computer and/or send the information securely to a physician. Remember that your healthcare information is confidential, so carefully consider who you will allowto register on the [facility] Patient Portal for access to your information. You can also access the [facility] Patient Portal on the [facility] [employer] harleen. Simply click on Patient Portal and then log into your account. If you would like to receive a full copy of your medical records, please contact the [facility] Medical Records Department by calling [phone], Sunday through Sunday between 8 a.m. and 4:30 p.m. HOW TO SAFELY DISPOSE OF PRESCRIPTION MEDICATIONS Please use one of the following methods to safely dispose of your unused medications. 1.Use a drug disposal kit: the drug disposal pouch allows you to safely discard your old and unuseddrugs. Ask your nurse to give you one when you are discharged.2.Visit a local take-back location: Many local pharmacies and police departments have programs that collect old and unwanted prescriptiondrugs. Call your local pharmacy or go to http://bit.ly/0K5Ik0m to find one close to you.3.Make use of household items: Use cat litter or old coffee grounds to dispose medications if other options arenot available. Mix your drugs with these household products, seal them in an airtight container andthrow it into the garbage. Call [facility]: [phone] to be sure your drugs can be disposed of in this way. Some medicines may require a different approach.4.Never flush your medications down the toilet. IF YOU HAVE BEEN PRESCRIBED AN OPIOID FOR PAIN If you have been prescribed an opioid (such as hydrocodone, oxycodone or morphine), it is critical to understand the possible side effects and risks of opioid pain medications. Even when taken as directed, opioids can have several side effects including: Tolerance, meaning you might need to take more of a medication for the same pain relief. Nausea, vomiting and/or constipation. Sleepiness, dizziness, dry mouth, confusion, depression or itching. Physical dependence, meaning you have withdrawal symptoms when a medication is stopped, can develop within a few days. KNOW YOUR RESPONSIBILITIES It is important to know exactly how much and how often to take the opioid pain medications you are prescribed. Never take opioids in higher amounts or more often than prescribed. Do not combine opioids with alcohol or other drugs that cause drowsiness, such as benzodiazepines, also known as benzos, including diazepam and alprazolam, muscle relaxants or sleep aids. Never sell or share prescription opioids. This is illegal. Store opioids in a secure place and out of reach of others (including children, family, friends and visitors). The last page of this document has been signed and retained as a CHART COPY. Signatures Patient Education Materials Anterior Cervical Diskectomy and Fusion, Care After Medication Leaflets acetaminophen and hydrocodone My discharge plan and instructions have been reviewed and explained to me and IZANDER JEANNIE L understand my current condition and have read and understand these discharge instructions. I have received a written copy of the plan/instructions. If I have questions, I am aware that I should contact my doctor. 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 [facility]06-14-2023 Note ORIGINAL Images acquired, not reported on this accession number.[facility]06-14-2023 Note Date of Service 11/22/2022 Chief Complaint Status post C5-6 ACDF Subjective The patient was seen and examined postoperatively. She is lying in bed resting comfortably. Her pain is controlled. She denies any acute numbness tingling or weakness Objective Vitals and Measurements T: 36.1 C (Temporal Artery) HR: 60(Apical) RR: 20 BP: 112/76 SpO2: 97% HT: 165 cm WT: 77 kg Intake and Output 7AM Yesterday to 7AM Today Intake and Output (Last 24 hours) Intake Output Total Summary Total Intake 0.00 Total Output 0.00 Fluid Balance 0.00 Physical Exam A&O, NAD NCAT, EOMI Regular rate and rhythm Clear to auscultation bilaterally Abdomen soft and nontender Neck soft and supple. Dressing clean dry and intact, cervical collar in place Extremities: Sensation and motor intact grossly without focal deficit. Pulses and reflexes are normal and symmetric Weight Dosing Weight: 77 kg (11/22/22) Medications Medications (3) Active Scheduled: (1) clindamycin PMX 600 mg 50 mL, IV Piggyback, PREOP pharm Continuous: (2) heparin 30,000 unit(s) + NS (0.9% nacl) 1,000 mL 1,000 mL, Miscellaneous NS (0.9% nacl) 1000 mL 1,000 mL, Intravenous, 125 mL/hr PRN: (0) Lab Results No 36 Hour Lab Data EKG No qualifying data available. Assessment/Plan Orders: clindamycin, Start: 11/22/22 6:00:00 EDT, Dose = 600 mg, = 50 mL, IV Piggyback, PREOP pharm, Rate: 100 mL/hr, Infuse over: 30 minute(s), 0 heparin 30,000 unit(s) + Sodium Chloride 0.9% intravenous solution 1,000 mL, Start: 11/22/22 6:00:00 EDT, As directed for cellsaver machine Sodium Chloride 0.9% intravenous solution 1000 mL, Start: 11/22/22 6:00:00 EDT, 18 hour(s), Stop date 11/25/22 5:59:00 EDT, Rate: 125 mL/hr Antiembolism Stocking Application Thigh High Communication Order (scheduled) IV Catheter Insertion/Care NPO Sequential Compression Device Application Sign Consent Surgical Shave Preparation Vital Signs Okay to admit to floor See orders Discharge planning, likely home tomorrow Digitally Signed by JORGE DAVIS DO on 11/23/2022 06:42 AM [facility]06-14-2023 Anesthesiology Consult note Patient: DANA FERMIN Age: 67 years Sex: Female : 1955 Associated Diagnoses: None Author: ARIANA MONTGOMERY Preoperative Information Anesthesia history Patient's history: negative. Family's history: negative. Health Status Allergies: Allergic Reactions (Selected) Severity Not Documented Penicillin- No reactions were documented., Allergies (1) ActiveReaction penicillinNone Documented Current medications: (Selected) Inpatient Medications Ordered Cleocin Phosphate: 600 mg, 50 mL, 100 mL/hr, IV Piggyback, PREOP pharm NS 1,000 mL: 125 mL/hr, Intravenous, Stop: 11/22/22 23:59:00 EDT heparin 30,000 unit(s) + NS 1,000 mL: As directed for cellsaver machine, Miscellaneous Documented Medications Documented Albuterol (Eqv-ProAir HFA) 90 mcg/inh inhalation aerosol: INHALE 2 PUFFS BY MOUTH EVERY 4 HOURS NEEDED Metoprolol Tartrate 50 mg oral tablet: 50 mg, 1 tab(s), Oral, BID, 180 tab(s), 0 Refill(s) Saxenda 18 mg/3 mL subcutaneous solution: INJECT ONE-HALF ml SUBCUTANEOUSLY DAILY Synthroid 50 mcg (0.05 mg) oral tablet: 100 mcg, 2 tab(s), Oral, qDay, 30 tab(s), 0 Refill(s) amitriptyline 25 mg oral tablet: 25 mg, 1 tab(s), Oral, qHS, 60 tab(s), 0 Refill(s) atorvastatin 10 mg oral tablet: 10 mg, 1 tab(s), Oral, qDay, 30 tab(s), 0 Refill(s) desvenlafaxine (as succinate) 50 mg oral tablet, extended release: 50 mg, 1 tab(s), Oral, Daily, 30tab(s), 0 Refill(s) esomeprazole 40 mg oral delayed release capsule: 40 mg, 1 cap(s), Oral, qDay, 30 cap(s), 0 Refill(s) furosemide 40 mg oral tablet: 40 mg, 1 tab(s), Oral, Daily, 0 Refill(s) gabapentin 100 mg oral capsule: 100 mg, 1 cap(s), Oral, TID, 90 cap(s), 0 Refill(s) sucralfate 1 g oral tablet: TAKE 1 TABLET BY MOUTH EVERY DAY, Medications (3) Active Scheduled: (1) clindamycin PMX 600 mg 50 mL, IV Piggyback, PREOP pharm Continuous: (2) heparin 30,000 unit(s) + NS (0.9% nacl) 1,000 mL 1,000 mL, Miscellaneous NS (0.9% nacl) 1,000 mL 1,000 mL, Intravenous, 125 mL/hr PRN: (0) Problem list: Active Problems (7) Asthma Barretts esophagus GERD (gastroesophageal reflux disease) Heart murmur HTN (hypertension) Hypothyroidism Osteoarthritis Histories Past Medical History: No active or resolved past medical history items have been selected or recorded. Family History: Parkinson's disease Father Malignant tumor of pancreas Mother Procedure history: Sliding osteotomy of chin with single piece implant ([id number]). Breast reduction ([id number]). Social History Social & Psychosocial Habits Alcohol 10/27/2022 Use: Never Substance Abuse 10/27/2022 Use: Never Tobacco 10/27/2022 Tobacco Use: Never (less than 100 in l . Physical Examination Vital Signs 11/22/2022 6:44 EDT Temperature Temporal Artery 36.1 DegC Apical Heart Rate 60 bpm Respiratory Rate 20 br/min Systolic Blood Pressure Non-Invasive 112 mmHg Diastolic Blood Pressure Non-Invasive 76 mmHg Vital Signs(last 24 hrs) Last Charted Resp Rate 20 br/min (NOV 22 06:44) SEM299 mmHg (NOV 22 06:44) DBP76 mmHg (NOV 22 06:44) Measurements from flowsheet : Measurements 11/22/2022 6:44 EDT Height 165 cm Admission Weight 77 kg Weight Method Stated [place] Body Weight 56.91 kg General: Alert and oriented. Airway: Normal temporomandibular joint mobility. Mallampati classification: II (soft palate, fauces, uvula visible). Dentition Evaluation: Denies loose/chipped teeth. Respiratory: Lungs are clear to auscultation, Respirations are non-labored. Cardiovascular: Normal rate, Regular rhythm. Neurologic: Alert, Oriented. Review / Management Results review: No qualifying data available , Lab results 11/22/2022 6:44 EDT Designated Person #1 We May Share NASIR FERMIN-[phone] Designated Person #1 Relationship Spouse Privacy Restrictions Requested None Height 165 cm Admission Weight 77 kg Weight Method Stated [place] Body Weight 56.91 kg Temperature Temporal Artery 36.1 DegC Apical Heart Rate 60 bpm Respiratory Rate 20 br/min Systolic Blood Pressure Non-Invasive 112 mmHg Diastolic Blood Pressure Non-Invasive 76 mmHg Oxygen Saturation 97 % Status No, per patient Sensory Deficits None Sleep Apnea Snore No Sleep Apnea Tired No Sleep Apnea Obstruction No Sleep Apnea Pressure No Sleep Apnea BMI Yes Sleep Apnea Age Yes Sleep Apnea Neck No Sleep Apnea Gender No Sleep Apnea Score 2 High Risk for Sleep Apnea No Diagnosed With Sleep Apnea No Advanced Directives No - refuses information Infectious Disease Symptoms Patient states no symptoms, Cough Infectious Disease Recent Exposure No Alcohol and Drug Use No Employee of Institutional Living No Health Care Employee No History of Exposure to TB No History of Positive Chest X-Ray for TB No History of Positive TB Skin Test No Homeless No Known Immunosuppression No Recent Immigrant No Resident of Institutional Living No Bloody Sputum No Fatigue No Fever No Loss of Appetite No Night Sweats No Persistent Cough > 3 Weeks No Weight Loss No Safety Brochure Information Reviewed Yes Liz Cohen Video Viewed No Barriers to Learning None evident Teaching Method Explanation, Printed materials Teaching Evaluation No further teaching needed Preferred Written Language [place] Preferred Spoken Language [place] Information Given by Patient Patient's Current Physicians DR HORACIO BENSON - PCP Discharge To, Anticipated Home with family care Prev Test Positive/Diagnosis w/COVID-19 No Current Quarantine/Isolated any Illness No Any Contact with Sick Animals/Birds No Traveled Anywhere in Last 30 Days Yes Travel Where Outside [place] State(s) Ashlee Lost Weight Unintentionally Recently No Eat Poorly Due to Decreased Appetite No Total MST Score 0 No Personal Devices, Patient Valuables Glasses Anesthesia/Transfusions Prior anesthesia Admission Note-Nursing Same Day Patient History . Assessment and Plan [place] [employer] Anesthesiologists (ASA) physical status classification: Class III. Anesthetic Preoperative Plan Anesthetic technique: General. Maintenance airway: Oral endotracheal tube. Postoperative pain management: Per surgeon. Risks discussed: nausea, vomiting, sore throat, dental injury, hypotension, allergic reaction, serious complications. Informed consent: signed by patient. Digitally Signed by ARIANA MONTGOMERY on 11/22/2022 07:00 AM [facility]07-08-2022 History of Present illness Narrative * RT Miley(R) - 12/16/2021 1:40 PM EDT Radiology Service Progress Note PATIENT NAME: Dana Fermin DATE OF SERVICE: December 16, 2021 TIME: 1:39 PM PATIENT IDENTITY VERIFICATION COMPLETED USING TWO (2) IDENTIFIERS: Name and Date of confirmedby patient verbally. FALL SCREENING: Has the patient had 2 falls in the last year or 1 fall with injury or currently using an Ambulatory Assistive Device (Walker, Cane, Wheelchair, Crutches, etc.)? No PATIENT GENDER DATA: Female. status: : No status: NO. PATIENT RELEVANT IMPLANT DATA REVIEWED: Not Applicable RADIOLOGY DEPARTMENT: Mammography PERIPHERAL IV DATA: Not applicable SIGNED BY: RT Miley(Bigg) December 16, 2021 1:39 PM documented in this encounterKalona ClinicEvaluation + Plan note No data available for this section [facility] Evaluation noteNo assessment information available [facility] Work Phone: Hospital Discharge instructionsAdditional Instructions Keep Tegaderm and gauze clean and dry. After 5 days remove the Tegaderm and gauze and cover incision with a Band-Aid. Replace Band-Aid daily thereafter. Wear cervical collar full-time for the first 2 weeks. Eat soft solid foods as needed for dysphagia. Sleep in a recliner to help with swelling. No bending, lifting, twisting. Follow-up in clinic in 2 weeks.[facility] Work Phone: Hospital Discharge instructionsAmbulatory Orders* PT Referral Location: None Selected [facility] Work Phone: Progress note Author Manjula Russell [facility] Note Date/Time December 09, 2024 12:27 pm [facility] Medical Records Department [address] [place] [address] Progress Note - Orthopedic 12/09/24 1224 MR#: [id number] Acct: [id number] Name: DANA CARLSON Rep # :[id number] : 1955 69 From: Manjula MOLSEY PCP: Dr. Horacio Benson MD Status:A DM IN Location: [facility] MG200-8 Subjective Subjective Postop day 1 C3-5 fusion with prior hardware removal. Patient is doing very well postoperatively with minimal pain. Patient's voice was hoarse today. She denies any significant dysphagia. No dressing changes. Patient was sitting upright in the recliner upon entry. Patient cervical collar was applied and in good position. Patient has walked with PT/OT who has cleared her for home discharge. Seen with Dr. Martinez. Objective Data Objective Data Vital Signs: Vital Signs Temp Pulse Resp BP Pulse Ox O2 Del Method O2 Flow Rate 98.7 F 94 18 119/73 97 Room Air 2 12/09/24 10:12/09/24 10:12/09/24 10:12/09/24 10:12/09/24 10:12/09/24 10:12/09/24 02:03 Oxygen Flow Rate (L/min) 2 Oxygen Delivery Method Room Air Weight: 167 lb 8.821 oz Body Mass Index (BMI) 29.7 Intake & Output: Intake and Output for Last 24 Hours 12/07/24 12/08/24 12/09/24 23:59 23:59 23:59 Intake Total 1100 / 1100 341.5 / 341.5 Output Total 40 / 40 Balance 1060 / 1060 341.5 / 341.5 Lab / Micro Data 12/09/24 06:59 12/09/24 06:59 Labs: Laboratory Results - last 24 hr 12/09/24 06:59: WBC 8.8, RBC 3.28 L, Hgb 10.4 L, Hct 31.3 L, MCV 95.4, MCH 31.7,MCHC 33.2, RDW Std Deviation 43.9, RDW Coeff of Hitesh 12.6, Plt Count 226, MPV 9.3, Immature Gran % (Auto) 0.700, Neut % (Auto) 88.8 H, Lymph % (Auto) 9.4 L, [place] % (Auto) 1.0, Eos % (Auto) 0.0, Baso % (Auto) 0.1, Absolute Neuts (auto) 7.8 H, Absolute Lymphs (auto) 0.82 L, Nucleated RBC % 0, Sodium 134, Potassium 3.5, Chloride 99, Carbon Dioxide 21.0, Anion Gap 14, BUN 9, Creatinine 0.87, Estim Creat Clear Calc 58.25, Est GFR (MDRD) Non-Af 72, BUN/Creatinine Ratio 10.6, Glucose 191 H, Calcium 8.9 Micro: Microbiology 11/28/24 09:23 Swab (Method) Nasal Screen MRSA/MSSA - Final Radiography Diagnostic Testing: Radiology Impression Cervical Spine X-Ray 12/09/24 05:30 IMPRESSION: Unremarkable postoperative appearance status post ACDF. Disclaimer: Reading Location: [place] [id number] Physical Exam Narrative Neurological examination of the upper extremity shows 5X5 power. Normal sensation across all dermatomes. Surgical dressing and drain removed. Applied fresh gauze and Tegaderm over incision. Adjusted cervical collar to fit the patient. Const alert, oriented x3 and no apparent distress Assessment & Plan Assessment/Plan (1) Status post cervical spinal fusion: PLAN: Plan Postop day 1 C3-5 fusion. Obtained reviewed x-rays today which show hardware and bone graft in good position. PT/OT cleared. Patient ready for home discharge. Home-going meds include hydrocodone?acetaminophen, meloxicam, methocarbamol, senna. OARRS reviewed. Reviewed and educated on proper wear and adjustment of the cervical collar. Reviewed and educated on the use of the incentive spirometer. Reviewed restrictions and no bending, lifting, twisting. She will follow-up in the clinic in 2 weeks. Patient is in agreement. 12/09/24 1227 <Electronically signed by Manjula MOSLEY> Cosigner Signature (if applicable): CC: ~ Signed [facility] Work Phone: Reason for referral (narrative)No reason for referral information availableWNationwide Children's Hospital Work Phone: Summary Purpose Family History No Family History Records FoundNo Family History Records FoundNo Family History Records FoundNo Family History Records FoundNo Family History Records FoundNo Family History Records FoundNo Family History Records Found Advance Directives No Advanced Directives Records FoundDocuments on File Type Date Recorded Patient Chocolate Refining 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 No December 08, 2024 8:00pm Chief Complaint and Reason for Visit Chief Complaint PARESTHESIA OF SKIN PARESTHESIA OF SKIN Chief Complaint SCREENING Chief Complaint Admit Date CERVICAL SPINE September 22, 2024 12: 52pm RM 4 September 22, 2024 1:2 1pm CERVICAL PAIN October 14, 2024 1:03pm Reason for Visit Admit Date Cervical radiculopathy September 22, 2024 12:52pm History of fusion of cervical spine Apri l 2024 12:52pm Chief Complaint Admit Date CERVICAL SPINE September 22, 2024 12: 52pm RM 4 September 22, 2024 1:2 1pm CERVICAL PAIN October 14, 2024 1:03pm CERVICAL SPINE October 23, 2024 1:41p m Chief Complaint Admit Date CERVICAL SPINE September 22, 2024 12: 52pm RM 4 September 22, 2024 1:2 1pm CERVICAL PAIN October 14, 2024 1:03pm CERVICAL SPINE October 23, 2024 1:41p m cervical spine November 28, 2024 10:1 8am Reason for Visit Admit Date Cervical radiculopathy September 22, 2024 12:52pm History of fusion of cervical spine Apri l 2024 12:52pm Cervical radiculopathy October 23, 2024 1: 41pm History of fusion of cervical spine October 23, 2024 1:41pm Chief Complaint Admit Date CERVICAL SPINE September 22, 2024 12: 52pm RM 4 September 22, 2024 1:2 1pm CERVICAL PAIN October 14, 2024 1:03pm CERVICAL SPINE October 23, 2024 1:41p m PREOP November 28, 2024 9:16 am cervical spine November 28, 2024 10:1 8am ERAS, Anterior Cervical Fusion C3-4 and C4-5, poss December 08, 2024 12:51pm ERAS, Anterior Cervical Fusion C3-4 and C4-5, poss December 08, 2024 4:14pm ERAS, Anterior Cervical Fusion C3-4 and C4-5, poss December 08, 2024 6:12pm ERAS, Anterior Cervical Fusion C3-4 and C4-5, poss December 09, 2024 8:09am ERAS, Anterior Cervical Fusion C3-4 and C4-5, poss December 09, 2024 12:24pm Reason for Visit Admit Date Cervical radiculopathy September 22, 2024 12:52pm History of fusion of cervical spine Apri l 2024 12:52pm Cervical radiculopathy October 23, 2024 1: 41pm History of fusion of cervical spine October 23, 2024 1:41pm Cervical radiculopathy November 28, 2024 1 0:18am History of fusion of cervical spine November 28, 2024 10:18am Cervical radiculopathy December 08, 2024 4 :14pm Status post cervical spinal fusion December 08, 2024 4:14pm Chief Complaint Admit Date CERVICAL SPINE September 22, 2024 12: 52pm RM 4 September 22, 2024 1:2 1pm CERVICAL PAIN October 14, 2024 1:03pm CERVICAL SPINE October 23, 2024 1:41p m PREOP November 28, 2024 9:16 am cervical spine November 28, 2024 10:1 8am ERAS, Anterior Cervical Fusion C3-4 and C4-5, poss December 08, 2024 12:51pm ERAS, Anterior Cervical Fusion C3-4 and C4-5, poss December 08, 2024 4:14pm ERAS, Anterior Cervical Fusion C3-4 and C4-5, poss December 08, 2024 6:12pm ERAS, Anterior Cervical Fusion C3-4 and C4-5, poss December 09, 2024 8:09am ERAS, Anterior Cervical Fusion C3-4 and C4-5, poss December 09, 2024 12:24pm cervical spine December 25, 2024 9:49 am Rm 4 December 25, 2024 10:1 4am Reason for Visit Admit Date History of fusion of cervical spine Apri l 2024 12:52pm Cervical radiculopathy September 22, 2024 12:52pm History of fusion of cervical spine October 23, 2024 1:41pm Cervical radiculopathy October 23, 2024 1: 41pm History of fusion of cervical spine November 28, 2024 10:18am Cervical radiculopathy November 28, 2024 1 0:18am Status post cervical spinal fusion December 08, 2024 4:14pm Cervical radiculopathy December 08, 2024 4 :14pm Reason for Visit Admit Date History of fusion of cervical spine Apri l 2024 12:52pm Cervical radiculopathy September 22, 2024 12:52pm History of fusion of cervical spine October 23, 2024 1:41pm Cervical radiculopathy October 23, 2024 1: 41pm History of fusion of cervical spine November 28, 2024 10:18am Cervical radiculopathy November 28, 2024 1 0:18am Status post cervical spinal fusion December 08, 2024 4:14pm Cervical radiculopathy December 08, 2024 4 :14pm Status post cervical spinal fusion December 25, 2024 9:49am Additional Source Comments INFORMATION SOURCE (unrecogn ized section and content) DATE CREATED AUTHOR 11/15/[address] [facility] DATE CREATED AUTHOR AUTHOR'S ORGANIZ ATION 11/30/2022 [facility] ([place]) DATE CREATED AUTHOR AUTHOR'S ORGANIZ ATION 07/28/2023 [facility] DATE CREATED AUTHOR AUTHOR'S ORGANIZ ATION 10/18/2024 [facility] DATE CREATED AUTHOR AUTHOR'S ORGANIZ ATION 11/13/2024 [facility] DATE CREATED AUTHOR AUTHOR'S ORGANIZ ATION 01/02/2025 [facility] DATE CREATED AUTHOR AUTHOR'S ORGANIZ ATION 01/11/2025 [facility] Source Comments (unrecognize d section and content) In the event this informatio n is protected by the Federal Confidentiality of Alcohol and Drug Abuse Patient Records regulations: The Federal rules restrict any use of the information to criminally investigate or prosecute any alcohol or drug abuse patient.[facility] the event this information is protected by the Federal Confidentiality of Alcohol and Drug Abuse Patient Records regulations: The Federal rules restrict any use of the information to criminally investigate or prosecute any alcohol or drug abuse patient.[facility] Care Teams (unrecognized sec tion and content) Team Status: Active Member Role Status Dates Dr. Horacio Benson MD Primary Care Provider Active Team Status: Inactive Member Role Status Dates Mariel MOSLEY, PA Attending Provider, Referring Provider Active Dr. Horacio Benson MD Primary Care Provider Active Outreach Rep Relationship Specialty Start Date End Date Horacio Benson MD PCP - General Family Practice 11/15/10 Team Status: Active Member Role Status Dates Dr. Luis Cohen DO Referring Provider, Other Pr ovider Active Dr. Horacio Benson MD Primary Care Provider Active Dr. Fartun Squires MD Attending Provider Active Team Status: Inactive Member Role Status Dates Dr. Luis Cohen DO Attending Provider, Referrin g Provider Active Dr. Horacio Benson MD Primary Care Provider Active Outreach Rep Relationship Specialty Start Date End Date Horacio Benson MD PCP - General Family Medicine 11/15/10 Team Status: Inactive Member Role Status Dates MELANY Becerra Attending Provider Active Star t: September 22, 2024 End: September 22, 2024 Team Status: Inactive Member Role Status Dates Dr. Iain Blackman MD Attending Provider Active S tart: September 22, 2024 End: September 22, 2024 Team Status: Inactive Member Role Status Dates MELANY Becerra Attending Provider Active Star t: October 14, 2024 End: October 14, 2024 MELANY Becerra Referring Provider Active Star t: October 14, 2024 End: October 14, 2024 Dr. Horacio Benson MD Primary Care Provider Active Start: October 14, 2024 End: October 14, 2024 Team Status: Inactive Member Role Status Dates Dr. Horacio Benson MD Primary Care Provider Active Start: October 23, 2024 End: October 23, 2024 Dr. Horacio Benson MD Referring Provider Active Start: October 23, 2024 End: October 23, 2024 MELANY Becerra Attending Provider Active Star t: October 23, 2024 End: October 23, 2024 Team Status: Inactive Member Role Status Dates Dr. Horacio Benson MD Primary Care Provider Active Start: November 28, 2024 End: November 28, 2024 Dr. Horacio Benson MD Referring Provider Active Start: November 28, 2024 End: November 28, 2024 Dr. Endy Martinez MD Attending Provider Active Start: November 28, 2024 End: November 28, 2024 Team Status: Active Member Role/Relationship Status Dates Dr. Horacio Benson MD Primary Care Provider Active Team Status: Inactive Member Role/Relationship Status Dates MELANY Becerra Attending Provider Active Star t: September 22, 2024 End: September 22, 2024 Team Status: Inactive Member Role/Relationship Status Dates Dr. Iain Blackman MD Attending Provider Active S tart: September 22, 2024 End: September 22, 2024 Team Status: Inactive Member Role/Relationship Status Dates MELANY Becerra Attending Provider Active Star t: October 14, 2024 End: October 14, 2024 MELANY Becerra Referring Provider Active Star t: October 14, 2024 End: October 14, 2024 Dr. Horacio Benson MD Primary Care Provider Active Start: October 14, 2024 End: October 14, 2024 Team Status: Inactive Member Role/Relationship Status Dates Dr. Horacio Benson MD Primary Care Provider Active Start: October 23, 2024 End: October 23, 2024 Dr. Horacio Benson MD Referring Provider Active Start: October 23, 2024 End: October 23, 2024 MELANY Becerra Attending Provider Active Star t: October 23, 2024 End: October 23, 2024 Team Status: Active Member Role/Relationship Status Dates Dr. Horacio Benson MD Primary Care Provider Active Start: November 28, 2024 End: November 28, 2024 Dr. Ari Thurman MD Attending Provider Active Start: November 28, 2024 End: November 28, 2024 Dr. Endy Martinez MD Referring Provider Active Start: November 28, 2024 End: November 28, 2024 Team Status: Inactive Member Role/Relationship Status Dates Dr. Horacio Benson MD Primary Care Provider Active Start: November 28, 2024 End: November 28, 2024 Dr. Horacio Benson MD Referring Provider Active Start: November 28, 2024 End: November 28, 2024 Dr. Endy Martinez MD Attending Provider Active Start: November 28, 2024 End: November 28, 2024 Team Status: Active Member Role/Relationship Status Dates Dr. Horacio Benson MD Primary Care Provider Active Start: December 08, 2024 Dr. Endy Martinez MD Attending Provider Active Start: December 08, 2024 Dr. Endy Martinez MD Referring Provider Active Start: December 08, 2024 Dr. Endy Martinez MD Other Provider Active Star t: December 08, 2024 Team Status: Inactive Member Role/Relationship Status Dates Dr. Horacio Benson MD Primary Care Provider Active Start: December 08, 2024 End: December 09, 2024 Dr. Endy Martinez MD Admit Provider Active Star t: December 08, 2024 End: December 09, 2024 Dr. Endy Martinez MD Attending Provider Active Start: December 08, 2024 End: December 09, 2024 Dr. Endy Martinez MD Referring Provider Active Start: December 08, 2024 End: December 09, 2024 Dr. Cristobal Ochoa , DO Other Provider Active Start: December 08, 2024 End: December 09, 2024 Dr. Joan Muller , DO Other Provider Active Start : December 08, 2024 End: December 09, 2024 Team Status: Active Member Role/Relationship Status Dates Dr. Horacio Benson MD Primary Care Provider Active Start: December 08, 2024 Dr. Endy Martinez MD Admit Provider Active Star t: December 08, 2024 Dr. Endy Martinez MD Referring Provider Active Start: December 08, 2024 Dr. Endy Martinez MD Other Provider Active Star t: December 08, 2024 Dr. Cristobal Ochoa DO Attending Provider Active Start: December 08, 2024 Dr. Cristobal Ochoa , DO Other Provider Active Start: December 08, 2024 Team Status: Active Member Role/Relationship Status Dates Dr. Horacio Benson MD Primary Care Provider Active Start: December 09, 2024 Dr. Endy Martinez MD Admit Provider Active Star t: December 09, 2024 Dr. Endy Martinez MD Referring Provider Active Start: December 09, 2024 Dr. Endy Martinez MD Other Provider Active Star t: December 09, 2024 Dr. Cristobal Ochoa , Other Provider Active Start: December 09, 2024 Dr. Joan Muller DO Attending Provider Active S tart: December 09, 2024 Dr. Joan Muller , DO Other Provider Active Start : December 09, 2024 Team Status: Active Member Role/Relationship Status Dates Dr. Horacio Benson MD Primary Care Provider Active Start: December 09, 2024 Dr. Endy Martinez MD Admit Provider Active Star t: December 09, 2024 Dr. Endy Martinez MD Referring Provider Active Start: December 09, 2024 Dr. Endy Martinez MD Other Provider Active Star t: December 09, 2024 Dr. Cristobal Ochoa , Other Provider Active Start: December 09, 2024 Dr. Joan Muller , DO Other Provider Active Start : December 09, 2024 MELANY Becerra Attending Provider Active Star t: December 09, 2024 Team Status: Active Member Role/Relationship Status Dates Dr. Horacio Benson MD Primary Care Provider Active Start: December 08, 2024 Dr. Endy Martinez MD Admit Provider Active Star t: December 08, 2024 Dr. Endy Martinez MD Other Provider Active Star t: December 08, 2024 Dr. Cristobal Ochoa DO Attending Provider Active Start: December 08, 2024 Dr. Cristobal Ochoa DO Other Provider Active Start: December 08, 2024 Team Status: Active Member Role/Relationship Status Dates Dr. Horacio Benson MD Primary Care Provider Active Start: December 09, 2024 Dr. Endy Martinez MD Admit Provider Active Star t: December 09, 2024 Dr. Endy Martinez MD Other Provider Active Star t: December 09, 2024 Dr. Cristobal Ochoa DO Other Provider Active Start: December 09, 2024 Dr. Joan Muller DO Attending Provider Active S tart: December 09, 2024 Dr. Joan Muller DO Other Provider Active Start : December 09, 2024 Team Status: Active Member Role/Relationship Status Dates Dr. Horacio Benson MD Primary Care Provider Active Start: December 25, 2024 Dr. Horacio Benson MD Referring Provider Active Start: December 25, 2024 Dr. Endy Martinez MD Attending Provider Active Start: December 25, 2024 Team Status: Inactive Member Role/Relationship Status Dates Dr. Horacio Benson MD Primary Care Provider Active Start: December 25, 2024 End: December 25, 2024 Dr. Iain Blackman MD Attending Provider Active S tart: December 25, 2024 End: December 25, 2024 Team Status: Inactive Member Role/Relationship Status Dates Dr. Horacio Benson MD Primary Care Provider Active Start: December 25, 2024 End: December 25, 2024 Dr. Horacio Benson MD Referring Provider Active Start: December 25, 2024 End: December 25, 2024 Dr. Endy Martinez MD Attending Provider Active Start: December 25, 2024 End: December 25, 2024 Goals (unrecognized section and content) Goals may be documented in a n alternate section FOR RECORDS PERTAINING TO PATIENTS WHO ARE OR HAVE BEEN ENROLLED IN A CHEMICAL DEPENDENCY/SUBSTANCEABUSE PROGRAM, SOME INFORMATION MAY BE OMITTED. This clinical summary was aggregated from multiple sources. Caution should be exercised in using it in the provision of clinical care. This summary normalizes information from multiple sources, and as a consequence, information in this document may materially change the coding, format and clinical context of patient data. In addition, data may be omitted in some cases. CLINICAL DECISIONS SHOULD BE BASED ON THE PRIMARY CLINICAL RECORDS. [facility]. provides no warranty or guarantee of the accuracy or completeness of information in this document.
== END | disposition home or self-care (01) ==
LOC: MRI 06:29
PROVIDERS: PCP Family Medicine; Referring Provider Orthopaedic Surgery Orthopaedic Surgery of the Spine; Visit Provider Orthopaedic Surgery Orthopaedic Surgery of the Spine
DX: S32.000A Wedge compression fracture of unspecified lumbar vertebra, initial encounter for closed fracture (principal)
CPT/HCPCS: 72148

== ENCOUNTER → 2025-01-23 | Outpatient (CLI) | payer BC, SELFPAY ==
--- NOTE | 2025-01-23 13:20 | CT_ITS ---
PROCEDURE: SPINE LUMBAR WITHOUT CONTRAST 01/23/2025 REASON FOR EXAM: PAIN, FX TECHNIQUE: SPINE LUMBAR WITHOUT CONTRAST Coronal and Sagittal reconstruction series were provided. One or more dose reduction techniques were used (e.g., Automated exposure control, adjustment of the mA and/or kV according to patient size, use of iterative reconstruction technique COMPARISON: MRI lumbar spine 01/12/2025. RADIATION DOSE SUMMARY: CTDlvol: 14.76 mGy DLP: 458.27 mGycm FINDINGS: Vertebrae: Compression fracture of T12 vertebral body with 60% height loss and 2 mm retropulsion and mild canal stenosis. There is underlying T12 mixed sclerotic and lytic lesion which is felt to represent hemangioma. However, metastasis or multiple myeloma can not be excluded. Compression fracture at the upper endplate of L5, chronic. Alignment: Normal alignment. T12-L1: Fusion of the posterior elements. Mild canal stenosis from retropulsion. No significant foraminal stenosis. L1-2: Facet joint arthropathy. No foraminal or canal stenosis. L2-3: Facet arthropathy. Disc bulge. Moderate bilateral foramina stenosis. Moderate canal stenosis. L3-4: Disc bulge. Facet joint arthropathy and fusion along with ligamentum flavum hypertrophy. Mild bilateral foramina stenosis. Severe canal stenosis. L4-5: Anterolisthesis L4 on L5 by 3 mm. Partial fusion of the facet joints. Severe bilateral foramina stenosis. Moderate canal stenosis. L5-S1: Disc bulge. Facet joint arthropathy. Severe bilateral foramina stenosis. Mild canal stenosis. Sacrum: No acute findings. Soft tissues: Colonic diverticulosis with no evidence of acute diverticulitis. CT/Spine Lumbar without Contrast IMPRESSION: Compression fracture of T12 vertebral body with 60% height loss and 2 mm retrop ulsion and mild canal stenosis. There is underlying T12 mixed sclerotic and lytic lesion which is felt to represent theo ngioma. However, metastasis or multiple myeloma can not be excluded. Multilevel degenerate changes, predominantly for severe canal stenosis at L3-L4 and severe bilateral foramina stenosis at L4-L5 and L5-S1. Reading Location: [id number]
== END | disposition home or self-care (01) ==
LOC: CT 13:20
PROVIDERS: PCP Family Medicine; Referring Provider Student in an Organized Health Care Education/Training Program; Visit Provider Student in an Organized Health Care Education/Training Program
DX: S32.000A Wedge compression fracture of unspecified lumbar vertebra, initial encounter for closed fracture (principal); S22.080S Wedge compression fracture of T11-T12 vertebra, sequela
CPT/HCPCS: 72131

== ENCOUNTER → 2025-01-26 | Outpatient (CLI) | payer BC, SELFPAY ==
--- NOTE | 2025-01-26 15:30 | RAD_ITS ---
PROCEDURE: THORACIC SPINE 3 VIEWS 01/26/2025 REASON FOR EXAM: SPINAL STENOSIS, LUMBAR REGION WITHOUT NEUROGENIC CLAUDICATION TECHNIQUE: THORACIC SPINE 3 VIEWS COMPARISON: None FINDINGS: Vertebrae: Decreased bone mineralization. Fracture of the superior endplate of T12 is present with aproximately 40% height loss. Mild depression superior endplate of T11 with aproximately 20% height loss. Discs: Disc space narrowing, marginal endplate spurring throughout the thoracic spine greatest in the lower thoracic spine. Alignment: Straightening of the thoracic kyphosis. Other: Midcervical spine fusion hardware. RAD/Thoracic Spine 3 Views IMPRESSION: Age-indeterminate fracture of the T12 vertebral body and to a lesser extent the T11 vertebral body. Multilevel degenerative disc disease with marginal endplate spurring. Reading Location: [id number]
== END | disposition home or self-care (01) ==
LOC: RAD 15:25
PROVIDERS: PCP Family Medicine; Referring Provider Physician Assistant; Visit Provider Physician Assistant
DX: M48.061 Spinal stenosis, lumbar region without neurogenic claudication (principal); S32.008D Other fracture of unspecified lumbar vertebra, subsequent encounter for fracture with routine healing
CPT/HCPCS: 72072

== ENCOUNTER 2025-02-05 09:54 | Outpatient (CLI) | payer BC, SELFPAY ==
--- NOTE | 2025-02-05 09:58 | BD_ITS ---
PROCEDURE: DEXA BONE DENSITY STUDY 02/05/2025 REASON FOR EXAM: F, age 69 y/o . Postmenopausal. TECHNIQUE: DEXA BONE DENSITY STUDY COMPARISON: None FINDINGS: BMD and T-SCORES Lumbar spine: 0.963 g/cm2, T-score -0.6 Levels: L1 through L4 Left femoral neck: 0.812 g/cm2, T-score -0.3 Femoral neck comparison data not recommended for monitoring change. Left total hip: 0.868 g/cm2, T-score -0.6 Right femoral neck: 0.713 g/cm2, T-score -1.2 Femoral neck comparison data not recommended for monitoring change. Right total hip: 0.892 g/cm2, T-score -0.4 The World Health Organization has defined the following categories based on bone density: Normal bone density: T-score equal to or greater than -1.0 Osteopenia: T-score between -1.0 and -2.5 Osteoporosis: T-score equal to or less than -2.5 FRAX (or Comparable) Fracture Risk Assessment: 10 Year Probability of Fracture: Major Osteoporotic Fracture: 14% Hip Fracture: 1.6% (Note: FRAX is not to be reported in setting of normal range bone density, osteoporosis on DEXA, known history of osteoporosis, prior osteoporotic hip or vertebral fracture, or for any patient undergoing pharmacological treatment for bone loss.) The National Osteoporosis Foundation (NOF) recommends pharmacological treatment for patients with a FRAX 10-year risk of 3% or higher for a hip fracture, or 20% or higher for a major osteoporotic fracture, to prevent osteoporosis and reduce fracture risk. The patient does meet the pharmacological treatment recommendations for prevention of osteoporosis. BD/Dexa Bone Density Study IMPRESSION: OSTEOPENIA. Recommend follow-up as clinically warranted. Reading Location: [facility]
== END 2025-02-05 23:59 | disposition home or self-care (01) ==
PROVIDERS: PCP Family Medicine; Referring Provider Physician Assistant; Visit Provider Physician Assistant
DX: S32.008D Other fracture of unspecified lumbar vertebra, subsequent encounter for fracture with routine healing (principal); M48.061 Spinal stenosis, lumbar region without neurogenic claudication; M85.80 Other specified disorders of bone density and structure, unspecified site
CPT/HCPCS: 77080